=== PATIENT | female | born 1940 | race Caucasian/White ===

== ENCOUNTER 2019-10-18 19:54 | Emergency (ER) | payer BC, MEDICARE ==
[2019-10-18 20:37] LABS: #Basophils 0.1 thou/uL (0.0-0.2); #Eosinphils 0.1 thou/uL (0.0-0.7); #Lymphocytes 1.4 thou/uL (1.20-3.40); #Neutrophils 12.7 thou/uL (1.40-6.50); %Basophils 0.5 % (0.0-1.0); %Eosinophils 0.7 % (0.0-10.0); %Lymphocytes 9.1 % (21.0-51.0); %Monocytes 6.6 % (0.0-10.0); Hemoglobin 11.6 g/dL (12.0-16.0); Mean Corpuscular HGB CONC 33.4 g/dL (32.0-36.0); Mean Corpuscular Hemoglobin 30.8 pg (27.0-31.0); Mean Corpuscular Volume 92.2 fL (78.0-98.0); Mean Platelet Volume 9.2 fL (7.4-10.4); Platelet Count 293 thou/uL (130-400); RBC Distribution Width 14.8 % (11.5-14.5); Red Blood Cell (RBC) Count 3.78 mill/uL (4.20-5.40); White Blood Cell (WBC) Count 15.3 thou/uL (4.8-10.8)
--- NOTE | 2019-10-18 20:37 | RAD ---
XR Chest 1 View Portable HISTORY: High blood pressure COMPARISON: None FINDINGS: The heart size is normal. There are changes of median sternotomy. The aorta is tortuous. Pr ominent interstitial markings are likely chronic. The lungs are well expanded without focal areas of consolidation, pneumothorax or pleural effusions.
[2019-10-18 20:53] LABS: ALT (SGPT) 10 U/L (8-55); AST (SGOT) 18 U/L (5-34); Albumin 3.8 g/dL (3.4-4.8); Alkaline Phosphatase 102 U/L (40-110); Anion Gap 15 mmol/L (10-20); BUN (Urea Nitrogen) 39 mg/dL (9.8-20.1); Bilirubin, Total 0.4 mg/dL (0.2-1.2); Calc. Creatinine Clearance 0 mL/min (70-130); Calcium 9.2 mg/dL (7.8-10.44); Carbon Dioxide 24 mmol/L (23-31); Chloride 102 mmol/L (98-107); Estimated GFR-MDRD 19; Globulin 3.6 g/dL (2.4-3.5); Glucose 121 mg/dL (83-110); Potassium 4.1 mmol/L (3.5-5.1); Protein, Total 7.4 g/dL (6.0-8.3); Sodium 137 mmol/L (136-145)
== END 2019-10-18 21:31 | disposition home or self-care (01) ==
LOC: ERS 19:54
DX: I10 Essential (primary) hypertension (principal); N17.9 Acute kidney failure, unspecified
CPT/HCPCS: 36415; 71045; 80053; 83880; 84484; 85025; 93005; 94760

== ENCOUNTER 2019-10-23 16:47 | Inpatient (IN) | payer MEDICARE ==
[2019-10-23] MEDS ORDERED: Albuterol Sulfate 2.5 mg/3 ml Neb ONE (17:32)
[2019-10-23] MEDS ORDERED: Albuterol Sulfate 2.5 mg/0.5 ml Neb ONE (17:32)
[2019-10-23 17:44] LABS: #Basophils 0.1 thou/uL (0.0-0.2); #Eosinphils 0.2 thou/uL (0.0-0.7); #Lymphocytes 1.5 thou/uL (1.20-3.40); #Monocytes 0.7 thou/uL (0.11-0.59); %Basophils 0.3 % (0.0-1.0); %Eosinophils 1.2 % (0.0-10.0); %Lymphocytes 9.6 % (21.0-51.0); %Monocytes 4.5 % (0.0-10.0); %Neutrophils 84.4 % (42.0-75.0); Hemoglobin 11.5 g/dL (12.0-16.0); Mean Corpuscular HGB CONC 33.8 g/dL (32.0-36.0); Mean Corpuscular Hemoglobin 31.3 pg (27.0-31.0); Mean Corpuscular Volume 92.7 fL (78.0-98.0); Mean Platelet Volume 9.8 fL (7.4-10.4); Platelet Count 327 thou/uL (130-400); Red Blood Cell (RBC) Count 3.66 mill/uL (4.20-5.40); White Blood Cell (WBC) Count 15.4 thou/uL (4.8-10.8)
[2019-10-23 17:51] LABS: Actual Bicarbonate (HCO3a) 19.1 mEq/L (22-28); Analyzer IN Cardio ER; Base Excess (BEa) -3.8 mEq/L (-2.0 to +3.0); CO2 Tension 28.3 mmHg (35.0-45.0); Carboxyhemoglobin (COHb) 0.3 gm% (0.0-3.0); Hemoglobin (Hb) 11.4 g/dL (12.0-16.0); Potassium - ABG Lab 3.87 mmol/L (3.70-5.30); pH, Arterial 7.45 (7.35-7.45)
[2019-10-23 17:53] LABS: ALV-art Gradient 198.925 (0-20); O2 Tension (PaO2) 50.9 mmHg (> 70.0); Puncture Site RBA
--- NOTE | 2019-10-23 18:02 | RAD ---
Exam: Chest one view HISTORY:Dyspnea Comparison: 10/18/2019 FINDINGS: Cardiac silhouette:Normal cardiac silhouette. Stable sternotomy wires Aorta: Atherosclerosis Pulmonary vessels: Normal Costophrenic angles: Small bilateral effusions LUNGS: Bilateral perihilar interstitial and alveolar infiltrates with additional interstitial opaciti es scattered throughout the lung parenchyma. A component of edema or infiltrate superimposed upon chronic parenchymal changes are suspected. Mild hyperinflation. Pneumothorax: None Osseous abnormalities: None IMPRESSION: 1. COPD. Chronic lung parenchymal changes. 2. Atherosclerosis 3. Bilateral perihilar interstitial and alveolar infiltrates suggesting edema or infiltrate, superimp osed upon chronic change
[2019-10-23 18:06] LABS: ALT (SGPT) 27 U/L (8-55); AST (SGOT) 40 U/L (5-34); Albumin 3.7 g/dL (3.4-4.8); Alkaline Phosphatase 105 U/L (40-110); Anion Gap 17 mmol/L (10-20); BUN (Urea Nitrogen) 60 mg/dL (9.8-20.1); Bilirubin, Total 0.3 mg/dL (0.2-1.2); Calc. Creatinine Clearance 0 mL/min (70-130); Calcium 8.9 mg/dL (7.8-10.44); Carbon Dioxide 19 mmol/L (23-31); Chloride 104 mmol/L (98-107); Estimated GFR-MDRD 17; Globulin 3.5 g/dL (2.4-3.5); Glucose 139 mg/dL (83-110); Lipase 37 U/L (8-78); Potassium 3.9 mmol/L (3.5-5.1); Protein, Total 7.2 g/dL (6.0-8.3); Sodium 136 mmol/L (136-145)
[2019-10-23 18:13] LABS: Bacteria/HPF 1+ HPF (None Seen); Bilirubin Negative (Negative); Blood, Urine 2+ (Negative); Clarity Clear (Clear); Glucose, Urine (Dipstick) Normal (Negative); Leukocyte Negative Leu/uL (Negative); Nitrite Negative (Negative); Protein, Urine (Dipstick) 50 mg/dL (Neg-Trace); RBC/HPF Greater than 50 HPF (0-3); Squamous Epithelial None Seen HPF (0-3); Urobilinogen Normal mg/dL (Less than 2)
[2019-10-23] MEDS ORDERED: Furosemide 40 MG/4 ML VIAL ONE ×2 (18:22→22:04)
[2019-10-23] MEDS ORDERED: cefTRIAXone\\ROCEPHIN 2 GM VIAL ONE (18:22)
[2019-10-23] MEDS ORDERED: Dexamethasone 10 MG/ML VIAL ONE (18:22)
[2019-10-23] MEDS ORDERED: Nitroglycerin 2% Ointment 1 INCH/1 GM Packet ONE (18:22)
[2019-10-23] MEDS ORDERED: Magnesium 2 GM/50 ML BAG (IN WATER) ONE (18:22)
[2019-10-23 18:38] LABS: CKMB 1.6 ng/mL (0-6.6)
[2019-10-23] MEDS ORDERED: Azithromycin 500 MG VIAL ONE (19:12)
[2019-10-23] MEDS ORDERED: Enoxaparin Sodium 60 MG/0.6 ML SYRINGE ONE (19:13)
--- NOTE | 2019-10-23 19:44 | PDOC.FPRHP ---
- History of Present Illness Chief Complaint: dyspnea History of Present Illness: 79yo CF with h/o CAD s/p CABG in 2010, HTN presents for worsening of dyspnea over the past worse with acute worsening today. States has had recent addition of Coreg 6.125mg BID to her medication regime earlier this week when she presented to [facility] to establish care with Dr. Roberts. Presented to [facility] for eval today and subsequently sent to ED for eval. Pt states had had 1 week of sxs, acutely worsening. Associated LE edema. Tension NORTH relieved with chiropractor earlier in the day. No vision changes or scotomas, no CP, abd pain, n/v, diarrhea/constipation. Does endorse vaginal burning and urinary frequency without incontinence. Subjective fever and chills. Endorse orthopnea and PND over past few nights, having to sit complete upright to sleep. No known prior history of HF, lung disease, or kidney disease per pt. No recent travel or immobilization. No known sick contacts. ED Course: Initial BP 227/97, given nitropaste with improvement to 183/95. Initially satting 85% on RA, titrated to 10L NC and still satting 90 on RA. Transitioned to BiPap while interviewing patient. Given th lovenox dose. Unable to obtain CTA 2/2 GFR. Elevated D-dimer. Given Rocephin and Azithro. Lasix 40IV mg. Pt was given 2L NS in ED for suspected sepsis. Patient then continued to desat to mid-80s on escalation of BiPAP. Beside discussion with patient and son and confirmation of full code status it was decided patient warranted intubation. Pt was then intubated with Dr. Mckeon - see ED note for details. Post-intubation pt O2 responded well and she was placed on vent and transported to ICU in stable condition. - Allergies/Adverse Reactions Allergies Allergy/AdvReac Type Severity Reaction Status Date / Time clopidogrel Allergy Verified 10/23/19 19:22 lisinopril Allergy Verified 10/23/19 19:22 - Home Medications Medication Instructions Recorded Confirmed Type Aspirin [Ecotrin] 81 mg PO DAILY 10/23/19 10/23/19 History Carvedilol [Coreg] 3.125 mg PO BID 10/23/19 10/23/19 History Cholecalciferol (Vitamin D3) 1,250 mcg PO DAILY 10/23/19 10/23/19 History [Vitamin D3] Folic Acid 1.2 mg PO DAILY 10/23/19 10/23/19 History Ubidecarenone [Co Q-10] 100 mg PO BID 10/23/19 10/23/19 History - History PMHx: HLD, HTN, CAD s/p CABG in 2010 PSHx: CABG, L4/L5 fusion, Hyst, Appy FHx: Dad prostate cancer, brothers of lung cancer. Social: Previous 50+py smoking history, quit in 2010. No illicits or EtOH. Single. 1 child. - Review of Systems General: reports: fever/chills, fatigue. denies: weight/appetite/sleep changes Eyes: denies: vision changes ENT: denies: nasal congestion, rhinorrhea Respiratory: reports: shortness of breath, exercise intolerance. denies: cough , congestion Cardiovascular: reports: edema, paroxysmal nocturnal dyspnea, orthopnea. denies : chest pain, palpitation Gastrointestinal: denies: nausea, vomiting, diarrhea, constipation, abdominal pain Genitourinary: reports: dysuria, other (frequency). denies: incontinence Skin: denies: rashes Neurological: denies: numbness, syncope - Vital signs BP: 227/97 HR: 88 RR: 20 Tmax: 97.6 Pox: 85% on RA Wt: 56kg - Physical Exam Constitutional: awake, alert and oriented, other (frail, mild respiratory distress, about to talk in full sentences) HEENT: PERRLA, EOMI, grossly normal vision, grossly normal hearing, MMM, oropharynx clear Neck: supple, trachea midline Heart: RRR, normal S1/S2, no murmurs/rubs/gallops, other (1+ pitting edema to above ankles) Lungs: no wheezing, no retractions, other (mild respiratory distress, bibasilar crackles) Abdomen: soft, non-tender, bowel sounds present, no masses/distention Skin: no rash/lesions Psychiatric: normal mood and affect, good judgment and insight, intact recent and remote memory FMR H&P: Results - Labs Result Diagrams: 10/23/19 17:23 10/23/19 17:23 Lab results: WBC 15.4 thou/uL (4.8-10.8) H 10/23/19 17:23 Hgb 11.5 g/dL (12.0-16.0) L 10/23/19 17:23 Hct 34.0 % (36.0-47.0) L 10/23/19 17:23 MCV 92.7 fL (78.0-98.0) 10/23/19 17:23 Plt Count 327 thou/uL (130-400) 10/23/19 17:23 Neutrophils % 84.4 % (42.0-75.0) H 10/23/19 17:23 ABG pH 7.45 (7.35-7.45) 10/23/19 17:29 ABG pCO2 28.3 mmHg (35.0-45.0) L 10/23/19 17:29 ABG pO2 50.9 mmHg (> 70.0) L* 10/23/19 17:29 Sodium 136 mmol/L (136-145) 10/23/19 17:23 Potassium 3.9 mmol/L (3.5-5.1) 10/23/19 17:23 Chloride 104 mmol/L (98-107) 10/23/19 17:23 Carbon Dioxide 19 mmol/L (23-31) L 10/23/19 17:23 BUN 60 mg/dL (9.8-20.1) H 10/23/19 17:23 Creatinine 2.65 mg/dL (0.6-1.1) H 10/23/19 17:23 Glucose 139 mg/dL (83-110) H 10/23/19 17:23 Lactic Acid 1.3 mmol/L (0.5-2.2) 10/23/19 17:47 Calcium 8.9 mg/dL (7.8-10.44) 10/23/19 17:23 Total Bilirubin 0.3 mg/dL (0.2-1.2) 10/23/19 17:23 AST 40 U/L (5-34) H 10/23/19 17:23 ALT 27 U/L (8-55) 10/23/19 17:23 Alkaline Phosphatase 105 U/L (40-110) 10/23/19 17:23 Creatine Kinase 59 U/L (29-168) 10/23/19 17:23 CK-MB (CK-2) 1.6 ng/mL (0-6.6) 10/23/19 17:23 B-Natriuretic Peptide 1214.7 pg/mL (0-100) H 10/23/19 17:23 Serum Total Protein 7.2 g/dL (6.0-8.3) 10/23/19 17:23 Albumin 3.7 g/dL (3.4-4.8) 10/23/19 17:23 Lipase 37 U/L (8-78) 10/23/19 17:23 Urine Ketones Negative mg/dL (Negative) 10/23/19 17:38 Urine Blood 2+ (Negative) A 10/23/19 17:38 Urine Nitrite Negative (Negative) 10/23/19 17:38 Ur Leukocyte Esterase Negative Ashli/uL (Negative) 10/23/19 17:38 Urine RBC Greater than 50 HPF (0-3) A 10/23/19 17:38 Urine WBC 7-10 HPF (0-3) A 10/23/19 17:38 Ur Squamous Epith Cells None Seen HPF (0-3) 10/23/19 17:38 Urine Bacteria 1+ HPF (None Seen) A 10/23/19 17:38 - Radiology Interpretation Chest x-ray Status: image reviewed by me (hyperinflation suspect for COPD, bilarter pulmonary edema with no focal consolidation or effusion noted.), report reviewed by me FMR H&P: A/P - Problem List (1) Acute respiratory failure with hypoxia Current Visit: Yes Status: Acute Code(s): J96.01 - ACUTE RESPIRATORY FAILURE WITH HYPOXIA (2) Hypertensive emergency Current Visit: Yes Status: Acute Code(s): I16.1 - HYPERTENSIVE EMERGENCY (3) CHF (congestive heart failure) Current Visit: Yes Status: Suspected Code(s): I50.9 - HEART FAILURE, UNSPECIFIED (4) CAD (coronary artery disease) Current Visit: Yes Status: Chronic Code(s): I25.10 - ATHSCL HEART DISEASE OF [place] CORONARY ARTERY W/O ANG PCTRS Qualifiers: Coronary Disease-Associated Artery/Lesion type: bypass graft [place] vs. transplanted heart: [place] (5) HTN (hypertension) Current Visit: Yes Status: Chronic Code(s): I10 - ESSENTIAL (PRIMARY) HYPERTENSION Qualifiers: Hypertension type: essential hypertension Qualified Code(s): I10 - Essential (primary) hypertension - Plan 79yo CF with h/o CAD s/p CABG in 2010 and HTN presents for HTN emergency with pulmonary edema as well as suspected CHF exacerbation #Acute hypoxic Respiratory failure - 2/2 HTN emergency and suspected CHF exacerbation - Did not tolerate BiPap in ED, now intubated - Vent settings of 100% FiO2, 15 Peep, 15 PS, 20RR, and 450Tv. SIMV with PS - Will obtain ABG and titrate settings appropriately - Admit to ICU with Sedation protocol - CXR post-intubation with worsening BL pulm edema after 2L NS bolus in ED, ETT below clavicles, OG in place - Pulmonary consult, Dr. Costa, apprec recs - ED given azithro and rocephin for suspected sepsis 2/2 PNA, however pt did not meet sepsis criteria and no focal consolidation on CXR, low suspicion for PNA at this time, will d/c azithro and cont rocephin for suspected UTI - AM ABG and CXR #HTN emergency - SBP >220 on presentation - flash pulm edema as well as suspected acute kidney injury - Given nitro in ED with continued elevated BP - Place on Cardene gtt 5ml/hr and titrate to goal BP between 130/80 and 160/110 - Will start on Losartan 50mg daily, will need continued titration of PO meds #Suspected newly diagnosed CHF with exacerbation - contributing to the above - h/o CAD but no known history of CHF - BNP 1200 with BL LE edema, PNA, orthopnea, and crackles on exam - Given 40mg Lasix in ED, will given another 40mg IV lasix now and 20mg IV lasix BID starting tomorrow - Echo ordered - will risk stratify and add appropriate HF medications pending workup #Elevated Troponin, 2/2 demand ischemia - Trop 0.035, no acute EKG changes - will monitor on tele and trend trops - suspected 2/2 demand ischemia, HTN emergency, NAOMI on CKD, and CHF exacerbation #Elevated D-Dimer - D- dimer 2.62 - Wells scare 0 - low suspicion for PE, unable to obtain CTA 2/2 GFR - will order doppler US BL LE - suspect elevation 2/2 NAOMI, HTN emergency, CHF #NAOMI on suspected CKD - Cr 2.65 with GFR of 17 - unknown baseline with last labs in record from 2015 of normal renal function - suspected some component of NAOMI with HTN emergency, will diuresis and monitor - monitor and replace lytes as necessary #Suspected UTI - sxs of vaginal burning and frequency with chills - afebrile, no suprapubic tenderness on palpation - UA 1+ bacteria with WBC, negative LE and nitrites - given azithro and rocephin in ED, will cont rocephin 1g q24hr pending UCx #CAD s/p CABG - CABG in 2010 - Cont asa, allergy to plavix per pt (Rash and itching) - workup per above #Suspected COPD - Lungs with COPD changes on CXR - 50+py smoking history, quit in 2010 - likely benefit from outpatient spirometry #Normocytic Anemia - Hb 11.5 - suspecte anemia of chronic disease, will obtain B12 and iron studies - no s/s of acute bleed Lines/Tubes: King (10/23), Intubation (10/23), OG (10/23) Code: Full - discussed at length with pt and son at bedside. Son's name is Robbie Jones [phone] PCP: EDUARDO Roberts Diet: NPO VTE: Heparin IVF: SL Disposition/LOS: Admit to ICU for HTN emergency, intubation on Cardene gtt. Anticipate hospitalization >48hrs. FMR H&P: Upper Level - Pertinent history 79yo CF with h/o CAD s/p CABG in 2010,HTN, and HLD presents for worsening of dyspnea since Saturday. Patient states that she got acutely worse today. She walked in to clinic today to be evaluated. She was triaged and immediately sent to the Emergency Department. Patient states she had recent addition of Coreg 6.125 mg BID to her medication regimen and attributes her symptoms to these medication changes. She has only been seen at our clinic once. Patient denies chest pain, N/V. She does state that she has had lower extremity swelling. Patient denies known history of CHF. 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 Patient is single and has one son. She lives independently. - Pertinent findings General: Alert and oriented x3. Moderate respiratory distress on 10L NC. Able to speak in full sentences. HEENT: MMM. PERRL. Card: RRR, ANGELITA Resp: Bilateral basilar crackles, moderate respiratory distress on 10L NC. Abdomen: Soft, non-tender Ext: 1+ bilateral edema, no cyanosis Skin: Warm and dry - Plan Date/Time: 10/23/191943 I, Jaqueline Kingston, have evaluated this patient and agree with findings/plan as outlined by regulatory affairs internship resident. Pertinent changes/additions are listed here. Acute hypoxic respiratory failure 2/2 pulmonary edema - 2/2 HTN emergency - Patient with presenting BP of 227/97 and hypoxia of 85% on RA - Patient required NC, but was still having moderate respiratory distress on 10L NC, she was then transitioned to BiPAP. She did well on BiPAP for a short period of time. However, we did get called back down due to concerns for saturations in the 80's even on BiPAP. After discussion with patient, decision was made to intubate. Patient intubated with a 7.5 ETT using glidescope. OG placed. Patient placed on ventilator. ABG obtained. Able to get sats >95%. - Patient given 2L NS in ED due to suspected sepsis; our suspicion for sepsis is low and we requested additional fluids be stopped as patient with flash pulmonary edema as cause for respiratory distress; patient being diuresed aggressively. - Patient given nitro patch in ED. BP's still >160/110. Advised to remove nitro patch and place patient on nicardipine gtt with goal BP <160/110 and >130/80. - Obtain echo in AM to evaluate for HF - CXR with pulmonary edema consistent with clinical picture - Admit to CCU, ventilated and sedated - Will start patient on oral BP medications and attempt to titrate off the nicardipine drip - BNP 1200 - Concern for sepsis very low as only factors meeting sepsis criteria were WBC and RR. RR can be explained by pulmonary edema and WBC has been elevated at previous visit. Will cover for UTI with rocephin and obtain procal to further evaluate. Patient received 2L NS in ED for sepsis. Will need additional diuresis. CXR not c/w pneumonia. Patient afebrile with normal HR. - Initial concern for PE given elevated DDimer 2.26; Wells score for PE 0, so suspicion low. Unable to obtain CTA due to renal function. VQ scan would likely prove useless given pulmonary issues at this point. Will obtain bilateral venous dopplers to rule out DVT's. Patient received therapeutic lovenox in ED. Will start on heparin for DVT ppx tomorrow. - Procal pending HTN emergency - Start on nicardipine drip with goal BP <160/110 and >130/80 - Will start on oral BP meds with goal of titrating off drip - Remove nitro drip placed by ED - See plan as above Suspect new onset CHF - BNP 1200 - Echo pending - Will consult cardiology after echo results - Pulm, Dr. Costa has been consulted; appreciate recs Possible UTI - UA with LE's and 1+ bacteria - Urine culture pending - Will cover with rocephin until culture results Indeterminate troponin, likely demand ischemia - Will continue to trend - EKG with some twave inversions in inferior leads - No chest pain on arrival NAOMI on CKD - Uncertain of baseline - Likely has CKD stage 4 based on last two hospital visits - Patient would benefit from Nephrology evaluation - Avoid nephrotoxic agents Leukocytosis - Elevated at previous vist - Likely reactive - Will treat possible UTI with rocephin until cultures result Normocytic anemia - Will obtain iron studies and B12 CAD s/p CABG - Patient on Carvedilol, will hold while in acute exacerbation - Not on statin at home, will start statin therapy HLD - Not on statin therapy - Will start statin therapy - Will obtain FLP HTN - Only on carvedilol - Came in with HTN emergency - Will start on losartan due to suspicion for new onset HF - Adjust medications as necessary DVT PPX: Heparin GI PPX: Pepcid Code status: Full code, discussed with patient on several occasions, including just prior to intubation. Son present for discussion. Dispo: Admit to CCU. Anticipate LOS >48 hours.
[2019-10-23] MEDS ORDERED: Aspirin Chewable 81 MG TAB ONE (20:15)
[2019-10-23] MEDS ORDERED: Rocuronium Bromide 10 MG/ML (10ML VIAL) ONE ×2 (20:44→20:47)
[2019-10-23] MEDS ORDERED: Losartan 25 MG TAB PO SCH (21:00)
[2019-10-23 21:04] LABS: Troponin I 0.056 ng/mL (< 0.028)
--- NOTE | 2019-10-23 21:19 | RAD ---
Exam: Chest one view HISTORY:Status post intubation. Respiratory distress Comparison: 10/23/2019 5:27 PM FINDINGS: Cardiac silhouette:Normal cardiac silhouette and sternotomy wires. Aorta: Stable atherosclerosis Lines and tubes: Interval placement of endotracheal tube terminating at the level of clavicles. Nasog astric tube extends beyond the diaphragm. Distal tip is not seen. Pulmonary vessels: Normal Costophrenic angles: Clear LUNGS: Interval worsening of bilateral interstitial and alveolar opacities. More focal consolidation in the right perihilar region and right lower lobe. Pneumothorax: None Osseous abnormalities: None IMPRESSION: 1. Lines and tubes as above 2. Worsening interstitial and alveolar opacities. Transcribed Date/Time: 10/23/2019 9:48 PM
[2019-10-23] MEDS ORDERED: niCARdipine 25 MG in Sodium Chloride 0.9% 250 ML 240 ML IVPB SCH ×2 (21:45→23:02)
[2019-10-23 21:56] LABS: Actual Bicarbonate (HCO3a) 17.9 mEq/L (22-28); Analyzer IN Cardio ER; CO2 Tension 42.4 mmHg (35.0-45.0); Calcium, Ionized 1.11 mmol/L (1.12-1.30); Carboxyhemoglobin (COHb) 0.3 gm% (0.0-3.0); Hemoglobin (Hb) 12.3 g/dL (12.0-16.0); O2 Tension (PaO2) 88.7 mmHg (> 70.0); Potassium - ABG Lab 3.73 mmol/L (3.70-5.30)
[2019-10-23 21:59] LABS: Puncture Site RBA; pH, Arterial 7.24 (7.35-7.45)
--- NOTE | 2019-10-23 22:28 | PDOC.EVN ---
Event Note - Event Note Event Note: Received call that no ICU beds available at [facility]. Transfer to [facility] was initiated. Doc to doc with Dr. Catherine @ 1503 who accepted the patient. Pt will be transferred.
[2019-10-23] MEDS ORDERED: CCU Electrolyte Replacement 1 EACH IVPB ONE (23:02)
[2019-10-23] MEDS ORDERED: Ventilator Sedation Protocol 1 EACH FS SCH (23:02)
[2019-10-23] MEDS ORDERED: Acetaminophen 650 MG Suppository PR PRN (23:02)
[2019-10-23] MEDS ORDERED: Magnesium Oxide 400 MG TAB PO PRN ×2 (23:05)
[2019-10-23] MEDS ORDERED: Lorazepam 2 MG/ML VIAL SLOW IVP PRN (23:05)
[2019-10-23] MEDS ORDERED: CCU ELECTROLYTE REPLACEMENT PROTOCOL FS PRN (23:05)
[2019-10-23] MEDS ORDERED: Potassium Chloride 40 MEQ in Sodium Chloride 0.9% 250 ML 250 ML IVPB PRN (23:05)
[2019-10-23] MEDS ORDERED: PHOS-NAK 1 PKT PACK PO PRN ×2 (23:05)
[2019-10-23] MEDS ORDERED: Potassium Chloride 40 MEQ in Premix Bag 1 BAG IVPB PRN (23:05)
[2019-10-23] MEDS ORDERED: Potassium Phosphate 15 MMOL in Sodium Chloride 0.9% 250 ML 250 ML IV PRN (23:05)
[2019-10-23] MEDS ORDERED: Potassium Chloride 20 MEQ TAB PO PRN (23:05)
[2019-10-23] MEDS ORDERED: Potassium Phosphate 12 MMOL in Sodium Chloride 0.9% 250 ML 250 ML IV PRN (23:05)
[2019-10-23] MEDS ORDERED: fentaNYL Citrate/PF 2,000 MCG in Sodium Chloride 0.9% 60 ML IV SCH (23:05)
[2019-10-23] MEDS ORDERED: DISCONTINUE PREVIOUS NARCOTIC PAIN MEDICATIONS AND BENZODIAZEPINES FS SCH (23:05)
[2019-10-23] MEDS ORDERED: Magnesium 2 GM/50 ML 2 GM in Premix Bag 1 BAG IVPB PRN (23:05)
[2019-10-23] MEDS ORDERED: Fentanyl BOLUS 250 ML IVPB PRN (23:05)
[2019-10-23] MEDS ORDERED: Propofol BOLUS 1,000 MG/100 ML VIAL IV PRN (23:05)
[2019-10-23] MEDS ORDERED: Potassium Phosphate 9 MMOL in Sodium Chloride 0.9% 100 ML IVPB PRN (23:05)
[2019-10-23] MEDS ORDERED: Morphine 2 MG/ML SYRINGE SLOW IVP PRN (23:05)
[2019-10-23] MEDS ORDERED: Propofol 1,000 MG/100 ML VIAL IV PRN (23:05)
[2019-10-23] MEDS ORDERED: Furosemide 40 MG/4 ML VIAL SLOW IVP SCH (23:15)
[2019-10-23] MEDS ORDERED: Ubidecarenone 50 MG CAP PO SCH (23:30)
[2019-10-23 23:36] LABS: Hemoglobin A1c 5.4 % (4.0-6.0)
[2019-10-23 23:37] LABS: Iron Binding Capacity, Total 254 mcg/dL (265-497); Magnesium 2.3 mg/dL (1.6-2.6)
--- NOTE | 2019-10-24 00:11 | PDOC.EVN ---
Event Note - Event Note Event Note: ICU bed has became available. Transfer canceled. Pt to remain at [facility] for further management.
[2019-10-24] MEDS ORDERED: Propofol 1,000 MG/100 ML VIAL IV ONE (00:38)
[2019-10-24 01:55] LABS: Thyroid Stimulating Hormone 1.5271 uIU/mL (0.35-4.94)
[2019-10-24 02:58] LABS: Troponin I 0.153 ng/mL (< 0.028)
[2019-10-24 03:30] LABS: Anion Gap 16 mmol/L (10-20); BUN (Urea Nitrogen) 58 mg/dL (9.8-20.1); Calc. Creatinine Clearance 0 mL/min (70-130); Calcium 8.5 mg/dL (7.8-10.44); Carbon Dioxide 17 mmol/L (23-31); Cardiac Risk 5.3 (Less than 4.5); Chloride 109 mmol/L (98-107); Cholesterol 222 mg/dl (< 200 Desired); Estimated GFR-MDRD 19; Glucose 155 mg/dL (83-110); HDL Cholesterol 42 mg/dL (>60 Neg Risk); LDL Cholesterol, Calculated 160 mg/dL; Potassium 3.7 mmol/L (3.5-5.1); Sodium 138 mmol/L (136-145); Triglycerides 98 mg/dL (Less than 150)
[2019-10-24 03:32] LABS: Band 7 % (5-11); Hemoglobin 10.8 g/dL (12.0-16.0); Lymphocytes 2 % (21-51); MDiff Complete? YES; Mean Corpuscular Hemoglobin 31.2 pg (27.0-31.0); Mean Corpuscular Volume 94.6 fL (78.0-98.0); Mean Platelet Volume 9.2 fL (7.4-10.4); Monocytes 3 % (0-10); Neutrophil 88 % (42-75); Platelet Count 321 thou/uL (130-400); Red Blood Cell (RBC) Count 3.47 mill/uL (4.20-5.40); Schistocytes SLIGHT = 2-5 cells (100X) (0-1/hpf); White Blood Cell (WBC) Count 27.3 thou/uL (4.8-10.8)
[2019-10-24] MEDS: Atorvastatin Calcium 40 MG TAB PO SCH ×2 (04:36→22:17)
[2019-10-24 04:52] LABS: Ferritin 168.95 ng/mL (10-291)
--- NOTE | 2019-10-24 05:20 | PDOC.FM ---
- Subjective Subjective: No acute events overnight. BP improved with propofol. She denies any tearing or stabbing chest pain on admission - Objective MAR Reviewed: Yes Vital Signs & Weight: Vital Signs (12 hours) Temp Pulse Resp 10/24/19 03:50 73 10/24/19 02:06 72 10/24/19 01:20 98.6 F 10/24/19 01:18 24 H Weight Admit Weight 57.8 kg I&O: 10/22/19 10/23/19 10/24/19 06:59 06:59 06:59 Output Total 1125 Balance -1125 Result Diagrams: 10/24/19 02:25 10/24/19 02:25 Phys Exam - Physical Examination Constitutional: NAD GCS [id number] HEENT: PERRLA, moist MMs Neck: no JVD Coarse lung sounds, no crackles, no wheezing Cardiovascular: RRR, no significant murmur Gastrointestinal: soft, no distention, positive bowel sounds Musculoskeletal: no edema, pulses present Neurological: normal sensation, moves all 4 limbs Skin: cap refill <2 seconds Dx/Plan (1) Acute respiratory failure with hypoxia Code(s): J96.01 - ACUTE RESPIRATORY FAILURE WITH HYPOXIA Status: Acute (2) Hypertensive emergency Code(s): I16.1 - HYPERTENSIVE EMERGENCY Status: Acute (3) CAD (coronary artery disease) Code(s): I25.10 - ATHSCL HEART DISEASE OF [place] CORONARY ARTERY W/O ANG PCTRS Status: Chronic Qualifiers: Coronary Disease-Associated Artery/Lesion type: bypass graft [place] vs. transplanted heart: [place] heart (4) CHF (congestive heart failure) Code(s): I50.9 - HEART FAILURE, UNSPECIFIED Status: Suspected - Plan Plan: This is a 79 yo female with a pmh of CAD with CABG, MV regurg, HLD, HTN Hospital Day 1 Code: Full DVT Prophylaxis: Heparin GI Prophylaxis: Pepcid Family: None at bedside Fluids: SL Drips:Propofol 5mcg/kg/hr Plastic: OG/ET tube, freire, IV left forearm Vent Settings: SIMV 24/min, TV 450, PS 12, FIO2 80, Peep 10 Plan: Diurese and wean off vent. Pt needs improvement in her BP control before discharge. Needs stress test before discharge Acute hypoxic respiratory failure 2/2 flash pulmonary edema -Intubated on the floor, continue vent and respiratory support -Start IV lasix -Dr. Costa, pulmonology consulted -Pending AM CXR HTN emergency -In ICU on cardene drip -Continue home PO meds -Continue losartan -Goal SBP 130-160, goal DBP 80-110 Elevated BNP, possible new onset heart failure -Pending Echo -Receiving lasix Elevated troponins -Likely demand ischemia, no EKG changes -Will need stress test once stabilized Elevated D-Dimer -Wells score 0 -Low suspicion for PE -CXR does not show widened mediastinum, although it may be worth getting a CT chest if pt has chest pain -Pending lower extremity doppler NAOMI VS CKD -No recent data to compare -Likely related to severe HTN -Will monitor, already improving UTI -Pending urine culture -Continue rocphin CAD s/p CABG -Continue asa, work up as above Undiagnosed COPD -Long standing smoking history -Will add neb treatments as clinically indicated Normocytic anemia
[2019-10-24 06:43] LABS: Actual Bicarbonate (HCO3a) 19.2 mEq/L (22-28); Base Excess (BEa) -3.8 mEq/L (-2.0 to +3.0); Calcium, Ionized 1.11 mmol/L (1.12-1.30); Carboxyhemoglobin (COHb) 0.7 gm% (0.0-3.0); Hemoglobin (Hb) 10.2 g/dL (12.0-16.0); O2 Tension (PaO2) 190.8 mmHg (> 70.0); Potassium - ABG Lab 3.86 mmol/L (3.70-5.30); pH, Arterial 7.45 (7.35-7.45)
[2019-10-24 06:49] LABS: Puncture Site RBRACH
[2019-10-24] MEDS: Furosemide 20 MG/2 ML VIAL SLOW IVP SCH ×2 (06:54→14:03)
[2019-10-24 07:55] LABS: Troponin I 0.152 ng/mL (< 0.028)
[2019-10-24] MEDS ORDERED: Amlodipine 5 MG TAB PO SCH (09:00)
[2019-10-24] MEDS: Famotidine/PF 20 mg/2ml Vial SLOW IVP SCH (09:52)
[2019-10-24] MEDS: Aspirin 81 mg Enteric Coated Tablet PO SCH (09:52)
[2019-10-24] MEDS: Folic Acid 1 MG TAB PO SCH (09:53)
[2019-10-24] MEDS: Ubidecarenone 50 MG CAP PO SCH ×2 (09:53→22:17)
[2019-10-24] MEDS: Heparin 5,000 UNITS/ML VIAL SC SCH ×3 (09:53→22:17)
[2019-10-24] MEDS: Carvedilol 3.125 MG TAB PO SCH ×2 (09:53→22:18)
--- NOTE | 2019-10-24 09:56 | ULT ---
BILATERAL LOWER EXTREMITY VENOUS DOPPLER ULTRASOUND: 10/24/2019 HISTORY: Elevated D-dimer. COMPARISON: None. TECHNIQUE: Multiplanar, patterson-scale sonographic imaging of the venous structures of the bilateral lower extremiti es obtained with color-flow and spectral analysis. FINDINGS: The bilateral common femoral veins, the greater saphenous veins, the profunda femoral veins, the femo ral veins, the popliteal veins and the posterior tibial veins are patent. Normal blood flow augmentat ion and compression within the deep venous system bilaterally. IMPRESSION: No evidence for deep venous thrombosis of either lower extremity. POS: [facility]
--- NOTE | 2019-10-24 11:27 | RAD ---
SEMIUPRIGHT FRONTAL CHEST RADIOGRAPH: 10/24/2019 HISTORY: Evaluate lung parenchyma. Respiratory distress. COMPARISON: 10/23/2019 FINDINGS: Stable endotracheal tube and nasogastric tube. Heart and mediastinal contours are stable. Stable midl ine sternotomy wires and mediastinal clips. There is no pneumothorax evident. Diffuse interstitial prominence with pulmonary vascular congestion noted. There is mild infrahilar ai r space disease on the left. Aeration within the left lung has improved significantly when compared t o the prior exam. There is significant persistent air space disease within the right upper lobe with persistent right perihilar and right infrahilar consolidation with air bronchogram formation. IMPRESSION: Findings suggesting improving interstitial and alveolar pulmonary edema. The improvement is primarily within the left lung with prominent residual interstitial and alveolar opacity within the right lung . Findings suggest improving edema. Followup to resolution advised. POS: [facility]
--- NOTE | 2019-10-24 15:51 | PRG ---
DATE OF SERVICE: 10/24/2019 Please see the note from Dr. Taylor, for which I agree. The patient was seen, evaluated, discussed, and examined with the residents by bedside. Overnight, ended up getting emergently intubated for worsening respiratory distress, but really after diuresis, she is doing phenomenally better. Lungs sound good, wonder if we might be able to even consider extubation today, but Pulmonary is involved with that. Echocardiogram is still pending. She is on Rocephin for UTI, but exam looks good today, not much crackles. Overall good air movement. She was very awake and alert and communicative even while intubated and seems to be breathing fairly comfortably on exam. Job ID: [id number]
[2019-10-24] MEDS: cefTRIAXone\\ROCEPHIN 1 GM in Sodium Chloride 0.9% 100 ML IVPB SCH (16:39)
--- NOTE | 2019-10-24 21:40 | CON ---
DATE OF CONSULTATION: 10/24/2019 HISTORY OF PRESENT ILLNESS: Ms. Tate is a woman, who presented yesterday to the emergency department with complaints of shortness of breath. Apparently, she was initially hydrated and then got worse and was intubated and then was diuresed. She had diffuse alveolar infiltrates on her first radiograph suggestive of pulmonary edema. An echocardiogram was done today showing an ejection fraction of 40%, which is apparently new. She has [id number]-[id number] mitral regurgitation as well. She diuresed overnight and her left lung is clear, but she still has a fairly dense alveolar infiltrate on the right. She will awaken and follow commands with all of her extremities and nodded that she was reasonably comfortable. PAST MEDICAL HISTORY: Remarkable for; 1. Coronary artery bypass grafting in the past. 2. History of hypertension. 3. History of lumbar spine surgery. 4. Status post hysterectomy. 5. Status post appendectomy. FAMILY HISTORY: Positive for cancer. SOCIAL HISTORY: She is a former smoker, quit in 2010 presumably when she had her bypass surgery. She does not drink. REVIEW OF SYSTEMS: Not obtainable. PHYSICAL EXAMINATION: GENERAL: In the emergency department apparently she was extremely hypertensive. VITAL SIGNS: When I saw her this morning, blood pressure was fine. This evening, her blood pressure is 128/68, heart rate 66, respiratory rate is 22. HEAD AND NECK: Unremarkable. She appears her age. LUNGS: Remarkable for coarse equal breath sounds. She does have crackles on the right. HEART: Regular rhythm. There is grade 1 to 2/6 systolic murmur. ABDOMEN: Soft and nontender. EXTREMITIES: Without clubbing, cyanosis, or edema. LABORATORY DATA: White count 27.3, hemoglobin 10.8, platelets 321. Sodium 138, potassium 3.7, chloride 109, bicarb 17, BUN 58, creatinine 2.48. Creatinine is 2.65 yesterday. IMPRESSION: 1. Congestive heart failure. 2. Respiratory failure. 3. Chronic kidney disease with improved renal function today. 4. History of coronary artery bypass grafting in 2010, does not look like she has been in the hospital since that time. 5. Congestive heart failure is new. It would be appropriate to get Cardiology involved since this is new congestive heart failure that led to intubation. CRITICAL CARE TIME: 30 minutes. Job ID: [id number] [facility]
[2019-10-25 03:49] LABS: #Lymphocytes 2.3 thou/uL (1.20-3.40); #Neutrophils 11.3 thou/uL (1.40-6.50); %Basophils 0.3 % (0.0-1.0); %Eosinophils 0.3 % (0.0-10.0); %Lymphocytes 15.5 % (21.0-51.0); %Monocytes 6.7 % (0.0-10.0); %Neutrophils 77.2 % (42.0-75.0); Hemoglobin 8.3 g/dL (12.0-16.0); Mean Corpuscular HGB CONC 34.1 g/dL (32.0-36.0); Mean Corpuscular Hemoglobin 31.7 pg (27.0-31.0); Mean Corpuscular Volume 92.8 fL (78.0-98.0); Mean Platelet Volume 9.9 fL (7.4-10.4); Platelet Count 255 thou/uL (130-400); RBC Distribution Width 14.9 % (11.5-14.5); Red Blood Cell (RBC) Count 2.61 mill/uL (4.20-5.40); White Blood Cell (WBC) Count 14.6 thou/uL (4.8-10.8)
[2019-10-25 04:10] LABS: Anion Gap 17 mmol/L (10-20); BUN (Urea Nitrogen) 69 mg/dL (9.8-20.1); Calc. Creatinine Clearance 14 mL/min (70-130); Calcium 8.3 mg/dL (7.8-10.44); Carbon Dioxide 19 mmol/L (23-31); Chloride 109 mmol/L (98-107); Estimated GFR-MDRD 15; Glucose 98 mg/dL (83-110); Potassium 3.6 mmol/L (3.5-5.1); Sodium 141 mmol/L (136-145)
[2019-10-25] MEDS: Furosemide 20 MG/2 ML VIAL SLOW IVP SCH (05:51)
--- NOTE | 2019-10-25 05:58 | PDOC.FM ---
- Subjective Subjective: No acute events overnight. Pt nods that she is doing ok and denies any needs at this time. - Objective MAR Reviewed: Yes Vital Signs & Weight: Vital Signs (12 hours) Temp Pulse Resp 10/25/19 02:23 58 L 10/25/19 00:26 57 L 10/25/19 00:00 98.3 F 20 10/24/19 22:00 20 10/24/19 21:59 67 10/24/19 20:00 20 10/24/19 19:00 98.5 F 10/24/19 18:19 67 10/24/19 18:00 20 Weight Admit Weight 57.8 kg Weight 57.062 kg Most Recent Monitor Data Heart Rate from ECG 61 NIBP 115/55 NIBP BP-Mean 75 Respiration from ECG 20 SpO2 100 I&O: 10/23/19 10/24/19 10/25/19 06:59 06:59 06:59 Intake Total 20.9 143 Output Total 1275 1325 Balance -1254.1 -1182 Result Diagrams: 10/25/19 03:15 10/25/19 03:15 Phys Exam - Physical Examination Constitutional: NAD intubated HEENT: PERRLA, moist MMs Neck: no JVD Respiratory: no wheezing, clear to auscultation bilateral minimal crackles in the bases Cardiovascular: RRR, no significant murmur Gastrointestinal: soft, no distention, positive bowel sounds Musculoskeletal: no edema, pulses present Neurological: moves all 4 limbs Psychiatric: normal affect Skin: cap refill <2 seconds Dx/Plan (1) Acute respiratory failure with hypoxia Code(s): J96.01 - ACUTE RESPIRATORY FAILURE WITH HYPOXIA Status: Acute (2) Hypertensive emergency Code(s): I16.1 - HYPERTENSIVE EMERGENCY Status: Acute (3) CAD (coronary artery disease) Code(s): I25.10 - ATHSCL HEART DISEASE OF [place] CORONARY ARTERY W/O ANG PCTRS Status: Chronic Qualifiers: Coronary Disease-Associated Artery/Lesion type: bypass graft [place] vs. transplanted heart: [place] heart (4) CHF (congestive heart failure) Code(s): I50.9 - HEART FAILURE, UNSPECIFIED Status: Suspected - Plan Plan: This is a 79 yo female with a pmh of CAD with CABG, MV regurg, HLD, HTN Hospital Day 2 Code: Full DVT Prophylaxis: Heparin GI Prophylaxis: Pepcid Family: None at bedside Fluids: SL Drips:Propofol 5mcg/kg/hr Plastic: OG/ET tube, freire, IV left forearm Vent Settings: SIMV 24/min, TV 450, PS 12, FIO2 80, Peep 10 Plan: wean off vent. Pt needs improvement in her BP control before discharge. Needs stress test before discharge Acute hypoxic respiratory failure 2/2 flash pulmonary edema, improving -Intubated on the floor, continue vent and respiratory support -Dr. Costa, pulmonology consulted -Pending AM CXR HTN emergency, resolved -Continue home PO meds Elevated BNP, possible new onset heart failure -Echo shows LVEF 40-45% and 1/3 diastolic dysfunction -Will consult cardiology today for evaluation Elevated troponins -Likely demand ischemia, no EKG changes -Will need stress test once stabilized Elevated D-Dimer -Wells score 0 -Low suspicion for PE -CXR does not show widened mediastinum, although it may be worth getting a CT chest if pt has chest pain -Pending lower extremity doppler NAOMI VS CKD -No recent data to compare -Likely related to severe HTN -Will monitor, slight worsening today. May represent over diuresis vs her kidneys not use to lower BP. Will hold amlodipine and lasix. Negative fluid balance of 2500ml UTI -Pending urine culture, NGTD -Continue rocphin, will DC tomorrow as it will have been 4 days CAD s/p CABG -Continue asa, work up as above Undiagnosed COPD -Long standing smoking history -Will add neb treatments as clinically indicated Normocytic anemia, worsening -No apparent bleeding, will monitor
[2019-10-25] MEDS ORDERED: Amiodarone 150 MG in Dextrose 5% in Water 100 ML IVPB SCH (08:00)
[2019-10-25] MEDS: Amiodarone 450 MG in Dextrose 5% in Water 250 ML IVPB SCH ×2 (08:13→16:03)
[2019-10-25] MEDS: Ubidecarenone 50 MG CAP PO SCH ×2 (09:54→20:21)
[2019-10-25] MEDS: Aspirin 81 mg Enteric Coated Tablet PO SCH (09:54)
[2019-10-25] MEDS: Famotidine/PF 20 mg/2ml Vial SLOW IVP SCH (09:54)
[2019-10-25] MEDS: Carvedilol 3.125 MG TAB PO SCH ×2 (09:56→20:15)
[2019-10-25] MEDS: Folic Acid 1 MG TAB PO SCH (09:56)
[2019-10-25] MEDS: Heparin 5,000 UNITS/ML VIAL SC SCH ×2 (09:57→15:10)
--- NOTE | 2019-10-25 12:25 | PRG ---
DATE OF SERVICE: 10/25/2019 Please see the note from Dr. Aleksey Taylor, for which I agree. The patient is seen, evaluated, discussed, and examined with the residents by bedside. Basically, still intubated. Total of 2.5 L diuresed and she has been here. Her creatinine bumped up to 3, although it sounds like baseline is definitely elevated. Echo showed an ejection fraction of 40% during the Cardiology involved with systolic congestive heart failure. We will see what Pulmonary says, if they want to consider weaning today or not as her lungs sound really good. We are going to decrease the Lasix. I think we maybe a little bit over diuresing her right now and getting a automotive technician input as well. Job ID: [id number]
[2019-10-25] MEDS: cefTRIAXone\\ROCEPHIN 1 GM in Sodium Chloride 0.9% 100 ML IVPB SCH (15:10)
--- NOTE | 2019-10-25 15:31 | CON ---
DATE OF CONSULTATION: 10/24/2019 REASON FOR CONSULTATION: Heart failure. HISTORY OF PRESENT ILLNESS: Ms. Tate is a pleasant 79-year-old white female, who comes to the hospital for shortness of breath. She noticed for the past week she had increased lower extremity edema and headache. Blood pressure was much higher than normal, started having PND and orthopnea, ended up coming to the hospital as symptoms were just getting worse. She had to be intubated to protect her airways. She was very hypoxic. On admission, her blood pressure was 227/97. She was initially placed on a BiPAP, but we could not get her sats above 80s, so she was intubated after it was confirmed that she was a full code. On my evaluation, Ms. Tate is intubated, but wide awake and following commands. PAST MEDICAL HISTORY: 1. Hyperlipidemia. 2. Hypertension. 3. CAD status post CABG in 2010. PAST SURGICAL HISTORY: 1. CABG in 2010. 2. L4-L5 fusion. 3. Hysterectomy. 4. Appendectomy. FAMILY HISTORY: Noncontributory for this scenario. SOCIAL HISTORY: A [id number] smoking history, but quit in 2010 after her bypass. No alcohol or drug use. OUTPATIENT MEDICATIONS: 1. Aspirin 81 a day. 2. Coreg 3.125 b.i.d. 3. Vitamin D3. 4. Folic acid. 5. CoQ10. ALLERGIES: CLOPIDOGREL AND LISINOPRIL. REVIEW OF SYSTEMS: Unobtainable as the patient is intubated. PHYSICAL EXAMINATION: VITAL SIGNS: Temperature 98.2, pulse 63, respiratory rate 20, and satting 98% on 40% FiO2. GENERAL: Awake and alert, following commands. NECK: Supple. LUNGS: Crackles and coarse anteriorly. CARDIOVASCULAR: Distant heart sounds, but S1 and S2. Grade 3/6 systolic murmur at the right upper sternal border. ABDOMEN: Soft. EXTREMITIES: 1+ edema. SKIN: Warm and dry. LABORATORY DATA: Laboratory work was reviewed. White count of 15 up to 27, hemoglobin 11 down to 10, and platelet count of 327. D-dimer was high. ABG was reviewed. Chemistries were reviewed. Creatinine at 2.48, down from 2.65. Troponin was 0.09, 0.15, and 0.15. BNP was 1214. UA had 2+ blood, greater than 50 red cells, 7-10 white cells, 1+ bacteria. Chest x-ray was reviewed, appears to be in heart failure with a right infiltrate. Lower extremity venous ultrasound shows no evidence of DVT. Echocardiogram was reviewed and it shows an EF of 45% to 50% with dysfunction, [id number] MR, mild TR, but normal right ventricular systolic pressures. ASSESSMENT: 1. Vdcrj-ky-eovihnn systolic and diastolic heart failure. 2. Acute hypoxic respiratory insufficiency. 3. Possible right lower lobe pneumonia. 4. Coronary artery disease status post coronary artery bypass graft in 2010. Stable. No evidence of acute coronary syndrome at this time. PLAN: 1. Continue supportive care. 2. IV Lasix for diuresis. 3. Ventilator wean by Pulmonary, not weanable at this time. 4. May have a component of septic shock and that may be why her blood pressure is currently coming down as it was very elevated when she originally came in. 5. Would provide continued gentle diuresis as much as blood pressure will allow. If blood pressure starts to become an issue, would favor Levophed over any other pressors or inotropic medication. Thank you for letting us to participate in the care of this patient. 60 minutes critical care time. Job ID: [id number]
--- NOTE | 2019-10-25 16:11 | PDOC.CPN ---
- Subjective Date: 10/25/19 Time: 16:09 Interval history: Remains intubated and sedated. Went into Afib and has converted to sinus since. - Review of Systems ROS unobtainable: due to endotracheal tube - Objective Allergies/Adverse Reactions: Allergies Allergy/AdvReac Type Severity Reaction Status Date / Time clopidogrel Allergy Verified 10/23/19 19:22 lisinopril Allergy Verified 10/23/19 19:22 Visit Medications: Current Medications Acetaminophen (Tylenol) 650 mg PO Q4H PRN PRN Reason: Headache/Fever/Mild Pain (1-3) Acetaminophen (Tylenol) 650 mg VT Q4H PRN PRN Reason: Headache/Fever/Mild Pain (1-3) Aspirin (Ecotrin) 81 mg PO DAILY [facility] Last Admin: 10/25/19 09:54 Dose: 81 mg Atorvastatin Calcium (Lipitor) 40 mg PO HS [facility] Last Admin: 10/24/19 22:17 Dose: 40 mg Carvedilol (Coreg) 3.125 mg PO BID [facility] Last Admin: 10/25/19 09:56 Dose: 3.125 mg Cholecalciferol (Vitamin D3) 1,250 units PO DAILY [facility] Last Admin: 10/25/19 10:42 Dose: 1,250 units Coenzyme Q10 (Coenzyme Q10) 100 mg PO BID [facility] Last Admin: 10/25/19 09:54 Dose: 100 mg Famotidine (Pepcid) 20 mg SLOW IVP DAILY [facility] Last Admin: 10/25/19 09:54 Dose: 20 mg Folic Acid (Folvite) 1 mg PO DAILY [facility] Last Admin: 10/25/19 09:56 Dose: 1 mg Heparin Sodium (Porcine) (Heparin) 5,000 units SC TID [facility] Last Admin: 10/25/19 15:10 Dose: 5,000 units Ceftriaxone Sodium 1 gm/ (Sodium Chloride) 100 mls @ 200 mls/hr IVPB 1700 [facility] Last Admin: 10/25/19 15:10 Dose: 100 mls Nicardipine HCl 25 mg/ Sodium (Chloride) 250 mls @ 0 mls/hr IVPB INF [facility]; Protocol Fentanyl Citrate 2,000 mcg/ (Sodium Chloride) 100 mls @ 0 mls/hr IV INF [facility]; Protocol Stop: 11/22/19 23:05 Fentanyl Citrate (Fentanyl Bolus) 250 mls @ 0 mls/hr IVPB PRN PRN PRN Reason: Breakthrough pain/agitation Stop: 11/22/19 23:05 Potassium Chloride 40 meq/ (Sodium Chloride) 270 mls @ 135 mls/hr IVPB ASDIR PRN PRN Reason: FOR SERUM K+ 2.5 - 3.5 Potassium Chloride 40 meq/ (Device) 100 mls @ 50 mls/hr IVPB ASDIR PRN PRN Reason: FOR SERUM K+ 2.5 - 3.5 Magnesium Sulfate 1 gm/ Sodium (Chloride) 102 mls @ 102 mls/hr IV PRN PRN PRN Reason: MAG LEVEL 1.4 - 2.0 Magnesium Sulfate 2 gm/ Device 50 mls @ 50 mls/hr IVPB ASDIR PRN PRN Reason: MAGNESIUM < 1.4 Potassium Phosphate 9 mmol/ (Sodium Chloride) 103 mls @ 25.75 mls/hr IVPB ASDIR PRN PRN Reason: Phosphate 1.0-1.8 Potassium Phosphate 12 mmol/ (Sodium Chloride) 254 mls @ 63.5 mls/hr IV ASDIR PRN PRN Reason: Serum phosphate 0.5-0.9 Potassium Phosphate 15 mmol/ (Sodium Chloride) 255 mls @ 63.75 mls/hr IV ASDIR PRN PRN Reason: Serum Phos < 0.5 Amiodarone HCl 450 mg/ (Dextrose/Water) 259 mls @ 0 mls/hr IVPB INF [facility]; Protocol Last Admin: 10/25/19 08:13 Dose: 259 mls Dexmedetomidine HCl 200 mcg/ (Sodium Chloride) 50 mls @ 0 mls/hr IVPB INF [facility]; Protocol Last Admin: 10/25/19 11:56 Dose: 50 mls Lorazepam (Ativan) 2 mg SLOW IVP Q1H PRN PRN Reason: Breakthrough agitation Stop: 11/22/19 23:05 Magnesium Oxide (Magnesium Oxide) 400 mg PO BIDPRN PRN PRN Reason: FOR SERUM MAG 1.4 - 2.0 Magnesium Oxide (Magnesium Oxide) 800 mg PO PRN PRN PRN Reason: FOR SERUM MAG < 1.4 Miscellaneous Medication (Phos-Nak) 1 pkt PO TIDPRN PRN PRN Reason: FOR PHOS LEVEL 1.0 - 1.8 Miscellaneous Medication (Phos-Nak) 2 pkt PO TIDPRN PRN PRN Reason: FOR PHOS LEVEL 0.5 - 1.0 Morphine Sulfate (Morphine) 2 mg SLOW IVP Q1H PRN PRN Reason: BREAKTHROUGH PAIN/Agitation Stop: 11/22/19 23:05 Discontinue Previous Narcotic Pain Medications And Benzodiazepines 1 each FS .ONE [facility] Stop: 11/22/19 23:05 Ccu Electrolyte (Replacement Protocol) 0 each FS PRN PRN PRN Reason: FOR ELECTROLYTE REPLACEMENT Potassium Chloride (K-Dur) 40 meq PO ASDIR PRN PRN Reason: FOR SERUM K+ 2.5 - 3.5 Potassium Chloride (Klor-Con) 40 meq PER TUBE ASDIR PRN PRN Reason: FOR SERUM K+ 2.5-3.5 Propofol (Diprivan) 1,000 mg IV INF PRN; Protocol PRN Reason: TO ACHIEVE GOAL RASS Stop: 11/22/19 23:05 Last Admin: 10/24/19 18:30 Dose: 1,000 mg Propofol (Diprivan Bolus) 20 mg IV Q5MIN PRN PRN Reason: BREAKTHROUGH AGITATION Stop: 11/22/19 23:05 Sodium Chloride (Flush - Normal Saline) 10 ml IVF PRN PRN PRN Reason: Saline Flush Vital Signs & Weight: Vital Signs Pulse Resp Pulse Ox 10/25/19 14:34 57 L 10/25/19 14:00 14 10/25/19 12:00 20 10/25/19 10:46 62 10/25/19 10:00 20 10/25/19 08:00 20 10/25/19 07:29 96 10/25/19 06:00 20 Admit Weight 127 lb 6.835 oz Weight 125 lb 12.8 oz - Physical Exam General: other (S/I) HEENT: normocephaly Neck: supple neck Cardiac: regular rate and rhythm Lungs: bibasilar rales Neuro: no lateralizing findings Abdomen: active bowel sounds Extremities: no edema Skin: clear Musculoskeletal: normal range of motion - Labs Result Diagrams: 10/25/19 03:15 10/25/19 03:15 Troponin/CKMB CK-MB (CK-2) 1.6 ng/mL (0-6.6) 10/23/19 17:23 Troponin I 0.152 ng/mL (< 0.028) H 10/24/19 07:20 - Telemetry Sinus rhythms and dysrhythmias: sinus rhythm Supraventricular conduction: atrial fibrillation - Assessment/Plan Assessment/Plan: 1. Acute on chronic systolic heart failure. 2. RLL pneumonia. 3. 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 Paroxysmal afib PLAN: - Continue amiodarone drip - Hold diuresis for now. - Full anticoagulation would be recommended with a CHADS VASc score of at least 3 but on hold as she dropped Hgb overnight. - Critical Care Time Critical care time (mins): 30
--- NOTE | 2019-10-25 17:20 | PRG ---
DATE OF SERVICE: 10/25/2019 SUBJECTIVE: Ms. Tate is awake and she follows commands. She moves all her extremities. I explained to her that she is not quite ready to come off mechanical ventilation. She is still intermittently tachycardic. OBJECTIVE: VITAL SIGNS: Blood pressure 129/55, respiratory rates in the teens, heart rates in the 50s. LUNGS: Remarkable for crackles at both lung bases. HEART: Regular rhythm. She was transiently in atrial fibrillation with a rapid rate. ABDOMEN: Soft and nontender. EXTREMITIES: Without edema. LABORATORY DATA: There is no chest x-ray today. White count 14.6, hemoglobin 8.3, platelets 255. Sodium 141, potassium 3.6, chloride 109, bicarb 19, BUN 69, creatinine 3.08. IMPRESSION: New onset congestive heart failure. Probably aggravated by intermittent atrial fibrillation leading up to this admission. Order a radiograph again tomorrow. At this point in time, she appears to be intravascularly dry, so would not continue to aggressively diurese her. I agree to continue with antimicrobial therapy as some of her infiltrate might be infection mediated. We will follow the other physicians caring for as well. CRITICAL CARE TIME: 30 minutes. Job ID: [id number]
[2019-10-25] MEDS: Atorvastatin Calcium 40 MG TAB PO SCH (20:21)
[2019-10-25 20:32] LABS: Hemoglobin 8.5 g/dL (12.0-16.0); Platelet Count 253 thou/uL (130-400)
[2019-10-26 04:37] LABS: Anion Gap 16 mmol/L (10-20); BUN (Urea Nitrogen) 69 mg/dL (9.8-20.1); Calc. Creatinine Clearance 13 mL/min (70-130); Calcium 8.4 mg/dL (7.8-10.44); Carbon Dioxide 21 mmol/L (23-31); Chloride 109 mmol/L (98-107); Estimated GFR-MDRD 14; Glucose 97 mg/dL (83-110); Potassium 3.4 mmol/L (3.5-5.1); Sodium 143 mmol/L (136-145)
[2019-10-26 05:22] LABS: Band 2 % (5-11); Hemoglobin 8.1 g/dL (12.0-16.0); Lymphocytes 9 % (21-51); MDiff Complete? YES; Mean Corpuscular HGB CONC 33.2 g/dL (32.0-36.0); Mean Corpuscular Hemoglobin 31.2 pg (27.0-31.0); Mean Platelet Volume 10.2 fL (7.4-10.4); Monocytes 6 % (0-10); Neutrophil 83 % (42-75); Platelet Count 250 thou/uL (130-400); RBC Distribution Width 14.9 % (11.5-14.5); Red Blood Cell (RBC) Count 2.58 mill/uL (4.20-5.40); White Blood Cell (WBC) Count 14.1 thou/uL (4.8-10.8)
[2019-10-26] MEDS: Heparin 5,000 UNITS/ML VIAL SC SCH ×3 (05:52→21:01)
--- NOTE | 2019-10-26 05:59 | PDOC.FM ---
- Subjective Subjective: No acute events overnight. Pt states she is reasonably comfortable. - Objective MAR Reviewed: Yes Vital Signs & Weight: Vital Signs (12 hours) Temp Pulse Resp Pulse Ox 10/26/19 04:00 17 10/26/19 03:53 58 L 10/26/19 02:00 18 10/26/19 01:29 60 10/26/19 01:00 98.3 F 10/26/19 00:00 13 10/25/19 22:00 17 10/25/19 21:32 49 L 10/25/19 21:00 98.4 F 10/25/19 20:00 17 98 10/25/19 19:00 98.4 F 10/25/19 18:25 59 L 10/25/19 18:00 15 Weight Admit Weight 57.8 kg Weight 57.062 kg Most Recent Monitor Data Heart Rate from ECG 58 NIBP 125/58 NIBP BP-Mean 80 Respiration from ECG 17 SpO2 96 I&O: 10/24/19 10/25/19 10/26/19 06:59 06:59 06:59 Intake Total 20.9 143 430 Output Total 1275 4245 2315 Balance -1254.1 -1332 -1885 Result Diagrams: 10/26/19 03:34 10/26/19 03:34 Phys Exam - Physical Examination Constitutional: NAD GCS [id number] HEENT: PERRLA Dry mm Respiratory: no wheezing, clear to auscultation bilateral Cardiovascular: no significant murmur bradycardic, regular rhythm Gastrointestinal: soft, non-tender, no distention, positive bowel sounds Musculoskeletal: no edema, pulses present Neurological: moves all 4 limbs Psychiatric: normal affect Skin: cap refill <2 seconds Deviation from normal: prolonged skin turgor Dx/Plan (1) Acute respiratory failure with hypoxia Code(s): J96.01 - ACUTE RESPIRATORY FAILURE WITH HYPOXIA Status: Acute (2) Hypertensive emergency Code(s): I16.1 - HYPERTENSIVE EMERGENCY Status: Acute (3) CAD (coronary artery disease) Code(s): I25.10 - ATHSCL HEART DISEASE OF [place] CORONARY ARTERY W/O ANG PCTRS Status: Chronic Qualifiers: Coronary Disease-Associated Artery/Lesion type: bypass graft [place] vs. transplanted heart: [place] heart (4) CHF (congestive heart failure) Code(s): I50.9 - HEART FAILURE, UNSPECIFIED Status: Suspected - Plan Plan: This is a 79 yo female with a pmh of CAD with CABG, MV regurg, HLD, HTN Hospital Day 3 Code: Full DVT Prophylaxis: Heparin GI Prophylaxis: Pepcid Family: None at bedside Fluids: LR 75 ml/hr Drips:Precedex 0.1 mcg/kg/hr Plastic: OG/ET tube, freire, IV left forearm Vent Settings: SIMV 12/min, TV 450, PS 15, FIO2 40, Peep 5 Plan: wean off vent. Pt needs improvement in her BP control before discharge. Needs stress test before discharge Acute hypoxic respiratory failure 2/2 flash pulmonary edema, improving -Intubated on the floor, continue vent and respiratory support -Dr. Costa, pulmonology consulted -Pending AM CXR HTN emergency, resolved -Continue home PO meds Elevated BNP, possible new onset heart failure -Echo shows LVEF 40-45% and 1/3 diastolic dysfunction -Dr. Artis consulted Atrial fibrillation, now in sinus rhythm -Cardiology consulted Elevated troponins -Likely demand ischemia, no EKG changes -Will need stress test once stabilized Elevated D-Dimer -Wells score 0 -Low suspicion for PE -CXR does not show widened mediastinum, although it may be worth getting a CT chest if pt has chest pain -Pending lower extremity doppler ANOMI VS CKD -No recent data to compare -Likely related to severe HTN -Will monitor, slight worsening today. May represent over diuresis vs her kidneys not use to lower BP. Will hold amlodipine and lasix. Starting gentle hydration with LR at 75ml/hr UTI -Pending urine culture, NGTD -Continue rocphin, will DC after today's dose CAD s/p CABG -Continue asa, work up as above Undiagnosed COPD -Long standing smoking history -Will add neb treatments as clinically indicated Normocytic anemia, worsening -No apparent bleeding, will monitor Addendum - Attending - Attending Attestation Date/Time: 10/26/19 2507 I personally evaluated the patient and discussed the management with Dr. Taylor I agree with the History, Examination, Assessment and Plan documented above with any addition or exceptions noted below. Blood pressure improved would avoid overcorrection in this frail elderly female. Patient alert and responsive undergoing weaning trial concern regard decreased H /H no overt s/s bleeding will continue to monitor Patient on GI protection.
[2019-10-26] MEDS ORDERED: Lactated Ringer's 1,000 ML IV SCH (06:00)
--- NOTE | 2019-10-26 07:57 | HP ---
ADDENDUM: Please see the history and physical done by the resident Dr. Houston, which I agree. Patient was seen, evaluated, and discussed with the resident by bedside. HISTORY OF PRESENT ILLNESS: This is a 79-year-old patient with history of known coronary artery disease including a coronary artery bypass surgery in 2010, who was seen in the emergency room on the for urgent hypertension, sounds like a little bit of volume overload at that time, was sent out on Coreg and according to her, has just worsened since. Initially came in, blood pressure 230s/120s acutely short of breath, edematous, and bilateral infiltrates on top of what looks like likely chronic COPD lungs so basically elevated BNP, CHF exacerbation. Has been diuresed a little bit, put on BiPAP, is already improving. Her ABG actually looks pretty good with a pH of 7.4, pCO2 of 28, pO2 of 50, does not seem to be retaining carbon dioxide. Is improving since she has been on the BiPAP with slow respiratory rate and keeping her sats up. PAST MEDICAL HISTORY: Per the resident's history and physical, which I agree. PAST SURGICAL HISTORY: Per the resident's history and physical, which I agree. MEDICATIONS: Per the resident's history and physical, which I agree. SOCIAL HISTORY: Per the resident's history and physical, which I agree. REVIEW OF SYSTEMS: Per the resident's history and physical, which I agree. PHYSICAL EXAMINATION: VITAL SIGNS: Blood pressure currently 200/100, so still elevated, pulse rate in the 100 to 110 range breathing fairly comfortably on BiPAP, although still in the upper 20s, does not seem to be using accessory muscles. GENERAL: Very thin, is alert and oriented x3. ENT: Conjunctiva, not pale. Anicteric. Moist mucosa. NECK: No JVD, lymphadenopathy, or bruits. CHEST: Scattered rales at the bases bilaterally. Slightly decreased breath sounds. HEART: Regular rate and rhythm. Distant heart sounds. ABDOMEN: Benign. EXTREMITIES: Show trace edema. LABORATORY DATA: Blood workup significant for creatinine 2.6 about the same as it was the other day. BNP is elevated at 1214. White count is 15, that is where it was the other day, hemoglobin slightly low at 11.5. Also appears to have UTI. ASSESSMENT: 1. Respiratory distress. 2. Congestive heart failure. 3. Coronary artery disease history. 4. Based on lung findings likely underlying chronic obstructive pulmonary disease. 5. Elevated creatinine, unclear how chronic this is. This has certainly not changed in the last 4 to 5 days. PLAN: To admit to the ICU on BiPAP. Watch her closely and gently diurese her while watching the creatinine. We are going to cover with an antibiotic. We will await on blood cultures as well as urine culture and follow labs, electrolytes, and we will get an echocardiogram. Will get Cardiology involved as well. Job ID: [id number]
[2019-10-26] MEDS: Carvedilol 3.125 MG TAB PO SCH ×2 (09:29→20:58)
[2019-10-26] MEDS: Aspirin 81 mg Enteric Coated Tablet PO SCH (09:29)
[2019-10-26] MEDS: Ubidecarenone 50 MG CAP PO SCH ×2 (09:29→20:58)
[2019-10-26] MEDS: Famotidine/PF 20 mg/2ml Vial SLOW IVP SCH (09:30)
[2019-10-26] MEDS: Folic Acid 1 MG TAB PO SCH (09:30)
--- NOTE | 2019-10-26 10:09 | RAD ---
PORTABLE CHEST: HISTORY: Ventilator and CCU followup. COMPARISON: 10/24/2019. FINDINGS: ET tube and NG tube remain in place. Hazy infiltrates in the right lower lung and left lower lung. The infiltrates have improved when com pared to 10/24/2019. Right upper lung infiltrate noted previously is much less apparent today. Small effusions and left basilar atelectasis noted. IMPRESSION: Improvement in the infiltrates when compared to 10/24/2019. POS: C
--- NOTE | 2019-10-26 12:35 | PRG ---
DATE OF SERVICE: 10/26/2019 SUBJECTIVE: Darlin Tate is awake and alert. She is quick to answer questions. She moves all extremities. OBJECTIVE: VITAL SIGNS: Heart rate was in the 80s, respiratory rates in the teens, minute volume was 8 L a minute. Blood pressure 119/94. LUNGS: Clear. HEART: Regular rhythm. ABDOMEN: Soft. EXTREMITIES: Without edema. NEURO: Nonfocal. White count 14.1, hemoglobin 8.1, platelets 250. Sodium 143, potassium 3.4, chloride 109, bicarb 31, BUN 69, creatinine 3.19. Chest x-ray shows dramatic improvement in her bilateral pulmonary infiltrates. I reviewed all the films again. IMPRESSION: Congestive heart failure is the primary underlying problem, given the radiographic resolution of her infiltrate, it is more likely that this is not an infectious process. I felt she was a candidate for extubation. She passed a leak test. She subsequently has been extubated and is in stable condition. CRITICAL CARE TIME: 30 minutes. Job ID: [id number]
--- NOTE | 2019-10-26 13:37 | PDOC.CPN ---
- Subjective Date: 10/26/19 Time: 13:34 Interval history: She is doing much better. She feels better. Was extubated this morning. - Review of Systems General: denies: fever/chills, weight/appetite/sleep changes, night sweats, fatigue Respiratory: reports: shortness of breath. denies: cough, congestion, exercise intolerance Cardiovascular: denies: chest pain, palpitation, edema, paroxysmal nocturnal dyspnea, orthopnea Gastrointestinal: denies: nausea, vomiting, diarrhea, constipation, abd pain, GI bleeding Musculoskeletal: denies: pain, tenderness, stiffness, swelling, arthritis/ arthralgias Neurological: denies: numbness, syncope, seizure, weakness - Objective Allergies/Adverse Reactions: Allergies Allergy/AdvReac Type Severity Reaction Status Date / Time clopidogrel Allergy Verified 10/23/19 19:22 lisinopril Allergy Verified 10/23/19 19:22 Visit Medications: Current Medications Acetaminophen (Tylenol) 650 mg PO Q4H PRN PRN Reason: Headache/Fever/Mild Pain (1-3) Acetaminophen (Tylenol) 650 mg [place] Q4H PRN PRN Reason: Headache/Fever/Mild Pain (1-3) Aspirin (Ecotrin) 81 mg PO DAILY [facility] Last Admin: 10/26/19 09:29 Dose: 81 mg Atorvastatin Calcium (Lipitor) 40 mg PO HS [facility] Last Admin: 10/25/19 20:21 Dose: 40 mg Carvedilol (Coreg) 3.125 mg PO BID [facility] Last Admin: 10/26/19 09:29 Dose: 3.125 mg Cholecalciferol (Vitamin D3) 1,250 units PO DAILY [facility] Last Admin: 10/26/19 09:32 Dose: 1,250 units Coenzyme Q10 (Coenzyme Q10) 100 mg PO BID [facility] Last Admin: 10/26/19 09:29 Dose: 100 mg Famotidine (Pepcid) 20 mg SLOW IVP DAILY [facility] Last Admin: 10/26/19 09:30 Dose: 20 mg Folic Acid (Folvite) 1 mg PO DAILY [facility] Last Admin: 10/26/19 09:30 Dose: 1 mg Heparin Sodium (Porcine) (Heparin) 5,000 units SC BID [facility] Ceftriaxone Sodium 1 gm/ (Sodium Chloride) 100 mls @ 200 mls/hr IVPB 1700 [facility] Last Admin: 10/25/19 15:10 Dose: 100 mls Nicardipine HCl 25 mg/ Sodium (Chloride) 250 mls @ 0 mls/hr IVPB INF [facility]; Protocol Fentanyl Citrate 2,000 mcg/ (Sodium Chloride) 100 mls @ 0 mls/hr IV INF [facility]; Protocol Stop: 11/22/19 23:05 Fentanyl Citrate (Fentanyl Bolus) 250 mls @ 0 mls/hr IVPB PRN PRN PRN Reason: Breakthrough pain/agitation Stop: 11/22/19 23:05 Potassium Chloride 40 meq/ (Sodium Chloride) 270 mls @ 135 mls/hr IVPB ASDIR PRN PRN Reason: FOR SERUM K+ 2.5 - 3.5 Potassium Chloride 40 meq/ (Device) 100 mls @ 50 mls/hr IVPB ASDIR PRN PRN Reason: FOR SERUM K+ 2.5 - 3.5 Magnesium Sulfate 1 gm/ Sodium (Chloride) 102 mls @ 102 mls/hr IV PRN PRN PRN Reason: MAG LEVEL 1.4 - 2.0 Magnesium Sulfate 2 gm/ Device 50 mls @ 50 mls/hr IVPB ASDIR PRN PRN Reason: MAGNESIUM < 1.4 Potassium Phosphate 9 mmol/ (Sodium Chloride) 103 mls @ 25.75 mls/hr IVPB ASDIR PRN PRN Reason: Phosphate 1.0-1.8 Potassium Phosphate 12 mmol/ (Sodium Chloride) 254 mls @ 63.5 mls/hr IV ASDIR PRN PRN Reason: Serum phosphate 0.5-0.9 Potassium Phosphate 15 mmol/ (Sodium Chloride) 255 mls @ 63.75 mls/hr IV ASDIR PRN PRN Reason: Serum Phos < 0.5 Dexmedetomidine HCl 400 mcg/ (Sodium Chloride) 100 mls @ 0 mls/hr IVPB INF [facility] ; Protocol Last Admin: 10/25/19 17:20 Dose: 100 mls Lactated Ringer's (Lactated Ringer's) 1,000 mls @ 75 mls/hr IV .[id number] [facility] Last Admin: 10/26/19 06:32 Dose: 1,000 mls Lorazepam (Ativan) 2 mg SLOW IVP Q1H PRN PRN Reason: Breakthrough agitation Stop: 11/22/19 23:05 Magnesium Oxide (Magnesium Oxide) 400 mg PO BIDPRN PRN PRN Reason: FOR SERUM MAG 1.4 - 2.0 Magnesium Oxide (Magnesium Oxide) 800 mg PO PRN PRN PRN Reason: FOR SERUM MAG < 1.4 Miscellaneous Medication (Phos-Nak) 1 pkt PO TIDPRN PRN PRN Reason: FOR PHOS LEVEL 1.0 - 1.8 Miscellaneous Medication (Phos-Nak) 2 pkt PO TIDPRN PRN PRN Reason: FOR PHOS LEVEL 0.5 - 1.0 Morphine Sulfate (Morphine) 2 mg SLOW IVP Q1H PRN PRN Reason: BREAKTHROUGH PAIN/Agitation Stop: 11/22/19 23:05 Discontinue Previous Narcotic Pain Medications And Benzodiazepines 1 each FS .ONE [facility] Stop: 11/22/19 23:05 Ccu Electrolyte (Replacement Protocol) 0 each FS PRN PRN PRN Reason: FOR ELECTROLYTE REPLACEMENT Polyethylene Glycol (Miralax) 17 gm PO DAILY [facility] Potassium Chloride (K-Dur) 40 meq PO ASDIR PRN PRN Reason: FOR SERUM K+ 2.5 - 3.5 Potassium Chloride (Klor-Con) 40 meq PER TUBE ASDIR PRN PRN Reason: FOR SERUM K+ 2.5-3.5 Propofol (Diprivan) 1,000 mg IV INF PRN; Protocol PRN Reason: TO ACHIEVE GOAL RASS Stop: 11/22/19 23:05 Last Admin: 10/24/19 18:30 Dose: 1,000 mg Propofol (Diprivan Bolus) 20 mg IV Q5MIN PRN PRN Reason: BREAKTHROUGH AGITATION Stop: 11/22/19 23:05 Senna (Senokot) 2 tab PO BID [facility] Sodium Chloride (Flush - Normal Saline) 10 ml IVF PRN PRN PRN Reason: Saline Flush Vital Signs & Weight: Vital Signs Temp Pulse Resp BP Pulse Ox 10/26/19 10:00 17 10/26/19 08:00 16 94 L 10/26/19 06:26 55 L 141/56 H 10/26/19 06:00 15 10/26/19 04:00 98.3 F 17 10/26/19 03:53 58 L 10/26/19 02:00 18 Admit Weight 127 lb 6.835 oz Weight 125 lb 3.561 oz - Physical Exam General: alert & oriented x3 HEENT: mucus membranes moist Neck: supple neck Cardiac: regular rate and rhythm Lungs: clear to auscultation Neuro: grossly intact Abdomen: active bowel sounds Extremities: no edema Skin: clear Musculoskeletal: no pain - Labs Result Diagrams: 10/26/19 03:34 10/26/19 03:34 Troponin/CKMB CK-MB (CK-2) 1.6 ng/mL (0-6.6) 10/23/19 17:23 Troponin I 0.152 ng/mL (< 0.028) H 10/24/19 07:20 - Telemetry Sinus rhythms and dysrhythmias: sinus rhythm - Assessment/Plan Assessment/Plan: 1. Acute on chronic systolic heart failure. 2. RLL pneumonia less likely as CXR improved with diuresis. 3. 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 Paroxysmal afib PLAN: - Continue amiodarone drip - Full anticoagulation would be recommended with a CHADS VASc score of at least 3 but on hold as hgb still downtrending. No overt bleeding seen. - Significantly improved with mostly diuresis and resolution of "infiltrate" supports this being mostly edema on CXR. - Cannot do LHC due to creatinine up trending. - Continue to hold diuresis due to creatinine. - Critical Care Time Critical care time (mins): 30
[2019-10-26] MEDS: hydrALAZINE 20 MG/ML VIAL SLOW IVP PRN (14:31)
[2019-10-26] MEDS: cefTRIAXone\\ROCEPHIN 1 GM in Sodium Chloride 0.9% 100 ML IVPB SCH (17:44)
[2019-10-26] MEDS: Amiodarone 450 MG, Admixture Fee 1 EACH in Dextrose 5% in Water 250 ML IVPB SCH (20:40)
[2019-10-26] MEDS: Atorvastatin Calcium 40 MG TAB PO SCH (20:57)
[2019-10-26] MEDS: Senokot 8.6 MG TAB PO SCH (21:07)
[2019-10-27 03:59] LABS: Anion Gap 15 mmol/L (10-20); BUN (Urea Nitrogen) 57 mg/dL (9.8-20.1); Calc. Creatinine Clearance 16 mL/min (70-130); Calcium 8.8 mg/dL (7.8-10.44); Carbon Dioxide 20 mmol/L (23-31); Chloride 108 mmol/L (98-107); Estimated GFR-MDRD 17; Glucose 134 mg/dL (83-110); Potassium 3.2 mmol/L (3.5-5.1); Sodium 140 mmol/L (136-145)
[2019-10-27 04:22] LABS: Band 7 % (5-11); Hemoglobin 9.1 g/dL (12.0-16.0); Lymphocytes 11 % (21-51); MDiff Complete? YES; Mean Corpuscular HGB CONC 33.4 g/dL (32.0-36.0); Mean Corpuscular Hemoglobin 31.3 pg (27.0-31.0); Mean Corpuscular Volume 93.7 fL (78.0-98.0); Mean Platelet Volume 9.1 fL (7.4-10.4); Monocytes 2 % (0-10); Neutrophil 80 % (42-75); Platelet Count 287 thou/uL (130-400); RBC Distribution Width 14.7 % (11.5-14.5); White Blood Cell (WBC) Count 16.3 thou/uL (4.8-10.8)
--- NOTE | 2019-10-27 06:26 | PDOC.FM ---
- Subjective Subjective: Pt had a run of afib with RVR overnight and was started back on amiodarone drip. She converted back to sinus rhythm and is currently there now. She is tolerating PO intake and fluids were stopped. She had one BM overnight with no apparent blood. - Objective MAR Reviewed: Yes Vital Signs & Weight: Vital Signs (12 hours) Temp Pulse Ox 10/27/19 05:00 98.4 F 10/27/19 00:00 98.6 F 10/26/19 20:00 96 10/26/19 19:00 98.3 F Weight Admit Weight 57.8 kg Weight 56.6 g Most Recent Monitor Data Heart Rate from ECG 71 NIBP 156/77 NIBP BP-Mean 103 Respiration from ECG 27 SpO2 91 I&O: 10/25/19 10/26/19 10/27/19 06:59 06:59 06:59 Intake Total 143 440.5 1278.9 Output Total 1475 2510 1980 Balance -1332 -2069.5 -701.1 Result Diagrams: 10/27/19 03:28 10/27/19 03:28 Phys Exam - Physical Examination Constitutional: NAD HEENT: PERRLA, moist MMs Neck: no JVD Respiratory: no wheezing, clear to auscultation bilateral Cardiovascular: RRR, no significant murmur, no rub Gastrointestinal: soft, no distention, positive bowel sounds Musculoskeletal: no edema, pulses present Neurological: moves all 4 limbs Psychiatric: A&O x 3 Skin: cap refill <2 seconds Dx/Plan (1) Acute respiratory failure with hypoxia Code(s): J96.01 - ACUTE RESPIRATORY FAILURE WITH HYPOXIA Status: Acute (2) Hypertensive emergency Code(s): I16.1 - HYPERTENSIVE EMERGENCY Status: Acute (3) CAD (coronary artery disease) Code(s): I25.10 - ATHSCL HEART DISEASE OF [place] CORONARY ARTERY W/O ANG PCTRS Status: Chronic Qualifiers: Coronary Disease-Associated Artery/Lesion type: bypass graft [place] vs. transplanted heart: [place] heart (4) CHF (congestive heart failure) Code(s): I50.9 - HEART FAILURE, UNSPECIFIED Status: Suspected - Plan Plan: This is a 79 yo female with a pmh of CAD with CABG, MV regurg, HLD, HTN Hospital Day 4 Code: Full DVT Prophylaxis: Heparin GI Prophylaxis: none Family: None at bedside Fluids: SL Drips: Plastic: freire, IV left forearm and right forearm Plan: Pt needs improvement in her BP control before discharge. Needs stress test before discharge Acute hypoxic respiratory failure 2/2 flash pulmonary edema, improving -Extubated, can likely move to tele today or tomorrow -Dr. Costa, pulmonology consulted HTN emergency, resolved -Continue home PO meds, adding amlodipine until losartan can be added Elevated BNP, possible new onset heart failure -Echo shows LVEF 40-45% and 1/3 diastolic dysfunction -Dr. Artis consulted Atrial fibrillation, now in sinus rhythm -Cardiology consulted Elevated troponins -Likely demand ischemia, no EKG changes -Will need stress test once stabilized Elevated D-Dimer -Wells score 0 -Low suspicion for PE -CXR does not show widened mediastinum, although it may be worth getting a CT chest if pt has chest pain NAOMI VS CKD -Likely related to severe HTN -Will monitor, slight improvement today. May represent over diuresis vs her kidneys not use to lower BP. Continue hydration, will lower as she is eating and drinking UTI, treated, culture NGTD CAD s/p CABG -Continue asa, work up as above Undiagnosed COPD -Long standing smoking history -Will add neb treatments as clinically indicated Normocytic anemia, worsening -No apparent bleeding, will monitor Addendum - Attending - Attending Attestation Date/Time: 10/27/19 1650 I personally evaluated the patient and discussed the management with Dr. Taylor I agree with the History, Examination, Assessment and Plan documented above with any addition or exceptions noted below. Patient extubated had run Atrial fib with RVR now back NSR on amiadorone drip. H /H improved will eventually need consider [facility] anticoagulation. Appreciate recommendations from Pulmonary and Cardiology. Patient should be stable to transfer to lower level of care.
[2019-10-27] MEDS: Aspirin 81 mg Enteric Coated Tablet PO SCH (08:18)
[2019-10-27] MEDS: Ubidecarenone 50 MG CAP PO SCH ×2 (08:18→21:09)
[2019-10-27] MEDS: Amlodipine 5 MG TAB PO SCH (08:19)
[2019-10-27] MEDS: Carvedilol 3.125 MG TAB PO SCH ×2 (08:20→21:10)
[2019-10-27] MEDS: Heparin 5,000 UNITS/ML VIAL SC SCH ×2 (08:20→21:11)
[2019-10-27] MEDS: Folic Acid 1 MG TAB PO SCH (08:20)
[2019-10-27] MEDS: Senokot 8.6 MG TAB PO SCH ×2 (08:21→21:10)
[2019-10-27] MEDS ORDERED: Famotidine 20 MG TAB PO SCH (09:00)
[2019-10-27] MEDS ORDERED: Polyethylene Glycol 3350 17 GM Packet PO SCH (09:00)
--- NOTE | 2019-10-27 10:08 | RAD ---
CHEST 1 VIEW PORTABLE: HISTORY: Respiratory insufficiency. COMPARISON: 10/26/2019. FINDINGS: NG tube and endotracheal tubes have been removed. There is some persistent slightly improving inters titial and linear opacity changes more so in the right perihilar region. Small bilateral pleural eff usions, slightly larger on the left side. Biapical pleural thickening. Bone demineralization. IMPRESSION: Little change in the bilateral interstitial and alveolar opacity changes and pleural effusion changes which are most marked in the right mid lung zone. Continued short-term followup. POS: CHARISSA
[2019-10-27] MEDS: Amiodarone 450 MG, Admixture Fee 1 EACH in Dextrose 5% in Water 250 ML IVPB SCH (12:20)
--- NOTE | 2019-10-27 16:32 | PDOC.CPN ---
- Subjective Date: 10/27/19 Time: 16:30 Interval history: She is doing better today. Breathing back to baseline. She went i to afib yesterday and was started on amiodaron drip. - Review of Systems General: denies: fever/chills, weight/appetite/sleep changes, night sweats, fatigue Respiratory: denies: cough, congestion, shortness of breath, exercise intolerance Cardiovascular: denies: chest pain, palpitation, edema, paroxysmal nocturnal dyspnea, orthopnea Gastrointestinal: denies: nausea, vomiting, diarrhea, constipation, abd pain, GI bleeding Musculoskeletal: denies: pain, tenderness, stiffness, swelling, arthritis/ arthralgias Neurological: denies: numbness, syncope, seizure, weakness - Objective Allergies/Adverse Reactions: Allergies Allergy/AdvReac Type Severity Reaction Status Date / Time clopidogrel Allergy Verified 10/23/19 19:22 lisinopril Allergy Verified 10/23/19 19:22 Visit Medications: Current Medications Acetaminophen (Tylenol) 650 mg PO Q4H PRN PRN Reason: Headache/Fever/Mild Pain (1-3) Acetaminophen (Tylenol) 650 mg [place] Q4H PRN PRN Reason: Headache/Fever/Mild Pain (1-3) Amlodipine Besylate (Norvasc) 5 mg PO DAILY [facility] Last Admin: 10/27/19 08:19 Dose: 5 mg Aspirin (Ecotrin) 81 mg PO DAILY [facility] Last Admin: 10/27/19 08:18 Dose: 81 mg Atorvastatin Calcium (Lipitor) 40 mg PO HS [facility] Last Admin: 10/26/19 20:57 Dose: 40 mg Carvedilol (Coreg) 3.125 mg PO BID [facility] Last Admin: 10/27/19 08:20 Dose: 3.125 mg Cholecalciferol (Vitamin D3) 1,250 units PO DAILY [facility] Last Admin: 10/27/19 08:18 Dose: 1,250 units Coenzyme Q10 (Coenzyme Q10) 100 mg PO BID [facility] Last Admin: 10/27/19 08:18 Dose: 100 mg Folic Acid (Folvite) 1 mg PO DAILY [facility] Last Admin: 10/27/19 08:20 Dose: 1 mg Heparin Sodium (Porcine) (Heparin) 5,000 units SC BID [facility] Last Admin: 10/27/19 08:20 Dose: 5,000 units Hydralazine HCl (Apresoline) 5 mg SLOW IVP Q15MIN PRN PRN Reason: SBP Greater Than 180 Last Admin: 10/26/19 14:31 Dose: 5 mg Fentanyl Citrate 2,000 mcg/ (Sodium Chloride) 100 mls @ 0 mls/hr IV INF [facility]; Protocol Stop: 11/22/19 23:05 Fentanyl Citrate (Fentanyl Bolus) 250 mls @ 0 mls/hr IVPB PRN PRN PRN Reason: Breakthrough pain/agitation Stop: 11/22/19 23:05 Potassium Chloride 40 meq/ (Sodium Chloride) 270 mls @ 135 mls/hr IVPB ASDIR PRN PRN Reason: FOR SERUM K+ 2.5 - 3.5 Potassium Chloride 40 meq/ (Device) 100 mls @ 50 mls/hr IVPB ASDIR PRN PRN Reason: FOR SERUM K+ 2.5 - 3.5 Magnesium Sulfate 1 gm/ Sodium (Chloride) 102 mls @ 102 mls/hr IV PRN PRN PRN Reason: MAG LEVEL 1.4 - 2.0 Magnesium Sulfate 2 gm/ Device 50 mls @ 50 mls/hr IVPB ASDIR PRN PRN Reason: MAGNESIUM < 1.4 Potassium Phosphate 9 mmol/ (Sodium Chloride) 103 mls @ 25.75 mls/hr IVPB ASDIR PRN PRN Reason: Phosphate 1.0-1.8 Potassium Phosphate 12 mmol/ (Sodium Chloride) 254 mls @ 63.5 mls/hr IV ASDIR PRN PRN Reason: Serum phosphate 0.5-0.9 Potassium Phosphate 15 mmol/ (Sodium Chloride) 255 mls @ 63.75 mls/hr IV ASDIR PRN PRN Reason: Serum Phos < 0.5 Dexmedetomidine HCl 400 mcg/ (Sodium Chloride) 100 mls @ 0 mls/hr IVPB INF [facility] ; Protocol Last Admin: 10/25/19 17:20 Dose: 100 mls Amiodarone HCl 450 mg/Miscellaneous Medication 1 each/ Dextrose/Water 259 mls @ 0 mls/hr IVPB INF [facility]; Protocol Last Admin: 10/27/19 12:20 Dose: 259 mls Lorazepam (Ativan) 2 mg SLOW IVP Q1H PRN PRN Reason: Breakthrough agitation Stop: 11/22/19 23:05 Magnesium Oxide (Magnesium Oxide) 400 mg PO BIDPRN PRN PRN Reason: FOR SERUM MAG 1.4 - 2.0 Magnesium Oxide (Magnesium Oxide) 800 mg PO PRN PRN PRN Reason: FOR SERUM MAG < 1.4 Miscellaneous Medication (Phos-Nak) 1 pkt PO TIDPRN PRN PRN Reason: FOR PHOS LEVEL 1.0 - 1.8 Miscellaneous Medication (Phos-Nak) 2 pkt PO TIDPRN PRN PRN Reason: FOR PHOS LEVEL 0.5 - 1.0 Morphine Sulfate (Morphine) 2 mg SLOW IVP Q1H PRN PRN Reason: BREAKTHROUGH PAIN/Agitation Stop: 11/22/19 23:05 Discontinue Previous Narcotic Pain Medications And Benzodiazepines 1 each FS .ONE [facility] Stop: 11/22/19 23:05 Ccu Electrolyte (Replacement Protocol) 0 each FS PRN PRN PRN Reason: FOR ELECTROLYTE REPLACEMENT Polyethylene Glycol (Miralax) 17 gm PO DAILY [facility] Last Admin: 10/27/19 08:21 Dose: Not Given Potassium Chloride (K-Dur) 40 meq PO ASDIR PRN PRN Reason: FOR SERUM K+ 2.5 - 3.5 Last Admin: 10/27/19 05:28 Dose: 40 meq Potassium Chloride (Klor-Con) 40 meq PER TUBE ASDIR PRN PRN Reason: FOR SERUM K+ 2.5-3.5 Propofol (Diprivan) 1,000 mg IV INF PRN; Protocol PRN Reason: TO ACHIEVE GOAL RASS Stop: 11/22/19 23:05 Last Admin: 10/24/19 18:30 Dose: 1,000 mg Propofol (Diprivan Bolus) 20 mg IV Q5MIN PRN PRN Reason: BREAKTHROUGH AGITATION Stop: 11/22/19 23:05 Senna (Senokot) 2 tab PO BID [facility] Last Admin: 10/27/19 08:21 Dose: Not Given Sodium Chloride (Flush - Normal Saline) 10 ml IVF PRN PRN PRN Reason: Saline Flush Vital Signs & Weight: Vital Signs Temp Pulse Pulse BP BP Pulse Ox Pulse Ox 10/27/19 13:57 83 129/61 91 L 10/27/19 12:00 97.6 F 10/27/19 08:19 72 171/114 H 10/27/19 08:00 93 L 10/27/19 05:00 98.4 F Pulse Ox 10/27/19 13:57 99 10/27/19 12:00 10/27/19 08:19 10/27/19 08:00 10/27/19 05:00 Admit Weight 127 lb 6.835 oz Weight 1.997 oz - Physical Exam General: alert & oriented x3 HEENT: mucus membranes moist Neck: supple neck Cardiac: regular rate and rhythm Lungs: clear to auscultation Neuro: grossly intact Abdomen: active bowel sounds Extremities: no edema Skin: clear Musculoskeletal: no pain - Labs Result Diagrams: 10/27/19 03:28 10/27/19 03:28 Troponin/CKMB CK-MB (CK-2) 1.6 ng/mL (0-6.6) 10/23/19 17:23 Troponin I 0.152 ng/mL (< 0.028) H 10/24/19 07:20 - Telemetry Sinus rhythms and dysrhythmias: sinus rhythm - Assessment/Plan Assessment/Plan: 1. Acute on chronic systolic heart failure. 2. RLL pneumonia less likely as CXR improved with diuresis. 3. 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 Paroxysmal afib 5. Hypokalemia. PLAN: - Will switch amiodarone to PO load. - Full anticoagulation would be recommended with a CHADS VASc score of at least 3 but on hold as hgb still downtrending. No overt bleeding seen. - Significantly improved with mostly diuresis and resolution of "infiltrate" supports this being mostly edema on CXR. - Cannot do LHC due to creatinine. She trells jf her last LHS she was told her grafts were all closed and it was likely due to her port gamble vessels not being too diseased. - Continue to hold diuresis due to creatinine. - Creatinine improving today. - Replace K.
[2019-10-27] MEDS: Amiodarone 200 MG TAB PO SCH (17:51)
--- NOTE | 2019-10-27 19:27 | PRG ---
DATE OF SERVICE: 10/27/2019 SUBJECTIVE: Darlin Tate looks well. She has no complaints. OBJECTIVE: VITAL SIGNS: She is afebrile. Heart rate 70, respiratory rate is 18, oximetry is 94% on cannula, blood pressure 131/93. LUNGS: Still remarkable for crackles at both lung bases. HEART: Regular rhythm. ABDOMEN: Soft. EXTREMITIES: Without asymmetry or edema. LABORATORY DATA: White count is 16.3, hemoglobin 9.1, platelets 287. Sodium 140, potassium 3.2, chloride 108, bicarb 20, BUN 57, creatinine 2.67, down from 3.19. Intake and outputs -2069 mL yesterday and -701 today. IMPRESSION: 1. Congestive heart failure, slowly improving, status post mechanical ventilation. Chest x-ray continues to improve slowly. 2. Chronic kidney disease, improved. 3. Hyperchloremic metabolic acidosis, stable. 4. Possible pneumonia. I feel it is unlikely that were dealing with pneumonia at this point. PLAN: Continue supportive care. I feel she is stable to move out of the Critical Care Unit. Job ID: [id number] [facility]Mike
[2019-10-27] MEDS: Atorvastatin Calcium 40 MG TAB PO SCH (21:10)
[2019-10-27] MEDS: hydrALAZINE 20 MG/ML VIAL SLOW IVP PRN (21:15)
--- NOTE | 2019-10-28 02:52 | PDOC.FM ---
- Subjective Subjective: Denies chest pain, SOB, dyspnea, trouble walking or moving, or trouble swallowing. She states she has not been eating well because the food is not what she is use to. Nursing reports sinus rhythm overnight. - Objective MAR Reviewed: Yes Vital Signs & Weight: Vital Signs (12 hours) Temp Pulse Resp BP Pulse Ox 10/27/19 23:15 97.5 F L 63 14 140/67 92 L 10/27/19 22:07 62 127/61 92 L 10/27/19 21:15 70 10/27/19 20:00 98.2 F 73 18 189/86 H 92 L 10/27/19 15:45 97.8 F 70 18 131/93 H 94 L Weight Admit Weight 57.8 kg Weight 56.6 g Most Recent Monitor Data Heart Rate from ECG 66 NIBP 145/62 NIBP BP-Mean 89 Respiration from ECG 28 SpO2 94 I&O: 10/26/19 10/27/19 10/28/19 06:59 06:59 06:59 Intake Total 440.5 1278.9 490 Output Total 2510 1980 Balance -2069.5 -701.1 490 Result Diagrams: 10/28/19 03:54 10/28/19 03:54 Phys Exam - Physical Examination Constitutional: NAD HEENT: moist MMs Neck: no JVD Diffuse crackles Cardiovascular: RRR, no significant murmur Gastrointestinal: soft, no distention, positive bowel sounds Musculoskeletal: no edema, pulses present Neurological: moves all 4 limbs Psychiatric: A&O x 3 Deviation from normal: Pt has an area of erythema on her right elbow, no pain with palpation Dx/Plan (1) Acute respiratory failure with hypoxia Code(s): J96.01 - ACUTE RESPIRATORY FAILURE WITH HYPOXIA Status: Acute (2) Hypertensive emergency Code(s): I16.1 - HYPERTENSIVE EMERGENCY Status: Acute (3) CAD (coronary artery disease) Code(s): I25.10 - ATHSCL HEART DISEASE OF [place] CORONARY ARTERY W/O ANG PCTRS Status: Chronic Qualifiers: Coronary Disease-Associated Artery/Lesion type: bypass graft [place] vs. transplanted heart: [place] heart (4) CHF (congestive heart failure) Code(s): I50.9 - HEART FAILURE, UNSPECIFIED Status: Suspected - Plan Plan: This is a 79 yo female with a pmh of CAD with CABG, MV regurg, HLD, HTN Hospital Day 5 Code: Full DVT Prophylaxis: Heparin GI Prophylaxis: none Plan: Pt needs improvement in her BP control before discharge. Needs stress test before discharge Acute hypoxic respiratory failure 2/2 flash pulmonary edema, improving -Moved to telemetry, still requiring 4L o2, none used at home -Dr. Costa, pulmonology consulted HTN emergency, resolved -Continue home PO meds, adding amlodipine until losartan can be added Elevated BNP, new onset heart failure -Echo shows LVEF 40-45% and 1/3 diastolic dysfunction -Dr. Artis consulted Atrial fibrillation, now in sinus rhythm -Cardiology consulted -Continue PO amiodarone Elevated troponins -Likely demand ischemia, no EKG changes -Will need stress test once stabilized Elevated D-Dimer -Wells score 0 -Low suspicion for PE -CXR does not show widened mediastinum, although it may be worth getting a CT chest if pt has chest pain NAOMI VS CKD -Likely related to severe HTN -Will monitor, slight improvement today. May represent over diuresis vs her kidneys not use to lower BP. Continue oral hydration UTI, treated, culture NGTD CAD s/p CABG -Continue asa, work up as above Undiagnosed COPD -Long standing smoking history -Will add neb treatments as clinically indicated Normocytic anemia, stable -No apparent bleeding, will monitor Addendum - Attending - Attending Attestation Date/Time: 10/28/19 1034 I personally evaluated the patient and discussed the management with Dr. Taylor. I agree with the History, Examination, Assessment and Plan documented above with any addition or exceptions noted below. Patient here for suspected new onset CHF and Afib, as well as HTN emergency that is now resolved. Working on BP control. Cardiology on board. Continue diuresis as tolerated. Wean O2 as needed but suspect she will need O2 therapy on discharge. Renal function overall stable.
[2019-10-28 05:24] LABS: Anion Gap 15 mmol/L (10-20); BUN (Urea Nitrogen) 52 mg/dL (9.8-20.1); Calc. Creatinine Clearance 0 mL/min (70-130); Calcium 8.9 mg/dL (7.8-10.44); Carbon Dioxide 23 mmol/L (23-31); Chloride 106 mmol/L (98-107); Estimated GFR-MDRD 19; Glucose 116 mg/dL (83-110); Potassium 3.4 mmol/L (3.5-5.1); Sodium 141 mmol/L (136-145)
[2019-10-28 05:46] LABS: Band 6 % (5-11); Lymphocytes 5 % (21-51); MDiff Complete? YES; Monocytes 6 % (0-10); Myelocyte 1 % (0-0); Neutrophil 82 % (42-75)
[2019-10-28 05:47] LABS: Mean Corpuscular HGB CONC 33.4 g/dL (32.0-36.0); Mean Corpuscular Hemoglobin 31.2 pg (27.0-31.0); Mean Corpuscular Volume 93.6 fL (78.0-98.0); Mean Platelet Volume 10.8 fL (7.4-10.4); Platelet Count 292 thou/uL (130-400); RBC Distribution Width 14.8 % (11.5-14.5); Red Blood Cell (RBC) Count 2.87 mill/uL (4.20-5.40); White Blood Cell (WBC) Count 17.2 thou/uL (4.8-10.8)
--- NOTE | 2019-10-28 08:33 | RAD ---
CHEST 1 VIEW PORTABLE: HISTORY: Respiratory insufficiency. COMPARISON: Fairly extensive bilateral interstitial and reticulonodular parenchymal changes throughout both lungs somewhat more prominent in the right mid lung zone. This is possibly slightly more dense in the rig ht mid lung zone than the 10/27/2019 study. Left chest is stable. Bilateral costophrenic angle blunt ing. IMPRESSION: Persistent parenchymal changes bilaterally slightly more dense in the right mid lung zone. Continued short-term followup. POS: SIA
[2019-10-28] MEDS: Aspirin 81 mg Enteric Coated Tablet PO SCH (08:45)
[2019-10-28] MEDS: Ubidecarenone 50 MG CAP PO SCH ×2 (08:45→21:42)
[2019-10-28] MEDS: Potassium Chloride 20 MEQ TAB PO SCH ×2 (08:45→16:14)
[2019-10-28] MEDS: Senokot 8.6 MG TAB PO SCH ×2 (08:46→21:43)
[2019-10-28] MEDS: Folic Acid 1 MG TAB PO SCH (08:46)
[2019-10-28] MEDS: Amlodipine 5 MG TAB PO SCH (08:46)
[2019-10-28] MEDS: Carvedilol 3.125 MG TAB PO SCH ×2 (08:46→21:43)
[2019-10-28] MEDS: Amiodarone 200 MG TAB PO SCH ×2 (08:46→21:42)
[2019-10-28] MEDS: Heparin 5,000 UNITS/ML VIAL SC SCH ×2 (08:47→21:42)
--- NOTE | 2019-10-28 18:24 | PDOC.CPN ---
- Subjective Date: 10/28/19 Time: 18:22 Interval history: She is doing better. Breathing better but still needing O2 supplementation at 4L NC. No chest pain. - Review of Systems General: denies: fever/chills, weight/appetite/sleep changes, night sweats, fatigue Respiratory: reports: shortness of breath, exercise intolerance. denies: cough , congestion Cardiovascular: denies: chest pain, palpitation, edema, paroxysmal nocturnal dyspnea, orthopnea Gastrointestinal: denies: nausea, vomiting, diarrhea, constipation, abd pain, GI bleeding Musculoskeletal: denies: pain, tenderness, stiffness, swelling, arthritis/ arthralgias Neurological: denies: numbness, syncope, seizure, weakness - Objective Allergies/Adverse Reactions: Allergies Allergy/AdvReac Type Severity Reaction Status Date / Time clopidogrel Allergy Verified 10/23/19 19:22 lisinopril Allergy Verified 10/23/19 19:22 Visit Medications: Current Medications Acetaminophen (Tylenol) 650 mg PO Q4H PRN PRN Reason: Headache/Fever/Mild Pain (1-3) Acetaminophen (Tylenol) 650 mg [place] Q4H PRN PRN Reason: Headache/Fever/Mild Pain (1-3) Amiodarone HCl (Cordarone) 400 mg PO BID [facility] Last Admin: 10/28/19 08:46 Dose: 400 mg Amlodipine Besylate (Norvasc) 5 mg PO DAILY [facility] Last Admin: 10/28/19 08:46 Dose: 5 mg Aspirin (Ecotrin) 81 mg PO DAILY [facility] Last Admin: 10/28/19 08:45 Dose: 81 mg Atorvastatin Calcium (Lipitor) 40 mg PO HS [facility] Last Admin: 10/27/19 21:10 Dose: Not Given Carvedilol (Coreg) 3.125 mg PO BID [facility] Last Admin: 10/28/19 08:46 Dose: 3.125 mg Cholecalciferol (Vitamin D3) 1,250 units PO DAILY [facility] Last Admin: 10/28/19 08:45 Dose: 1,250 units Coenzyme Q10 (Coenzyme Q10) 100 mg PO BID [facility] Last Admin: 10/28/19 08:45 Dose: 100 mg Folic Acid (Folvite) 1 mg PO DAILY [facility] Last Admin: 10/28/19 08:46 Dose: 1 mg Heparin Sodium (Porcine) (Heparin) 5,000 units SC BID [facility] Last Admin: 10/28/19 08:47 Dose: 5,000 units Hydralazine HCl (Apresoline) 5 mg SLOW IVP Q15MIN PRN PRN Reason: SBP Greater Than 180 Last Admin: 10/27/19 21:15 Dose: 5 mg Senna (Senokot) 2 tab PO BID [facility] Last Admin: 10/28/19 08:46 Dose: 2 tab Sodium Chloride (Flush - Normal Saline) 10 ml IVF PRN PRN PRN Reason: Saline Flush Vital Signs & Weight: Vital Signs Temp Pulse Resp BP BP BP Pulse Ox 10/28/19 16:06 98.3 F 74 18 158/79 H 92 L 10/28/19 14:45 169/77 H 149/70 H 10/28/19 11:43 98.2 F 65 18 126/60 92 L 10/28/19 08:40 98.1 F 75 16 168/72 H 93 L Pulse Ox Pulse Ox 10/28/19 16:06 10/28/19 14:45 93 L 87 L 10/28/19 11:43 10/28/19 08:40 Admit Weight 127 lb 6.835 oz Weight 118 lb 14.4 oz - Physical Exam General: alert & oriented x3 HEENT: mucus membranes moist Neck: supple neck Cardiac: regular rate and rhythm Lungs: clear to auscultation Neuro: grossly intact Abdomen: active bowel sounds Extremities: no edema Skin: clear Musculoskeletal: no pain - Labs Result Diagrams: 10/28/19 03:54 10/28/19 03:54 Troponin/CKMB CK-MB (CK-2) 1.6 ng/mL (0-6.6) 10/23/19 17:23 Troponin I 0.152 ng/mL (< 0.028) H 10/24/19 07:20 - Telemetry Sinus rhythms and dysrhythmias: sinus rhythm - Assessment/Plan Assessment/Plan: 1. Acute on chronic systolic heart failure. 2. RLL pneumonia less likely as CXR improved with diuresis. 3. 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 Paroxysmal afib 5. Hypokalemia. PLAN: - Continue amiodarone PO load. - Full anticoagulation would be recommended with a CHADS VASc score of at least 3, Hgb more stable today. - Cannot do LHC due to creatinine. She tells me today she remembers Dr. Lama did a LHC after an abnormal stress test a few yrs back and told her all her grafts were closed and she had small vessel disease and nothing to do with her arteries. - Creatinine continues to improve. - Annamaria Hansen
--- NOTE | 2019-10-28 20:04 | PRG ---
DATE OF SERVICE: 10/28/2019 SUBJECTIVE: Ms. Tate has no complaints. She says she still has a little dyspnea on exertion, but I have explained this is normal. OBJECTIVE: VITAL SIGNS: She is afebrile. Heart rate is in 60s, respiratory rate is 18, oximetry is 92% on nasal cannula. LUNGS: Clear. HEART: Regular rhythm. ABDOMEN: Soft. Blood pressure 149/70 158/79. Her blood pressure clearly is a little bit better controlled. She tells me she had a cardiac catheterization after positive stress test with Dr. Justice Lama. She was told she had occluded grafts and small vessel disease. Nothing was amenable to stenting and that she would have to be managed medically. IMPRESSION: Congestive heart failure. After aggressive hydration in the emergency room, she was intubated. It was initially felt apparently that she had pneumonia, but it turned out she had congestive heart failure. She is recovering from this with almost "complete clearing of her radiograph." She is not back to her baseline given her gas exchange abnormalities, but I suspect with ongoing gentle diuresis, she will get back to her baseline. I answered all of her questions. I see no reason to keep her on IV antimicrobial therapy as I do not believe that she has pneumonia. I would treat her with a short course of p.o. antibiotics and we finished with that antibiotics have been discontinued, which is also reasonable. There is no reason to continue daily chest x-rays. I would just follow her clinically from here forward. We will sign off. Job ID: [id number]
[2019-10-28] MEDS: Atorvastatin Calcium 40 MG TAB PO SCH (21:43)
[2019-10-29 05:14] LABS: Anion Gap 16 mmol/L (10-20); BUN (Urea Nitrogen) 52 mg/dL (9.8-20.1); Calc. Creatinine Clearance 16 mL/min (70-130); Calcium 9.1 mg/dL (7.8-10.44); Carbon Dioxide 20 mmol/L (23-31); Chloride 108 mmol/L (98-107); Estimated GFR-MDRD 19; Glucose 113 mg/dL (83-110); Potassium 4.1 mmol/L (3.5-5.1); Sodium 140 mmol/L (136-145)
[2019-10-29 05:40] LABS: Band 10 % (5-11); Eosinophils 1 % (0-10); Hemoglobin 9.2 g/dL (12.0-16.0); Lymphocytes 8 % (21-51); MDiff Complete? YES; Mean Corpuscular Hemoglobin 30.1 pg (27.0-31.0); Mean Corpuscular Volume 94.2 fL (78.0-98.0); Mean Platelet Volume 10.9 fL (7.4-10.4); Monocytes 4 % (0-10); Neutrophil 77 % (42-75); Platelet Count 304 thou/uL (130-400); RBC Distribution Width 15.1 % (11.5-14.5); Red Blood Cell (RBC) Count 3.06 mill/uL (4.20-5.40); White Blood Cell (WBC) Count 19.4 thou/uL (4.8-10.8)
--- NOTE | 2019-10-29 05:59 | PDOC.FM ---
- Subjective Subjective: Pt states she is feeling well this morning. She denies SOB, dyspnea, nausea, or vomiting. She does have some chest pain when she coughs or takes a deep breath. She states she is ready to get out of here. - Objective MAR Reviewed: Yes Vital Signs & Weight: Vital Signs (12 hours) Temp Pulse Resp BP Pulse Ox 10/29/19 03:14 92 L 10/29/19 03:01 98.2 F 67 16 132/61 82 L 10/28/19 23:23 98.5 F 10/28/19 22:50 75 18 131/57 L 90 L 10/28/19 20:00 100.1 F H 76 20 202/83 H 90 L Weight Admit Weight 57.8 kg Weight 54.159 kg Most Recent Monitor Data Heart Rate from ECG 66 NIBP 145/62 NIBP BP-Mean 89 Respiration from ECG 28 SpO2 94 I&O: 10/27/19 10/28/19 10/29/19 06:59 06:59 06:59 Intake Total 1278.9 1000 1400 Output Total 1979 1999 Balance -701.1 1000 -600 Result Diagrams: 10/29/19 04:03 10/29/19 04:03 Phys Exam - Physical Examination Constitutional: NAD HEENT: PERRLA, moist MMs Neck: no JVD Improving crackles limited to bases only Cardiovascular: RRR, no significant murmur Gastrointestinal: soft, non-tender, no distention, positive bowel sounds Musculoskeletal: no edema, pulses present Left brachialis muscle has some swelling and warmth Neurological: normal sensation, moves all 4 limbs Psychiatric: A&O x 3 Skin: normal turgor, cap refill <2 seconds Dx/Plan (1) Acute respiratory failure with hypoxia Code(s): J96.01 - ACUTE RESPIRATORY FAILURE WITH HYPOXIA Status: Acute (2) Hypertensive emergency Code(s): I16.1 - HYPERTENSIVE EMERGENCY Status: Acute (3) CAD (coronary artery disease) Code(s): I25.10 - ATHSCL HEART DISEASE OF [place] CORONARY ARTERY W/O ANG PCTRS Status: Chronic Qualifiers: Coronary Disease-Associated Artery/Lesion type: bypass graft [place] vs. transplanted heart: [place] heart (4) CHF (congestive heart failure) Code(s): I50.9 - HEART FAILURE, UNSPECIFIED Status: Suspected - Plan Plan: This is a 79 yo female with a pmh of CAD with CABG, MV regurg, HLD, HTN Hospital Day 6 Code: Full DVT Prophylaxis: Heparin GI Prophylaxis: none Plan: Pt needs improvement in her BP control before discharge. Needs stress test before discharge Acute hypoxic respiratory failure 2/2 flash pulmonary edema, improving -still requiring 5L o2, none used at home, however she does use CPAP. Will continue to diurese -Pending ABG and CXR this AM -Dr. Costa, pulmonology consulted HTN emergency, resolved -Continue home PO meds, adding amlodipine until losartan can be added HFrEF -Echo shows LVEF 40-45% and 1/3 diastolic dysfunction -Dr. Artis consulted -Continue lasix diuresis Atrial fibrillation, now in sinus rhythm -Cardiology consulted -Continue PO amiodarone Elevated troponins -Likely demand ischemia, no EKG changes -Will need stress test once stabilized Elevated D-Dimer -Wells score 0 -Low suspicion for PE -CXR does not show widened mediastinum, although it may be worth getting a CT chest if pt has chest pain NAOMI VS CKD -Likely related to severe HTN -Will monitor, slight improvement today. May represent over diuresis vs her kidneys not use to lower BP. Continue oral hydration UTI, treated, culture NGTD CAD s/p CABG -Continue asa, work up as above Undiagnosed COPD -Long standing smoking history -Will add neb treatments as clinically indicated Normocytic anemia, stable -No apparent bleeding, will monitor Addendum - Attending - Attending Attestation Date/Time: 10/29/19 1004 I personally evaluated the patient and discussed the management with Dr. Taylor. I agree with the History, Examination, Assessment and Plan documented above with any addition or exceptions noted below. Patient resting comfortably. She does admit to some increased respiratory discomfort, and her O2 requirement has increased. This is likely from residual overload. Will mildly increase diuresis this morning and see how she does. Cardiology on board. Pulm has signed off. Continue therapy. Her renal function continue to improve slowly. Monitor I/O. She may need more than just HH on discharge, possibly SNF but will discuss with patient.
[2019-10-29] MEDS: Furosemide 20 MG/2 ML VIAL SLOW IVP SCH ×2 (06:12→14:08)
[2019-10-29 09:03] LABS: Actual Bicarbonate (HCO3a) 19.8 mEq/L (22-28); Analyzer IN Cardio OR; Base Excess (BEa) -2.8 mEq/L (-2.0 to +3.0); CO2 Tension 27.4 mmHg (35.0-45.0); Calcium, Ionized 1.16 mmol/L (1.12-1.30); Carboxyhemoglobin (COHb) 0.3 gm% (0.0-3.0); Hemoglobin (Hb) 10.4 g/dL (12.0-16.0); O2 Tension (PaO2) 50.2 mmHg (> 70.0); Potassium - ABG Lab 3.81 mmol/L (3.70-5.30); pH, Arterial 7.48 (7.35-7.45)
[2019-10-29] MEDS: Amiodarone 200 MG TAB PO SCH ×2 (09:03→21:46)
[2019-10-29 09:04] LABS: Puncture Site RB
[2019-10-29] MEDS: Carvedilol 3.125 MG TAB PO SCH ×2 (09:04→21:46)
[2019-10-29] MEDS: Aspirin 81 mg Enteric Coated Tablet PO SCH (09:04)
[2019-10-29] MEDS: Amlodipine 5 MG TAB PO SCH (09:04)
[2019-10-29] MEDS: Heparin 5,000 UNITS/ML VIAL SC SCH (09:05)
[2019-10-29] MEDS: Folic Acid 1 MG TAB PO SCH (09:05)
[2019-10-29] MEDS: Senokot 8.6 MG TAB PO SCH ×2 (09:05→21:47)
[2019-10-29] MEDS: Ubidecarenone 50 MG CAP PO SCH ×2 (09:06→21:46)
[2019-10-29] MEDS ORDERED: Furosemide 20 MG/2 ML VIAL SLOW IVP SCH (09:15)
--- NOTE | 2019-10-29 10:17 | RAD ---
PORTABLE CHEST: COMPARISON: Prior day's exam. HISTORY: Respiratory distress. FINDINGS: Heart size within normal limits. Postop sternotomy changes are seen. Parenchymal changes which are predominantly parahilar in distribution with some asymmetric changes in the right mid lung field are stable as compared to the prior exam. IMPRESSION: Stable exam. POS: TPC
--- NOTE | 2019-10-29 15:37 | EKG ---
Test Reason : Blood Pressure : / mmHG Vent. Rate : 081 BPM Atrial Rate : 081 BPM P-R Int : 150 ms QRS Dur : 128 ms QT Int : 456 ms P-R-T Axes : 062 107 -12 degrees QTc Int : 529 ms Normal sinus rhythm Left atrial enlargement Right bundle branch block T wave abnormality, consider inferior ischemia Abnormal ECG Confirmed by ALBA CALDWELL, MARY ([id number]), features editor CASE GILLETTE ([id number]) on 10/29/2019 3:36:37 PM Referred By: Confirmed By:MARY WILLIS MD
--- NOTE | 2019-10-29 18:36 | PDOC.CPN ---
- Subjective Date: 10/29/19 Time: 18:34 Interval history: No new issues. breathing slowly improving. - Review of Systems General: denies: fever/chills, weight/appetite/sleep changes, night sweats, fatigue Respiratory: reports: shortness of breath, exercise intolerance. denies: cough , congestion Cardiovascular: denies: chest pain, palpitation, edema, paroxysmal nocturnal dyspnea, orthopnea Gastrointestinal: denies: nausea, vomiting, diarrhea, constipation, abd pain, GI bleeding Musculoskeletal: denies: pain, tenderness, stiffness, swelling, arthritis/ arthralgias Neurological: denies: numbness, syncope, seizure, weakness - Objective Allergies/Adverse Reactions: Allergies Allergy/AdvReac Type Severity Reaction Status Date / Time clopidogrel Allergy Verified 10/23/19 19:22 lisinopril Allergy Verified 10/23/19 19:22 Visit Medications: Current Medications Acetaminophen (Tylenol) 650 mg PO Q4H PRN PRN Reason: Headache/Fever/Mild Pain (1-3) Acetaminophen (Tylenol) 650 mg ID Q4H PRN PRN Reason: Headache/Fever/Mild Pain (1-3) Amiodarone HCl (Cordarone) 400 mg PO BID [facility] Last Admin: 10/29/19 09:03 Dose: 400 mg Amlodipine Besylate (Norvasc) 5 mg PO DAILY [facility] Last Admin: 10/29/19 09:04 Dose: 5 mg Aspirin (Ecotrin) 81 mg PO DAILY [facility] Last Admin: 10/29/19 09:04 Dose: 81 mg Atorvastatin Calcium (Lipitor) 40 mg PO HS [facility] Last Admin: 10/28/19 21:43 Dose: Not Given Carvedilol (Coreg) 3.125 mg PO BID [facility] Last Admin: 10/29/19 09:04 Dose: 3.125 mg Cholecalciferol (Vitamin D3) 1,250 units PO DAILY [facility] Last Admin: 10/29/19 09:04 Dose: 1,250 units Coenzyme Q10 (Coenzyme Q10) 100 mg PO BID [facility] Last Admin: 10/29/19 09:06 Dose: 100 mg Folic Acid (Folvite) 1 mg PO DAILY [facility] Last Admin: 10/29/19 09:05 Dose: 1 mg Furosemide (Lasix) 20 mg SLOW IVP 0600,1400 [facility] Stop: 10/30/19 14:01 Last Admin: 10/29/19 14:08 Dose: 20 mg Heparin Sodium (Porcine) (Heparin) 5,000 units SC BID [facility] Last Admin: 10/29/19 09:05 Dose: 5,000 units Hydralazine HCl (Apresoline) 5 mg SLOW IVP Q15MIN PRN PRN Reason: SBP Greater Than 180 Last Admin: 10/27/19 21:15 Dose: 5 mg Senna (Senokot) 2 tab PO BID [facility] Last Admin: 10/29/19 09:05 Dose: 2 tab Sodium Chloride (Flush - Normal Saline) 10 ml IVF PRN PRN PRN Reason: Saline Flush Last Admin: 10/28/19 21:42 Dose: 10 ml Vital Signs & Weight: Vital Signs Temp Pulse Resp BP Pulse Ox Pulse Ox Pulse Ox 10/29/19 15:36 97.7 F 70 18 143/63 H 92 L 10/29/19 11:58 98.4 F 61 18 127/62 92 L 10/29/19 10:26 87 L 92 L 10/29/19 09:32 90 L 10/29/19 09:04 73 10/29/19 08:03 99.0 F 73 20 167/67 H 92 L Pulse Ox 10/29/19 15:36 10/29/19 11:58 10/29/19 10:26 90 L 10/29/19 09:32 10/29/19 09:04 10/29/19 08:03 Admit Weight 127 lb 6.835 oz Weight 119 lb 6.4 oz - Physical Exam General: alert & oriented x3 HEENT: mucus membranes moist Neck: supple neck Cardiac: systolic murmur Lungs: clear to auscultation Neuro: grossly intact Abdomen: active bowel sounds Extremities: no edema Skin: clear Musculoskeletal: no pain - Labs Result Diagrams: 10/29/19 04:03 10/29/19 04:03 Troponin/CKMB CK-MB (CK-2) 1.6 ng/mL (0-6.6) 10/23/19 17:23 Troponin I 0.152 ng/mL (< 0.028) H 10/24/19 07:20 - Telemetry Sinus rhythms and dysrhythmias: sinus rhythm - Assessment/Plan Assessment/Plan: 1. Acute on chronic systolic heart failure. 2. RLL pneumonia less likely as CXR improved with diuresis. 3. 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 Paroxysmal afib 5. Hypokalemia, resolved. PLAN: - Continue amiodarone PO load. - Full anticoagulation would be recommended with a CHADS VASc score of at least 3, Hgb more stable today. - Will start Eliquis 2.5 mg BID and stop heparin SQ. - Cannot do LHC due to creatinine. - All her grafts were closed and she had small vessel disease and nothing to do with her arteries on last evaluation. - Creatinine stable. - Will most likely need home O2.
[2019-10-29] MEDS: Atorvastatin Calcium 40 MG TAB PO SCH (21:47)
[2019-10-29] MEDS: Apixaban 2.5 MG TAB PO SCH (21:51)
[2019-10-30 05:06] LABS: Anion Gap 15 mmol/L (10-20); BUN (Urea Nitrogen) 58 mg/dL (9.8-20.1); Calc. Creatinine Clearance 14 mL/min (70-130); Calcium 9.3 mg/dL (7.8-10.44); Carbon Dioxide 23 mmol/L (23-31); Chloride 105 mmol/L (98-107); Estimated GFR-MDRD 16; Glucose 123 mg/dL (83-110); Potassium 4.3 mmol/L (3.5-5.1); Sodium 139 mmol/L (136-145)
[2019-10-30 05:09] LABS: Band 9 % (5-11); Eosinophils 1 % (0-10); Hemoglobin 9.2 g/dL (12.0-16.0); Lymphocytes 6 % (21-51); MDiff Complete? YES; Mean Corpuscular HGB CONC 33.8 g/dL (32.0-36.0); Mean Corpuscular Volume 94.7 fL (78.0-98.0); Mean Platelet Volume 9.9 fL (7.4-10.4); Monocytes 9 % (0-10); Neutrophil 75 % (42-75); Platelet Count 307 thou/uL (130-400); Platelet Morphology Comment Appears Adequate; RBC Distribution Width 15.1 % (11.5-14.5); Red Blood Cell (RBC) Count 2.87 mill/uL (4.20-5.40); White Blood Cell (WBC) Count 21.1 thou/uL (4.8-10.8)
--- NOTE | 2019-10-30 05:57 | PDOC.FM ---
- Subjective Subjective: Pt states she did well overnight. She states her breathing is better. She denies chest pain, nausea, vomiting, abdominal pain, burning with urination, or malaise. - Objective MAR Reviewed: Yes Vital Signs & Weight: Vital Signs (12 hours) Temp Pulse Resp BP BP Pulse Ox 10/30/19 04:00 97.8 F 57 L 20 147/68 H 96 10/29/19 21:39 97.8 F 73 21 H 178/80 H 93 L Weight Admit Weight 57.8 kg Weight 54.159 kg Most Recent Monitor Data Heart Rate from ECG 66 NIBP 145/62 NIBP BP-Mean 89 Respiration from ECG 28 SpO2 94 I&O: 10/28/19 10/29/19 10/30/19 06:59 06:59 06:59 Intake Total 1000 1410.5 1380 Output Total 2000 2100 Balance 1000 -589.5 -720 Result Diagrams: 10/30/19 04:37 10/30/19 04:36 Phys Exam - Physical Examination Constitutional: NAD HEENT: PERRLA, moist MMs Neck: no JVD Respiratory: no wheezing mild basilar crackles Cardiovascular: RRR, no significant murmur Gastrointestinal: soft, non-tender, no distention, positive bowel sounds Musculoskeletal: no edema, pulses present Neurological: moves all 4 limbs Psychiatric: A&O x 3 Skin: normal turgor, cap refill <2 seconds Dx/Plan (1) Acute respiratory failure with hypoxia Code(s): J96.01 - ACUTE RESPIRATORY FAILURE WITH HYPOXIA Status: Acute (2) Hypertensive emergency Code(s): I16.1 - HYPERTENSIVE EMERGENCY Status: Acute (3) CAD (coronary artery disease) Code(s): I25.10 - ATHSCL HEART DISEASE OF [place] CORONARY ARTERY W/O ANG PCTRS Status: Chronic Qualifiers: Coronary Disease-Associated Artery/Lesion type: bypass graft [place] vs. transplanted heart: [place] heart (4) CHF (congestive heart failure) Code(s): I50.9 - HEART FAILURE, UNSPECIFIED Status: Suspected - Plan Plan: This is a 79 yo female with a pmh of CAD with CABG, MV regurg, HLD, HTN Hospital Day 7 Code: Full DVT Prophylaxis: Eliquis GI Prophylaxis: none Plan: Pt needs improvement in her BP control before discharge. Likely DC to home with home health Acute hypoxic respiratory failure 2/2 flash pulmonary edema, improving -still requiring 5L o2, none used at home, however she does use CPAP. Will continue to diurese HTN emergency, resolved -Continue home PO meds, adding amlodipine until losartan can be added HFrEF -Echo shows LVEF 40-45% and 1/3 diastolic dysfunction -Dr. Artis consulted -Continue lasix diuresis Leukocytosis -No source of current infection, ROS is negative, afebrile, will monitor for changes Atrial fibrillation, now in sinus rhythm -Cardiology consulted -Continue PO amiodarone -Now on Eliquis for anti coagulation Elevated troponins Elevated D-Dimer -Wells score 0 -Low suspicion for PE -CXR does not show widened mediastinum, although it may be worth getting a CT chest if pt has chest pain NAOMI VS CKD -Likely related to severe HTN -Will monitor UTI, treated, culture NGTD CAD s/p CABG -Continue asa, work up as above Undiagnosed COPD -Long standing smoking history -Will add neb treatments as clinically indicated Normocytic anemia, stable -No apparent bleeding, will monitor Addendum - Attending - Attending Attestation Date/Time: 10/30/19 1045 I personally evaluated the patient and discussed the management with Dr. Taylor. I agree with the History, Examination, Assessment and Plan documented above with any addition or exceptions noted below. Patient continues to have shortness of breath, but improved. She is otherwise doing well. Transition to PO Lasix today. Would recommend SNF placement and will work to set that up. Continue O2 as needed but wean as tolerated. Anticipate she will need O2 therapy on discharge and may need permanently.
[2019-10-30] MEDS ORDERED: Furosemide 40 MG TAB PO SCH (07:30)
[2019-10-30] MEDS: Furosemide 40 MG TAB PO SCH ×2 (08:52→14:18)
[2019-10-30] MEDS: Amiodarone 200 MG TAB PO SCH ×2 (08:52→20:27)
[2019-10-30] MEDS: Carvedilol 3.125 MG TAB PO SCH ×2 (08:53→20:28)
[2019-10-30] MEDS: Amlodipine 10 MG TAB PO SCH (08:53)
[2019-10-30] MEDS: Aspirin 81 mg Enteric Coated Tablet PO SCH (08:53)
[2019-10-30] MEDS: Apixaban 2.5 MG TAB PO SCH ×2 (08:53→20:27)
[2019-10-30] MEDS: Folic Acid 1 MG TAB PO SCH (08:54)
[2019-10-30] MEDS: Senokot 8.6 MG TAB PO SCH ×2 (08:54→20:28)
[2019-10-30] MEDS: Ubidecarenone 50 MG CAP PO SCH ×2 (08:54→20:28)
--- NOTE | 2019-10-30 14:19 | PDOC.CPN ---
- Subjective Date: 10/30/19 Time: 14:16 Interval history: She is doing better. Still needing 5L NC. - Review of Systems General: denies: fever/chills, weight/appetite/sleep changes, night sweats, fatigue Respiratory: reports: shortness of breath, exercise intolerance. denies: cough , congestion Cardiovascular: denies: chest pain, palpitation, edema, paroxysmal nocturnal dyspnea, orthopnea Gastrointestinal: denies: nausea, vomiting, diarrhea, constipation, abd pain, GI bleeding Musculoskeletal: denies: pain, tenderness, stiffness, swelling, arthritis/ arthralgias Neurological: denies: numbness, syncope, seizure, weakness - Objective Allergies/Adverse Reactions: Allergies Allergy/AdvReac Type Severity Reaction Status Date / Time clopidogrel Allergy Verified 10/23/19 19:22 lisinopril Allergy Verified 10/23/19 19:22 Visit Medications: Current Medications Acetaminophen (Tylenol) 650 mg PO Q4H PRN PRN Reason: Headache/Fever/Mild Pain (1-3) Acetaminophen (Tylenol) 650 mg MD Q4H PRN PRN Reason: Headache/Fever/Mild Pain (1-3) Amiodarone HCl (Cordarone) 400 mg PO BID [facility] Last Admin: 10/30/19 08:52 Dose: 400 mg Amlodipine Besylate (Norvasc) 10 mg PO DAILY [facility] Last Admin: 10/30/19 08:53 Dose: 10 mg Apixaban (Eliquis) 2.5 mg PO BID [facility] Last Admin: 10/30/19 08:53 Dose: 2.5 mg Aspirin (Ecotrin) 81 mg PO DAILY [facility] Last Admin: 10/30/19 08:53 Dose: 81 mg Atorvastatin Calcium (Lipitor) 40 mg PO [facility] Last Admin: 10/29/19 21:47 Dose: Not Given Carvedilol (Coreg) 3.125 mg PO BID [facility] Last Admin: 10/30/19 08:53 Dose: 3.125 mg Cholecalciferol (Vitamin D3) 1,250 units PO DAILY [facility] Last Admin: 10/30/19 08:53 Dose: 1,250 units Coenzyme Q10 (Coenzyme Q10) 100 mg PO BID [facility] Last Admin: 10/30/19 08:54 Dose: 100 mg Folic Acid (Folvite) 1 mg PO DAILY [facility] Last Admin: 10/30/19 08:54 Dose: 1 mg Furosemide (Lasix) 40 mg PO 0900,1400 [facility] Last Admin: 10/30/19 08:52 Dose: 40 mg Hydralazine HCl (Apresoline) 5 mg SLOW IVP Q15MIN PRN PRN Reason: SBP Greater Than 180 Last Admin: 10/27/19 21:15 Dose: 5 mg Senna (Senokot) 2 tab PO BID [facility] Last Admin: 10/30/19 08:54 Dose: 2 tab Sodium Chloride (Flush - Normal Saline) 10 ml IVF PRN PRN PRN Reason: Saline Flush Last Admin: 10/28/19 21:42 Dose: 10 ml Vital Signs & Weight: Vital Signs Temp Pulse Pulse Pulse Resp BP BP 10/30/19 11:10 97.6 F 68 17 10/30/19 10:39 68 68 139/73 10/30/19 08:53 64 125/60 10/30/19 07:49 98.3 F 67 18 10/30/19 07:15 10/30/19 04:00 97.8 F 57 L 20 BP BP Pulse Ox Pulse Ox Pulse Ox 10/30/19 11:10 139/73 95 10/30/19 10:39 156/72 H 92 L 95 10/30/19 08:53 10/30/19 07:49 165/87 H 95 10/30/19 07:15 93 L 10/30/19 04:00 147/68 H 96 Admit Weight 127 lb 6.835 oz Weight 121 lb 14.4 oz - Physical Exam General: alert & oriented x3 HEENT: mucus membranes moist Neck: midline trachea Cardiac: regular rate and rhythm Lungs: clear to auscultation Neuro: grossly intact Abdomen: active bowel sounds Extremities: no edema Skin: clear Musculoskeletal: no pain - Labs Result Diagrams: 10/30/19 04:37 10/30/19 04:36 Troponin/CKMB CK-MB (CK-2) 1.6 ng/mL (0-6.6) 10/23/19 17:23 Troponin I 0.152 ng/mL (< 0.028) H 10/24/19 07:20 - Telemetry Sinus rhythms and dysrhythmias: sinus rhythm - Assessment/Plan Assessment/Plan: 1. Acute on chronic systolic heart failure. 2. RLL pneumonia less likely as CXR improved with diuresis. 3. 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 Paroxysmal afib 5. Hypokalemia, resolved. PLAN: - Continue amiodarone PO load at 400 mg BID for 6 days then 200 mg daily. - Eliquis for stroke prophylaxis. - Cannot do LHC due to creatinine. - All her grafts were closed and she had small vessel disease and nothing to do with her arteries on last evaluation with Dr Lama a few yrs back. - Will most likely need home O2.
[2019-10-30] MEDS: Atorvastatin Calcium 40 MG TAB PO SCH (20:28)
[2019-10-31 04:51] LABS: #Eosinphils 0.3 thou/uL (0.0-0.7); #Lymphocytes 1.4 thou/uL (1.20-3.40); #Monocytes 1.3 thou/uL (0.11-0.59); #Neutrophils 17.4 thou/uL (1.40-6.50); %Basophils 0.1 % (0.0-1.0); %Eosinophils 1.7 % (0.0-10.0); %Lymphocytes 6.8 % (21.0-51.0); %Monocytes 6.2 % (0.0-10.0); %Neutrophils 85.3 % (42.0-75.0); Hemoglobin 8.6 g/dL (12.0-16.0); Mean Corpuscular HGB CONC 32.8 g/dL (32.0-36.0); Mean Corpuscular Hemoglobin 31.3 pg (27.0-31.0); Mean Corpuscular Volume 95.3 fL (78.0-98.0); Mean Platelet Volume 9.7 fL (7.4-10.4); Platelet Count 304 thou/uL (130-400); RBC Distribution Width 15.1 % (11.5-14.5); Red Blood Cell (RBC) Count 2.74 mill/uL (4.20-5.40); White Blood Cell (WBC) Count 20.4 thou/uL (4.8-10.8)
[2019-10-31 05:11] LABS: Anion Gap 16 mmol/L (10-20); BUN (Urea Nitrogen) 71 mg/dL (9.8-20.1); Calc. Creatinine Clearance 13 mL/min (70-130); Carbon Dioxide 21 mmol/L (23-31); Chloride 106 mmol/L (98-107); Estimated GFR-MDRD 14; Glucose 115 mg/dL (83-110); Potassium 3.8 mmol/L (3.5-5.1); Sodium 139 mmol/L (136-145)
[2019-10-31 05:14] LABS: Hemoglobin 8.5 g/dL (12.0-16.0); Mean Corpuscular HGB CONC 32.8 g/dL (32.0-36.0); Mean Corpuscular Hemoglobin 31.1 pg (27.0-31.0); Mean Corpuscular Volume 94.9 fL (78.0-98.0); Mean Platelet Volume 9.9 fL (7.4-10.4); Platelet Count 307 thou/uL (130-400); RBC Distribution Width 15.1 % (11.5-14.5); Red Blood Cell (RBC) Count 2.74 mill/uL (4.20-5.40); White Blood Cell (WBC) Count 21.4 thou/uL (4.8-10.8)
[2019-10-31 05:37] LABS: Band 5 % (5-11); Eosinophils 1 % (0-10); Lymphocytes 7 % (21-51); MDiff Complete? YES; Metamyelocyte 1 % (0-0); Monocytes 4 % (0-10); Neutrophil 82 % (42-75); Platelet Morphology Comment Appears Adequate; RBC Morphology Normal
--- NOTE | 2019-10-31 06:36 | PDOC.FM ---
- Subjective Subjective: Pt is doing well today. She remains on 5L, using her incentive spirometer. She is now considering placement for rehab as she understands she is on oxygen and deconditioned. Otherwise doing well. Denies fever, chills. - Objective Vital Signs & Weight: Vital Signs (12 hours) Temp Pulse Resp BP Pulse Ox 10/31/19 05:34 85 18 92 L 10/31/19 02:58 97.8 F 57 L 20 142/66 H 95 10/30/19 20:12 83 20 91 L 10/30/19 20:00 92 L 10/30/19 19:44 98.2 F 63 20 143/65 H 91 L Weight Admit Weight 57.8 kg Weight 54.25 kg Most Recent Monitor Data Heart Rate from ECG 66 NIBP 145/62 NIBP BP-Mean 89 Respiration from ECG 28 SpO2 94 I&O: 10/29/19 10/30/19 10/31/19 06:59 06:59 06:59 Intake Total 1410.5 1380 1260 Output Total 1999 2100 1550 Balance -589.5 -720 -290 Result Diagrams: 10/31/19 04:19 10/31/19 04:19 Phys Exam - Physical Examination Constitutional: NAD HEENT: PERRLA, sclera anicteric Neck: no JVD, full ROM Respiratory: no wheezing Crackles L lung base cleared with deep inspiration Cardiovascular: RRR, no significant murmur Gastrointestinal: soft, no distention, positive bowel sounds Musculoskeletal: no edema, pulses present Neurological: non-focal, moves all 4 limbs Psychiatric: normal affect, A&O x 3 Dx/Plan (1) HLD (hyperlipidemia) Code(s): E78.5 - HYPERLIPIDEMIA, UNSPECIFIED Status: Acute (2) Acute respiratory failure with hypoxia Code(s): J96.01 - ACUTE RESPIRATORY FAILURE WITH HYPOXIA Status: Acute (3) Hypertensive emergency Code(s): I16.1 - HYPERTENSIVE EMERGENCY Status: Acute (4) CAD (coronary artery disease) Code(s): I25.10 - ATHSCL HEART DISEASE OF [place] CORONARY ARTERY W/O ANG PCTRS Status: Chronic Qualifiers: Coronary Disease-Associated Artery/Lesion type: bypass graft [place] vs. transplanted heart: [place] heart (5) HTN (hypertension) Code(s): I10 - ESSENTIAL (PRIMARY) HYPERTENSION Status: Chronic Qualifiers: Hypertension type: essential hypertension Qualified Code(s): I10 - Essential (primary) hypertension (6) CHF (congestive heart failure) Code(s): I50.9 - HEART FAILURE, UNSPECIFIED Status: Suspected (7) Atrial fibrillation Code(s): I48.91 - UNSPECIFIED ATRIAL FIBRILLATION Status: Acute - Plan Plan: This is a 79 yo female with a pmh of CAD with CABG, MV regurg, HLD, HTN Hospital Day 8 Code: Full DVT Prophylaxis: Eliquis GI Prophylaxis: none Plan: Pt needs improvement in her BP control before discharge. Will discuss case with CM as she now appears to want placement vs HH Acute hypoxic respiratory failure 2/2 flash pulmonary edema, improving -still requiring 5L o2, none used at home, however she does use CPAP. Will continue to diurese. Lungs appear to be clear, no signs of overload. HTN emergency, resolved -Continue home PO meds, adding amlodipine until losartan can be added HFrEF -Echo shows LVEF 40-45% and 1/3 diastolic dysfunction -Dr. Artis consulted -decreased lasix to 20 mg PO bid. Leukocytosis -No source of current infection, ROS is negative, afebrile, will monitor for changes Atrial fibrillation, now in sinus rhythm -Cardiology consulted -Continue PO amiodarone - loading dose 400 mg x 6 days then 200 mg -Now on Eliquis for anti coagulation Elevated troponins Elevated D-Dimer -Wells score 0 -Low suspicion for PE -CXR does not show widened mediastinum, although it may be worth getting a CT chest if pt has chest pain NAOMI VS CKD -Likely related to severe HTN -Will monitor UTI, treated, culture NGTD CAD s/p CABG -Continue asa, work up as above Undiagnosed COPD -Long standing smoking history -Will add neb treatments as clinically indicated Normocytic anemia, stable -No apparent bleeding, will monitor
[2019-10-31] MEDS: Ubidecarenone 50 MG CAP PO SCH ×2 (10:12→20:37)
[2019-10-31] MEDS: Amiodarone 200 MG TAB PO SCH ×2 (10:13→20:37)
[2019-10-31] MEDS: Carvedilol 3.125 MG TAB PO SCH ×2 (10:14→20:37)
[2019-10-31] MEDS: Amlodipine 10 MG TAB PO SCH (10:14)
[2019-10-31] MEDS: Folic Acid 1 MG TAB PO SCH (10:14)
[2019-10-31] MEDS: Aspirin 81 mg Enteric Coated Tablet PO SCH (10:14)
[2019-10-31] MEDS: Apixaban 2.5 MG TAB PO SCH ×2 (10:15→20:37)
[2019-10-31] MEDS: Senokot 8.6 MG TAB PO SCH ×2 (10:18→20:38)
[2019-10-31] MEDS: Furosemide 20 MG TAB PO SCH ×2 (10:18→13:34)
[2019-10-31 10:55] LABS: Actual Bicarbonate (HCO3a) 21.3 mEq/L (22-28); Base Excess (BEa) -1.7 mEq/L (-2.0 to +3.0); CO2 Tension 29.9 mmHg (35.0-45.0); Calcium, Ionized 1.13 mmol/L (1.12-1.30); Carboxyhemoglobin (COHb) 0.6 gm% (0.0-3.0); Hemoglobin (Hb) 9.5 g/dL (12.0-16.0); Potassium - ABG Lab 3.44 mmol/L (3.70-5.30); pH, Arterial 7.47 (7.35-7.45)
[2019-10-31 10:56] LABS: O2 Tension (PaO2) 47.8 mmHg (> 70.0); Puncture Site RRA
[2019-10-31 10:57] LABS: ALV-art Gradient 64.555 (0-20)
--- NOTE | 2019-10-31 13:01 | PDOC.CPN ---
- Subjective Date: 10/31/19 Time: 12:30 Interval history: Ms. Tate is awake, lying in bed, watching TV. Seen and examined. No acute complaints. Continues to have SOB with exertion, but reports this is improving. Denies hearing herself wheeze. Denies chest pain or tightness. No N/V/D. Awaiting rehab placement. No overnight events on telemetry. - Review of Systems General: denies: fever/chills, weight/appetite/sleep changes, night sweats, fatigue Respiratory: reports: shortness of breath Cardiovascular: denies: chest pain, palpitation, edema, paroxysmal nocturnal dyspnea, orthopnea Gastrointestinal: denies: nausea, vomiting, diarrhea, constipation, abd pain, GI bleeding Musculoskeletal: denies: pain, tenderness, stiffness, swelling, arthritis/ arthralgias - Objective Allergies/Adverse Reactions: Allergies Allergy/AdvReac Type Severity Reaction Status Date / Time clopidogrel Allergy Verified 10/23/19 19:22 lisinopril Allergy Verified 10/23/19 19:22 Visit Medications: Current Medications Acetaminophen (Tylenol) 650 mg PO Q4H PRN PRN Reason: Headache/Fever/Mild Pain (1-3) Acetaminophen (Tylenol) 650 mg HI Q4H PRN PRN Reason: Headache/Fever/Mild Pain (1-3) Albuterol/Ipratropium (Duoneb) 3 ml EZPAP Q6H PRN PRN Reason: SOB &/or Wheezing Last Admin: 10/31/19 10:40 Dose: 3 ml Amiodarone HCl (Cordarone) 400 mg PO BID [facility] Last Admin: 10/31/19 10:13 Dose: 400 mg Amlodipine Besylate (Norvasc) 10 mg PO DAILY [facility] Last Admin: 10/31/19 10:14 Dose: 10 mg Apixaban (Eliquis) 2.5 mg PO BID [facility] Last Admin: 10/31/19 10:15 Dose: 2.5 mg Aspirin (Ecotrin) 81 mg PO DAILY [facility] Last Admin: 10/31/19 10:14 Dose: 81 mg Atorvastatin Calcium (Lipitor) 40 mg PO HS [facility] Last Admin: 10/30/19 20:28 Dose: Not Given Carvedilol (Coreg) 3.125 mg PO BID [facility] Last Admin: 10/31/19 10:14 Dose: 3.125 mg Cholecalciferol (Vitamin D3) 1,250 units PO DAILY [facility] Last Admin: 10/31/19 10:12 Dose: 1,250 units Coenzyme Q10 (Coenzyme Q10) 100 mg PO BID [facility] Last Admin: 10/31/19 10:12 Dose: 100 mg Folic Acid (Folvite) 1 mg PO DAILY [facility] Last Admin: 10/31/19 10:14 Dose: 1 mg Furosemide (Lasix) 20 mg PO 0900,1400 [facility] Last Admin: 10/31/19 10:18 Dose: 20 mg Hydralazine HCl (Apresoline) 5 mg SLOW IVP Q15MIN PRN PRN Reason: SBP Greater Than 180 Last Admin: 10/27/19 21:15 Dose: 5 mg Senna (Senokot) 2 tab PO BID [facility] Last Admin: 10/31/19 10:18 Dose: 2 tab Sodium Chloride (Flush - Normal Saline) 10 ml IVF PRN PRN PRN Reason: Saline Flush Last Admin: 10/28/19 21:42 Dose: 10 ml Vital Signs & Weight: Vital Signs Temp Pulse Resp BP BP Pulse Ox 10/31/19 10:40 68 16 10/31/19 09:50 97.8 F 63 18 128/74 97 10/31/19 05:34 85 18 92 L 10/31/19 02:58 97.8 F 57 L 20 142/66 H 95 Admit Weight 127 lb 6.835 oz Weight 119 lb 9.6 oz - CHADS-VASc Congestive heart failure: 1 Hypertension: 1 Age >75: 2 Vascular disease: 1 Female: 1 Risk Score: 6 - Quality Measures Condition: Atrial Fibrillation/Flutter (hx or current), Coronary Artery Disease , Heart Failure CV meds: Beta Jose: Yes, VANITA/ARB: No, Statin: Yes, ASA: Yes, Plavix/Effient/ Brilinta: No, Anticoagulant: Yes - Medication Contraindications No VANITA/ARB reason: Medical contraindication (CKD) - Physical Exam General: appears well, no apparent distress HEENT: mucus membranes moist Neck: supple neck, no JVD/HJR Cardiac: regular rate and rhythm, no murmur, S1/S2 Lungs: no wheezes, rales - left, oxygen (5L per NC) Neuro: grossly intact Abdomen: unremarkable Extremities: no edema Skin: clear - Labs Result Diagrams: 10/31/19 04:19 10/31/19 04:19 Troponin/CKMB CK-MB (CK-2) 1.6 ng/mL (0-6.6) 10/23/19 17:23 Troponin I 0.152 ng/mL (< 0.028) H 10/24/19 07:20 - Telemetry Sinus rhythms and dysrhythmias: sinus rhythm - Assessment/Plan Assessment/Plan: 1. Acute on chronic systolic heart failure. 2. CAD-s/p CABG 3. 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 Paroxysmal afib 5. Hypokalemia, resolved. PLAN: - Continue amiodarone PO load at 400 mg BID for 6 days then 200 mg daily. - Eliquis for stroke prophylaxis. - Cannot do LHC due to creatinine. - All her grafts were closed and she had small vessel disease and nothing to do with her arteries on last evaluation with Dr Lama a few yrs back. - Will most likely need home O2, awaiting placement for deconditioning
[2019-10-31] MEDS: Atorvastatin Calcium 40 MG TAB PO SCH (20:38)
[2019-11-01 04:53] LABS: Mean Corpuscular HGB CONC 34.1 g/dL (32.0-36.0); Mean Corpuscular Hemoglobin 32.2 pg (27.0-31.0); Mean Corpuscular Volume 94.2 fL (78.0-98.0); Mean Platelet Volume 10.5 fL (7.4-10.4); Platelet Count 302 thou/uL (130-400); RBC Distribution Width 15.2 % (11.5-14.5); Red Blood Cell (RBC) Count 2.49 mill/uL (4.20-5.40); White Blood Cell (WBC) Count 17.9 thou/uL (4.8-10.8)
[2019-11-01 04:54] LABS: Band 2 % (5-11); Eosinophils 1 % (0-10); Lymphocytes 5 % (21-51); MDiff Complete? YES; Monocytes 6 % (0-10); Neutrophil 86 % (42-75); Platelet Morphology Comment Appears Adequate; RBC Morphology Normal
[2019-11-01 04:57] LABS: Anion Gap 20 mmol/L (10-20); BUN (Urea Nitrogen) 80 mg/dL (9.8-20.1); Calc. Creatinine Clearance 12 mL/min (70-130); Calcium 8.7 mg/dL (7.8-10.44); Carbon Dioxide 16 mmol/L (23-31); Chloride 105 mmol/L (98-107); Estimated GFR-MDRD 13; Glucose 111 mg/dL (83-110); Potassium 3.9 mmol/L (3.5-5.1); Sodium 137 mmol/L (136-145)
--- NOTE | 2019-11-01 06:39 | PDOC.FM ---
- Subjective Subjective: Pt is doing well today. She is requiring oxygen. Her ABG showed no CO2 retention. She denies worsening shortness of breath. She prefers short term placement over HH. - Objective Vital Signs & Weight: Vital Signs (12 hours) Temp Pulse Resp BP BP Pulse Ox 11/01/19 04:05 64 16 94 L 11/01/19 03:00 98.4 F 60 18 128/59 L 92 L 10/31/19 20:53 68 16 93 L 10/31/19 20:00 97.9 F 61 18 128/62 92 L Weight Admit Weight 57.8 kg Weight 55.157 kg Most Recent Monitor Data Heart Rate from ECG 66 NIBP 145/62 NIBP BP-Mean 89 Respiration from ECG 28 SpO2 94 I&O: 10/30/19 10/31/19 11/01/19 06:59 06:59 06:59 Intake Total 1380 1260 1320 Output Total 2100 1550 1400 Balance -720 -290 -80 Result Diagrams: 11/01/19 03:52 11/01/19 03:52 EKG Reviewed by me: Yes (Tele: NSR) Phys Exam - Physical Examination Constitutional: NAD HEENT: PERRLA, moist MMs Neck: no JVD, full ROM Respiratory: no wheezing, no rhonchi, clear to auscultation bilateral Cardiovascular: RRR, no significant murmur Gastrointestinal: soft, non-tender, no distention Musculoskeletal: no edema, pulses present Neurological: non-focal, moves all 4 limbs Psychiatric: normal affect, A&O x 3 Skin: no rash, cap refill <2 seconds Dx/Plan (1) HLD (hyperlipidemia) Code(s): E78.5 - HYPERLIPIDEMIA, UNSPECIFIED Status: Acute (2) Acute respiratory failure with hypoxia Code(s): J96.01 - ACUTE RESPIRATORY FAILURE WITH HYPOXIA Status: Acute (3) Hypertensive emergency Code(s): I16.1 - HYPERTENSIVE EMERGENCY Status: Acute (4) CAD (coronary artery disease) Code(s): I25.10 - ATHSCL HEART DISEASE OF [place] CORONARY ARTERY W/O ANG PCTRS Status: Chronic Qualifiers: Coronary Disease-Associated Artery/Lesion type: bypass graft [place] vs. transplanted heart: [place] heart (5) HTN (hypertension) Code(s): I10 - ESSENTIAL (PRIMARY) HYPERTENSION Status: Chronic Qualifiers: Hypertension type: essential hypertension Qualified Code(s): I10 - Essential (primary) hypertension (6) CHF (congestive heart failure) Code(s): I50.9 - HEART FAILURE, UNSPECIFIED Status: Suspected (7) Atrial fibrillation Code(s): I48.91 - UNSPECIFIED ATRIAL FIBRILLATION Status: Acute - Plan Plan: This is a 79 yo female with a pmh of CAD with CABG, MV regurg, HLD, HTN Hospital Day 9 Code: Full DVT Prophylaxis: Eliquis GI Prophylaxis: none Plan: Discussing placement for rehab. Acute hypoxic respiratory failure 2/2 flash pulmonary edema, improving -keep oxygen at 6 L to keep partial oxygen of artery close to 60, none used at home, however she does use CPAP. Will continue to diurese. Lungs appear to be clear, no signs of overload. She is not retaining carbon dioxide 2/2 COPD, likely will take to time to resolve after pulmonary edema but possibly will require life long oxygen. HTN emergency, resolved -Continue home PO meds, adding amlodipine. Started losartan 10/31. 1 point drop in GFR. HFrEF -Echo shows LVEF 40-45% and 1/3 diastolic dysfunction -Dr. Artis consulted -lasix to 20 mg PO bid. Leukocytosis -No source of current infection, ROS is negative, afebrile, will monitor for changes Atrial fibrillation, now in sinus rhythm -Cardiology consulted -Continue PO amiodarone - loading dose 400 mg x 6 days then 200 mg. She has 2 more doses ( 1 evening of 11/01, morning 11/02 then switch to 200 mg) -Now on Eliquis for anti coagulation Elevated troponins Elevated D-Dimer -Wells score 0 -Low suspicion for PE -CXR does not show widened mediastinum, although it may be worth getting a CT chest if pt has chest pain NAOMI VS CKD -Likely related to severe HTN -Will monitor for resolution. Will need close follow up in outpt setting. UTI, treated, culture NGTD CAD s/p CABG -Continue asa, work up as above Undiagnosed COPD -Long standing smoking history -Will add neb treatments as clinically indicated Normocytic anemia, stable -No apparent bleeding, will monitor
[2019-11-01] MEDS: Amlodipine 10 MG TAB PO SCH (09:24)
[2019-11-01] MEDS: Carvedilol 3.125 MG TAB PO SCH ×2 (09:25→20:39)
[2019-11-01] MEDS: Apixaban 2.5 MG TAB PO SCH ×2 (09:25→20:40)
[2019-11-01] MEDS: Furosemide 20 MG TAB PO SCH ×2 (09:25→14:19)
[2019-11-01] MEDS: Folic Acid 1 MG TAB PO SCH (09:26)
[2019-11-01] MEDS: Losartan 25 MG TAB PO SCH (09:26)
[2019-11-01] MEDS: Amiodarone 200 MG TAB PO SCH ×2 (09:26→20:40)
[2019-11-01] MEDS: Ubidecarenone 50 MG CAP PO SCH ×2 (09:26→20:39)
[2019-11-01] MEDS: Senokot 8.6 MG TAB PO SCH ×2 (09:27→20:41)
[2019-11-01] MEDS: Aspirin 81 mg Enteric Coated Tablet PO SCH (09:27)
--- NOTE | 2019-11-01 11:17 | PRG ---
DATE OF SERVICE: 11/01/2019 Ms. Tate is sitting quietly in bed, in no distress. She had a fairly profound hypoxemia on ABG yesterday, who will need lifelong O2. I would recommend her setting be at about 5 to 6 L/minute given that her ABG on this level showed a pO2 of 50 and it needs to be around 60. Her room air O2 was 47.8, pCO2 was 29.9, and her pH was 7.47. Job ID: [id number]
--- NOTE | 2019-11-01 12:49 | PDOC.CPN ---
- Subjective Date: 11/01/19 Time: 13:50 Interval history: Awake, watching TV. Awaiting SNF placement. Still requiring supplemental oxygen. Denies chest pain, tightness. Some shortness of breath with exertion, denies PND, orthopnea, or nocturnal cough. Denies N/V/D. No overnight events on telemetry. - Review of Systems General: denies: fever/chills, weight/appetite/sleep changes, night sweats, fatigue Respiratory: reports: shortness of breath Cardiovascular: denies: chest pain, palpitation, edema, paroxysmal nocturnal dyspnea, orthopnea Gastrointestinal: denies: nausea, vomiting, diarrhea, constipation, abd pain, GI bleeding Musculoskeletal: denies: pain, tenderness, stiffness, swelling, arthritis/ arthralgias - Objective Allergies/Adverse Reactions: Allergies Allergy/AdvReac Type Severity Reaction Status Date / Time clopidogrel Allergy Verified 10/23/19 19:22 lisinopril Allergy Verified 10/23/19 19:22 Visit Medications: Current Medications Acetaminophen (Tylenol) 650 mg PO Q4H PRN PRN Reason: Headache/Fever/Mild Pain (1-3) Acetaminophen (Tylenol) 650 mg DC Q4H PRN PRN Reason: Headache/Fever/Mild Pain (1-3) Albuterol/Ipratropium (Duoneb) 3 ml EZPAP Q6H PRN PRN Reason: SOB &/or Wheezing Last Admin: 11/01/19 10:49 Dose: 3 ml Amiodarone HCl (Cordarone) 400 mg PO BID [facility] Last Admin: 11/01/19 09:26 Dose: 400 mg Amlodipine Besylate (Norvasc) 10 mg PO DAILY [facility] Last Admin: 11/01/19 09:24 Dose: 10 mg Apixaban (Eliquis) 2.5 mg PO BID [facility] Last Admin: 11/01/19 09:25 Dose: 2.5 mg Aspirin (Ecotrin) 81 mg PO DAILY [facility] Last Admin: 11/01/19 09:27 Dose: 81 mg Atorvastatin Calcium (Lipitor) 40 mg PO HS [facility] Last Admin: 10/31/19 20:38 Dose: Not Given Carvedilol (Coreg) 3.125 mg PO BID [facility] Last Admin: 11/01/19 09:25 Dose: 3.125 mg Cholecalciferol (Vitamin D3) 1,250 units PO DAILY [facility] Last Admin: 11/01/19 09:25 Dose: 1,250 units Coenzyme Q10 (Coenzyme Q10) 100 mg PO BID [facility] Last Admin: 11/01/19 09:26 Dose: 100 mg Folic Acid (Folvite) 1 mg PO DAILY [facility] Last Admin: 11/01/19 09:26 Dose: 1 mg Furosemide (Lasix) 20 mg PO 0900,1400 [facility] Last Admin: 11/01/19 09:25 Dose: 20 mg Hydralazine HCl (Apresoline) 5 mg SLOW IVP Q15MIN PRN PRN Reason: SBP Greater Than 180 Last Admin: 10/27/19 21:15 Dose: 5 mg Losartan Potassium (Cozaar) 25 mg PO DAILY [facility] Last Admin: 11/01/19 09:26 Dose: 25 mg Senna (Senokot) 2 tab PO BID [facility] Last Admin: 11/01/19 09:27 Dose: Not Given Sodium Chloride (Flush - Normal Saline) 10 ml IVF PRN PRN PRN Reason: Saline Flush Last Admin: 10/28/19 21:42 Dose: 10 ml Vital Signs & Weight: Vital Signs Temp Pulse Resp BP Pulse Ox 11/01/19 12:00 98.2 F 67 20 135/69 93 L 11/01/19 10:52 93 L 11/01/19 10:49 65 16 11/01/19 09:16 99.4 F 65 18 92 L 11/01/19 04:05 64 16 94 L 11/01/19 03:00 98.4 F 60 18 128/59 L 92 L Admit Weight 127 lb 6.835 oz Weight 121 lb 9.6 oz - CHADS-VASc Congestive heart failure: 1 Hypertension: 1 Age >75: 2 Vascular disease: 1 Female: 1 Risk Score: 6 - Quality Measures Condition: Atrial Fibrillation/Flutter (hx or current), Coronary Artery Disease , Heart Failure CV meds: Beta Jose: Yes, VANITA/ARB: No, Statin: Yes, ASA: Yes, Plavix/Effient/ Brilinta: No, Anticoagulant: Yes - Medication Contraindications No VANITA/ARB reason: Medical contraindication (CKD) - Physical Exam General: no apparent distress HEENT: mucus membranes moist Neck: supple neck, no JVD/HJR Cardiac: regular rate and rhythm, no murmur, S1/S2 Lungs: clear to auscultation, normal breath sounds, no wheeze, rales, rhonchi Neuro: grossly intact Abdomen: unremarkable Extremities: no edema - Labs Result Diagrams: 11/01/19 03:52 11/01/19 03:52 Troponin/CKMB CK-MB (CK-2) 1.6 ng/mL (0-6.6) 10/23/19 17:23 Troponin I 0.152 ng/mL (< 0.028) H 10/24/19 07:20 - Telemetry Sinus rhythms and dysrhythmias: sinus rhythm (56-63) - Assessment/Plan Assessment/Plan: 1. Acute on chronic systolic heart failure. 2. CAD-s/p CABG 3. 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 Paroxysmal afib 5. Hypokalemia, resolved. PLAN: - Continue amiodarone PO load at 400 mg BID for 1 more day, then 200 mg daily. - Eliquis for stroke prophylaxis. - Cannot do LHC due to creatinine. - All her grafts were closed and she had small vessel disease and nothing to do with her arteries on last evaluation with Dr Lama a few yrs back. - Will most likely need home O2, awaiting placement for deconditioning
--- NOTE | 2019-11-01 15:46 | PRG ---
DATE OF SERVICE: 11/01/2019 SUBJECTIVE: I was asked to see her again. The patient was upset because residents had ordered several blood gases on her. She has hypoxemia, which is likely from COPD and congestive heart failure. She is scheduled to go over to rehab. Today, room air blood gas was drawn showing a pO2 of 47. They had bumped her up from room air to 5 L. OBJECTIVE: VITAL SIGNS: On exam, I have been able to wean her down to 3 L and her O2 saturation is 93%. Respirations 18. GENERAL: She is in no distress. HEENT: Unremarkable. NECK: No adenopathy or JVD. LUNGS: Diminished breath sounds in the bases. CARDIAC: S1 and S2. Regular. ABDOMEN: Soft. EXTREMITIES: No edema. ASSESSMENT: Hypoxemia, which is likely from a combination of chronic obstructive pulmonary disease and heart failure. RECOMMENDATION: She needs just enough oxygen to keep her O2 saturation greater than 90% and no more than that. Job ID: [id number]
--- NOTE | 2019-11-01 17:36 | PRG ---
DATE OF SERVICE: 10/31/2019 ADDENDUM: This is an addendum to the note of Dr. August Roberts. Ms. Tate is a pleasant 79-year-old white female with a greater than 40 pack-year history of cigarette smoking. She had been admitted with acute respiratory failure with hypoxia and hypertensive emergency. This morning, she is much improved. She is awake, alert, no distress. She is, however, requiring 5 L of O2 and had no prior use of this. We obtained a room air arterial blood gas, which showed significant hypoxemia with a pO2 of 47.8. She therefore definitely qualifies for home O2 24 hours a day for the rest of her life. Her pH was 7.47. Her pCO2 was 29.9. Her O2 saturation on this ABG was 85%. She would probably do better between 88% and 92% sat in order to maintain a PO2 above 60. In the event, she is nearing time for discharge. Job ID: [id number]
[2019-11-01] MEDS: Atorvastatin Calcium 40 MG TAB PO SCH (20:39)
[2019-11-02 04:48] LABS: Band 2 % (5-11); Eosinophils 1 % (0-10); Hemoglobin 7.8 g/dL (12.0-16.0); Lymphocytes 6 % (21-51); MDiff Complete? YES; Mean Corpuscular HGB CONC 33.8 g/dL (32.0-36.0); Mean Corpuscular Volume 94.7 fL (78.0-98.0); Mean Platelet Volume 10.2 fL (7.4-10.4); Metamyelocyte 1 % (0-0); Monocytes 4 % (0-10); Neutrophil 86 % (42-75); Platelet Count 303 thou/uL (130-400); Platelet Morphology Comment Appears Adequate; RBC Distribution Width 15.1 % (11.5-14.5); Red Blood Cell (RBC) Count 2.45 mill/uL (4.20-5.40); White Blood Cell (WBC) Count 16.6 thou/uL (4.8-10.8)
[2019-11-02 04:58] LABS: Anion Gap 16 mmol/L (10-20); BUN (Urea Nitrogen) 90 mg/dL (9.8-20.1); Calc. Creatinine Clearance 11 mL/min (70-130); Carbon Dioxide 21 mmol/L (23-31); Chloride 105 mmol/L (98-107); Estimated GFR-MDRD 12; Glucose 118 mg/dL (83-110); Potassium 3.8 mmol/L (3.5-5.1); Sodium 138 mmol/L (136-145)
--- NOTE | 2019-11-02 06:20 | PDOC.FM ---
- Subjective Subjective: Pt awake and alert today. On humidified 4L this AM. Overnight tele sinus bradycardia. Pt is feeling well. - Objective MAR Reviewed: Yes Vital Signs & Weight: Vital Signs (12 hours) Temp Pulse Resp BP Pulse Ox 11/02/19 04:00 97.7 F 51 L 18 103/55 L 97 11/01/19 21:15 59 L 16 11/01/19 20:00 98.1 F 57 L 18 117/58 L 92 L Weight Admit Weight 57.8 kg Weight 54.703 kg Most Recent Monitor Data Heart Rate from ECG 66 NIBP 145/62 NIBP BP-Mean 89 Respiration from ECG 28 SpO2 94 I&O: 10/31/19 11/01/19 11/02/19 06:59 06:59 06:59 Intake Total 1260 1320 1800 Output Total 1550 1400 Balance -290 -80 1800 Result Diagrams: 11/02/19 04:01 11/02/19 04:01 Phys Exam - Physical Examination Constitutional: NAD Respiratory: no wheezing, no rales, clear to auscultation bilateral Cardiovascular: RRR Gastrointestinal: soft Musculoskeletal: no edema Psychiatric: normal affect, A&O x 3 Dx/Plan (1) Acute respiratory failure with hypoxia Code(s): J96.01 - ACUTE RESPIRATORY FAILURE WITH HYPOXIA Status: Acute (2) Atrial fibrillation Code(s): I48.91 - UNSPECIFIED ATRIAL FIBRILLATION Status: Acute (3) HLD (hyperlipidemia) Code(s): E78.5 - HYPERLIPIDEMIA, UNSPECIFIED Status: Acute (4) Hypertensive emergency Code(s): I16.1 - HYPERTENSIVE EMERGENCY Status: Acute (5) CAD (coronary artery disease) Code(s): I25.10 - ATHSCL HEART DISEASE OF [place] CORONARY ARTERY W/O ANG PCTRS Status: Chronic Qualifiers: Coronary Disease-Associated Artery/Lesion type: bypass graft [place] vs. transplanted heart: [place] heart (6) HTN (hypertension) Code(s): I10 - ESSENTIAL (PRIMARY) HYPERTENSION Status: Chronic Qualifiers: Hypertension type: essential hypertension Qualified Code(s): I10 - Essential (primary) hypertension (7) CHF (congestive heart failure) Code(s): I50.9 - HEART FAILURE, UNSPECIFIED Status: Suspected - Plan Plan: This is a 79 yo female with a pmh of CAD with CABG, MV regurg, HLD, HTN Hospital Day 10 Code: Full DVT Prophylaxis: Eliquis GI Prophylaxis: none Plan: Discussing placement for rehab. Awaiting bed availability Acute hypoxic respiratory failure 2/2 flash pulmonary edema, improving -pulm consulted, rec keeping O2 sats at 90% and no greater. HTN emergency, resolved -Continue home PO meds, adding amlodipine. Started losartan 10/31. 1 point drop in GFR. HFrEF -Echo shows LVEF 40-45% and 1/3 diastolic dysfunction -Dr. Artis consulted -lasix to 20 mg PO bid Leukocytosis -No source of current infection, ROS is negative, afebrile, will monitor for changes Atrial fibrillation, now in sinus rhythm -Cardiology consulted -Continue PO amiodarone - loading dose 400 mg x 6 days then 200 mg. She has 2 more dose (morning 11/02 then switch to 200 mg) -Now on Eliquis for anti coagulation Elevated troponins, stable Elevated D-Dimer -Wells score 0 -Low suspicion for PE -CXR does not show widened mediastinum, although it may be worth getting a CT chest if pt has chest pain NAOMI VS CKD -Likely related to severe HTN -not improving, Creatinine is worsening. Consider ATN vs other intrinsic renal pathology. - Nephro, Dr. Hoff consulted. -Will monitor for resolution. Will need close follow up in outpt setting. UTI, treated, culture NGTD CAD s/p CABG -Continue asa, work up as above Undiagnosed COPD -Long standing smoking history -Will add neb treatments as clinically indicated Normocytic anemia, stable -No apparent bleeding, will monitor Addendum - Attending - Attending Attestation Date/Time: 11/02/19 1327 I personally evaluated the patient and discussed the management with Dr. Mathis I agree with the History, Examination, Assessment and Plan documented above with any addition or exceptions noted below. Patient alert responsive in Bed. Goal of O2 saturation greater than 90% noted and weaning down N/C as tolerated. Consult Nephrology today regard NAOMI on CKD note patients BP on low side this am and losartan and BB held rx held. Patient with s/p loading with amiadarone with controlled sinus rate some concern regard junctional rhythm this am. CM for options placement. Noted drop in H/H continue trend transfuse prn patient symptomatic or Hg less 7.
[2019-11-02] MEDS: Ubidecarenone 50 MG CAP PO SCH ×2 (09:15→21:55)
[2019-11-02] MEDS: Amiodarone 200 MG TAB PO SCH ×2 (09:17→21:55)
[2019-11-02] MEDS: Senokot 8.6 MG TAB PO SCH ×2 (09:17→21:55)
[2019-11-02] MEDS: Apixaban 2.5 MG TAB PO SCH ×2 (09:18→21:55)
[2019-11-02] MEDS: Aspirin 81 mg Enteric Coated Tablet PO SCH (09:18)
[2019-11-02] MEDS: Furosemide 20 MG TAB PO SCH ×2 (09:20→14:03)
[2019-11-02] MEDS: Folic Acid 1 MG TAB PO SCH (09:20)
[2019-11-02] MEDS: Amlodipine 10 MG TAB PO SCH (09:28)
[2019-11-02] MEDS: Losartan 25 MG TAB PO SCH (09:31)
[2019-11-02] MEDS: Ferrous Sulfate 325 MG TAB PO SCH ×2 (09:31→17:15)
[2019-11-02] MEDS: Carvedilol 3.125 MG TAB PO SCH ×2 (09:31→21:55)
[2019-11-02] MEDS ORDERED: Epoetin (ESRD) 20,000 UNITS/ML SC SCH (13:00)
--- NOTE | 2019-11-02 15:50 | ULT ---
US Renal Bilateral STANDARD: 11/02/2019 12:36 PM CLINICAL HISTORY: Renal failure. STUDY: Renal ultrasound COMPARISON: None. FINDINGS: Right kidney: Echogenicity: Normal. Masses/cysts: None. Hydronephrosis: None. Calcifications: None. Length: 8.7 cm Left kidney: Echogenicity: Normal. Masses/cysts: 1.7 cm cyst Hydronephrosis: None. Calcifications: None. Length: 9.0 cm Limited visualization of the urinary bladder is unremarkable. IMPRESSION: Left renal cyst
--- NOTE | 2019-11-02 16:32 | EKG ---
Test Reason : Blood Pressure : / mmHG Vent. Rate : 063 BPM Atrial Rate : 063 BPM P-R Int : 154 ms QRS Dur : 140 ms QT Int : 474 ms P-R-T Axes : 069 100 -46 degrees QTc Int : 485 ms Normal sinus rhythm Possible Left atrial enlargement Right bundle branch block T wave abnormality, consider inferior ischemia Abnormal ECG When compared with ECG of 26-OCT-2019 19:50, Sinus rhythm has replaced Atrial fibrillation Vent. rate has decreased BY 73 BPM Nonspecific T wave abnormality now evident in Lateral leads Confirmed by DR. Tom LOYD ([id number]) on 11/02/2019 4:32:21 PM Referred By: DEEPAK sommers Confirmed By:DR. Tom LOYD
--- NOTE | 2019-11-02 16:39 | PDOC.CPN ---
- Subjective Date: 11/02/19 Time: 16:37 Interval history: Doing better. Breathing better. No angina. - Review of Systems General: denies: fever/chills, weight/appetite/sleep changes, night sweats, fatigue Respiratory: reports: exercise intolerance. denies: cough, congestion, shortness of breath Cardiovascular: denies: chest pain, palpitation, edema, paroxysmal nocturnal dyspnea, orthopnea Gastrointestinal: denies: nausea, vomiting, diarrhea, constipation, abd pain, GI bleeding Musculoskeletal: denies: pain, tenderness, stiffness, swelling, arthritis/ arthralgias Neurological: denies: numbness, syncope, seizure, weakness - Objective Allergies/Adverse Reactions: Allergies Allergy/AdvReac Type Severity Reaction Status Date / Time clopidogrel Allergy Verified 10/23/19 19:22 lisinopril Allergy Verified 10/23/19 19:22 Visit Medications: Current Medications Acetaminophen (Tylenol) 650 mg PO Q4H PRN PRN Reason: Headache/Fever/Mild Pain (1-3) Acetaminophen (Tylenol) 650 mg MA Q4H PRN PRN Reason: Headache/Fever/Mild Pain (1-3) Albuterol/Ipratropium (Duoneb) 3 ml EZPAP Q6H PRN PRN Reason: SOB &/or Wheezing Last Admin: 11/01/19 21:15 Dose: 3 ml Amiodarone HCl (Cordarone) 200 mg PO BID [facility] Amlodipine Besylate (Norvasc) 10 mg PO DAILY [facility] Last Admin: 11/02/19 09:28 Dose: 10 mg Apixaban (Eliquis) 2.5 mg PO BID [facility] Last Admin: 11/02/19 09:18 Dose: 2.5 mg Aspirin (Ecotrin) 81 mg PO DAILY [facility] Last Admin: 11/02/19 09:18 Dose: 81 mg Atorvastatin Calcium (Lipitor) 40 mg PO HS [facility] Last Admin: 11/01/19 20:39 Dose: 40 mg Carvedilol (Coreg) 3.125 mg PO BID [facility] Last Admin: 11/02/19 09:31 Dose: Not Given Cholecalciferol (Vitamin D3) 1,250 units PO DAILY [facility] Last Admin: 11/02/19 09:17 Dose: 1,250 units Coenzyme Q10 (Coenzyme Q10) 100 mg PO BID [facility] Last Admin: 02/24/20 09:15 Dose: 100 mg Epoetin Andrew-epbx (Retacrit) 7,500 unit SC Q7D [facility] Ferrous Sulfate (Feosol) 325 mg PO BID-[facility] Last Admin: 11/02/19 09:31 Dose: 325 mg Folic Acid (Folvite) 1 mg PO DAILY [facility] Last Admin: 11/02/19 09:20 Dose: 1 mg Furosemide (Lasix) 20 mg PO 0900,1400 [facility] Last Admin: 11/02/19 14:03 Dose: 20 mg Hydralazine HCl (Apresoline) 5 mg SLOW IVP Q15MIN PRN PRN Reason: SBP Greater Than 180 Last Admin: 10/27/19 21:15 Dose: 5 mg Senna (Senokot) 2 tab PO BID [facility] Last Admin: 11/02/19 09:17 Dose: Not Given Sodium Chloride (Flush - Normal Saline) 10 ml IVF PRN PRN PRN Reason: Saline Flush Last Admin: 10/28/19 21:42 Dose: 10 ml Vital Signs & Weight: Vital Signs Temp Pulse Resp BP BP Pulse Ox 11/02/19 12:00 61 119/56 L 11/02/19 09:28 57 L 115/57 L 11/02/19 08:00 97.9 F 57 L 20 115/57 L 98 Admit Weight 127 lb 6.835 oz Weight 120 lb 9.6 oz - Quality Measures Condition: Atrial Fibrillation/Flutter (hx or current), Coronary Artery Disease , Heart Failure CV meds: Beta Jose: Yes, VANITA/ARB: No, Statin: Yes, ASA: Yes, Plavix/Effient/ Brilinta: No, Anticoagulant: Yes - Medication Contraindications No VANITA/ARB reason: Medical contraindication (CKD) - Physical Exam General: alert & oriented x3 HEENT: mucus membranes moist Neck: supple neck Cardiac: regular rate and rhythm Lungs: normal breath sounds Neuro: grossly intact Abdomen: active bowel sounds Extremities: no edema Skin: clear Musculoskeletal: no pain - Labs Result Diagrams: 11/02/19 04:01 11/02/19 04:01 Troponin/CKMB CK-MB (CK-2) 1.6 ng/mL (0-6.6) 10/23/19 17:23 Troponin I 0.152 ng/mL (< 0.028) H 10/24/19 07:20 - Telemetry Sinus rhythms and dysrhythmias: sinus rhythm - Assessment/Plan Assessment/Plan: 1. Acute on chronic systolic heart failure. 2. CAD s/p CABG 3. 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 Paroxysmal afib 5. Hypokalemia, resolved. PLAN: - Continue amiodarone PO at 200 mg daily. - Eliquis for stroke prophylaxis. - Cannot do LHC due to creatinine. - All her grafts were closed and she had small vessel disease and nothing to do with her arteries on last evaluation with Dr Lama a few yrs back. - Will most likely need home O2, awaiting placement. - Will sign off. Please call with any questions. She will follow up with her Domestic Technician in [place].
[2019-11-02 17:13] LABS: Bilirubin Negative (Negative); Blood, Urine 3+ (Negative); Clarity Turbid (Clear); Glucose, Urine (Dipstick) Normal (Negative); Leukocyte Negative Leu/uL (Negative); Nitrite Negative (Negative); Protein, Urine (Dipstick) 30 mg/dL (Neg-Trace); RBC/HPF Greater than 50 HPF (0-3); Squamous Epithelial 0-3 HPF (0-3); Urobilinogen Normal mg/dL (Less than 2)
[2019-11-02] MEDS: Acetaminophen 325 MG TAB PO PRN (17:15)
[2019-11-02] MEDS: EPOETIN ALFA-EPBX (ESRD) 4,000 UNIT/ML VIAL SC SCH (17:16)
[2019-11-02 17:23] LABS: Bacteria/HPF None Seen HPF (None Seen)
--- NOTE | 2019-11-02 18:01 | CON ---
DATE OF CONSULTATION: HISTORY OF PRESENT ILLNESS: Ms. Tate is a 79-year-old white female, who was initially admitted for labile hypertension. She was also noted to be acutely short of breath, was found to have CHF as well as the possibility of a COPD. She has been diuresed in the last several days. In addition, she has been restarted back on her losartan. Cardiac echo has also been done which showed a decreased ejection fraction. In addition, the patient has also been evaluated by Pulmonary Medicine for her underlying COPD/CHF. We are now being consulted for her chronic renal failure. Renal function has slowly been progressive in the last several days. Please note, adjustment of her medications has been done. Of interest, this patient is currently on furosemide and also currently on losartan. REVIEW OF SYSTEMS: Positive for chronic shortness of breath. No chest pain. No syncopal episode. No nausea. No vomiting. No diarrhea. No constipation. No productive cough. No fever or chills. No leg edema. No abdominal pain. No gross hematuria. No dysuria. No urinary frequency. MEDICATIONS: Currently on the followin. Amiodarone 400 mg p.o. b.i.d. 2. Amlodipine 10 mg once a day. 3. Apixaban 2.5 mg p.o. b.i.d. 4. Atorvastatin 40 mg at bedtime. 5. Carvedilol 3.125 mg p.o. b.i.d. 6. Cholecalciferol 1250 units daily. 7. Ferrous sulfate 325 mg p.o. b.i.d. 8. Folic acid 1 mg once a day. 9. Furosemide 40 mg tablet once a day. 10. Hydralazine 5 mg p.r.n. 11. Losartan 25 mg p.o. daily. PAST MEDICAL HISTORY: 1. Coronary artery disease, status post CHF, status post NC. 2. Longstanding hypertension. 3. Hyperlipidemia. 4. COPD. PAST SURGICAL HISTORY: Status post cardiac cath, status post CABG, status post partial hysterectomy, status post appendectomy, status post back surgery. SOCIAL HISTORY: The patient is single/. Previously lived in [place], but currently lives in [place]. She has one son. She is a retired massage therapist. Education, high school. Smoked for 40 years, 1 pack a day. No alcohol. No drug abuse. ALLERGIES: LISINOPRIL, CLOPIDOGREL. TRAUMA: None. IMMUNIZATION: Not up to date. No flu shot. HOSPITALIZATIONS: Please see past medical history. FAMILY HISTORY: No family history of ESRD. PHYSICAL EXAMINATION: VITAL SIGNS: Blood pressure 119/56, heart rate 57, O2 sats 98%. GENERAL: Awake, alert, comfortable, not in distress. SKIN: Adequate turgor. HEENT: Slightly pale conjunctivae. Anicteric sclerae. NECK: No neck mass. No carotid bruits. No JVD. CHEST: No deformities. LUNGS: Decreased breath sounds. HEART: Normal sinus rhythm. No murmur. No gallops. No rubs. ABDOMEN: Globular. Soft. Nontender. No masses. EXTREMITIES: No edema. No deformities. NEUROLOGICAL: Awake, oriented to 3 spheres. Moving all extremities. No tremors. No asterixis. No ataxia. LABORATORY DATA: Laboratories of November 02, 2019; white count 16.6, hemoglobin 7.8, sodium 138, potassium 3.8, chloride 105, carbon dioxide 21, BUN 90, creatinine 3.71, glucose 118, calcium 9. Cardiac echo decreased EF of 40%. October 29, 2019; chest x-ray showed stable exam. Heart size is normal, increased lung markings. Urinalysis of October 23, 2019; protein was 50, rbc greater than 50, wbc 7-10. No pigmented granular casts. ASSESSMENT/PLAN: 1. Acute kidney injury/chronic renal failure, consider superimposed prerenal azotemia with a progressive worsening of the renal dysfunction. I will probably hold off the losartan temporarily. There is no indication for any dialytic intervention with this patient. With the proteinuria, a possibility from the hypertensive nephropathy remains with this patient. Continue supportive care. Continue current diuretic regimen for the moment. 2. Hypertension. We will discontinue losartan. Blood pressure is under well control with other BP medications. 3. Shortness of breath, multifactorial. Underlying congestive heart failure/chronic obstructive pulmonary disease. If the renal function further worsen, consider holding off diuretics tomorrow. 4. Anemia, start Epogen 7500 units subcu q.week. Thank you for the consult. We will continue to follow. Job ID: [id number]
[2019-11-02] MEDS: Atorvastatin Calcium 40 MG TAB PO SCH (21:55)
[2019-11-03 04:59] LABS: Band 1 % (5-11); Hemoglobin 7.8 g/dL (12.0-16.0); Hypochromia SLIGHT = 6-15 cells (100X) (0-5/hpf); Lymphocytes 6 % (21-51); MDiff Complete? YES; Mean Corpuscular HGB CONC 31.8 g/dL (32.0-36.0); Mean Corpuscular Hemoglobin 30.5 pg (27.0-31.0); Mean Platelet Volume 10.3 fL (7.4-10.4); Monocytes 3 % (0-10); Neutrophil 90 % (42-75); Platelet Count 317 thou/uL (130-400); Platelet Morphology Comment Appears Adequate; RBC Distribution Width 15.6 % (11.5-14.5); Red Blood Cell (RBC) Count 2.55 mill/uL (4.20-5.40)
[2019-11-03 05:10] LABS: Anion Gap 19 mmol/L (10-20); BUN (Urea Nitrogen) 97 mg/dL (9.8-20.1); Calc. Creatinine Clearance 9 mL/min (70-130); Calcium 9.2 mg/dL (7.8-10.44); Carbon Dioxide 21 mmol/L (23-31); Chloride 104 mmol/L (98-107); Estimated GFR-MDRD 10; Glucose 115 mg/dL (83-110); Potassium 3.8 mmol/L (3.5-5.1); Sodium 140 mmol/L (136-145)
--- NOTE | 2019-11-03 06:20 | PDOC.FM ---
- Subjective Subjective: Pt is feeling well this morning. She feels "crummy" because Dr. Hoff saw her this AM and said her kidneys are doing worse. She continues to urinate. Otherwise she feels well. Breathing is good. - Objective MAR Reviewed: Yes Vital Signs & Weight: Vital Signs (12 hours) Temp Pulse Resp BP BP Pulse Ox 11/03/19 03:08 97.5 F L 52 L 18 111/61 94 L 11/02/19 20:00 97.3 F L 66 18 155/66 H 96 Weight Admit Weight 57.8 kg Weight 54.295 kg Most Recent Monitor Data Heart Rate from ECG 66 NIBP 145/62 NIBP BP-Mean 89 Respiration from ECG 28 SpO2 94 I&O: 11/01/19 11/02/19 11/03/19 06:59 06:59 06:59 Intake Total 1320 1800 990 Output Total 1400 150 Balance -80 1800 840 Result Diagrams: 11/03/19 04:03 11/03/19 04:03 Phys Exam - Physical Examination Constitutional: NAD HEENT: sclera anicteric Respiratory: no wheezing, clear to auscultation bilateral Cardiovascular: RRR Gastrointestinal: soft Psychiatric: normal affect, A&O x 3 Dx/Plan (1) Acute respiratory failure with hypoxia Code(s): J96.01 - ACUTE RESPIRATORY FAILURE WITH HYPOXIA Status: Acute (2) Atrial fibrillation Code(s): I48.91 - UNSPECIFIED ATRIAL FIBRILLATION Status: Acute (3) HLD (hyperlipidemia) Code(s): E78.5 - HYPERLIPIDEMIA, UNSPECIFIED Status: Acute (4) Hypertensive emergency Code(s): I16.1 - HYPERTENSIVE EMERGENCY Status: Acute (5) CAD (coronary artery disease) Code(s): I25.10 - ATHSCL HEART DISEASE OF [place] CORONARY ARTERY W/O ANG PCTRS Status: Chronic Qualifiers: Coronary Disease-Associated Artery/Lesion type: bypass graft [place] vs. transplanted heart: [place] heart (6) HTN (hypertension) Code(s): I10 - ESSENTIAL (PRIMARY) HYPERTENSION Status: Chronic Qualifiers: Hypertension type: essential hypertension Qualified Code(s): I10 - Essential (primary) hypertension (7) CHF (congestive heart failure) Code(s): I50.9 - HEART FAILURE, UNSPECIFIED Status: Suspected - Plan Plan: This is a 79 yo female with a pmh of CAD with CABG, MV regurg, HLD, HTN Hospital Day 11 Code: Full DVT Prophylaxis: Eliquis GI Prophylaxis: none Plan: Discussing placement for rehab. Awaiting bed availability NAOMI on CKD, worsening - Likely related to severe HTN. Proteinuria/hematuria. - not improving, Creatinine is worsening. Unlikely ATN due to recent UA w/o casts. - Nephro, Dr. Hoff consulted. - Luis Eduardo has started albumin and Epogen. Will continue to follow. - Will monitor for resolution. Renal u/s normal. Normocytic anemia, stable - hgb slowly downtrended as kidneys have worsened. - on epogen. Acute hypoxic respiratory failure 2/2 flash pulmonary edema, resolved. -pulm consulted, rec keeping O2 sats at 90% and no greater. HTN emergency, resolved -Continue home PO meds, adding amlodipine. Started losartan 10/31. 1 point drop in GFR. HFrEF -Echo shows LVEF 40-45% and 1/3 diastolic dysfunction -Dr. Artis consulted -discontinued lasix to 20 mg PO bid due to kidney function. Leukocytosis -No source of current infection, ROS is negative, afebrile, will monitor for changes Atrial fibrillation, now in sinus rhythm -Cardiology consulted. Signed off. -Continue PO amiodarone at maintenance dose -Now on Eliquis for anti coagulation Elevated troponins, stable Elevated D-Dimer -Wells score 0 -Low suspicion for PE -CXR does not show widened mediastinum, although it may be worth getting a CT chest if pt has chest pain UTI, treated, culture NGTD CAD s/p CABG -Continue asa, work up as above Undiagnosed COPD -Long standing smoking history -Will add neb treatments prn Addendum - Attending - Attending Attestation Date/Time: 11/03/19 [id number] I personally evaluated the patient and discussed the management with Dr. Mathis I agree with the History, Examination, Assessment and Plan documented above with any addition or exceptions noted below. Note started on epogen and IV albumin today appreciate recommendation of Nephrology hope to see improvement RFT continue to monitor Cardiac status.
[2019-11-03] MEDS ORDERED: Albumin 25% 25 GM/100 ML BOT IVPB ONE (07:19)
--- NOTE | 2019-11-03 07:38 | PRG ---
DATE OF SERVICE: 11/03/2019 SUBJECTIVE: Ms. Tate is a 79-year-old white female, who was seen for progressive azotemia. At that time, I felt that this could be a hemodynamically-mediated dysfunction on top of a chronic renal failure. She did show proteinuria on her urinalysis. However, renal function continues to worsen. We have discontinued her losartan as well as diuretics. She voices no new complaints. Her breathing is baseline. Her shortness of breath is not any worse. She denies any chest pain. OBJECTIVE: VITAL SIGNS: Blood pressure 111/61, heart rate 52, respiratory rate 18, temperature 97.5, pulse ox 94%. GENERAL: Awake, alert, comfortable, not in distress. SKIN: Adequate turgor. HEENT: She has slightly pale conjunctivae. Anicteric sclerae. NECK: No neck mass. No carotid bruits. No JVD. CHEST: No deformities. LUNGS: Clear breath sounds, right. Left, basilar crackles. HEART: Normal sinus rhythm. No murmurs, gallops, or rubs. ABDOMEN: Globular, soft, nontender, no masses. EXTREMITIES: No edema, no deformities. MEDICATIONS: Medications of November 03, 2019, were reviewed. LABORATORY DATA: November 03, 2019; white count 16, hemoglobin 7.8. Sodium 140, potassium 3.8, chloride 104, carbon dioxide 21, BUN 97, creatinine 4.35, GFR 10 mL/minute, glucose 105, calcium 9.2. Urinalysis, November 02, 2019, showed a protein of 30, RBC greater than 50, WBC 11 to 20, bacteria none seen. Renal ultrasound, no obstruction, no masses, finding of left renal cyst. ASSESSMENT AND PLAN: 1. Acute kidney injury on top of her chronic renal failure, progressive azotemia. I still suspect a prerenal component. We will start albumin 25 g IV q.6. There is no indication for any dialytic intervention at the present time. Review of the urine sediment does not suggest a superimposed acute tubular necrosis. She does have proteinuria and hematuria. This may need to be further worked up in the near future. For the moment, agree with current management. 2. Shortness of breath, multifactorial etiology. Underlying congestive heart failure/chronic obstructive pulmonary disease. Currently stable. 3. Anemia. The patient has been started on erythropoietin as well as iron supplementation. Recheck basic metabolic profile and CBC in a.m. Job ID: [id number]
[2019-11-03] MEDS: Ferrous Sulfate 325 MG TAB PO SCH ×2 (09:01→15:27)
[2019-11-03] MEDS: Albumin 25% 25 GM/100 ML BOT IVPB SCH ×3 (09:01→20:04)
[2019-11-03] MEDS: Aspirin 81 mg Enteric Coated Tablet PO SCH (09:02)
[2019-11-03] MEDS: Folic Acid 1 MG TAB PO SCH (09:02)
[2019-11-03] MEDS: Apixaban 2.5 MG TAB PO SCH ×2 (09:02→20:04)
[2019-11-03] MEDS: Ubidecarenone 50 MG CAP PO SCH ×2 (09:02→20:03)
[2019-11-03] MEDS: Amiodarone 200 MG TAB PO SCH ×2 (09:02→20:04)
[2019-11-03] MEDS: Senokot 8.6 MG TAB PO SCH ×2 (09:03→20:04)
[2019-11-03] MEDS: Amlodipine 10 MG TAB PO SCH (09:03)
[2019-11-03] MEDS: Carvedilol 3.125 MG TAB PO SCH ×2 (09:03→20:03)
[2019-11-03] MEDS: Acetaminophen 325 MG TAB PO PRN ×2 (10:39→20:03)
[2019-11-03] MEDS ORDERED: diphenhydrAMINE 25 MG CAP PO SCH (13:30)
[2019-11-03] MEDS: Atorvastatin Calcium 40 MG TAB PO SCH (20:03)
[2019-11-04] MEDS: Albumin 25% 25 GM/100 ML BOT IVPB SCH ×4 (02:21→21:25)
[2019-11-04 04:35] LABS: Band 4 % (5-11); Eosinophils 1 % (0-10); Hemoglobin 6.8 g/dL (12.0-16.0); Lymphocytes 11 % (21-51); MDiff Complete? YES; Mean Corpuscular HGB CONC 32.5 g/dL (32.0-36.0); Mean Corpuscular Hemoglobin 30.8 pg (27.0-31.0); Mean Corpuscular Volume 94.6 fL (78.0-98.0); Mean Platelet Volume 10.1 fL (7.4-10.4); Monocytes 3 % (0-10); Neutrophil 81 % (42-75); Platelet Count 261 thou/uL (130-400); Platelet Morphology Comment Appears Adequate; RBC Distribution Width 15.9 % (11.5-14.5); White Blood Cell (WBC) Count 13.5 thou/uL (4.8-10.8)
[2019-11-04 04:53] LABS: Anion Gap 19 mmol/L (10-20); BUN (Urea Nitrogen) 108 mg/dL (9.8-20.1); Calc. Creatinine Clearance 8 mL/min (70-130); Calcium 9.4 mg/dL (7.8-10.44); Carbon Dioxide 20 mmol/L (23-31); Chloride 103 mmol/L (98-107); Estimated GFR-MDRD 8; Glucose 137 mg/dL (83-110); Potassium 3.5 mmol/L (3.5-5.1); Sodium 138 mmol/L (136-145)
--- NOTE | 2019-11-04 05:56 | PDOC.FM ---
- Subjective Subjective: Pt says she was feeling lightheaded yesterday when she got up to use the restroom. Otherwise she feels okay. She is feeling down because her kidneys are not getting better. Denies chest pain, did vomit once yesterday when she was coughing up phlegm. - Objective MAR Reviewed: Yes Vital Signs & Weight: Vital Signs (12 hours) Temp Pulse Resp BP Pulse Ox 11/04/19 03:10 97.6 F 51 L 18 143/65 H 93 L 11/03/19 23:59 97.7 F 51 L 20 137/63 94 L 11/03/19 20:05 97.5 F L 49 L 20 95/54 L 92 L Weight Admit Weight 57.8 kg Weight 53.841 kg Most Recent Monitor Data Heart Rate from ECG 66 NIBP 145/62 NIBP BP-Mean 89 Respiration from ECG 28 SpO2 94 I&O: 11/02/19 11/03/19 11/04/19 06:59 06:59 06:59 Intake Total 1800 990 550 Output Total 150 700 Balance 1800 840 -150 Result Diagrams: 11/04/19 03:54 11/04/19 03:54 Phys Exam - Physical Examination Constitutional: NAD Respiratory: no wheezing bradycardic rate Gastrointestinal: soft, no distention Musculoskeletal: no edema Psychiatric: A&O x 3 Dx/Plan (1) Acute respiratory failure with hypoxia Code(s): J96.01 - ACUTE RESPIRATORY FAILURE WITH HYPOXIA Status: Acute (2) Atrial fibrillation Code(s): I48.91 - UNSPECIFIED ATRIAL FIBRILLATION Status: Acute (3) HLD (hyperlipidemia) Code(s): E78.5 - HYPERLIPIDEMIA, UNSPECIFIED Status: Acute (4) Hypertensive emergency Code(s): I16.1 - HYPERTENSIVE EMERGENCY Status: Acute (5) CAD (coronary artery disease) Code(s): I25.10 - ATHSCL HEART DISEASE OF [place] CORONARY ARTERY W/O ANG PCTRS Status: Chronic Qualifiers: Coronary Disease-Associated Artery/Lesion type: bypass graft [place] vs. transplanted heart: [place] heart (6) HTN (hypertension) Code(s): I10 - ESSENTIAL (PRIMARY) HYPERTENSION Status: Chronic Qualifiers: Hypertension type: essential hypertension Qualified Code(s): I10 - Essential (primary) hypertension (7) CHF (congestive heart failure) Code(s): I50.9 - HEART FAILURE, UNSPECIFIED Status: Suspected - Plan Plan: This is a 79 yo female with a pmh of CAD with CABG, MV regurg, HLD, HTN Hospital Day 11 Code: Full DVT Prophylaxis: Eliquis GI Prophylaxis: none Plan: Discussing placement for rehab. Awaiting bed availability NAOMI on CKD, worsening - Likely related to severe HTN. Proteinuria/hematuria. - not improving, Creatinine is worsening. Unlikely ATN due to recent UA w/o casts. - Nephro, Dr. Hoff consulted. - Luis Eduardo has started albumin and Epogen. Will continue to follow. - Will monitor for resolution. Renal u/s normal. Normocytic anemia, worsening - hgb slowly downtrended as kidneys have worsened. - on epogen and iron - Dropped below hgb of 7 today. Ordered unit to transfuse, awaiting pt's decision to consent Acute hypoxic respiratory failure 2/2 flash pulmonary edema, resolved. -pulm consulted, rec keeping O2 sats at 90% and no greater. HTN emergency, resolved -Continue home PO meds, adding amlodipine. Started losartan 10/31. 1 point drop in GFR. HFrEF -Echo shows LVEF 40-45% and 1/3 diastolic dysfunction -Dr. Artis consulted -discontinued lasix to 20 mg PO bid due to kidney function. Leukocytosis -No source of current infection, ROS is negative, afebrile, will monitor for changes Atrial fibrillation, now in sinus rhythm w/ bradycardia -Cardiology consulted. Signed off. Will call today concerning the low HR and if carvedilol should be kept on -Continue PO amiodarone at maintenance dose -Now on Eliquis for anti coagulation Elevated troponins, stable Elevated D-Dimer -Wells score 0 -Low suspicion for PE -CXR does not show widened mediastinum, although it may be worth getting a CT chest if pt has chest pain UTI, treated, culture NGTD CAD s/p CABG -Continue asa, work up as above Undiagnosed COPD -Long standing smoking history -Will add neb treatments prn Addendum - Attending - Attending Attestation Date/Time: 11/04/19 4917 I personally evaluated the patient and discussed the management with Dr. Mathis I agree with the History, Examination, Assessment and Plan documented above with any addition or exceptions noted below.Patient not improving H/H dropping receiving PRBCs now. RFT continue to decline urine outpt dropping off concern ATN, Cardiorenal . Resident discussed with Cardiology and rec hold BB and eliquis and consider GI consult regard possible GI blood loss. Appreciate recommendations from Specialist.
[2019-11-04] MEDS ORDERED: Albumin 25% 25 GM/100 ML BOT IVPB ONE (08:19)
--- NOTE | 2019-11-04 08:54 | PRG ---
DATE OF SERVICE: 11/04/2019 SUBJECTIVE: Ms. Tate is a 79-year-old white female, who was seen for acute kidney injury on top of her chronic renal failure. Renal function has been progressively worsening. We have adjusted her medications - losartan and diuretics are placed on hold. She received an albumin infusion yesterday. However, renal function continues to worsen. My concern is whether she may have developed a superimposed acute tubular necrosis, and for that reason, we will be repeating a urinalysis. For the moment, we will give another albumin infusion, 4 more doses. Agree with the plan to transfuse 1 unit of packed RBC. No complaints of chest pain or any worsening shortness of breath. OBJECTIVE: VITAL SIGNS: Blood pressure 127/58, heart rate 57, respiratory rate 20, temperature 98.6, pulse ox 95%. GENERAL: Awake, alert, comfortable, not in distress. SKIN: Adequate turgor. HEENT: Pale conjunctivae. Anicteric sclerae. NECK: No neck mass. No carotid bruits. No JVD. CHEST: No deformities. LUNGS: Clear breath sounds. HEART: Normal sinus rhythm. No murmur. No gallops. No rubs. ABDOMEN: Globular, soft, and nontender. No masses. EXTREMITIES: No edema. No deformities. MEDICATIONS: Medications of November 04, 2019, were reviewed. LABORATORY DATA: Laboratories of November 04, 2019: Sodium 138, potassium 3.5, chloride 103, carbon dioxide 20, BUN 108, creatinine 4.99, glucose 137. White count 13.5, hemoglobin 6.8. ASSESSMENT AND PLAN: 1. Acute kidney injury on top of her chronic renal failure, worsening renal function. I still suspect a possibility of a prerenal component with the rising creatinine. We will give another albumin infusion - 25 g IV q.6 for 4 more doses. Agree to optimize hemodynamics. Proceed with blood transfusion. For the moment, I will start back the patient on normal saline at 75 mL/hour. 2. Anemia. Agree with blood transfusion. In addition, we have started her on Epogen. Recheck basic metabolic panel and CBC in a.m. There is no indication for any emergent hemodialysis with this patient. Job ID: [id number]
[2019-11-04] MEDS: Ferrous Sulfate 325 MG TAB PO SCH ×2 (09:10→17:36)
[2019-11-04] MEDS: Folic Acid 1 MG TAB PO SCH (09:10)
[2019-11-04] MEDS: Ubidecarenone 50 MG CAP PO SCH ×2 (09:10→21:24)
[2019-11-04] MEDS: Aspirin 81 mg Enteric Coated Tablet PO SCH (09:10)
[2019-11-04] MEDS: Apixaban 2.5 MG TAB PO SCH (09:10)
[2019-11-04] MEDS: Carvedilol 3.125 MG TAB PO SCH (09:11)
[2019-11-04] MEDS: Amiodarone 200 MG TAB PO SCH ×2 (09:11→21:24)
[2019-11-04] MEDS: Amlodipine 10 MG TAB PO SCH (09:35)
[2019-11-04] MEDS: Senokot 8.6 MG TAB PO SCH ×2 (09:35→21:25)
[2019-11-04] MEDS: Sodium Chloride 0.9% 1,000 ML IV SCH (14:15)
[2019-11-04 14:59] LABS: Bacteria/HPF None Seen HPF (None Seen); Bilirubin Negative (Negative); Blood, Urine 2+ (Negative); Clarity Turbid (Clear); Glucose, Urine (Dipstick) Normal (Negative); Leukocyte Negative Leu/uL (Negative); Nitrite Negative (Negative); Protein, Urine (Dipstick) 70 mg/dL (Neg-Trace); RBC/HPF Greater than 50 HPF (0-3); Squamous Epithelial 0-3 HPF (0-3); Urobilinogen Normal mg/dL (Less than 2)
--- NOTE | 2019-11-04 20:24 | CON ---
DATE OF CONSULTATION: 11/04/2019 REASON FOR CONSULTATION: Worsening anemia. CONSULTING PROVIDER: Judith Mathis MD HISTORY OF PRESENT ILLNESS: The patient is a 79-year-old female with past medical history of coronary artery disease status post CABG, hypertension, congestive heart failure and acute kidney injury on chronic kidney disease, who initially presented to the hospital with increased shortness of breath, lower extremity edema, and subjective fevers and chills. Upon initial workup in the ED, she was noted to be in hypertensive urgency with oxygen saturations around 85%. She was transitioned to BiPAP and while on BiPAP, she continued to have low oxygen saturation and was ultimately intubated in the ER and transferred to the ICU for further evaluation. Shortly after admission, she was noted to have an elevated BNP of approximately 1214 and diagnosed with acute on chronic systolic and diastolic heart failure that may have resulted in acute hypoxic respiratory insufficiency, but also diagnosed with a possible right lower lobe pneumonia. She was also noted to have elevated troponins during this admission concerning for possible NSTEMI, but evaluated by Cardiology with no intervention planned during this admission. Slowly, the patient responded to management and was ultimately extubated and discharged to a regular lau bed for continued monitoring and evaluation regarding her hypoxemia and now acute kidney injury on chronic kidney disease that was felt to be due to severe hypertension. However, over the last 4 to 5 days, she has been having a slowly downtrending hemoglobin and hematocrit concerning for the presence of bleeding. Upon questioning the patient today, she states that she has been having approximately 1 to 2 semi-solid black bowel movements per day associated with fecal urgency, but no episodes of fecal incontinence. She noticed the appearance of these darker colored stools only since the initiation of iron supplementation during this hospitalization. In addition to these black stools, she also endorsed intermittent episodes of nausea without vomiting as well as pill dysphagia characterized as the sensation that some of her pills would get stuck at the right lateral neck but with no difficulty consuming solid or liquid food stuffs. Currently, she denies any vomiting, fevers, chills, hematemesis, hematochezia, dysphagia, or odynophagia. Of note, the patient underwent an EGD at [facility] approximately 1 year ago for evaluation of acid reflux and was noted to have an esophageal stricture that was amenable to dilation. She has never had a colonoscopy before. REVIEW OF SYSTEMS: A 10-category review of systems was obtained with all responses negative except for the pertinent positives as listed in HPI. PAST MEDICAL HISTORY: As per HPI. PAST SURGICAL HISTORY: L4-L5 fusion, hysterectomy, appendectomy, and CABG in 2011. FAMILY HISTORY: Denies any GI malignancies. SOCIAL HISTORY: Denies any tobacco, alcohol, or illicit drug use. OUTPATIENT MEDICATIONS: 1. Aspirin 81 mg daily. 2. Coreg 3.125 mg b.i.d. 3. Vitamin D3. 4. Folic acid. 5. CoQ10. INPATIENT MEDICATIONS: Reviewed. ALLERGIES: CLOPIDOGREL AND LISINOPRIL. PHYSICAL EXAMINATION: VITAL SIGNS: Temperature 97.5, pulse 54, blood pressure 110/56, respiratory rate 19, saturating 92% on 3 L nasal cannula. GENERAL: The patient was sitting at bedside, in no acute distress. Alert and oriented x4. HEENT: Normocephalic, atraumatic. NECK: Supple. No JVD or scleral icterus noted. CARDIOVASCULAR: Regular rate and rhythm with 3/6 systolic murmur best heard at the right upper sternal border. Normal S1, but possible split S2. RESPIRATORY: Clear to auscultation bilaterally, but with diminished breath sounds in all lung sykes. ABDOMEN: Normoactive bowel sounds. Soft, nontender, and nondistended. EXTREMITIES: No cyanosis, clubbing, or edema. LABORATORY DATA: CBC with a white blood cell count of 13.5, hemoglobin 6.8, hematocrit 20.8, platelets 261, MCV 94.6, RDW 15.9. Chemistry with a sodium of 138, potassium 3.5, chloride 103, CO2 of 20, BUN 108, creatinine 4.99, glucose 137. Iron indices were drawn on October 23, 2019, with an iron of 39, TIBC of 254, and ferritin of 168. Colorectal cancer screening was performed with FOBT on October 27, 2019, and was negative. IMAGING DATA: No current GI imaging is available for review. ASSESSMENT AND PLAN: The patient is a 79-year-old female with past medical history of hypertension, congestive heart failure, presenting with an acute exacerbation of her heart failure, coronary artery disease status post coronary artery bypass grafting, and acute kidney injury with chronic kidney disease, now presenting with slowly downtrending anemia consistent with anemia of chronic disease/renal disease. Anemia of chronic disease/renal disease. The patient is initially presenting with an anemia on admission that has been slowly downtrending over the course of this hospitalization. Iron indices were drawn on October 23, 2019, with a slightly low iron, low TIBC and normal to high ferritin indicative of anemia of chronic disease/renal disease rather than iron deficiency anemia with normal MCV and slightly high RDW with also reflected in that. This is most likely not an iron deficiency anemia. However, during the course of this hospitalization, she has had continued decrease in her H and H and when coupled with black stools, initially concerning for the presence of melena. However, she has been placed on iron supplementation during the course of this hospitalization and has only been having these black stools since being placed on this particular medication. Upon review of the patient's chart, she has had multiple and frequent lab draws over the course of the last one to one and a half weeks, making iatrogenic induced anemia more likely with a lack of overt GI bleeding and negative FOBT recently (negative for colorectal neoplasm) the likelihood of a GI bleed is low. RECOMMENDATIONS: 1. Would continue to trend her H and H and transfuse as necessary to maintain an H and H of 7/21. 2. Continue to monitor clinically for signs of active GI bleeding. 3. Given that this is an anemia of chronic disease rather than iron deficiency, I would discontinue her iron as currently is confounding the presence of melena. 4. We will consider placing the patient on pantoprazole 40 mg daily in light of possible GI bleeding. 5. Would avoid any NSAIDs during this admission unless clinically necessary. 6. Would attempt to minimize any future lab draws given the higher likelihood of iatrogenic anemia. We will continue to follow peripherally. Please call with any questions. Job ID: [id number]
[2019-11-04] MEDS: Atorvastatin Calcium 40 MG TAB PO SCH (21:25)
[2019-11-05] MEDS: Sodium Chloride 0.9% 1,000 ML IV SCH ×2 (02:19→18:37)
[2019-11-05] MEDS: Albumin 25% 25 GM/100 ML BOT IVPB SCH (02:19)
[2019-11-05 04:51] LABS: Band 7 % (5-11); Eosinophils 2 % (0-10); Hemoglobin 8.4 g/dL (12.0-16.0); Lymphocytes 5 % (21-51); MDiff Complete? YES; Mean Corpuscular HGB CONC 33.7 g/dL (32.0-36.0); Mean Corpuscular Hemoglobin 32.2 pg (27.0-31.0); Mean Corpuscular Volume 95.8 fL (78.0-98.0); Mean Platelet Volume 10.2 fL (7.4-10.4); Monocytes 3 % (0-10); Neutrophil 83 % (42-75); Platelet Count 249 thou/uL (130-400); Platelet Morphology Comment Appears Adequate; RBC Distribution Width 15.5 % (11.5-14.5); Red Blood Cell (RBC) Count 2.61 mill/uL (4.20-5.40)
[2019-11-05 05:03] LABS: Anion Gap 22 mmol/L (10-20); BUN (Urea Nitrogen) 103 mg/dL (9.8-20.1); Calc. Creatinine Clearance 8 mL/min (70-130); Calcium 9.6 mg/dL (7.8-10.44); Carbon Dioxide 15 mmol/L (23-31); Chloride 104 mmol/L (98-107); Estimated GFR-MDRD 8; Glucose 108 mg/dL (83-110); Potassium 3.5 mmol/L (3.5-5.1); Sodium 137 mmol/L (136-145)
--- NOTE | 2019-11-05 06:13 | PDOC.FM ---
- Subjective Subjective: Pt is "unsure" of how she is feeling today. She thought she would feel better than she has after the transfusion of blood. Dr. Hoff walked in while I was seeing the patient and gave his recommendations. Pt has seemed emotionally fatigued with the length of her hospitalization. She is Jainism and is agreeable to having a manager plumbing she her for encouragement. - Objective MAR Reviewed: Yes Vital Signs & Weight: Vital Signs (12 hours) Temp Pulse Resp BP BP Pulse Ox 11/05/19 03:50 54 L 22 H 118/58 L 90 L 11/04/19 21:25 97.6 F 56 L 20 125/61 95 Weight Admit Weight 57.8 kg Weight 53.841 kg Most Recent Monitor Data Heart Rate from ECG 66 NIBP 145/62 NIBP BP-Mean 89 Respiration from ECG 28 SpO2 94 I&O: 11/03/19 11/04/19 11/05/19 06:59 06:59 06:59 Intake Total 990 1250 2766 Output Total 337 499 3657 Balance 287 833 6514 Result Diagrams: 11/05/19 03:29 11/05/19 03:29 Phys Exam - Physical Examination Constitutional: NAD Respiratory: clear to auscultation bilateral Cardiovascular: RRR Dx/Plan (1) Acute respiratory failure with hypoxia Code(s): J96.01 - ACUTE RESPIRATORY FAILURE WITH HYPOXIA Status: Acute (2) Atrial fibrillation Code(s): I48.91 - UNSPECIFIED ATRIAL FIBRILLATION Status: Acute (3) HLD (hyperlipidemia) Code(s): E78.5 - HYPERLIPIDEMIA, UNSPECIFIED Status: Acute (4) Hypertensive emergency Code(s): I16.1 - HYPERTENSIVE EMERGENCY Status: Acute (5) CAD (coronary artery disease) Code(s): I25.10 - ATHSCL HEART DISEASE OF [place] CORONARY ARTERY W/O ANG PCTRS Status: Chronic Qualifiers: Coronary Disease-Associated Artery/Lesion type: bypass graft [place] vs. transplanted heart: [place] heart (6) HTN (hypertension) Code(s): I10 - ESSENTIAL (PRIMARY) HYPERTENSION Status: Chronic Qualifiers: Hypertension type: essential hypertension Qualified Code(s): I10 - Essential (primary) hypertension (7) CHF (congestive heart failure) Code(s): I50.9 - HEART FAILURE, UNSPECIFIED Status: Suspected - Plan Plan: This is a 79 yo female with a pmh of CAD with CABG, MV regurg, HLD, HTN Hospital Day 12 Code: Full DVT Prophylaxis: Eliquis GI Prophylaxis: none Plan: Discussing placement for rehab. Awaiting bed availability NAOMI on CKD, worsening - Likely related to severe HTN. Proteinuria/hematuria. - not improving, Creatinine is worsening. Possibility of ATN remains. - Nephro, Dr. Hoff consulted. - Dr. Hoff w/ continue Epogen and IV fluids. Will continue to follow. - Will monitor for resolution. Renal u/s normal. - Creatinine seems to be plateuing. Normocytic anemia, worsening - hgb slowly downtrended as kidneys have worsened. s/p transfusion 1 unit of PRBC on 11/04. - on epogen. - GI consulted and Dr. Horne recommends stopping iron since it may be confusing the picture of dark stools. Thinks this is due to anemia of chronic disease and of renal disease. Unlikely GI bleed. Recommends monitoring and minimizing blood draws due to iatrogenic anemia. Acute hypoxic respiratory failure 2/2 flash pulmonary edema, resolved. - pulm consulted, rec keeping O2 sats at 90% and no greater. HTN emergency, resolved - monitor. Continue current meds. HFrEF -Echo shows LVEF 40-45% and 1/3 diastolic dysfunction -Dr. Artis consulted. He signed off earlier this week. Touched based w/ him yesterday due to Hgb and kidney problems. He recommended stopping the eliquis and carvedilol due to bradycardia. -discontinued lasix to 20 mg PO bid due to kidney function. Leukocytosis -No source of current infection, ROS is negative, afebrile, will monitor for changes Atrial fibrillation, now in sinus rhythm w/ bradycardia -Cardiology consulted. Signed off. Will call today concerning the low HR and if carvedilol should be kept on -Continue PO amiodarone at maintenance dose Elevated troponins, stable Elevated D-Dimer -Wells score 0 -Low suspicion for PE -CXR does not show widened mediastinum, although it may be worth getting a CT chest if pt has chest pain UTI, treated, culture NGTD CAD s/p CABG -Continue asa, work up as above Undiagnosed COPD -Long standing smoking history -Will add neb treatments prn Addendum - Attending - Attending Attestation Date/Time: 11/05/19 1634 I personally evaluated the patient and discussed the management with Dr. Mathis I agree with the History, Examination, Assessment and Plan documented above with any addition or exceptions noted below. RF appear to have plateaued will continue observation transfusion prn appreciate recommendations per Specialist on case.
--- NOTE | 2019-11-05 08:52 | PRG ---
DATE OF SERVICE: 11/05/2019 SERVICE: Renal Medicine. SUBJECTIVE: Ms. Tate is a 79-year-old white female, seen by the Renal Service for her acute kidney injury on top of her chronic renal failure. Renal function has been worsening. We empirically gave her volume yesterday. She received albumin, one pack RBC, and started normal saline. Her creatinine seems to be plateauing. Consideration for acute tubular necrosis, still remains. No new complaints today. No chest pain or shortness of breath. OBJECTIVE: VITAL SIGNS: Blood pressure is 118/58, heart rate 54, respiratory rate 22, O2 saturation 90%. GENERAL: The patient is awake, alert, comfortable, not in distress. SKIN: Adequate turgor. HEENT: She has slightly pale conjunctivae. Anicteric sclerae. No neck mass. No carotid bruits. No JVD. CHEST: No deformities. LUNGS: Decreased breath sounds. HEART: Normal sinus rhythm. No murmur. No gallops. No rubs. ABDOMEN: Globular, soft, nontender. No masses. EXTREMITIES: No edema. No deformities. MEDICATIONS: Medications of November 05, 2019, reviewed. LABORATORY DATA: Laboratories of November 05, 2019; white count 16, hemoglobin 8.4. Sodium 137, potassium 3.5, chloride 104, carbon dioxide 15, BUN 103, creatinine 5.08, glucose 108, calcium 9.6. ASSESSMENT AND PLAN: 1. Acute kidney injury-initially felt that this was a hemodynamically-mediated renal dysfunction. However, renal function remains unimproved. However, I did see the creatinine today, it was 5.08 and yesterday was 4.99. The renal function may plateauing. I would continue with current IV hydration. Continue normal saline at 75 mL/hour. 2. Anemia, much improved status post packed RBC. Continue weekly Epogen. 3. Shortness of breath, multifactorial etiology-COPD exacerbation, stable. The patient is not complaining of any shortness of breath. There is no indication for any emergent hemodialysis. Continue conservative management. Job ID: [id number]
[2019-11-05] MEDS: Ubidecarenone 50 MG CAP PO SCH ×2 (10:18→20:31)
[2019-11-05] MEDS: Amlodipine 10 MG TAB PO SCH (10:19)
[2019-11-05] MEDS: Sodium Bicarbonate Tab 325 MG TAB PO SCH ×3 (10:19→20:31)
[2019-11-05] MEDS: Amiodarone 200 MG TAB PO SCH ×2 (10:19→20:32)
[2019-11-05] MEDS: Aspirin 81 mg Enteric Coated Tablet PO SCH (10:19)
[2019-11-05] MEDS: Folic Acid 1 MG TAB PO SCH (10:19)
[2019-11-05] MEDS: Senokot 8.6 MG TAB PO SCH ×2 (10:21→20:32)
[2019-11-05] MEDS ORDERED: Apixaban 2.5 MG TAB PO SCH (10:45)
--- NOTE | 2019-11-05 17:41 | PDOC.BPN ---
- Brief Progress Note Received call from RN that pt's ankles were puffy and asked to slow the fluids. Pt is feeling well. Not SOB or having chest pain. trace pitting Edema 2-3 inches above ankles Listened to pt's lungs: minimal basilar crackles on R. Due to patient's severe ATN, will continue fluids at 75 mL/hr as instructed by Dr. Hoff. Will monitor pt's fluid status closely overnight and consider slowing them down if pt becomes more fluid overloaded.
--- NOTE | 2019-11-05 20:03 | PDOC.CPN ---
- Subjective Date: 11/05/19 Time: 20:01 Interval history: She has had worsening kidney function in the last few days and has received volume. She is still SOB with mild worsening only. No angina. - Review of Systems General: denies: fever/chills, weight/appetite/sleep changes, night sweats, fatigue Respiratory: reports: shortness of breath, exercise intolerance. denies: cough , congestion Cardiovascular: denies: chest pain, palpitation, edema, paroxysmal nocturnal dyspnea, orthopnea Gastrointestinal: denies: nausea, vomiting, diarrhea, constipation, abd pain, GI bleeding Musculoskeletal: denies: pain, tenderness, stiffness, swelling, arthritis/ arthralgias Neurological: denies: numbness, syncope, seizure, weakness - Objective Allergies/Adverse Reactions: Allergies Allergy/AdvReac Type Severity Reaction Status Date / Time clopidogrel Allergy Verified 10/23/19 19:22 lisinopril Allergy Verified 10/23/19 19:22 Visit Medications: Current Medications Acetaminophen (Tylenol) 650 mg PO Q4H PRN PRN Reason: Headache/Fever/Mild Pain (1-3) Last Admin: 11/03/19 20:03 Dose: 650 mg Acetaminophen (Tylenol) 650 mg [place] Q4H PRN PRN Reason: Headache/Fever/Mild Pain (1-3) Albuterol/Ipratropium (Duoneb) 3 ml EZPAP Q6H PRN PRN Reason: SOB &/or Wheezing Last Admin: 11/05/19 09:58 Dose: 3 ml Amiodarone HCl (Cordarone) 200 mg PO BID [facility] Last Admin: 11/05/19 10:19 Dose: 200 mg Amlodipine Besylate (Norvasc) 10 mg PO DAILY [facility] Last Admin: 11/05/19 10:19 Dose: 10 mg Apixaban (Eliquis) 2.5 mg PO BID [facility] Aspirin (Ecotrin) 81 mg PO DAILY [facility] Last Admin: 11/05/19 10:19 Dose: 81 mg Atorvastatin Calcium (Lipitor) 40 mg PO HS [facility] Last Admin: 11/04/19 21:25 Dose: Not Given Cholecalciferol (Vitamin D3) 1,250 units PO DAILY [facility] Last Admin: 11/05/19 10:18 Dose: 1,250 units Coenzyme Q10 (Coenzyme Q10) 100 mg PO BID [facility] Last Admin: 11/05/19 10:18 Dose: 100 mg Epoetin Andrew-epbx (Retacrit) 7,500 unit SC Q7D [facility] Last Admin: 11/02/19 17:16 Dose: 7,500 unit Folic Acid (Folvite) 1 mg PO DAILY [facility] Last Admin: 11/05/19 10:19 Dose: 1 mg Hydralazine HCl (Apresoline) 5 mg SLOW IVP Q15MIN PRN PRN Reason: SBP Greater Than 180 Last Admin: 10/27/19 21:15 Dose: 5 mg Sodium Chloride (Normal Saline 0.9%) 1,000 mls @ 75 mls/hr IV .[id number] [facility] Last Admin: 11/05/19 18:37 Dose: 1,000 mls Senna (Senokot) 2 tab PO BID [facility] Last Admin: 11/05/19 10:21 Dose: Not Given Sodium Bicarbonate (Bicarbonate, Sodium) 650 mg PO TID [facility] Last Admin: 11/05/19 15:05 Dose: 650 mg Sodium Chloride (Flush - Normal Saline) 10 ml IVF PRN PRN PRN Reason: Saline Flush Last Admin: 11/03/19 20:04 Dose: 10 ml Vital Signs & Weight: Vital Signs Temp Pulse Pulse Pulse Resp BP BP 11/05/19 19:20 97.6 F 66 20 11/05/19 18:02 69 68 141/102 H 11/05/19 16:00 97.9 F 62 16 11/05/19 12:00 96.9 F L 65 16 11/05/19 10:19 62 134/80 11/05/19 09:58 61 18 BP BP BP Pulse Ox 11/05/19 19:20 142/83 H 93 L 11/05/19 18:02 144/65 H 11/05/19 16:00 119/55 L 92 L 11/05/19 12:00 124/71 94 L 11/05/19 10:19 11/05/19 09:58 95 Admit Weight 127 lb 6.835 oz Weight 129 lb 12.8 oz - Quality Measures Condition: Atrial Fibrillation/Flutter (hx or current), Coronary Artery Disease , Heart Failure CV meds: Beta Jose: Yes, VANITA/ARB: No, Statin: Yes, ASA: Yes, Plavix/Effient/ Brilinta: No, Anticoagulant: Yes - Medication Contraindications No VANITA/ARB reason: Medical contraindication (CKD) - Physical Exam General: alert & oriented x3 HEENT: mucus membranes moist Neck: supple neck Cardiac: regular rate and rhythm Lungs: clear to auscultation Neuro: grossly intact Abdomen: active bowel sounds Extremities: 1+ LE edema Skin: clear Musculoskeletal: no pain - Labs Result Diagrams: 11/05/19 03:29 11/05/19 03:29 Troponin/CKMB CK-MB (CK-2) 1.6 ng/mL (0-6.6) 10/23/19 17:23 Troponin I 0.152 ng/mL (< 0.028) H 10/24/19 07:20 - Telemetry Sinus rhythms and dysrhythmias: sinus rhythm - Assessment/Plan Assessment/Plan: 1. Acute on chronic systolic heart failure. 2. CAD s/p CABG 3. 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 Paroxysmal afib 5. Hypokalemia, resolved. PLAN: - Continue plan for IV fluids. - Hopefully this is ATN and she will start the polyuric phase and will start getting volume negative on her own. - Will follow.
[2019-11-05] MEDS: Atorvastatin Calcium 40 MG TAB PO SCH (20:32)
[2019-11-05] MEDS: Apixaban 2.5 MG TAB PO SCH (20:32)
[2019-11-06] MEDS: Sodium Chloride 0.9% 1,000 ML IV SCH ×2 (01:08→21:02)
--- NOTE | 2019-11-06 06:17 | PDOC.FM ---
- Subjective Subjective: Pt is feeling well this morning. Reports her legs are still swollen. Dr. Artis decreased her IV fluids to 30 ml/hr. Otherwise, she feels tired after PT. Has the urge to urinate this morning. - Objective MAR Reviewed: Yes Vital Signs & Weight: Vital Signs (12 hours) Temp Pulse Resp BP Pulse Ox 11/06/19 05:29 97.6 F 73 20 139/65 92 L 11/06/19 00:10 68 20 134/60 92 L 11/05/19 19:20 97.6 F 66 20 142/83 H 93 L Weight Admit Weight 57.8 kg Weight 56.727 kg Most Recent Monitor Data Heart Rate from ECG 66 NIBP 145/62 NIBP BP-Mean 89 Respiration from ECG 28 SpO2 94 I&O: 11/04/19 11/05/19 11/06/19 06:59 06:59 06:59 Intake Total 1250 2766 1500 Output Total 800 1140 600 Balance 450 1626 900 Result Diagrams: 11/05/19 03:29 11/06/19 06:11 Phys Exam - Physical Examination Constitutional: NAD Respiratory: no wheezing, clear to auscultation bilateral Cardiovascular: RRR (murmur heard) Gastrointestinal: soft, non-tender, positive bowel sounds mild distension Musculoskeletal: pulses present 1+ pitting edema up to knees bilaterally, increased from yesterday Neurological: non-focal Psychiatric: normal affect, A&O x 3 Dx/Plan (1) Acute respiratory failure with hypoxia Code(s): J96.01 - ACUTE RESPIRATORY FAILURE WITH HYPOXIA Status: Acute (2) Atrial fibrillation Code(s): I48.91 - UNSPECIFIED ATRIAL FIBRILLATION Status: Acute (3) HLD (hyperlipidemia) Code(s): E78.5 - HYPERLIPIDEMIA, UNSPECIFIED Status: Acute (4) Hypertensive emergency Code(s): I16.1 - HYPERTENSIVE EMERGENCY Status: Acute (5) CAD (coronary artery disease) Code(s): I25.10 - ATHSCL HEART DISEASE OF [place] CORONARY ARTERY W/O ANG PCTRS Status: Chronic Qualifiers: Coronary Disease-Associated Artery/Lesion type: bypass graft [place] vs. transplanted heart: [place] heart (6) HTN (hypertension) Code(s): I10 - ESSENTIAL (PRIMARY) HYPERTENSION Status: Chronic Qualifiers: Hypertension type: essential hypertension Qualified Code(s): I10 - Essential (primary) hypertension (7) CHF (congestive heart failure) Code(s): I50.9 - HEART FAILURE, UNSPECIFIED Status: Suspected - Plan Plan: This is a 79 yo female with a pmh of CAD with CABG, MV regurg, HLD, HTN Hospital Day 13 Code: Full DVT Prophylaxis: Eliquis GI Prophylaxis: none Plan: Previously discussed rehab placement. We will need to reconsult Post- acute screen given pt's kidney function as she is too ill right now for rehab. NAOMI on CKD, stable - Likely related to severe HTN. Proteinuria/hematuria. - not improving, Creatinine is worsening. Possibility of ATN remains. - Nephro, Dr. Hoff consulted. - Dr. Hoff w/ continue Epogen and IV fluids. Will continue to follow. - Will monitor for resolution. Renal u/s normal. - creatinine has plateued Normocytic anemia, worsening - hgb slowly downtrended as kidneys have worsened. s/p transfusion 1 unit of PRBC on 11/04. - on epogen. - GI consulted and Dr. Horne recommends stopping iron since it may be confusing the picture of dark stools. Thinks this is due to anemia of chronic disease and of renal disease. Unlikely GI bleed. Recommends monitoring and minimizing blood draws due to iatrogenic anemia. Acute hypoxic respiratory failure 2/2 flash pulmonary edema, resolved. - pulm consulted, rec keeping O2 sats at 90% and no greater. HTN emergency, resolved - monitor. Continue current meds. HFrEF -Echo shows LVEF 40-45% and 1/3 diastolic dysfunction -Dr. Artis consulted. He signed off earlier this week. Reassessed pt yesterday and recommends continued treatment of kidney problems with fluid while monitoring fluid status. Decreased fluids. Leukocytosis -No source of current infection, ROS is negative, afebrile, will monitor for changes Atrial fibrillation, now in sinus rhythm w/ bradycardia -Cardiology consulted. Appreciate recs. -Continue PO amiodarone at maintenance dose - Continue eliquis since probability of GI bleed is low. Elevated troponins, stable Elevated D-Dimer -Wells score 0 -Low suspicion for PE -CXR does not show widened mediastinum, although it may be worth getting a CT chest if pt has chest pain UTI, treated, culture NGTD CAD s/p CABG -Continue asa, work up as above Undiagnosed COPD -Long standing smoking history -Will add neb treatments prn Fluids: at 75mL/hr VTE ppx: eliquis Other: spiritual consult placed yesterday for emotional support. Addendum - Attending - Attending Attestation Date/Time: 11/06/19 1400 I personally evaluated the patient and discussed the management with Dr. Mathis I agree with the History, Examination, Assessment and Plan documented above with any addition or exceptions noted below.Patient ambulating around lau she is nearing positive fluid balance. RFT stable hopefully we will soon see improvement in Renal function. Heart rate controlled she remains on eliquis avoid routine daily labs other than RFT which need to be trended.
[2019-11-06 06:55] LABS: Anion Gap 19 mmol/L (10-20); BUN (Urea Nitrogen) 104 mg/dL (9.8-20.1); Calc. Creatinine Clearance 8 mL/min (70-130); Calcium 9.4 mg/dL (7.8-10.44); Carbon Dioxide 15 mmol/L (23-31); Chloride 109 mmol/L (98-107); Estimated GFR-MDRD 8; Glucose 129 mg/dL (83-110); Potassium 3.3 mmol/L (3.5-5.1); Sodium 140 mmol/L (136-145)
[2019-11-06] MEDS ORDERED: Potassium Chloride 20 MEQ TAB PO SCH (08:30)
[2019-11-06] MEDS: Amiodarone 200 MG TAB PO SCH ×2 (09:13→20:58)
[2019-11-06] MEDS: Amlodipine 10 MG TAB PO SCH (09:13)
[2019-11-06] MEDS: Aspirin 81 mg Enteric Coated Tablet PO SCH (09:14)
[2019-11-06] MEDS: Apixaban 2.5 MG TAB PO SCH ×2 (09:14→20:58)
[2019-11-06] MEDS: Folic Acid 1 MG TAB PO SCH (09:17)
[2019-11-06] MEDS: Senokot 8.6 MG TAB PO SCH ×2 (09:18→20:58)
[2019-11-06] MEDS: Ubidecarenone 50 MG CAP PO SCH ×2 (09:19→20:58)
[2019-11-06] MEDS: Sodium Bicarbonate Tab 325 MG TAB PO SCH ×3 (09:19→20:57)
--- NOTE | 2019-11-06 09:42 | PRG ---
DATE OF SERVICE: 11/06/2019 SUBJECTIVE: Ms. Tate is a 79-year-old white female, seen by Renal Service for acute kidney injury. Initially, we felt this is a hemodynamically-mediated dysfunction. She is being given albumin, blood, as well as normal saline in the last few days. This morning, she does complain of more leg edema. For that reason, IV fluid has been decreased from 75 mL/hour to 30 mL/hour. Of interest, the renal function has stabilized and slightly improved this morning. Her shortness of breath is not any worse. Please note that episode of shortness of breath is relieved by a neb treatment with her. Please note, she has underlying COPD. OBJECTIVE: VITAL SIGNS: Blood pressure is 147/67, heart rate 70, respiratory rate 24, temperature 97.7, pulse ox 91%. GENERAL: Awake, alert, comfortable, not in distress. SKIN: Adequate turgor. HEENT: She has slightly pale conjunctivae. Anicteric sclerae. No neck mass. No carotid bruits. No JVD. CHEST: No deformities. LUNGS: Decreased breath sounds. HEART: Normal sinus rhythm. No murmurs, gallops, or rubs. ABDOMEN: Globular, soft, nontender. No masses. EXTREMITIES: Positive for edema. MEDICATIONS: Medications of November 06, 2019, were reviewed. LABORATORY DATA: Laboratories of November 05, 2019, white count 16, hemoglobin 8.4. On October 29, 2019, sodium 140, potassium 3.3, chloride 109, carbon dioxide 15, BUN 104, creatinine 4.96, GFR 8 mL/minute. Calcium 9.4. ASSESSMENT AND PLAN: 1. Acute kidney injury on top of chronic renal failure. Creatinine is noted at 4.96, which is minimally improved from yesterday of 5.08. If the renal function remained unimproved, we may need to consider dialytic intervention. I did discuss this at length with the patient. She is hoping to avoid dialysis. I did explain to her that if renal function does not really improved, she is most likely going to need dialysis. 2. Shortness of breath, multifactorial etiologies, chronic obstructive pulmonary disease with mild congestive heart failure. Continue current treatment. Continue neb treatment. IV fluid has been decreased. 3. Anemia, on p.r.n. blood transfusion, continuing weekly Epogen. 4. Metabolic acidosis, on sodium bicarbonate. 5. Recheck basic metabolic panel in a.m. Job ID: [id number]
--- NOTE | 2019-11-06 14:24 | PDOC.CPN ---
- Subjective Date: 11/06/19 Time: 14:22 Interval history: She is doing better. She states she has started to urinate a lot more now and her edema has imporved. Creatinine is also slightly better today. - Review of Systems General: denies: fever/chills, weight/appetite/sleep changes, night sweats, fatigue Respiratory: denies: cough, congestion, shortness of breath, exercise intolerance Cardiovascular: reports: edema. denies: chest pain, palpitation, paroxysmal nocturnal dyspnea, orthopnea Gastrointestinal: denies: nausea, vomiting, diarrhea, constipation, abd pain, GI bleeding Musculoskeletal: denies: pain, tenderness, stiffness, swelling, arthritis/ arthralgias Neurological: denies: numbness, syncope, seizure, weakness - Objective Allergies/Adverse Reactions: Allergies Allergy/AdvReac Type Severity Reaction Status Date / Time clopidogrel Allergy Verified 10/23/19 19:22 lisinopril Allergy Verified 10/23/19 19:22 Visit Medications: Current Medications Acetaminophen (Tylenol) 650 mg PO Q4H PRN PRN Reason: Headache/Fever/Mild Pain (1-3) Last Admin: 11/03/19 20:03 Dose: 650 mg Acetaminophen (Tylenol) 650 mg [place] Q4H PRN PRN Reason: Headache/Fever/Mild Pain (1-3) Albuterol/Ipratropium (Duoneb) 3 ml EZPAP Q6H PRN PRN Reason: SOB &/or Wheezing Last Admin: 11/05/19 09:58 Dose: 3 ml Amiodarone HCl (Cordarone) 200 mg PO BID [facility] Last Admin: 11/06/19 09:13 Dose: 200 mg Amlodipine Besylate (Norvasc) 10 mg PO DAILY [facility] Last Admin: 11/06/19 09:13 Dose: 10 mg Apixaban (Eliquis) 2.5 mg PO BID [facility] Last Admin: 11/06/19 09:14 Dose: 2.5 mg Aspirin (Ecotrin) 81 mg PO DAILY [facility] Last Admin: 11/06/19 09:14 Dose: 81 mg Atorvastatin Calcium (Lipitor) 40 mg PO HS [facility] Last Admin: 11/05/19 20:32 Dose: Not Given Cholecalciferol (Vitamin D3) 1,250 units PO DAILY [facility] Last Admin: 11/06/19 09:14 Dose: 1,250 units Coenzyme Q10 (Coenzyme Q10) 100 mg PO BID [facility] Last Admin: 11/06/19 09:19 Dose: 100 mg Epoetin Andrew-epbx (Retacrit) 7,500 unit SC Q7D [facility] Last Admin: 11/02/19 17:16 Dose: 7,500 unit Folic Acid (Folvite) 1 mg PO DAILY [facility] Last Admin: 11/06/19 09:17 Dose: 1 mg Hydralazine HCl (Apresoline) 5 mg SLOW IVP Q15MIN PRN PRN Reason: SBP Greater Than 180 Last Admin: 10/27/19 21:15 Dose: 5 mg Sodium Chloride (Normal Saline 0.9%) 1,000 mls @ 30 mls/hr IV .Q24H [facility] Last Admin: 11/06/19 01:08 Dose: Not Given Senna (Senokot) 2 tab PO BID [facility] Last Admin: 11/06/19 09:18 Dose: Not Given Sodium Bicarbonate (Bicarbonate, Sodium) 650 mg PO TID [facility] Last Admin: 11/06/19 09:19 Dose: 650 mg Sodium Chloride (Flush - Normal Saline) 10 ml IVF PRN PRN PRN Reason: Saline Flush Last Admin: 11/03/19 20:04 Dose: 10 ml Vital Signs & Weight: Vital Signs Temp Pulse Resp BP BP Pulse Ox Pulse Ox 11/06/19 11:52 98.4 F 68 19 140/65 92 L 11/06/19 10:11 93 L 11/06/19 09:25 18 93 L 11/06/19 09:13 70 11/06/19 07:56 97.7 F 70 24 H 147/67 H 91 L 11/06/19 05:29 97.6 F 73 20 139/65 92 L Admit Weight 127 lb 6.835 oz Weight 125 lb 1 oz - Quality Measures Condition: Atrial Fibrillation/Flutter (hx or current), Coronary Artery Disease , Heart Failure CV meds: Beta Jose: Yes, VANITA/ARB: No, Statin: Yes, ASA: Yes, Plavix/Effient/ Brilinta: No, Anticoagulant: Yes - Medication Contraindications No VANITA/ARB reason: Medical contraindication (CKD) - Physical Exam General: alert & oriented x3 HEENT: mucus membranes moist Neck: supple neck Cardiac: regular rate and rhythm Lungs: clear to auscultation Neuro: grossly intact Abdomen: active bowel sounds Extremities: 1+ LE edema Skin: clear Musculoskeletal: no pain - Labs Result Diagrams: 11/05/19 03:29 11/06/19 06:11 Troponin/CKMB CK-MB (CK-2) 1.6 ng/mL (0-6.6) 10/23/19 17:23 Troponin I 0.152 ng/mL (< 0.028) H 10/24/19 07:20 - Telemetry Sinus rhythms and dysrhythmias: sinus rhythm - Assessment/Plan Assessment/Plan: 1. Acute on chronic systolic heart failure. 2. CAD s/p CABG 3. 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 Paroxysmal afib 5. Hypokalemia, resolved. PLAN: - Reduced IV fluids for now. - Edema better - She stated she feels she has to get up and urinate almost eery hour. - Will follow from a distance over the weekend and will re evaluate on Saturday.
[2019-11-06] MEDS: Atorvastatin Calcium 40 MG TAB PO SCH (20:58)
[2019-11-07] MEDS ORDERED: Furosemide 100 MG/10 ML VIAL SLOW IVP SCH (03:45)
[2019-11-07] MEDS ORDERED: Furosemide 40 MG/4 ML VIAL SLOW IVP SCH ×2 (04:00→14:00)
[2019-11-07 05:05] LABS: Anion Gap 22 mmol/L (10-20); BUN (Urea Nitrogen) 100 mg/dL (9.8-20.1); Calc. Creatinine Clearance 9 mL/min (70-130); Calcium 9.5 mg/dL (7.8-10.44); Carbon Dioxide 14 mmol/L (23-31); Chloride 109 mmol/L (98-107); Estimated GFR-MDRD 9; Glucose 144 mg/dL (83-110); Potassium 3.9 mmol/L (3.5-5.1); Sodium 141 mmol/L (136-145)
[2019-11-07 06:15] LABS: Band 2 % (5-11); Hemoglobin 9.4 g/dL (12.0-16.0); Lymphocytes 3 % (21-51); MDiff Complete? YES; Mean Corpuscular HGB CONC 33.2 g/dL (32.0-36.0); Mean Corpuscular Hemoglobin 32.1 pg (27.0-31.0); Mean Corpuscular Volume 96.5 fL (78.0-98.0); Monocytes 4 % (0-10); Neutrophil 91 % (42-75); Platelet Count 305 thou/uL (130-400); Platelet Morphology Comment Appears Adequate; RBC Distribution Width 16.8 % (11.5-14.5); RBC Morphology Normal; Red Blood Cell (RBC) Count 2.93 mill/uL (4.20-5.40)
--- NOTE | 2019-11-07 06:46 | PDOC.FM ---
- Subjective Subjective: Pt had worsening oxygen saturation overnight. She received a CXR, lasix. Advanced to non-rebreather at 15 L from 4.5L. She does feel like she is tiring out. Sats are around 88%. Pt denies fevers. She was urinating often yesterday. - Objective Vital Signs & Weight: Vital Signs (12 hours) Temp Pulse Resp BP BP Pulse Ox 11/07/19 03:50 93 L 11/07/19 03:01 97.9 F 72 20 167/75 H 11/06/19 21:00 92 L 11/06/19 20:55 98.0 F 75 20 137/63 92 L Weight Admit Weight 57.8 kg Weight 59.052 kg Most Recent Monitor Data Heart Rate from ECG 66 NIBP 145/62 NIBP BP-Mean 89 Respiration from ECG 28 SpO2 94 I&O: 11/05/19 11/06/19 11/07/19 06:59 06:59 06:59 Intake Total 2766 2670 1715 Output Total 1140 1110 1525 Balance 1626 1560 190 Result Diagrams: 11/07/19 04:17 11/07/19 04:17 Phys Exam - Physical Examination Constitutional: NAD non-rebreather HEENT: PERRLA, sclera anicteric Neck: no JVD, full ROM Respiratory: no wheezing, no rhonchi Crackles present on the R otherwise fairly clear Cardiovascular: RRR, no significant murmur Gastrointestinal: soft, positive bowel sounds Neurological: non-focal, normal sensation Psychiatric: normal affect, A&O x 3 Skin: no rash Dx/Plan (1) HLD (hyperlipidemia) Code(s): E78.5 - HYPERLIPIDEMIA, UNSPECIFIED Status: Acute (2) Acute respiratory failure with hypoxia Code(s): J96.01 - ACUTE RESPIRATORY FAILURE WITH HYPOXIA Status: Acute (3) Hypertensive emergency Code(s): I16.1 - HYPERTENSIVE EMERGENCY Status: Acute (4) CAD (coronary artery disease) Code(s): I25.10 - ATHSCL HEART DISEASE OF [place] CORONARY ARTERY W/O ANG PCTRS Status: Chronic Qualifiers: Coronary Disease-Associated Artery/Lesion type: bypass graft [place] vs. transplanted heart: [place] heart (5) HTN (hypertension) Code(s): I10 - ESSENTIAL (PRIMARY) HYPERTENSION Status: Chronic Qualifiers: Hypertension type: essential hypertension Qualified Code(s): I10 - Essential (primary) hypertension (6) CHF (congestive heart failure) Code(s): I50.9 - HEART FAILURE, UNSPECIFIED Status: Suspected (7) Atrial fibrillation Code(s): I48.91 - UNSPECIFIED ATRIAL FIBRILLATION Status: Acute - Plan Plan: This is a 79 yo female with a pmh of CAD with CABG, MV regurg, HLD, HTN Hospital Day 13 Code: Full DVT Prophylaxis: Eliquis GI Prophylaxis: none Plan: Previously discussed rehab placement. We will need to reconsult Post- acute screen given pt's kidney function as she is too ill right now for rehab. NAOMI on CKD, stable - Likely related to severe HTN. Proteinuria/hematuria. - not improving, Creatinine is worsening. Possibility of ATN remains. - Nephro, Dr. Hoff consulted. - Dr. Hoff w/ continue Epogen and IV fluids. Will continue to follow. - Will monitor for resolution. Renal u/s normal. - creatinine has plateued - will discuss dialysis with Dr. Hoff as her GFR is not improving and she is retaining fluid. Normocytic anemia, worsening - hgb slowly downtrended as kidneys have worsened. s/p transfusion 1 unit of PRBC on 11/04. - on epogen. - GI consulted and Dr. Horne recommends stopping iron since it may be confusing the picture of dark stools. Thinks this is due to anemia of chronic disease and of renal disease. Unlikely GI bleed. Recommends monitoring and minimizing blood draws due to iatrogenic anemia. Acute hypoxic respiratory failure 2/2 flash pulmonary edema, resolved. - pulm consulted, rec keeping O2 sats at 90% and no greater. - PaO2 decreased on ABG, will transfer to IMCU for monitoring. Given a dose of lasix overnight but overall she has 6 kg increased weight, CXR revealed pulm edema. Pending procalcitonin. HTN emergency, resolved - monitor. Continue current meds. HFrEF -Echo shows LVEF 40-45% and 1/3 diastolic dysfunction -Dr. Artis consulted. He signed off earlier this week. Reassessed pt yesterday and recommends continued treatment of kidney problems with fluid while monitoring fluid status. Decreased fluids. Leukocytosis -No source of current infection, ROS is negative, afebrile, will monitor for changes Atrial fibrillation, now in sinus rhythm w/ bradycardia -Cardiology consulted. Appreciate recs. -Continue PO amiodarone at maintenance dose - Continue eliquis since probability of GI bleed is low. Elevated troponins, stable Elevated D-Dimer -Wells score 0 -Low suspicion for PE -CXR does not show widened mediastinum, although it may be worth getting a CT chest if pt has chest pain UTI, treated, culture NGTD CAD s/p CABG -Continue asa, work up as above Undiagnosed COPD -Long standing smoking history -Will add neb treatments prn Fluids: held VTE ppx: eliquis Other: transfer to IMCU for respiratory status Addendum - Attending - Attending Attestation Date/Time: 11/07/19 [id number] I personally evaluated the patient and discussed the management with Dr. Roberts I agree with the History, Examination, Assessment and Plan documented above with any addition or exceptions noted below. Patient with recurrent significant hypoxia and pulmonary congestion will place back to MICU. Appreciate Nephrology , Pulmonary and Cardiology recommendation for continuing care/evaluation .
[2019-11-07 08:35] LABS: Actual Bicarbonate (HCO3a) 15.5 mEq/L (22-28); Base Excess (BEa) -7.6 mEq/L (-2.0 to +3.0); Calcium, Ionized 1.17 mmol/L (1.12-1.30); Hemoglobin (Hb) 9.5 g/dL (12.0-16.0); Potassium - ABG Lab 3.24 mmol/L (3.70-5.30); pH, Arterial 7.43 (7.35-7.45)
[2019-11-07 08:38] LABS: CO2 Tension 24.1 mmHg (35.0-45.0)
[2019-11-07 08:39] LABS: ALV-art Gradient 207.375 (0-20); O2 Tension (PaO2) 47.7 mmHg (> 70.0); Puncture Site RRA
--- NOTE | 2019-11-07 10:02 | RAD ---
CHEST 1 VIEW: Date: 11/07/2019 HISTORY: Respiratory distress. COMPARISON: Radiograph dated 10/29/2019. FINDINGS: Increased opacification of the upper lobes and perihilar spaces. Loss of volume of right lung. Small effusions. Heart size enlarged. No pneumothorax. IMPRESSION: Mild worsening of the upper lobe opacity suggesting worsening pulmonary edema and possibly developing superimposed infection. POS: OFF
[2019-11-07] MEDS: Sodium Bicarbonate Tab 325 MG TAB PO SCH ×3 (10:29→20:40)
[2019-11-07] MEDS: Apixaban 2.5 MG TAB PO SCH ×2 (10:29→20:40)
[2019-11-07] MEDS: Amlodipine 10 MG TAB PO SCH (10:29)
[2019-11-07] MEDS: Amiodarone 200 MG TAB PO SCH ×2 (10:30→20:41)
[2019-11-07] MEDS: Aspirin 81 mg Enteric Coated Tablet PO SCH (10:31)
[2019-11-07] MEDS: Ubidecarenone 50 MG CAP PO SCH ×2 (10:31→20:40)
[2019-11-07] MEDS: Folic Acid 1 MG TAB PO SCH (10:32)
[2019-11-07] MEDS: Senokot 8.6 MG TAB PO SCH ×2 (10:32→20:41)
--- NOTE | 2019-11-07 13:43 | PRG ---
DATE OF SERVICE: 11/07/2019 SUBJECTIVE: Ms. Tate is a 79-year-old white female, followed up by the Renal Service for her progressive azotemia. Last night, she developed acute respiratory distress. Chest x-ray showed either superimposed pneumonia or worsening CHF. She was given one-time dose of Lasix. Our plan due to the leukocytosis and x-ray findings is to empirically treat her with IV antibiotics and place her on a regular diuretic regimen. I had a long discussion with this patient about considering dialysis. She is open to that idea. She will think about it overnight. Her shortness of breath is slightly improved. She is on nasal BiPAP. OBJECTIVE: VITAL SIGNS: Blood pressure is 163/83, heart rate 76, temperature 98.4, and O2 saturation 92%. GENERAL: The patient is awake, sitting comfortable, not in overt distress. SKIN: Adequate turgor. HEENT: She has slightly pale conjunctivae. Anicteric sclerae. No neck mass. No carotid bruits. No JVD. CHEST: No deformities. LUNGS: Decreased breath sounds. HEART: Normal sinus rhythm. No murmurs, gallops, or rubs. ABDOMEN: Globular, soft, and nontender. No masses. EXTREMITIES: No edema. No deformities. MEDICATIONS: Of November 07, 2019, reviewed. LABORATORY DATA: November 07, 2019; white count 29, hemoglobin 9.4, neutrophils 91%. Sodium 141, potassium 3.9, chloride 109, carbon dioxide 14, BUN 100, creatinine 4.85, GFR 9 mL/minute, and calcium 9.5. ASSESSMENT AND PLAN: 1. Acute respiratory distress-congestive heart failure versus superimposed pneumonia. Empiric IV antibiotics. Blood culture x2. Start Lasix at 80 mg IV q.12h. 2. Acute kidney injury-progressive azotemia. Superimposed acute tubular necrosis was being considered due to the unimproved renal function. If renal function will still significantly worsen by tomorrow, we will initiate hemodialysis. The patient is leaning towards agreeing to another procedure-dialysis. Overall, prognosis remains guarded with this patient. 3. Metabolic acidosis, on sodium bicarbonate. 4. Agree with current management. Job ID: [id number]
[2019-11-07 13:45] LABS: Bacteria/HPF 4+ HPF (None Seen); Bilirubin Negative (Negative); Blood, Urine 3+ (Negative); Clarity Turbid (Clear); Glucose, Urine (Dipstick) Normal (Negative); Leukocyte Negative Leu/uL (Negative); Nitrite Negative (Negative); Protein, Urine (Dipstick) 100 mg/dL (Neg-Trace); RBC/HPF Greater than 50 HPF (0-3); Squamous Epithelial 0-3 HPF (0-3); Urobilinogen Normal mg/dL (Less than 2)
[2019-11-07 13:47] LABS: Urine Culture Reflex Yes Yes
[2019-11-07] MEDS: Furosemide 100 MG/10 ML VIAL SLOW IVP SCH (14:57)
[2019-11-07] MEDS: Piperacillin/Tazobactam 2.25 GM in Sodium Chloride 0.9% 100 ML IVPB SCH ×2 (14:58→23:27)
--- NOTE | 2019-11-07 16:44 | PRG ---
DATE OF SERVICE: 11/07/2019 SERVICE: Pulmonary Medicine. INTERVAL HISTORY: The patient is doing poorly from respiratory standpoint. She was doing well up until about 10 o'clock last night. She went to sleep, she woke up being acutely short of breath. She was coughing. Ultimately, she struggled for the rest of the evening, but this morning, when things did not recover and were actually moving in the wrong direction, she was brought to the [facility]. She is talking in full sentences, but in mild respiratory distress. Otherwise, she reports no fevers or chills overnight. IV fluids were discontinued, she was given a dose of Lasix. Her urine output has been improving a little bit over the last couple of days, though she remains significantly volume up. PHYSICAL EXAMINATION: VITAL SIGNS: Afebrile, pulse 75, blood pressure 163/83, respirations 27, saturation 91%, currently on 50% FiO2 delivered via CPAP. HEENT: Normocephalic and atraumatic. Sclerae white. Conjunctivae pink. Oral mucosa is moist without lesions. LUNGS: Extensive crackling is present. There is decreased air entry and a prolonged expiratory phase, though I do not hear any wheezing or rhonchi present. HEART: Normal rate. Regular. ABDOMEN: Soft, nontender, and nondistended. Bowel sounds are positive. MUSCULOSKELETAL: No cyanosis or clubbing. There is 2+ pitting in the bilateral lower extremities. NEUROLOGIC: Grossly nonfocal. LABORATORY DATA: WBC 29.0, hemoglobin 9.4, platelets 305,000. PH 7.43, pCO2 of 24, PO2 of 47 corresponding to a saturation of 85%. This was when she was wearing a 40% Ventimask. Creatinine 4.85 and gently downtrending. BUN 100, anion gap 22, bicarb 14. Basic metabolic profile is otherwise unremarkable. Urinalysis is negative. IMAGIN. Chest x-ray demonstrates fairly classic bat wing pulmonary edema pattern. It is a little bit worse on the right compared to the left, indicative of regurgitant mitral valve. 2. Echocardiogram demonstrates 40% to 45% ejection fraction with 1/3 diastolic dysfunction as well as a moderate mitral regurgitation. ASSESSMENT: 1. Acute hypoxic respiratory failure. 2. Acute on chronic systolic and diastolic heart failure. 3. Mitral regurgitation. 4. Hypertension. 5. Acute kidney injury on chronic kidney disease 4. DISCUSSION AND PLAN: I believe our big issue is that the patient is getting volume up. With this, she ended up having elevated blood pressure, resulting in significant mitral regurgitant flow. IV fluids have been interrupted and we will continue with diuretics. We will put her on noninvasive ventilation. She has her CPAP machine at home, and she does not want to wear a full face mask. As such, we will do what we can to rig an apparatus with our CPAP unit tied into her face mask. She would be amenable to this type of intervention. As she is diuresed, if her sodium starts to trend upward, we may need to introduce a little bit of free water. Hopefully, we can avoid doing that, however. Critical Care will continue to follow. Critical care time: 30 minutes. Job ID: [id number] MTDD
[2019-11-07] MEDS ORDERED: Nitroglycerin 2% Ointment 1 INCH/1 GM Packet TOP SCH (18:30)
[2019-11-07 19:12] LABS: Troponin I 0.575 ng/mL (< 0.028)
[2019-11-07] MEDS ORDERED: Nitroglycerin 0.4 MG TAB (25 Tab Bottle) SL PRN (19:20)
[2019-11-07] MEDS: Atorvastatin Calcium 40 MG TAB PO SCH (20:40)
[2019-11-07 22:52] LABS: CKMB 1.2 ng/mL (0-6.6)
[2019-11-08 04:05] LABS: Hemoglobin 8.9 g/dL (12.0-16.0); Platelet Count 286 thou/uL (130-400)
[2019-11-08] MEDS: Furosemide 100 MG/10 ML VIAL SLOW IVP SCH ×2 (05:23→15:29)
[2019-11-08] MEDS: Piperacillin/Tazobactam 2.25 GM in Sodium Chloride 0.9% 100 ML IVPB SCH ×3 (05:24→21:34)
--- NOTE | 2019-11-08 05:58 | PDOC.FM ---
- Subjective Subjective: Pt had an episode of chest pain yesterday which has since resolved. Her trops downtrended. Today she does not have chest pain. Her O2 sats are well with supplementation. - Objective Vital Signs & Weight: Vital Signs (12 hours) Temp Pulse Resp Pulse Ox 11/08/19 03:46 99.5 F 11/08/19 02:43 90 L 11/08/19 00:55 74 22 H 92 L 11/08/19 00:00 93 L 11/07/19 23:39 97.9 F 11/07/19 20:00 93 L 11/07/19 19:29 98.5 F Weight Admit Weight 57.8 kg Weight 59.052 kg Most Recent Monitor Data Heart Rate from ECG 73 NIBP 141/60 NIBP BP-Mean 87 Respiration from ECG 26 SpO2 90 I&O: 11/06/19 11/07/19 11/08/19 06:59 06:59 06:59 Intake Total 2670 1715 570 Output Total 1110 1525 640 Balance 1560 190 -70 Result Diagrams: 11/08/19 09:20 11/08/19 03:25 Phys Exam - Physical Examination Constitutional: NAD HEENT: PERRLA, moist MMs Neck: no JVD, full ROM Respiratory: no wheezing, clear to auscultation bilateral Cardiovascular: RRR, no significant murmur Gastrointestinal: soft, non-tender, positive bowel sounds Musculoskeletal: pulses present trace edema R > L Neurological: non-focal, normal sensation Psychiatric: normal affect, A&O x 3 Dx/Plan (1) HLD (hyperlipidemia) Code(s): E78.5 - HYPERLIPIDEMIA, UNSPECIFIED Status: Acute (2) Acute respiratory failure with hypoxia Code(s): J96.01 - ACUTE RESPIRATORY FAILURE WITH HYPOXIA Status: Acute (3) Hypertensive emergency Code(s): I16.1 - HYPERTENSIVE EMERGENCY Status: Acute (4) CAD (coronary artery disease) Code(s): I25.10 - ATHSCL HEART DISEASE OF [place] CORONARY ARTERY W/O ANG PCTRS Status: Chronic Qualifiers: Coronary Disease-Associated Artery/Lesion type: bypass graft [place] vs. transplanted heart: [place] heart (5) HTN (hypertension) Code(s): I10 - ESSENTIAL (PRIMARY) HYPERTENSION Status: Chronic Qualifiers: Hypertension type: essential hypertension Qualified Code(s): I10 - Essential (primary) hypertension (6) CHF (congestive heart failure) Code(s): I50.9 - HEART FAILURE, UNSPECIFIED Status: Suspected (7) Atrial fibrillation Code(s): I48.91 - UNSPECIFIED ATRIAL FIBRILLATION Status: Acute - Plan Plan: This is a 79 yo female with a pmh of CAD with CABG, MV regurg, HLD, HTN Code: Full DVT Prophylaxis: Eliquis GI Prophylaxis: none Plan: Monitoring anemia, kidney function before patient can be discharged to rehab. Elevated troponins - third trop downtrended. - pt is currently on eliquis, aspirin. Possibly elevated due to kidney damage. NAOMI on CKD, stable - Likely related to severe HTN. Proteinuria/hematuria. - not improving, Creatinine is worsening. Possibility of ATN remains. - Nephro, Dr. Hoff consulted. - Dr. Hoff w/ continue Epogen and IV fluids. Will continue to follow. - Will monitor for resolution. Renal u/s normal. - GFR stable < 10, Dr. Hoff is considering HD at this time as pt is becoming fluid overloaded. She is urinating. Normocytic anemia, worsening - hgb slowly downtrended as kidneys have worsened. s/p transfusion 1 unit of PRBC on 11/04. - on epogen. - GI consulted and Dr. Horne recommends stopping iron since it may be confusing the picture of dark stools. Thinks this is due to anemia of chronic disease and of renal disease. Unlikely GI bleed. Recommends monitoring and minimizing blood draws due to iatrogenic anemia. Acute hypoxic respiratory failure 2/2 flash pulmonary edema, resolved. - pulm consulted, rec keeping O2 sats at 90% and no greater. - PaO2 decreased on ABG, will transfer to [facility] for monitoring. Given a dose of lasix overnight but overall she has 6 kg increased weight, CXR revealed pulm edema. Pending procalcitonin. HTN emergency, resolved - monitor. Continue current meds. HFrEF -Echo shows LVEF 40-45% and 1/3 diastolic dysfunction -Dr. Artis consulted. He signed off earlier this week. Reassessed pt yesterday and recommends continued treatment of kidney problems with fluid while monitoring fluid status. Decreased fluids. Leukocytosis -No source of current infection, ROS is negative, afebrile, will monitor for changes Atrial fibrillation, now in sinus rhythm w/ bradycardia -Cardiology consulted. Appreciate recs. -Continue PO amiodarone at maintenance dose - Continue eliquis since probability of GI bleed is low. Elevated D-Dimer -Wells score 0 -Low suspicion for PE -CXR does not show widened mediastinum, although it may be worth getting a CT chest if pt has chest pain UTI, treated, culture NGTD CAD s/p CABG -Continue asa, work up as above Undiagnosed COPD -Long standing smoking history -Will add neb treatments prn Fluids: held VTE ppx: eliquis Other: transfer to [facility] for respiratory status Addendum - Attending - Attending Attestation Date/Time: 11/08/19 1117 I personally evaluated the patient and discussed the management with Dr. Roberts I agree with the History, Examination, Assessment and Plan documented above with any addition or exceptions noted below. renal function stable still problems with fluid balance. Zosyn started yesterday. Appreciate recommendation Nephrology,Pulmonary and Cardiology for further consideration. Patient did somewhat respond to lasix yesterday.
[2019-11-08 06:30] LABS: Critical Call Chem Troponin I RESULT DECREASING
[2019-11-08 08:21] LABS: CKMB 1.1 ng/mL (0-6.6)
[2019-11-08 09:50] LABS: Anisocytosis SLIGHT = 6-15 cells (100X) (0-5/hpf); Band 3 % (5-11); Hemoglobin 9.6 g/dL (12.0-16.0); Lymphocytes 3 % (21-51); MDiff Complete? YES; Mean Corpuscular HGB CONC 32.6 g/dL (32.0-36.0); Mean Corpuscular Hemoglobin 31.5 pg (27.0-31.0); Mean Corpuscular Volume 96.7 fL (78.0-98.0); Mean Platelet Volume 9.6 fL (7.4-10.4); Neutrophil 94 % (42-75); Platelet Count 304 thou/uL (130-400); RBC Distribution Width 16.6 % (11.5-14.5); Red Blood Cell (RBC) Count 3.04 mill/uL (4.20-5.40); White Blood Cell (WBC) Count 36.7 thou/uL (4.8-10.8)
[2019-11-08] MEDS: Folic Acid 1 MG TAB PO SCH (11:27)
[2019-11-08] MEDS: Apixaban 2.5 MG TAB PO SCH ×2 (11:28→21:32)
[2019-11-08] MEDS: Ubidecarenone 50 MG CAP PO SCH ×2 (11:29→21:33)
[2019-11-08] MEDS: Aspirin 81 mg Enteric Coated Tablet PO SCH (11:30)
[2019-11-08] MEDS: Amiodarone 200 MG TAB PO SCH ×2 (11:30→21:33)
[2019-11-08] MEDS: Amlodipine 10 MG TAB PO SCH (11:30)
[2019-11-08] MEDS: Sodium Bicarbonate Tab 325 MG TAB PO SCH ×3 (11:31→21:32)
[2019-11-08] MEDS: Senokot 8.6 MG TAB PO SCH ×2 (11:31→21:33)
--- NOTE | 2019-11-08 11:46 | PRG ---
DATE OF SERVICE: 11/08/2019 SUBJECTIVE: Ms. Tate is a 79-year-old white female, followed up by the Renal Service for her progressive azotemia. She also went to a CHF. Attempt to volume replete her was done due to the fact that we initially felt that she may have a simple hemodynamically-mediated renal dysfunction. However, she did not tolerate this. She is currently on nasal BiPAP. I have also started on Lasix at 80 mg IV q.12. She is also being treated for pneumonia. Again, we discussed the possibility of dialysis with her and the patient is still unsure and has declined to start it yet. She would like to discuss it with her son, who is coming today. I left my cell phone for the son to call me if he has any questions. No acute events noted, still short of breath. OBJECTIVE: VITAL SIGNS: Blood pressure 140/67, O2 saturation is 92%, temperature is 98, heart rate 71, and respiratory rate 24. GENERAL: Awake, supine, and comfortable, not in distress. SKIN: Adequate turgor. HEENT: Slightly pale conjunctivae. Anicteric sclerae. NECK: No neck mass. No carotid bruits. No JVD. CHEST: No deformities. LUNGS: Decreased breath sounds. HEART: Normal sinus rhythm. No murmur. No gallops. No rubs. ABDOMEN: Globular, soft, and nontender. No masses. EXTREMITIES: No edema. No deformities. MEDICATIONS: Medications of November 08, 2019, was reviewed. LABORATORY DATA: Laboratories of November 08, 2019, showed a white count of 36.7 and hemoglobin 9.6. Creatinine is 4.82 with a GFR 9 mL/minute. Troponin I 0.623. ASSESSMENT AND PLAN: 1. Leukocytosis. Blood culture negative x2. 2. Pneumonia, on antibiotics. 3. Acute kidney injury on top of her chronic renal failure. Creatinine is relatively unchanged at 4.82 with a GFR of 9 mL/minute. I did discuss again dialysis with this patient and she is hesitant to proceed. She will talk it with her son. As previously mentioned, I left my cell phone for the son to call me for any questions. 4. Congestive heart failure. Currently, on IV Lasix at 80 mg IV q.12. 5. Borderline anemia. Continue to observe. P.R.N. blood transfusion. 6. Recheck basic metabolic and CBC in a.m. Job ID: [id number]
[2019-11-08] MEDS ORDERED: Fluconazole 100 MG TAB PO SCH (18:30)
--- NOTE | 2019-11-08 18:42 | PRG ---
DATE OF SERVICE: 11/08/2019 SERVICE: Pulmonary Medicine. INTERVAL HISTORY: The patient is doing really well from respiratory standpoint. Breathing comfortably. She is requiring BiPAP. She has been able to tolerate breaks off the BiPAP and on to the high-flow nasal cannula. That being said, her oxygen requirements are still elevated. So, while she feels a little bit more comfortable with her contraption, she has not made much headway in the way of hypoxic failure. PHYSICAL EXAMINATION: VITAL SIGNS: Afebrile, pulse 72, blood pressure 138/66, respirations 36, saturation 92%, currently on 65% FiO2 delivered via CPAP. GENERAL: The patient is awake and alert, in no apparent distress. LUNGS: Decent air entry. The crackling has improved slightly. There is no prolonged expiratory phase or wheezing present. HEART: Normal rate. Regular. ABDOMEN: Soft, nontender, and nondistended. Bowel sounds are positive. MUSCULOSKELETAL: No cyanosis or clubbing. There is 2+ pitting in the bilateral lower extremities. NEUROLOGIC: Grossly nonfocal. LABORATORY DATA: WBC 36.7, hemoglobin 9.6, and platelets 304,000. D-dimer 2.62. Creatinine 4.82, which is roughly stable, if not slightly trending downward. BUN 100, anion gap 22. Basic metabolic profile is otherwise unremarkable. Troponin continues to trend upward to 0.623. Procalcitonin remains quite low. There was significant hematuria, but not much in the way of pyuria. All culture results remain negative including blood cultures x4, urine culture x2, influenza A and B. ASSESSMENT: 1. Acute hypoxic respiratory failure. 2. Acute on chronic systolic and diastolic heart failure. 3. Mitral regurgitation. 4. Acute kidney injury on chronic kidney disease 4. 5. Hypertension. DISCUSSION AND PLAN: We will try to keep the patient's blood pressure under decent control. Our target is going to be below 140. Diuretics and/or dialysis per Nephrology. The white blood cell count is going up, but truth be told, she does not have additional features consistent with sepsis. I will empirically treat her for fungal diseases. Critical Care will follow closely. Job ID: [id number]
[2019-11-08] MEDS: Atorvastatin Calcium 40 MG TAB PO SCH (21:33)
[2019-11-09 04:16] LABS: #Eosinphils 0.1 thou/uL (0.0-0.7); #Lymphocytes 0.6 thou/uL (1.20-3.40); #Monocytes 0.8 thou/uL (0.11-0.59); %Eosinophils 0.3 % (0.0-10.0); %Lymphocytes 2.6 % (21.0-51.0); %Monocytes 3.3 % (0.0-10.0); %Neutrophils 93.9 % (42.0-75.0); Hemoglobin 8.2 g/dL (12.0-16.0); Mean Corpuscular HGB CONC 33.7 g/dL (32.0-36.0); Mean Corpuscular Hemoglobin 32.6 pg (27.0-31.0); Mean Corpuscular Volume 96.8 fL (78.0-98.0); Mean Platelet Volume 10.3 fL (7.4-10.4); Platelet Count 262 thou/uL (130-400); RBC Distribution Width 16.8 % (11.5-14.5); Red Blood Cell (RBC) Count 2.52 mill/uL (4.20-5.40); White Blood Cell (WBC) Count 24.5 thou/uL (4.8-10.8)
[2019-11-09 04:28] LABS: Anion Gap 20 mmol/L (10-20); BUN (Urea Nitrogen) 113 mg/dL (9.8-20.1); Calc. Creatinine Clearance 8 mL/min (70-130); Calcium 8.9 mg/dL (7.8-10.44); Carbon Dioxide 18 mmol/L (23-31); Chloride 103 mmol/L (98-107); Estimated GFR-MDRD 7; Glucose 114 mg/dL (83-110); Sodium 138 mmol/L (136-145)
--- NOTE | 2019-11-09 05:56 | PDOC.FM ---
- Subjective Subjective: Pt feels like she is working to breathe this AM. She slept on BIPAP and now is on HFNC satting in the low 80s%. She is willing to pursue HD today. Has strong urge to urinate. Continued urinary urgency and continues to produce urine. - Objective MAR Reviewed: Yes Vital Signs & Weight: Vital Signs (12 hours) Temp Pulse Resp Pulse Ox 11/09/19 03:43 97.9 F 11/08/19 23:31 98.2 F 11/08/19 22:56 66 21 H 90 L 11/08/19 20:00 93 L 11/08/19 19:36 98.0 F Weight Admit Weight 57.8 kg Weight 58.513 kg Most Recent Monitor Data Heart Rate from ECG 66 NIBP 119/57 NIBP BP-Mean 77 Respiration from ECG 22 SpO2 92 I&O: 11/07/19 11/08/19 11/09/19 06:59 06:59 06:59 Intake Total 1715 1200 920 Output Total 1525 1390 576 Balance 190 -190 344 Result Diagrams: 11/09/19 03:24 11/09/19 03:24 Phys Exam - Physical Examination Constitutional: NAD Respiratory: no wheezing Cardiovascular: RRR Gastrointestinal: no distention Psychiatric: normal affect, A&O x 3 Dx/Plan (1) Acute respiratory failure with hypoxia Code(s): J96.01 - ACUTE RESPIRATORY FAILURE WITH HYPOXIA Status: Acute (2) Atrial fibrillation Code(s): I48.91 - UNSPECIFIED ATRIAL FIBRILLATION Status: Acute (3) HLD (hyperlipidemia) Code(s): E78.5 - HYPERLIPIDEMIA, UNSPECIFIED Status: Acute (4) Hypertensive emergency Code(s): I16.1 - HYPERTENSIVE EMERGENCY Status: Acute (5) CAD (coronary artery disease) Code(s): I25.10 - ATHSCL HEART DISEASE OF [place] CORONARY ARTERY W/O ANG PCTRS Status: Chronic Qualifiers: Coronary Disease-Associated Artery/Lesion type: bypass graft [place] vs. transplanted heart: [place] heart (6) HTN (hypertension) Code(s): I10 - ESSENTIAL (PRIMARY) HYPERTENSION Status: Chronic Qualifiers: Hypertension type: essential hypertension Qualified Code(s): I10 - Essential (primary) hypertension (7) CHF (congestive heart failure) Code(s): I50.9 - HEART FAILURE, UNSPECIFIED Status: Suspected - Plan Plan: This is a 79 yo female with a pmh of CAD with CABG, MV regurg, HLD, HTN Code: Full DVT Prophylaxis: Eliquis GI Prophylaxis: none Plan: Monitoring anemia, kidney function before patient can be discharged to rehab. Elevated troponins - third trop downtrended. - pt is currently on eliquis, aspirin. Possibly elevated due to kidney damage. NAOMI on CKD, stable Hypokalemia - Likely related to severe HTN. Proteinuria/hematuria. - Nephro, Dr. Hoff consulted. Will await recommendations for access for HD today. - Renal u/s normal. - Pt has developed pulmonary edema over the weekend. - Will replace potassium. This also will be corrected when HD begins. Normocytic anemia, stable - hgb slowly downtrended as kidneys have worsened. s/p transfusion 1 unit of PRBC on 11/04. - on epogen. - GI consulted and Dr. Horne recommends stopping iron since it may be confusing the picture of dark stools. Thinks this is due to anemia of chronic disease and of renal disease. Unlikely GI bleed. Recommends monitoring and minimizing blood draws due to iatrogenic anemia. Acute hypoxic respiratory failure 2/2 flash pulmonary edema, recurrent pulm edema - pulm consulted, rec keeping O2 sats at 90% and no greater. - on Bipap at night. HFNC during the day. Pt is becoming very tired from respiratory standpoint and will continue to need respiratory support. - monitor fluid status. HTN emergency, resolved - monitor. Continue current meds. HFrEF -Echo shows LVEF 40-45% and 1/3 diastolic dysfunction -Dr. Artis consulted. Following peripherally given worsening renal function. Leukocytosis -No source of current infection. Atrial fibrillation, now in sinus rhythm w/ bradycardia - Cardiology consulted. Appreciate recs. - Continue PO amiodarone at maintenance dose - Continue eliquis since probability of GI bleed is low. Elevated D-Dimer -Wells score 0 -Low suspicion for PE -CXR does not show widened mediastinum, although it may be worth getting a CT chest if pt has chest pain UTI, treated, culture NGTD CAD s/p CABG -Continue asa, work up as above Undiagnosed COPD -Long standing smoking history -Will add neb treatments prn Fluids: held VTE ppx: eliquis
[2019-11-09] MEDS: Furosemide 100 MG/10 ML VIAL SLOW IVP SCH ×2 (06:23→17:24)
[2019-11-09] MEDS: Piperacillin/Tazobactam 2.25 GM in Sodium Chloride 0.9% 100 ML IVPB SCH ×3 (06:23→21:52)
[2019-11-09] MEDS ORDERED: Potassium Chloride 20 MEQ TAB PO SCH (06:45)
[2019-11-09] MEDS ORDERED: Potassium Chloride 20 MEQ in Premix Bag 1 BAG IVPB SCH (07:00)
--- NOTE | 2019-11-09 07:59 | RAD ---
CHEST 1 VIEW: INDICATION: History of followup infiltrates. COMPARISON: 11/07/2019. FINDINGS: Bilateral airspace opacities are somewhat improved when compared to the prior. Residual airspace opa cities remain predominantly with a perihilar distribution. Chronic lung changes and cardiomegaly are stable-appearing. No pneumothorax is evident. No acute osseous abnormality is evident. IMPRESSION: Improving pneumonia. POS: BH
--- NOTE | 2019-11-09 09:28 | PRG ---
DATE OF SERVICE: 11/09/2019 SUBJECTIVE: Ms. Tate is a 79-year-old white female, followed up by the Renal Service for acute kidney injury. She has had progressive azotemia. She also went to volume overload. The patient has finally decided to proceed with dialysis. We will be consulting Surgery for placement of a tunneled dialysis catheter. No new complaints. Still with shortness of breath. OBJECTIVE: VITAL SIGNS: Blood pressure is 129/57, heart rate 66, respiratory rate 18, and O2 sat 91%. GENERAL: Awake, alert, comfortable, not in overt distress. SKIN: Adequate turgor. HEENT: She has slightly pale conjunctivae. Anicteric sclerae. NECK: No neck mass. No carotid bruits. No JVD. CHEST: No deformities. LUNGS: Decreased breath sounds. HEART: Normal sinus rhythm. No murmurs. No gallops. No rubs. ABDOMEN: Globular, soft, and nontender. No masses. EXTREMITIES: No edema. No deformities. MEDICATIONS: Medications of November 09, 2019, reviewed. LABORATORY DATA: November 09, 2019; white count 24.5, hemoglobin 8.2, sodium 138, potassium 3, chloride 103, carbon dioxide 18, BUN 113, creatinine 5.54, GFR 9 mL/min, and calcium 8.9. ASSESSMENT AND PLAN: 1. Acute kidney injury/chronic renal failure, worsening renal dysfunction. GFR has dropped down to 7 mL/min. We will proceed with hemodialysis. Consult Surgery for placement of tunneled dialysis catheter. 2. Congestive heart failure. For the moment, continue current Lasix. 3. Anemia, continuing weekly Epogen with this patient. 4. Chronic obstructive pulmonary disease - continue supportive care. Please note, overall prognosis remains guarded with the patient. Job ID: [id number] MTDD
[2019-11-09] MEDS: Apixaban 2.5 MG TAB PO SCH (09:34)
[2019-11-09] MEDS: Amiodarone 200 MG TAB PO SCH ×2 (09:34→20:55)
[2019-11-09] MEDS: Amlodipine 10 MG TAB PO SCH (09:34)
[2019-11-09] MEDS: Aspirin 81 mg Enteric Coated Tablet PO SCH (09:35)
[2019-11-09] MEDS: Folic Acid 1 MG TAB PO SCH (09:35)
[2019-11-09] MEDS: Fluconazole 100 MG TAB PO SCH (09:35)
[2019-11-09] MEDS: Ubidecarenone 50 MG CAP PO SCH ×2 (09:35→20:55)
[2019-11-09] MEDS: Sodium Bicarbonate Tab 325 MG TAB PO SCH ×3 (09:35→20:55)
[2019-11-09] MEDS: Senokot 8.6 MG TAB PO SCH ×2 (09:35→20:55)
[2019-11-09] MEDS ORDERED: Heparin 10,000 UNITS/ 10 ML VIAL ONE (11:53)
[2019-11-09] MEDS ORDERED: CEFAZOLIN 2 GM in Premix Bag 1 BAG IVPB SCH (14:00)
--- NOTE | 2019-11-09 14:53 | ULT ---
EXAM: Vein mapping for dialysis access HISTORY: End-stage renal disease; new dialysis access. TECHNIQUE: Multiplanar grayscale and color Doppler images were obtained in a bilateral upper extremit y venous ultrasound. Spectral analysis of the Doppler waveforms of the vessels were performed. FINDINGS: The bilateral internal jugular veins and subclavian veins are patent without evidence of th rombus. Right brachial artery 3.3 mm Right radial artery 2.0 mm Right ulnar artery 1.5 mm Left brachial artery 3.7 mm Left radial artery 2.2 mm Left ulnar artery 1.9 mm RIGHT CEPHALIC VEIN in millimeters 1.0 -- Shoulder 0.6 -- Upper arm 1.3 -- Mid upper arm 2.9-- Just proximal to the elbow 1.9 -- Just distal to the elbow 1.1 -- Forearm 0.9 -- Wrist RIGHT BASILIC VEIN in millimeters 1.2 -- Shoulder 1.5 -- Upper arm 3.3 -- Mid upper arm 2.6 -- Just proximal to the elbow 0.7 -- Just distal to the elbow 0.7 -- Forearm 0.6 -- Wrist LEFT CEPHALIC VEIN in millimeters 2.4 -- Shoulder 1.8 -- Upper arm 2.2 -- Mid upper arm 3.9 -- Just proximal to the elbow 0.9 -- Just distal to the elbow 1.0 -- Forearm 0.7 -- Wrist LEFT BASILIC VEIN in millimeters 3.7 -- Shoulder 2.7 -- Upper arm 2.9 -- Mid upper arm 2.8 -- Just proximal to the elbow 0.7 -- Just distal to the elbow 1.1 -- Forearm 1.0 -- Wrist IMPRESSION: Vein mapping for dialysis access as above
--- NOTE | 2019-11-09 15:45 | PDOC.CPN ---
- Subjective Date: 11/09/19 Time: 15:43 Interval history: She became fluid overload over the weekend and had to be transferred to the IMCU and placed on BiPAP. Restarted IV diuresis but her kidneys did not respond and actually have not diuresed too well and her creatinine continues to increase. She was offered dialysis and she is scheduled to have abhinav placed for this. - Review of Systems General: denies: fever/chills, weight/appetite/sleep changes, night sweats, fatigue Respiratory: reports: shortness of breath, exercise intolerance. denies: cough , congestion Cardiovascular: denies: chest pain, palpitation, edema, paroxysmal nocturnal dyspnea, orthopnea Gastrointestinal: denies: nausea, vomiting, diarrhea, constipation, abd pain, GI bleeding Musculoskeletal: denies: pain, tenderness, stiffness, swelling, arthritis/ arthralgias Neurological: denies: numbness, syncope, seizure, weakness - Objective Allergies/Adverse Reactions: Allergies Allergy/AdvReac Type Severity Reaction Status Date / Time clopidogrel Allergy Verified 10/23/19 19:22 lisinopril Allergy Verified 10/23/19 19:22 Visit Medications: Current Medications Acetaminophen (Tylenol) 650 mg PO Q4H PRN PRN Reason: Headache/Fever/Mild Pain (1-3) Last Admin: 11/03/19 20:03 Dose: 650 mg Acetaminophen (Tylenol) 650 mg [place] Q4H PRN PRN Reason: Headache/Fever/Mild Pain (1-3) Albuterol/Ipratropium (Duoneb) 3 ml EZPAP Q6H PRN PRN Reason: SOB &/or Wheezing Last Admin: 11/05/19 09:58 Dose: 3 ml Amiodarone HCl (Cordarone) 200 mg PO BID [facility] Last Admin: 11/08/19 21:33 Dose: 200 mg Amlodipine Besylate (Norvasc) 10 mg PO DAILY [facility] Last Admin: 11/09/19 09:34 Dose: Not Given Aspirin (Ecotrin) 81 mg PO DAILY [facility] Last Admin: 11/09/19 09:35 Dose: Not Given Atorvastatin Calcium (Lipitor) 40 mg PO HS [facility] Last Admin: 11/08/19 21:33 Dose: Not Given Cholecalciferol (Vitamin D3) 1,250 units PO DAILY [facility] Last Admin: 11/09/19 09:35 Dose: Not Given Coenzyme Q10 (Coenzyme Q10) 100 mg PO BID [facility] Last Admin: 11/09/19 09:35 Dose: Not Given Epoetin Andrew-epbx (Retacrit) 7,500 unit SC Q7D [facility] Last Admin: 11/02/19 17:16 Dose: 7,500 unit Fluconazole (Diflucan) 100 mg PO DAILY [facility] Folic Acid (Folvite) 1 mg PO DAILY [facility] Last Admin: 11/08/19 11:27 Dose: 1 mg Furosemide (Lasix) 80 mg SLOW IVP 0600,1400 [facility] Last Admin: 11/09/19 06:23 Dose: 80 mg Hydralazine HCl (Apresoline) 5 mg SLOW IVP Q15MIN PRN PRN Reason: SBP Greater Than 180 Last Admin: 10/27/19 21:15 Dose: 5 mg Piperacillin Sod/Tazobactam (Sod 2.25 gm/ Sodium Chloride) 100 mls @ 200 mls/ hr IVPB Q8HR [facility] Last Admin: 11/09/19 06:23 Dose: 100 mls Cefazolin Sodium/Dextrose 2 gm (/ Device) 50 mls @ 100 mls/hr IVPB ONCALL-OR [facility] Stop: 11/10/19 14:01 Nitroglycerin (Nitrostat) 0.4 mg SL Q5MIN PRN PRN Reason: Chest Pain Senna (Senokot) 2 tab PO BID [facility] Last Admin: 11/09/19 09:35 Dose: Not Given Sodium Bicarbonate (Bicarbonate, Sodium) 650 mg PO TID [facility] Last Admin: 11/09/19 09:35 Dose: Not Given Sodium Chloride (Flush - Normal Saline) 10 ml IVF PRN PRN PRN Reason: Saline Flush Last Admin: 11/09/19 06:23 Dose: 10 ml Vital Signs & Weight: Vital Signs Temp Pulse Pulse Ox 11/09/19 15:26 98.4 F 11/09/19 11:32 98.1 F 11/09/19 09:34 66 11/09/19 08:00 92 L 11/09/19 07:10 98.7 F Admit Weight 127 lb 6.835 oz Weight 130 lb 1.6 oz - Quality Measures Condition: Atrial Fibrillation/Flutter (hx or current), Coronary Artery Disease , Heart Failure CV meds: Beta Jose: Yes, VANITA/ARB: No, Statin: Yes, ASA: Yes, Plavix/Effient/ Brilinta: No, Anticoagulant: Yes - Medication Contraindications No VANITA/ARB reason: Medical contraindication (CKD) - Physical Exam General: alert & oriented x3 HEENT: mucus membranes moist Neck: supple neck, JVD/HJR Cardiac: regular rate and rhythm Lungs: bibasilar rales Neuro: grossly intact Abdomen: active bowel sounds Extremities: 1+ LE edema Skin: clear Musculoskeletal: no pain - Labs Result Diagrams: 11/09/19 03:24 11/09/19 03:24 Troponin/CKMB CK-MB (CK-2) 1.1 ng/mL (0-6.6) 11/08/19 03:25 Troponin I 0.623 ng/mL (< 0.028) H* 11/08/19 03:25 - Telemetry Sinus rhythms and dysrhythmias: sinus rhythm - Assessment/Plan Assessment/Plan: 1. Acute on chronic systolic heart failure. 2. CAD s/p CABG 3. 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 Paroxysmal afib 5. Hypokalemia, resolved. PLAN: - HD to be started. - Will repeat echo as if her LV function is significantly worse we may be able to get her to urinate and idurese better by increasing innotropy.
--- NOTE | 2019-11-09 16:18 | PRG ---
DATE OF SERVICE: 11/09/2019 SERVICE: Pulmonary Medicine. INTERVAL HISTORY: The patient is doing poorly from respiratory standpoint. She remains on high amounts of oxygen. She had a difficult time tolerating a BiPAP yesterday. As such, she is on high-flow nasal cannula. She could not tolerate the higher rates of flow, and so that has been turned way down. She did not have any additional events overnight. PHYSICAL EXAMINATION: VITAL SIGNS: Afebrile, pulse rate 73, blood pressure 133/64, respirations are 26, and saturation 86%, currently on 75% FiO2 delivered via high-flow nasal cannula. GENERAL: The patient is awake and alert, in no apparent distress. LUNGS: Decent air entry. Crackles are present. No prolonged expiratory phase or wheezing appreciated. HEART: Normal rate. Regular. ABDOMEN: Soft, nontender, and nondistended. Bowel sounds are positive. MUSCULOSKELETAL: No cyanosis or clubbing. There is diffuse 2+ edema throughout. NEUROLOGIC: Grossly nonfocal. LABORATORY DATA: WBC 24.5, hemoglobin 8.2, and platelets are 262,000. D-dimer 2.62. Creatinine 5.54, which continues to trend upward. Potassium 3.0. BUN 113, which is also trending upward. Troponins 0.623, roughly stable. Urinalysis is positive for minimal pyuria and increasing proteinuria, and hematuria. Multiple blood cultures, urine culture, influenza A and B are all unremarkable. IMAGING: Chest x-ray demonstrates mildly improved bilateral airspace opacities throughout the lung sykes. ASSESSMENT: 1. Acute hypoxic respiratory failure. 2. Acute on chronic systolic and diastolic heart failure. 3. Mitral regurgitation. 4. Acute kidney injury on chronic kidney disease 4. 5. Hypertension. 6. Hematuria. DISCUSSION AND PLAN: I will look into vasculitis with anti basement membrane antibodies and ANCAs. It is unlikely that this is the case given that we are having waxing and waning infiltrates. We will continue steroids, nebulized medications, and antibiotics. She can undergo dialysis today to see if we can get her closer to euvolemia. Hopefully, this will have a significant impact on her oxygen requirements. Other supportive measures will be continued. Job ID: [id number] [facility]
--- NOTE | 2019-11-09 17:00 | EKG ---
Test Reason : STAT Blood Pressure : / mmHG Vent. Rate : 076 BPM Atrial Rate : 076 BPM P-R Int : 152 ms QRS Dur : 152 ms QT Int : 422 ms P-R-T Axes : 062 119 080 degrees QTc Int : 474 ms Normal sinus rhythm Possible Left atrial enlargement Right bundle branch block Left posterior fascicular block Bifascicular block Possible Inferior infarct , age undetermined Abnormal ECG When compared with ECG of 02-NOV-2019 14:21, No significant change was found Confirmed by DR. Tom LOYD (3) on 11/09/2019 5:00:02 PM Referred By: LOGAN Confirmed By:DR. Tom LOYD
--- NOTE | 2019-11-09 17:46 | CON ---
DATE OF CONSULTATION: HISTORY OF PRESENT ILLNESS: Darlin Tate is a 79-year-old female, admitted by the hospitalist, found to have a chronic kidney disease with acute kidney injury and in need of dialysis access for fluid overload, and hypokalemia. Hemoglobin 8.2; white count 24,000, down from 36,000. GFR 7, potassium 3, carbon dioxide 18. The patient has sleep apnea, uses CPAP at home, was requiring high-flow oxygen to maintain saturations. Thus, a temporary catheter we placed today and cuffed tunneled catheter placed in 48 hours. She has a left AC IV in, which has been removed. Vein mapping has been ordered and is pending. ALLERGIES: PLAVIX, LISINOPRIL. SOCIAL HISTORY: Tobacco, none. Alcohol, none. MEDICATIONS: At home, she takes; 1. Carvedilol. 2. Cholecalciferol. 3. Aspirin. 4. CoQ10. 5. Losartan. 6. Furosemide. 7. Atorvastatin. 8. Eliquis. 9. Amlodipine. 10. Amiodarone. She is on Eliquis at this time, even though I was asked to see her for dialysis access. Echocardiogram on 10/24/2019, read by Dr. Artis, 40% to 45% ejection fraction, diastolic dysfunction, no wall motion abnormalities. The patient is admitted by Dr. Chen. The patient admitted for dyspnea, edema with increased oxygen requirements in the emergency room. PAST MEDICAL HISTORY: Coronary artery disease, status post CABG in 2010, myocardial infarction prior by EKG, hypertension, chronic kidney disease. PAST SURGICAL HISTORY: Hysterectomy, appendectomy, L4-L5 fusion, coronary artery bypass grafting. The patient is a retired massage therapist. PHYSICAL EXAMINATION: VITAL SIGNS: Height is 5 feet and 6 inches, weight 130 pounds, BMI 21. Temperature 98.1 degrees, blood pressure 141/64. She is on high-flow oxygen, BiPAP. LUNGS: Clear to auscultation, rhonchi at base. CARDIAC: Regular rate and rhythm without murmur or gallop. ABDOMEN: Soft and nontender. EXTREMITIES: Bandage in left AC indicative of recent IV, which has been removed, IV in right hand. Palpable radial pulses bilaterally. ASSESSMENT AND PLAN: 1. End-stage renal disease. Dr. Hoff is seeing her. Dr. Costa is following her. Plan is for placement of a temporary dialysis catheter today, plan placing a cuffed tunneled dialysis catheter at a later time, consideration of primary fistula can be given. 2. On Eliquis. We will hold that for cuffed tunneled dialysis catheter and possible fistula in the next 48 hours. 3. Coronary artery disease, stable. 4. Hypertension. 5. Sleep apnea. Job ID: [id number]
[2019-11-09] MEDS: EPOETIN ALFA-EPBX (ESRD) 4,000 UNIT/ML VIAL SC SCH (18:40)
[2019-11-09] MEDS: Acetaminophen 325 MG TAB PO PRN (20:54)
[2019-11-09] MEDS: Atorvastatin Calcium 40 MG TAB PO SCH (20:55)
[2019-11-09 23:17] LABS: HBSAB Concentration 1.24 mIU/mL; HBSAg Index 0.27 S/CO (0-0.99); Hep B Surf AB Non-Reactive (NonReactive); Hep B Surf Ag Non-Reactive S/CO (NonReactive)
[2019-11-10] MEDS: Piperacillin/Tazobactam 2.25 GM in Sodium Chloride 0.9% 100 ML IVPB SCH ×3 (05:42→21:13)
[2019-11-10 06:13] LABS: Anion Gap 16 mmol/L (10-20); BUN (Urea Nitrogen) 94 mg/dL (9.8-20.1); Calc. Creatinine Clearance 8 mL/min (70-130); Calcium 8.5 mg/dL (7.8-10.44); Carbon Dioxide 21 mmol/L (23-31); Chloride 104 mmol/L (98-107); Estimated GFR-MDRD 8; Glucose 106 mg/dL (83-110); Potassium 3.4 mmol/L (3.5-5.1); Sodium 138 mmol/L (136-145)
[2019-11-10] MEDS ORDERED: Potassium Chloride 20 MEQ TAB PO SCH (07:00)
--- NOTE | 2019-11-10 07:19 | PRG ---
DATE OF SERVICE: 11/09/2019 ADDENDUM: This is an addendum to the note of Dr. Judith Mathis. I have read Dr. Mathis's note and agree with her assessment and plan. Ms. Tate is a 79-year-old lady with severe COPD and CKD. She is now awaiting the possibility of hemodialysis and we will continue to consult with Nephrology. From a clinical standpoint, she is awake, alert, no distress, but requiring high-flow O2 for her significant hypoxemia. Job ID: [id number]
--- NOTE | 2019-11-10 08:53 | PDOC.FM ---
- Subjective Subjective: Pt feels HD went well yesterday. Denies pain. Slept well. Ate well yesterday. - Objective MAR Reviewed: Yes Vital Signs & Weight: Vital Signs (12 hours) Temp Pulse Resp BP Pulse Ox 11/10/19 07:23 97.9 F 11/10/19 04:00 97.7 F 66 24 H 100/70 95 11/10/19 02:16 63 24 H 96 11/10/19 00:36 66 22 H 97 11/09/19 23:14 98.8 F Weight Admit Weight 57.8 kg Weight 59.103 kg Most Recent Monitor Data Heart Rate from ECG 68 NIBP 107/69 NIBP BP-Mean 81 Respiration from ECG 30 SpO2 92 I&O: 11/09/19 11/10/19 11/11/19 06:59 06:59 06:59 Intake Total 1490 1270 Output Total 676 320 Balance 814 950 Result Diagrams: 11/09/19 03:24 11/10/19 04:10 Phys Exam - Physical Examination Constitutional: NAD Respiratory: clear to auscultation bilateral Cardiovascular: RRR Gastrointestinal: soft, non-tender, no distention Musculoskeletal: no edema Psychiatric: normal affect, A&O x 3 Dx/Plan (1) Acute respiratory failure with hypoxia Code(s): J96.01 - ACUTE RESPIRATORY FAILURE WITH HYPOXIA Status: Acute (2) Atrial fibrillation Code(s): I48.91 - UNSPECIFIED ATRIAL FIBRILLATION Status: Acute (3) HLD (hyperlipidemia) Code(s): E78.5 - HYPERLIPIDEMIA, UNSPECIFIED Status: Acute (4) Hypertensive emergency Code(s): I16.1 - HYPERTENSIVE EMERGENCY Status: Acute (5) CAD (coronary artery disease) Code(s): I25.10 - ATHSCL HEART DISEASE OF [place] CORONARY ARTERY W/O ANG PCTRS Status: Chronic Qualifiers: Coronary Disease-Associated Artery/Lesion type: bypass graft [place] vs. transplanted heart: [place] heart (6) HTN (hypertension) Code(s): I10 - ESSENTIAL (PRIMARY) HYPERTENSION Status: Chronic Qualifiers: Hypertension type: essential hypertension Qualified Code(s): I10 - Essential (primary) hypertension (7) CHF (congestive heart failure) Code(s): I50.9 - HEART FAILURE, UNSPECIFIED Status: Suspected - Plan Plan: This is a 79 yo female with a pmh of CAD with CABG, MV regurg, HLD, HTN Code: Full DVT Prophylaxis: Eliquis GI Prophylaxis: none Plan: Monitoring anemia, kidney function before patient can be discharged to rehab. Now on HD. Will likely need reassessment of placement pending HD course. Elevated troponins - third trop downtrended. - pt is currently on eliquis, aspirin. Possibly elevated due to kidney damage. NAOMI on CKD, stable Hypokalemia - Likely related to severe HTN. Proteinuria/hematuria. - Nephro, Dr. Hoff consulted. Recommended tunnel cath, however trialysis catheter in groin placed because pt is requiring HFNC. Dr. Rosa held eliquis and will try to place tunnel cath vs primary fistula in next 48 hr if pt resp status improves. - Dr. Rosa of gen surg consulted for access, appreciate recs. - Renal u/s normal. - Pt has developed pulmonary edema over the weekend. Normocytic anemia, stable - hgb slowly downtrended as kidneys have worsened. s/p transfusion 1 unit of PRBC on 11/04. - on epogen. - GI consulted and Dr. Horne recommends stopping iron since it may be confusing the picture of dark stools. Thinks this is due to anemia of chronic disease and of renal disease. Unlikely GI bleed. Recommends monitoring and minimizing blood draws due to iatrogenic anemia. Acute hypoxic respiratory failure 2/2 flash pulmonary edema, recurrent pulm edema - pulm consulted, rec keeping O2 sats at 90% and no greater. - on Bipap at night. HFNC during the day. Pt is becoming very tired from respiratory standpoint and will continue to need respiratory support. - monitor fluid status. - Cipriano has ordered ERIKA, ANCA and glomerular BM studies due to deteriorating pulmonary status. HTN emergency, resolved - monitor. Continue current meds. HFrEF -Echo shows LVEF 40-45% and 1/3 diastolic dysfunction -Dr. Artis consulted. Following peripherally given worsening renal function. Leukocytosis -No source of current infection. Atrial fibrillation, now in sinus rhythm w/ bradycardia - Cardiology consulted. Appreciate recs. Chandra would like repeat ECHO to optimize cardiac function to help kidneys. - Continue PO amiodarone at maintenance dose - eliquis held currently for placement of dialysis access by Dr. Rosa. Elevated D-Dimer -Wells score 0 UTI, treated, culture NGTD CAD s/p CABG -Continue asa, work up as above Undiagnosed COPD -Long standing smoking history -Will add neb treatments prn Fluids: held VTE ppx: eliquis
[2019-11-10] MEDS ORDERED: Heparin 10,000 UNITS/ 10 ML VIAL ONE (09:39)
--- NOTE | 2019-11-10 09:57 | PRG ---
DATE OF SERVICE: 11/10/2019 SUBJECTIVE: Ms. Tate is a 79-year-old white female with progressive azotemia. She has been initiated dialysis due to volume overload. She underwent 1-hour hemodialysis and tolerated said treatment. My plan is to do a 2-hour hemodialysis today. Shortness of breath is about the same. No chest pain. OBJECTIVE: VITAL SIGNS: Blood pressure 107/69, heart rate 68, respiratory rate 30, O2 saturation 92%. GENERAL: The patient is awake, alert, comfortable, not in distress. SKIN: Adequate turgor. HEENT: Slightly pale conjunctivae. Anicteric sclerae. NECK: No neck mass. No carotid bruits. No JVD. CHEST: No deformities. LUNGS: Decreased breath sounds. HEART: Normal sinus rhythm. No murmur. No gallops. No rubs. ABDOMEN: Globular, soft, and nontender. No masses. EXTREMITIES: No edema. No deformities. MEDICATIONS: Medications of November 10, 2019, were reviewed. LABORATORY DATA: Laboratories of November 09, 2019: White count 24.5, hemoglobin 8.2. November 10, 2019: Sodium 138, potassium 3.4, chloride 104, carbon dioxide 21, BUN 94, creatinine 5.19, calcium 8.5. ASSESSMENT AND PLAN: 1. Acute kidney injury/chronic renal failure - hemodialysis had been initiated for volume overload and progressive azotemia. We will schedule her for 2-hour hemodialysis with fluid removal as tolerated. Agree to hold off IV Lasix. 2. Metabolic acidosis. Discontinue sodium bicarbonate. We will correct this with dialysis. 3. Anemia. Continuing weekly Epogen. P.r.n. blood transfusion. 4. Shortness of breath, multifactorial etiology. 5. Congestive heart failure/chronic obstructive pulmonary disease. Continue supportive care. Maxing out fluid removal with dialysis. Job ID: [id number]
--- NOTE | 2019-11-10 09:59 | OP ---
DATE OF PROCEDURE: 11/09/2019 PREOPERATIVE DIAGNOSES: End-stage renal disease, fluid overload, hypoxia, sleep apnea followed by Dr. Hoff, left antecubital IV removed. PROCEDURE PERFORMED: Right femoral vein Trialysis catheter. ANESTHESIA: 1% Xylocaine. DESCRIPTION OF PROCEDURE: With the patient at bedside, right groin was clipped of hair, prepared with ChloraPrep and draped in routine fashion. Local anesthetic was infiltrated in the skin and subcutaneous tissue and using Seldinger technique, a Trialysis catheter was placed, secured with 3-0 nylon suture. Sterile dressing was applied. Each port aspirated with blood and flushed with heparinized saline solution. Job ID: [id number]
[2019-11-10] MEDS: Amiodarone 200 MG TAB PO SCH (10:43)
[2019-11-10] MEDS: Amlodipine 10 MG TAB PO SCH (10:43)
[2019-11-10] MEDS: Senokot 8.6 MG TAB PO SCH ×2 (10:43→21:12)
[2019-11-10] MEDS: Aspirin 81 mg Enteric Coated Tablet PO SCH (10:47)
[2019-11-10] MEDS: Fluconazole 100 MG TAB PO SCH (10:48)
[2019-11-10] MEDS: Folic Acid 1 MG TAB PO SCH (10:48)
[2019-11-10] MEDS: Ubidecarenone 50 MG CAP PO SCH ×2 (10:49→21:12)
[2019-11-10] MEDS: Sodium Bicarbonate Tab 325 MG TAB PO SCH (10:50)
--- NOTE | 2019-11-10 11:05 | PRG ---
DATE OF SERVICE: 11/10/2019 SUBJECTIVE: Ms. Tate had an episode today of hypotension and relative bradycardia, heart rate in the 60s, apparently did not feel well with that. She is doing fine now. OBJECTIVE: VITAL SIGNS: The blood pressure now is 107/69; pulse 66 to 70, it is sinus with bigeminal PACs. LUNGS: Clear. CARDIAC: Normal S1, normal S2. ABDOMEN: Soft and nontender. ASSESSMENT: 1. Episode of mild bradycardia. 2. Mild hypotension. 3. End-stage renal disease, on dialysis. 4. Ejection fraction 40% to 45%. PLAN: 1. Reduce amiodarone, hold today. 2. Stop amlodipine to allow for dialysis. Dr. Artis to return tomorrow. Job ID: [id number]
--- NOTE | 2019-11-10 14:34 | PRG ---
DATE OF SERVICE: 11/10/2019 ADDENDUM: This as an addendum to the note of Dr. Judith Mathis. Ms. Tate is sitting quietly in bed, currently in no distress. She is undergoing dialysis having been transferred to the [facility] during the weekend for volume overload. We will continue to follow her progress with the Cardiology Service as well as Dr. Hoff in Nephrology Service. Job ID: [id number]
[2019-11-10] MEDS ORDERED: CEFAZOLIN 2 GM in Premix Bag 1 BAG IVPB SCH (15:15)
--- NOTE | 2019-11-10 18:01 | PRG ---
DATE OF SERVICE: 11/10/2019 SERVICE: Pulmonary Medicine. INTERVAL HISTORY: The patient is doing okay from respiratory standpoint. She is on high-flow nasal cannula currently. She has no complaints of chest discomfort, nausea, or vomiting. She tolerated an hour of dialysis yesterday. With this, 200 mL of fluid was removed. Otherwise, there has been no interval change to her condition. PHYSICAL EXAMINATION: VITAL SIGNS: Afebrile, pulse 68, blood pressure 119/56, respirations 23, saturation 96%, currently on 35 L/minute via high-flow nasal cannula. GENERAL: The patient is awake and alert, in no apparent distress. LUNGS: Good air entry bilaterally. Crackles are once again present. No prolonged expiratory phase or wheezing is appreciated. HEART: Normal rate, regular. ABDOMEN: Soft, nontender, and nondistended. Bowel sounds are positive. MUSCULOSKELETAL: No cyanosis or clubbing. There is 2+ pitting in the bilateral lower extremities. NEUROLOGIC: Grossly nonfocal. LABORATORY DATA: WBC 24.5, hemoglobin 8.2, platelets 262,000. Neutrophil count remains elevated at 94%. Prior band count was low. Creatinine 5.18 and gently downtrending, BUN 94. Potassium 3.4. All culture results remain negative to date. ASSESSMENT: 1. Acute hypoxic respiratory failure. 2. [id number] systolic and diastolic heart failure. 3. Mitral regurgitation. 4. Acute kidney injury on chronic kidney disease, stage 4. 5. Hypertension. 6. Hematuria. DISCUSSION AND PLAN: We will continue on supportive care. The patient is being diuresed. Serologies for connective tissue diseases are currently pending. Pulmonary/Critical Care will continue to follow along while the patient remains in this location. Job ID: [id number] MTDD
[2019-11-10] MEDS: Atorvastatin Calcium 40 MG TAB PO SCH (21:12)
[2019-11-11 04:37] LABS: Hemoglobin 7.7 g/dL (12.0-16.0); Platelet Count 239 thou/uL (130-400)
[2019-11-11] MEDS: Piperacillin/Tazobactam 2.25 GM in Sodium Chloride 0.9% 100 ML IVPB SCH (06:02)
--- NOTE | 2019-11-11 08:26 | PDOC.FM ---
- Subjective Subjective: Pt says she is not grumpy today. Relays that she is to have 3 hours dialysis this morning and is NPO for AV fistula/dialysis access. Respiratory jade she is stable. Was sleeping soundly prior to my arrival, denies chest pain and worsening SOB. - Objective MAR Reviewed: Yes Vital Signs & Weight: Vital Signs (12 hours) Temp Pulse Resp Pulse Ox 11/11/19 07:42 97.6 F 11/11/19 03:17 97.4 F L 11/11/19 02:09 65 21 H 96 11/11/19 00:00 95 11/10/19 23:51 98.6 F Weight Admit Weight 57.8 kg Weight 57.9 kg Most Recent Monitor Data Heart Rate from ECG 83 NIBP 136/65 NIBP BP-Mean 88 Respiration from ECG 35 SpO2 83 I&O: 11/10/19 11/11/19 11/12/19 06:59 06:59 06:59 Intake Total 1270 1580 Output Total 520 1800 Balance 750 -220 Result Diagrams: 11/11/19 04:12 11/11/19 04:12 Phys Exam - Physical Examination Constitutional: NAD Respiratory: no wheezing atrial bigeminy on monitor, irregularly regular rate, no murmur Gastrointestinal: soft, non-tender, no distention Musculoskeletal: edema present (1+ ankles.) Psychiatric: normal affect, A&O x 3 Dx/Plan (1) Acute respiratory failure with hypoxia Code(s): J96.01 - ACUTE RESPIRATORY FAILURE WITH HYPOXIA Status: Acute (2) Atrial fibrillation Code(s): I48.91 - UNSPECIFIED ATRIAL FIBRILLATION Status: Acute (3) HLD (hyperlipidemia) Code(s): E78.5 - HYPERLIPIDEMIA, UNSPECIFIED Status: Acute (4) Hypertensive emergency Code(s): I16.1 - HYPERTENSIVE EMERGENCY Status: Acute (5) CAD (coronary artery disease) Code(s): I25.10 - ATHSCL HEART DISEASE OF [place] CORONARY ARTERY W/O ANG PCTRS Status: Chronic Qualifiers: Coronary Disease-Associated Artery/Lesion type: bypass graft [place] vs. transplanted heart: [place] heart (6) HTN (hypertension) Code(s): I10 - ESSENTIAL (PRIMARY) HYPERTENSION Status: Chronic Qualifiers: Hypertension type: essential hypertension Qualified Code(s): I10 - Essential (primary) hypertension (7) CHF (congestive heart failure) Code(s): I50.9 - HEART FAILURE, UNSPECIFIED Status: Suspected - Plan Plan: This is a 79 yo female with a pmh of CAD with CABG, MV regurg, HLD, HTN Code: Full DVT Prophylaxis: Eliquis GI Prophylaxis: none Plan: Monitoring anemia, kidney function before patient can be discharged to rehab. Now on HD. Will likely need reassessment of placement pending HD course. Elevated troponins - third trop downtrended. - pt is currently on eliquis, aspirin. Possibly elevated due to kidney damage. NAOMI on CKD, stable Hypokalemia - Likely related to severe HTN. Proteinuria/hematuria. - Nephro, Dr. Hoff consulted. To get AV fistula today. - Dr. Rosa of gen surg consulted for access, appreciate recs. - Renal u/s normal. Normocytic anemia, stable - hgb slowly downtrended as kidneys have worsened. s/p transfusion 1 unit of PRBC on 11/04. - on epogen. - GI consulted and Dr. Horne recommends stopping iron since it may be confusing the picture of dark stools. Thinks this is due to anemia of chronic disease and of renal disease. Unlikely GI bleed. Recommends monitoring and minimizing blood draws due to iatrogenic anemia. - Will continue to monitor and transfuse as needed. Acute hypoxic respiratory failure 2/2 flash pulmonary edema, recurrent pulm edema - pulm consulted, rec keeping O2 sats at 90% and no greater. - on Bipap at night. HFNC during the day - monitor fluid status. - ERIKA, ANCA and glomerular BM studies pending HTN emergency, resolved - monitor. Continue current meds. HFrEF -Echo shows LVEF 40-45% and 1/3 diastolic dysfunction. -Dr. Artis consulted. Following peripherally given worsening renal function. Leukocytosis -No source of current infection. Atrial fibrillation, now in sinus rhythm w/ bradycardia - Cardiology consulted. Appreciate recs. Repeat echo showed atrial bigeminy and EF of 50%. - Continue PO amiodarone per cardiology. - eliquis held currently for placement of dialysis access by Dr. Rosa. Elevated D-Dimer -Wells score 0 UTI, treated, culture NGTD CAD s/p CABG -Continue asa, work up as above Undiagnosed COPD -Long standing smoking history -Will add neb treatments prn Fluids: held VTE ppx: eliquis, held for surgery
[2019-11-11] MEDS ORDERED: Amiodarone 200 MG TAB PO SCH (09:00)
--- NOTE | 2019-11-11 09:27 | PRG ---
DATE OF SERVICE: 11/11/2019 SUBJECTIVE: Ms. Tate is a 79-year-old white female, who was seen by the Renal Service for acute kidney injury. She went to volume overload. For that reason , we have initiated dialysis. She is currently undergoing dialysis and tolerating said treatment. The shortness of breath is actually improving. She was also noted to be anemic. In view of the fact the patient is symptomatic and has a planned surgery, we will transfuse 1 unit packed RBC with dialysis. OBJECTIVE: VITAL SIGNS: Blood pressure is noted at 136/65, heart rate 83, respiratory rate 35. GENERAL: The patient is noted to be awake, alert, comfortable, not in overt distress. SKIN: Adequate turgor. HEENT: Slightly pale conjunctivae. Anicteric sclerae. NECK: No neck mass. No carotid bruits. No JVD. CHEST: No deformities. LUNGS: Decreased breath sounds. HEART: Normal sinus rhythm. No murmur. No gallops. No rubs. ABDOMEN: Globular. Soft. Nontender. No masses. EXTREMITIES: No edema. No deformities. MEDICATIONS: Medications of November 11, 2019, reviewed. LABORATORY DATA: Laboratories of November 11, 2019; hemoglobin 7.7, sodium 135, potassium 3.4, chloride 104, carbon dioxide 21, BUN 94, creatinine 5.18. This was on November 10, 2019 November 11, 2019, creatinine 3.97. ASSESSMENT/PLAN: 1. Chronic renal failure/acute kidney injury-I feel that the patient may have reached end-stage renal disease stage. Continue current hemodialysis. We will do a 3 hour dialysis with fluid removal as tolerated by the patient. In a.m., we will do a 3-1/[address] then [address] her on a regular 3 times a week hemodialysis regimen. 2. Anemia-patient is symptomatic. We will transfuse 1 unit of packed RBC. Continue weekly Epogen. 3. Shortness of breath, multifactorial etiology. Continue supportive care. The patient is scheduled for AV fistula placement as well as tunneled dialysis catheter. This patient will probably need rehab placement. Job ID: [id number] [facility]
[2019-11-11] MEDS ORDERED: Heparin 10,000 UNITS/ 10 ML VIAL ONE (11:01)
[2019-11-11] MEDS ORDERED: Atropine Sulfate 1 mg/10 ml Syringe IVP PRN (11:09)
[2019-11-11] MEDS ORDERED: Sodium Chloride 0.9% 0 ML ONE (11:39)
[2019-11-11] MEDS ORDERED: Bupivacaine PF 0.5% 30 ML VIAL ONE (11:39)
[2019-11-11] MEDS ORDERED: Heparin 5,000 UNITS/ML VIAL ONE (11:39)
[2019-11-11] MEDS ORDERED: Heparin 10,000 UNITS/1 ML VIAL ONE (11:39)
[2019-11-11] MEDS ORDERED: Lidocaine 1% w/Epinephrine 1:100K 20 ML VIAL ONE (11:39)
[2019-11-11] MEDS ORDERED: Protamine Sulfate 50 MG/5 ML VIAL ONE (11:39)
[2019-11-11] MEDS: Aspirin 81 mg Enteric Coated Tablet PO SCH (13:55)
[2019-11-11] MEDS: Ubidecarenone 50 MG CAP PO SCH ×2 (13:57→20:32)
[2019-11-11] MEDS: Fluconazole 100 MG TAB PO SCH (13:57)
[2019-11-11] MEDS: Folic Acid 1 MG TAB PO SCH (13:57)
[2019-11-11] MEDS: Senokot 8.6 MG TAB PO SCH ×2 (14:07→20:32)
--- NOTE | 2019-11-11 14:20 | PRG ---
DATE OF SERVICE: 11/10/2019 SERVICE: Pulmonary Medicine. INTERVAL HISTORY: The patient is doing fine from respiratory standpoint. Breathing comfortably. That being said, her heart is misbehaving. She is developing a bradyarrhythmia. She has a very slow rate with frequent PACs that are not conducting. Otherwise, there has been no interval change to her condition. During one of these events, she did get lightheaded. Her blood pressures are marginal, and as a result, she could not tolerate dialysis or fluid removal today. PHYSICAL EXAMINATION: VITAL SIGNS: Afebrile; pulse 75; blood pressure 116/68; respirations 31; and saturation 95%, currently on 60% FiO2 delivered via high-flow nasal cannula. GENERAL: The patient is awake and alert, in no apparent distress. LUNGS: Good air entry bilaterally. Crackles are present. HEART: Normal rate, regular. ABDOMEN: Soft, nontender, and nondistended. Bowel sounds are positive. MUSCULOSKELETAL: No cyanosis or clubbing. No pitting in bilateral lower extremities. NEUROLOGIC: Grossly nonfocal. IMAGING DATA: Echocardiogram demonstrates 50% ejection fraction with atrial bigeminy. Left atrium is moderately dilated. Moderate mitral regurgitation is present with no stenosis. Elevated pulmonary artery pressures are present. ASSESSMENT: 1. Acute hypoxic respiratory failure. 2. Acute on chronic diastolic heart failure. 3. Mitral regurgitation, moderate. 4. Acute kidney injury on chronic kidney disease, 4, on dialysis. 5. Hypertension. 6. Hematuria. DISCUSSION AND PLAN: Hopefully, we will be able to do dialysis at some point in the near future and pull a significant amount of volume off. With this, I am hopeful that the patient will have a significant improvement in her oxygen requirements. Cardiology opinion regarding the atrial bigeminy is currently pending. I will repeat a chest x-ray tomorrow morning. She has completed a course of antibiotic-directed bacteria. She will continue the fluconazole for several additional days. This is simply empiric therapy for possible fungal disease. At this point, she is too sick to get additional answers. Job ID: [id number]
--- NOTE | 2019-11-11 15:14 | PRG ---
DATE OF SERVICE: 11/11/2019 SUBJECTIVE: Darlin Tate was scheduled for dialysis access today; however, she experienced bradycardia during dialysis. Dr. Artis has seen her, and she is diagnosed with tachycardia-bradycardia syndrome, and she is scheduled for a pacemaker tomorrow. We will postpone dialysis access and plan that probably for Saturday or early next week pending the OR schedule. Job ID: [id number]
[2019-11-11] MEDS ORDERED: CEFAZOLIN 2 GM in Premix Bag 1 BAG IVPB SCH (15:15)
--- NOTE | 2019-11-11 18:43 | PDOC.CPN ---
- Subjective Date: 11/11/19 Time: 18:41 Interval history: She had an episode of symptomatic bradycardia. She went down to 35 and felt dizzy and pre syncopal. Her monitor showed sinus bradycardia. - Review of Systems General: denies: fever/chills, weight/appetite/sleep changes, night sweats, fatigue Respiratory: reports: shortness of breath. denies: cough, congestion, exercise intolerance Cardiovascular: denies: chest pain, palpitation, edema, paroxysmal nocturnal dyspnea, orthopnea Gastrointestinal: denies: nausea, vomiting, diarrhea, constipation, abd pain, GI bleeding Musculoskeletal: denies: pain, tenderness, stiffness, swelling, arthritis/ arthralgias Neurological: denies: numbness, syncope, seizure, weakness - Objective Allergies/Adverse Reactions: Allergies Allergy/AdvReac Type Severity Reaction Status Date / Time clopidogrel Allergy Verified 10/23/19 19:22 lisinopril Allergy Verified 10/23/19 19:22 Visit Medications: Current Medications Acetaminophen (Tylenol) 650 mg PO Q4H PRN PRN Reason: Headache/Fever/Mild Pain (1-3) Last Admin: 11/09/19 20:54 Dose: 650 mg Acetaminophen (Tylenol) 650 mg IN Q4H PRN PRN Reason: Headache/Fever/Mild Pain (1-3) Last Admin: 11/10/19 18:42 Dose: 650 mg Albuterol/Ipratropium (Duoneb) 3 ml EZPAP Q6H PRN PRN Reason: SOB &/or Wheezing Last Admin: 11/05/19 09:58 Dose: 3 ml Aspirin (Ecotrin) 81 mg PO DAILY [facility] Last Admin: 11/11/19 13:55 Dose: 81 mg Atorvastatin Calcium (Lipitor) 40 mg PO HS [facility] Last Admin: 11/10/19 21:12 Dose: Not Given Atropine Sulfate (Atropine) 0.5 mg IVP PRN PRN PRN Reason: SYMPTOMATIC BRADYCARDIA<40 BPM Cholecalciferol (Vitamin D3) 1,250 units PO DAILY [facility] Last Admin: 11/11/19 13:56 Dose: 1,250 units Coenzyme Q10 (Coenzyme Q10) 100 mg PO BID [facility] Last Admin: 11/11/19 13:57 Dose: 100 mg Epoetin Andrew-epbx (Retacrit) 7,500 unit SC Q7D [facility] Last Admin: 11/09/19 18:40 Dose: 7,500 unit Fluconazole (Diflucan) 100 mg PO DAILY [facility] Last Admin: 11/11/19 13:57 Dose: 100 mg Folic Acid (Folvite) 1 mg PO DAILY [facility] Last Admin: 11/11/19 13:57 Dose: 1 mg Hydralazine HCl (Apresoline) 5 mg SLOW IVP Q15MIN PRN PRN Reason: SBP Greater Than 180 Last Admin: 10/27/19 21:15 Dose: 5 mg Cefazolin Sodium/Dextrose 2 gm (/ Device) 50 mls @ 100 mls/hr IVPB ONCALL-OR FRANCOIS Stop: 11/12/19 15:16 Nitroglycerin (Nitrostat) 0.4 mg SL Q5MIN PRN PRN Reason: Chest Pain Senna (Senokot) 2 tab PO BID [facility] Last Admin: 11/11/19 14:07 Dose: Not Given Sodium Chloride (Flush - Normal Saline) 10 ml IVF PRN PRN PRN Reason: Saline Flush Last Admin: 11/10/19 05:44 Dose: 10 ml Vital Signs & Weight: Vital Signs Temp Pulse BP Pulse Ox Pulse Ox Pulse Ox Pulse Ox 11/11/19 15:21 97.9 F 11/11/19 14:42 87 115/73 92 L 88 L 90 L 11/11/19 11:17 97.6 F 11/11/19 08:00 92 L 11/11/19 07:42 97.6 F Admit Weight 127 lb 6.835 oz Weight 127 lb 10.362 oz - Quality Measures Condition: Atrial Fibrillation/Flutter (hx or current), Coronary Artery Disease , Heart Failure CV meds: Beta Jose: Yes, VANITA/ARB: No, Statin: Yes, ASA: Yes, Plavix/Effient/ Brilinta: No, Anticoagulant: Yes - Medication Contraindications No VANITA/ARB reason: Medical contraindication (CKD) - Physical Exam General: alert & oriented x3 HEENT: normocephaly Neck: supple neck Cardiac: audible murmur Lungs: bibasilar rales Neuro: grossly intact Abdomen: active bowel sounds Extremities: no edema Skin: clear Musculoskeletal: no fluid collection - Labs Result Diagrams: 11/11/19 04:12 11/11/19 04:12 Troponin/CKMB CK-MB (CK-2) 1.1 ng/mL (0-6.6) 11/08/19 03:25 Troponin I 0.623 ng/mL (< 0.028) H* 11/08/19 03:25 - Telemetry Sinus rhythms and dysrhythmias: sinus bradycardia (< 50 bpm) - Assessment/Plan Assessment/Plan: 1. Acute on chronic systolic heart failure. 2. CAD s/p CABG 3. 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 Paroxysmal afib 5. Hypokalemia, resolved. 6. Symptomatic bradycardia. 7. Tachy [place] syndrome. PLAN: - Will need a PPM. We spoke with her about this and she agrees to proceed. Will have to transfuse first and plan on doing saturday. - Hold BB and amiodarone. - Continue HD for volume. - Will follow.
[2019-11-11] MEDS: Atorvastatin Calcium 40 MG TAB PO SCH (20:32)
--- NOTE | 2019-11-12 05:42 | PDOC.FM ---
- Subjective Subjective: Pt is feeling well this morning. She did not receive blood yesterday w/ dialysis because she had bradycardia down to 30s, prompting cessation of dialysis after ~1 hour. Since that time, her beta blockers and amiodarone have been held and HR has been in 70s. She remains on HFNC. Denies SOB. - Objective MAR Reviewed: Yes Vital Signs & Weight: Vital Signs (12 hours) Temp Pulse Resp Pulse Ox 11/12/19 03:58 98.3 F 11/12/19 02:03 95 23 H 11/11/19 23:29 97.5 F L 11/11/19 20:00 97.6 F 92 L Weight Admit Weight 57.8 kg Weight 57.9 kg Most Recent Monitor Data Heart Rate from ECG 70 NIBP 140/67 NIBP BP-Mean 91 Respiration from ECG 23 SpO2 94 I&O: 11/10/19 11/11/19 11/12/19 06:59 06:59 06:59 Intake Total 1270 1580 252 Output Total 520 1800 Balance 750 -220 252 Result Diagrams: 11/12/19 06:09 11/11/19 04:12 Phys Exam - Physical Examination Constitutional: NAD Respiratory: no wheezing, clear to auscultation bilateral Cardiovascular: RRR (2/6 murmur heard best over LSB) Gastrointestinal: no distention Musculoskeletal: edema present (1+ on L at ankle., 2+ on R up to knee) Psychiatric: normal affect Dx/Plan (1) Acute respiratory failure with hypoxia Code(s): J96.01 - ACUTE RESPIRATORY FAILURE WITH HYPOXIA Status: Acute (2) Atrial fibrillation Code(s): I48.91 - UNSPECIFIED ATRIAL FIBRILLATION Status: Acute (3) HLD (hyperlipidemia) Code(s): E78.5 - HYPERLIPIDEMIA, UNSPECIFIED Status: Acute (4) Hypertensive emergency Code(s): I16.1 - HYPERTENSIVE EMERGENCY Status: Acute (5) CAD (coronary artery disease) Code(s): I25.10 - ATHSCL HEART DISEASE OF [place] CORONARY ARTERY W/O ANG PCTRS Status: Chronic Qualifiers: Coronary Disease-Associated Artery/Lesion type: bypass graft [place] vs. transplanted heart: [place] heart (6) HTN (hypertension) Code(s): I10 - ESSENTIAL (PRIMARY) HYPERTENSION Status: Chronic Qualifiers: Hypertension type: essential hypertension Qualified Code(s): I10 - Essential (primary) hypertension (7) CHF (congestive heart failure) Code(s): I50.9 - HEART FAILURE, UNSPECIFIED Status: Suspected - Plan Plan: This is a 79 yo female with a pmh of CAD with CABG, MV regurg, HLD, HTN, now in ESRD on HD: Code: Full DVT Prophylaxis: Eliquis, held currently for surgery. Will begin Lovenox since pt has LE swelling. Ordered b/l LE doppler to r/o DVT. GI Prophylaxis: none Plan: Pt likely will need rehab pending clinical course. Has appt scheduled at [facility] for 11/17 and 11/18, however she will likely be in rehab at that time. Will call and cancel appt for her. 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 Artis on Sunday 11/12 - hold beta christen and amiodarone ESRD on HD - Due to tachy-[place] syndrome, pt will need pacemaker placed before access can be established. Continue to use trialysis catheter for HD. - Nephro, Dr. Hoff consulted. HD 3x week. - Dr. Rosa of gen surg consulted for access, appreciate recs. Normocytic anemia, stable - likely secondary to ESRD - on epogen. Transfuse prn. Will receive blood today on 11/11 w/ HD. - GI consulted. Appreciaterecs. Unlikely GI bleed. Acute hypoxic respiratory failure 2/2 flash pulmonary edema, recurrent pulm edema - pulm consulted, rec keeping O2 sats at 90% - on Bipap at night. HFNC during the day - monitor fluid status. - ERIKA, ANCA and glomerular BM studies pending HTN emergency, resolved - monitor. Continue current meds. HFrEF - Echo shows LVEF 40-45% and 1/3 diastolic dysfunction. - repeat Echo, EF 50% and atrial bigeminy. - Dr. Artis consulted. appreciate recs. Leukocytosis - No source of current infection. - completed zosyn x5 days and on fluconazole Atrial fibrillation, now in sinus rhythm w/ bradycardia - Cardiology consulted. Appreciate recs. CAD s/p CABG -Continue asa, work up as above COPD -Long standing smoking history
[2019-11-12 06:21] LABS: Hemoglobin 7.6 g/dL (12.0-16.0)
--- NOTE | 2019-11-12 06:32 | RAD ---
CHEST 1 VIEW: Date: 11/12/2019 INDICATION: History of hypoxia. COMPARISON: Prior exam dated 11/09/2019. FINDINGS: Bilateral air space disease has worsened. There is worsening consolidation in the right upper lobe. T here is worsening air space disease within the left suprahilar region. This is superimposed on change s of chronic lung disease. Midline sternotomy change and mild cardiomegaly is similar appearing. No p neumothorax is evident. Osseous structures are stable. IMPRESSION: Worsening bilateral perihilar air space disease suspicious for worsening pneumonia. POS: BH
--- NOTE | 2019-11-12 07:27 | PRG ---
DATE OF SERVICE: 11/11/2019 ADDENDUM: This is an addendum to the note of Dr. Judith Mathis. Ms. Tate is sitting quietly in bed. During dialysis this morning, her heart rate dropped into the 30s and she became dizzy. Dialysis was discontinued. Her heart rate is now in the 70s and it shows normal sinus rhythm with frequent PACs, probable atrial bigeminy. She is much more comfortable. No longer dizzy. We have left an order for p.r.n. atropine should she drop into the 30s with symptoms. Cardiology will be notified. Job ID: [id number]
--- NOTE | 2019-11-12 08:23 | EKG ---
Test Reason : Blood Pressure : / mmHG Vent. Rate : 070 BPM Atrial Rate : 070 BPM P-R Int : 000 ms QRS Dur : 148 ms QT Int : 452 ms P-R-T Axes : 108 113 128 degrees QTc Int : 488 ms Suspect arm lead reversal, interpretation assumes no reversal Sinus rhythm with marked sinus arrhythmia with Premature atrial complexes in a pattern of bigeminy Right bundle branch block Left posterior fascicular block Bifascicular block Abnormal ECG When compared with ECG of 07-NOV-2019 18:26, Premature atrial complexes are now Present Nonspecific T wave abnormality has replaced inverted T waves in Inferior leads Confirmed by DR. Tyrone DONALD ([id number]) on 11/12/2019 8:23:38 AM Referred By: MISSY Confirmed By:DR. Tyrone DONALD
[2019-11-12] MEDS ORDERED: Ondansetron ODT 4 MG TAB PO PRN (08:47)
[2019-11-12] MEDS ORDERED: Ondansetron PF 4 MG/2 ML Vial IVP PRN (08:47)
[2019-11-12] MEDS ORDERED: Enoxaparin Sodium 30 MG/0.3 ML SYRINGE SC SCH (09:00)
[2019-11-12] MEDS ORDERED: Heparin 10,000 UNITS/ 10 ML VIAL ONE (09:29)
[2019-11-12] MEDS: Ubidecarenone 50 MG CAP PO SCH ×2 (09:30→20:13)
[2019-11-12] MEDS: Aspirin 81 mg Enteric Coated Tablet PO SCH (09:30)
[2019-11-12] MEDS: Fluconazole 100 MG TAB PO SCH (09:31)
[2019-11-12] MEDS: Folic Acid 1 MG TAB PO SCH (09:32)
[2019-11-12] MEDS: Senokot 8.6 MG TAB PO SCH ×2 (09:33→20:15)
--- NOTE | 2019-11-12 09:50 | PRG ---
DATE OF SERVICE: 11/12/2019 SUBJECTIVE: Ms. Tate is a 79-year-old white female, seen by the Renal Service for her acute kidney injury on top of chronic renal failure. Renal function is worsened. She has gone to volume overload and for that reason, we have initiated hemodialysis with her. The patient also had bradycardia during dialysis yesterday and for that reason, we discontinued dialysis. She has been evaluated by Cardiology and recommendation is to have a pacemaker placed. In addition, surgery has also scheduled her for placement of a tunneled dialysis catheter and AV fistula in a.m. No other complaints today. She denies any worsening shortness of breath. OBJECTIVE: VITAL SIGNS: Blood pressure is 116/57, heart rate is noted at 66, O2 saturation 91%. GENERAL: The patient is awake, comfortable, not in overt distress. SKIN: Adequate turgor. HEENT: She has slightly pale conjunctivae. Anicteric sclerae. NECK: No neck mass. No carotid bruits. No JVD. CHEST: No deformities. LUNGS: Decreased breath sounds. HEART: Normal sinus rhythm. No murmurs, gallops, or rubs. ABDOMEN: Globular, soft, nontender. No masses. EXTREMITIES: No edema. No deformities. MEDICATIONS: Medications of November 12, 2019, reviewed. LABORATORY DATA: Laboratories of November 12, 2019; hemoglobin 7.6, November 11, 2019, creatinine 3.97. ASSESSMENT AND PLAN: 1. Chronic renal failure/end-stage renal disease. Continue current hemodialysis regimen. We will do a 3.5 hour hemodialysis with this patient. We will attempt about 1.5 to 2 L of fluid removal as tolerated by this patient. 2. Anemia, continuing weekly Epogen. We will be giving 1 unit of packed RBC today. 3. Bradycardia, for pacemaker placement in a.m. 4. Congestive heart failure, clinically much improved with fluid removal with dialysis. Overall, agree with current management. ADDENDUM: Recheck basic met and CBC in a.m. Job ID: [id number]
--- NOTE | 2019-11-12 10:05 | ULT ---
EXAM: Bilateral lower extremity venous duplex ultrasound with color and spectral Doppler imaging: HISTORY: Hypoxemia ESRD follow-up respiratory distress COMPARISON: None FINDINGS: Exam performed from the groin to the ankle including the visualized greater saphenous, common femoral , superficial femoral, profunda femoral, popliteal, trifurcation, and posterior tibial veins. On the right side the right common femoral vein, superficial vein proximal and profunda vein were prosper dvertently seen because of dialysis catheter and overlying bandage material augmentation was limited on this side as well. There is phasic flow with normal compressibility and normal augmentation at all examined levels. No evidence for intraluminal thrombus. Small left popliteal fossa cyst. IMPRESSION: No evidence for deep venous thrombosis.
--- NOTE | 2019-11-12 12:45 | PDOC.CPN ---
- Subjective Date: 11/12/19 Time: 12:44 Interval history: She is doing well. No chest pain. SOB unchanged. - Review of Systems General: denies: fever/chills, weight/appetite/sleep changes, night sweats, fatigue Respiratory: reports: shortness of breath. denies: cough, congestion, exercise intolerance Cardiovascular: denies: chest pain, palpitation, edema, paroxysmal nocturnal dyspnea, orthopnea Gastrointestinal: denies: nausea, vomiting, diarrhea, constipation, abd pain, GI bleeding Musculoskeletal: denies: pain, tenderness, stiffness, swelling, arthritis/ arthralgias Neurological: denies: numbness, syncope, seizure, weakness - Objective Allergies/Adverse Reactions: Allergies Allergy/AdvReac Type Severity Reaction Status Date / Time clopidogrel Allergy Verified 10/23/19 19:22 lisinopril Allergy Verified 10/23/19 19:22 Visit Medications: Current Medications Acetaminophen (Tylenol) 650 mg PO Q4H PRN PRN Reason: Headache/Fever/Mild Pain (1-3) Last Admin: 11/09/19 20:54 Dose: 650 mg Acetaminophen (Tylenol) 650 mg ID Q4H PRN PRN Reason: Headache/Fever/Mild Pain (1-3) Last Admin: 11/10/19 18:42 Dose: 650 mg Albuterol/Ipratropium (Duoneb) 3 ml EZPAP Q6H PRN PRN Reason: SOB &/or Wheezing Last Admin: 11/05/19 09:58 Dose: 3 ml Aspirin (Ecotrin) 81 mg PO DAILY [facility] Last Admin: 11/12/19 09:30 Dose: 81 mg Atorvastatin Calcium (Lipitor) 40 mg PO HS [facility] Last Admin: 11/11/19 20:32 Dose: Not Given Atropine Sulfate (Atropine) 0.5 mg IVP PRN PRN PRN Reason: SYMPTOMATIC BRADYCARDIA<40 BPM Cholecalciferol (Vitamin D3) 1,250 units PO DAILY [facility] Last Admin: 11/12/19 09:31 Dose: 1,250 units Coenzyme Q10 (Coenzyme Q10) 100 mg PO BID [facility] Last Admin: 11/12/19 09:30 Dose: 100 mg Epoetin Andrew-epbx (Retacrit) 7,500 unit SC Q7D [facility] Last Admin: 11/09/19 18:40 Dose: 7,500 unit Fluconazole (Diflucan) 100 mg PO DAILY [facility] Last Admin: 11/12/19 09:31 Dose: 100 mg Folic Acid (Folvite) 1 mg PO DAILY [facility] Last Admin: 11/12/19 09:32 Dose: 1 mg Heparin Sodium (Porcine) (Heparin) 5,000 units SC TID [facility] Hydralazine HCl (Apresoline) 5 mg SLOW IVP Q15MIN PRN PRN Reason: SBP Greater Than 180 Last Admin: 10/27/19 21:15 Dose: 5 mg Cefazolin Sodium/Dextrose 2 gm (/ Device) 50 mls @ 100 mls/hr IVPB ONCALL-OR [facility] Stop: 11/12/19 15:16 Nitroglycerin (Nitrostat) 0.4 mg SL Q5MIN PRN PRN Reason: Chest Pain Ondansetron HCl (Zofran Odt) 4 mg PO Q6H PRN PRN Reason: Nausea/Vomiting Ondansetron HCl (Zofran) 4 mg IVP Q6H PRN PRN Reason: Nausea/Vomiting Senna (Senokot) 2 tab PO BID [facility] Last Admin: 11/12/19 09:33 Dose: Not Given Sodium Chloride (Flush - Normal Saline) 10 ml IVF PRN PRN PRN Reason: Saline Flush Last Admin: 11/10/19 05:44 Dose: 10 ml Vital Signs & Weight: Vital Signs Temp Pulse Resp Pulse Ox 11/12/19 11:36 98.5 F 11/12/19 08:00 93 L 11/12/19 07:45 97.4 F L 11/12/19 07:00 91 L 11/12/19 03:58 98.3 F 11/12/19 02:03 95 23 H Admit Weight 127 lb 6.835 oz Weight 129 lb 13.636 oz - Quality Measures Condition: Atrial Fibrillation/Flutter (hx or current), Coronary Artery Disease , Heart Failure CV meds: Beta Jose: Yes, VANITA/ARB: No, Statin: Yes, ASA: Yes, Plavix/Effient/ Brilinta: No, Anticoagulant: Yes - Medication Contraindications No VANITA/ARB reason: Medical contraindication (CKD) - Physical Exam General: alert & oriented x3 HEENT: mucus membranes moist Neck: supple neck Cardiac: regular rate and rhythm Lungs: normal breath sounds Neuro: grossly intact Abdomen: active bowel sounds Extremities: no edema Skin: clear Musculoskeletal: no pain - Labs Result Diagrams: 11/12/19 06:09 11/11/19 04:12 Troponin/CKMB CK-MB (CK-2) 1.1 ng/mL (0-6.6) 11/08/19 03:25 Troponin I 0.623 ng/mL (< 0.028) H* 11/08/19 03:25 - Telemetry Sinus rhythms and dysrhythmias: sinus rhythm - Assessment/Plan Assessment/Plan: 1. Acute on chronic systolic heart failure. 2. CAD s/p CABG 3. 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 Paroxysmal afib 5. Hypokalemia, resolved. 6. Symptomatic bradycardia. 7. Tachy [place] syndrome. PLAN: - Will need a PPM. - Continue to hold amiodarone and any AV clotilde blocking agents until PPM placed. - Will get blood transfusion today with HD. - Plan for PPM tomorrow.
--- NOTE | 2019-11-12 14:27 | PRG ---
DATE OF SERVICE: 11/12/2019 SERVICE: Pulmonary Medicine. INTERVAL HISTORY: The patient is doing fine from respiratory standpoint. She is tolerating dialysis much better today. She has no complaints of chest discomfort, nausea, or vomiting. Her oxygen requirements are finally starting to decreased. Otherwise, there has been no interval change to her condition. PHYSICAL EXAMINATION: VITAL SIGNS: Afebrile, pulse 78, blood pressure 173/83, respirations 16, and saturation 96%, currently on 50% FiO2. GENERAL: The patient is awake and alert, in no apparent distress. LUNGS: Extensive crackles are present. No prolonged expiratory phase or wheezing is appreciated. HEART: Normal rate. Regular. ABDOMEN: Soft, nontender, and nondistended. Bowel sounds are positive. MUSCULOSKELETAL: No cyanosis or clubbing. There is diffuse pitting throughout. NEUROLOGIC: Grossly nonfocal. LABORATORY DATA: Hemoglobin 7.6. Creatinine 3.97 and gently downtrending. IMAGING: Chest x-ray demonstrates bilateral hilar infiltrates that are interstitial and alveolar in nature. I feel that these are roughly stable. ASSESSMENT: 1. Acute hypoxic respiratory failure, improving. 2. Acute on chronic diastolic heart failure. 3. Mitral regurgitation, moderate. 4. Acute kidney injury on chronic kidney disease 4, currently on dialysis for volume issues. 5. Hypertension. 6. Hematuria. DISCUSSION AND PLAN: Connective tissue disease serologies are still pending. We will repeat laboratories tomorrow morning. We will continue to remove fluid as tolerated. Oxygen will be weaned away. Pulmonary/Critical Care will continue to follow along in this location. Job ID: [id number]
--- NOTE | 2019-11-12 15:22 | PRG ---
DATE OF SERVICE: 11/12/2019 ADDENDUM: Please add this as an addendum to the note of Dr. Judith Mathis. Ms. Tate was noted yesterday to have an episode of symptomatic bradycardia with heart rate into the low to mid 30s. She was seen in consultation by Dr. Artis who agrees the patient needs a permanent pacemaker. He will add this later today. Otherwise, she is currently undergoing dialysis, in no distress and we will continue to follow with Nephrology and Cardiology. Job ID: [id number]
[2019-11-12 15:38] LABS: Cytoplasmic (C-ANCA) <1:20 titer (Neg:<1:20); Myeloperoxidase AutoAbs <9.0 U/mL (0.0-9.0); Perinuclear (P-ANCA) <1:20 titer (Neg:<1:20); Proteinase-3 AutoAbs Less than 3.5 U/mL (0.0-3.5)
[2019-11-12] MEDS: Heparin 5,000 UNITS/ML VIAL SC SCH ×2 (15:47→20:13)
--- NOTE | 2019-11-12 16:46 | PRG ---
DATE OF SERVICE: 11/12/2019 Darlin Tate is planning for a pacemaker today. She was transfused 2 units of blood during dialysis today. Overall, she is doing better with blood pressure and heart rate normal at this time. We will plan dialysis access on Saturday and awaiting pacemaker placement tomorrow. Job ID: [id number]
[2019-11-12 17:29] LABS: ANA Symphony (Qualitative) Negative (Negative); ANA Symphony (Quantitative) 0.2 Ratio (< 0.7 Negative); EliA Vaculitis New Method **** NEW METHOD ****; Glomerular Basemt Membrane Ab Less than 1.9 EliAU/mL (<7 Negative); dsDNA IgG Antibody Less than 0.5 IU/mL (<10 Negative)
[2019-11-12] MEDS: Atorvastatin Calcium 40 MG TAB PO SCH (20:15)
[2019-11-13 04:49] LABS: #Eosinphils 0.4 thou/uL (0.0-0.7); #Lymphocytes 1.1 thou/uL (1.20-3.40); #Monocytes 0.9 thou/uL (0.11-0.59); #Neutrophils 12.1 thou/uL (1.40-6.50); %Basophils 0.2 % (0.0-1.0); %Eosinophils 2.4 % (0.0-10.0); %Lymphocytes 7.9 % (21.0-51.0); %Neutrophils 83.5 % (42.0-75.0); Hemoglobin 10.3 g/dL (12.0-16.0); Mean Corpuscular HGB CONC 33.4 g/dL (32.0-36.0); Mean Corpuscular Hemoglobin 31.8 pg (27.0-31.0); Mean Corpuscular Volume 95.3 fL (78.0-98.0); Mean Platelet Volume 9.4 fL (7.4-10.4); Platelet Count 243 thou/uL (130-400); RBC Distribution Width 16.4 % (11.5-14.5); Red Blood Cell (RBC) Count 3.23 mill/uL (4.20-5.40); White Blood Cell (WBC) Count 14.5 thou/uL (4.8-10.8)
[2019-11-13 05:12] LABS: Anion Gap 11 mmol/L (10-20); BUN (Urea Nitrogen) 29 mg/dL (9.8-20.1); Calc. Creatinine Clearance 14 mL/min (70-130); Calcium 8.7 mg/dL (7.8-10.44); Carbon Dioxide 32 mmol/L (23-31); Chloride 101 mmol/L (98-107); Estimated GFR-MDRD 14; Glucose 100 mg/dL (83-110); Potassium 3.5 mmol/L (3.5-5.1); Sodium 140 mmol/L (136-145)
--- NOTE | 2019-11-13 05:38 | PDOC.FM ---
- Subjective Subjective: Pt is feeling alright this morning. says her heart feels weird and she can feel it beating. does not feel fast or slow. denies questions or complaints at this time. - Objective MAR Reviewed: Yes Vital Signs & Weight: Vital Signs (12 hours) Temp Pulse Ox 11/13/19 03:34 98.6 F 11/12/19 23:32 98.1 F 11/12/19 20:00 99 11/12/19 19:40 98.2 F 11/12/19 19:27 98.2 F Weight Admit Weight 57.8 kg Weight 58.9 kg Most Recent Monitor Data Heart Rate from ECG 69 NIBP 139/64 NIBP BP-Mean 89 Respiration from ECG 22 SpO2 98 I&O: 11/11/19 11/12/19 11/13/19 06:59 06:59 06:59 Intake Total 7164 492 0648 Output Total 1800 1500 Balance -220 692 -430 Result Diagrams: 11/13/19 03:16 11/13/19 03:16 Phys Exam - Physical Examination Constitutional: NAD Respiratory: no wheezing irregular rate and rhythm Musculoskeletal: edema present (1+ edema bilaterally) Dx/Plan (1) Acute respiratory failure with hypoxia Code(s): J96.01 - ACUTE RESPIRATORY FAILURE WITH HYPOXIA Status: Acute (2) Atrial fibrillation Code(s): I48.91 - UNSPECIFIED ATRIAL FIBRILLATION Status: Acute (3) HLD (hyperlipidemia) Code(s): E78.5 - HYPERLIPIDEMIA, UNSPECIFIED Status: Acute (4) Hypertensive emergency Code(s): I16.1 - HYPERTENSIVE EMERGENCY Status: Acute (5) CAD (coronary artery disease) Code(s): I25.10 - ATHSCL HEART DISEASE OF [place] CORONARY ARTERY W/O ANG PCTRS Status: Chronic Qualifiers: Coronary Disease-Associated Artery/Lesion type: bypass graft [place] vs. transplanted heart: [place] heart (6) HTN (hypertension) Code(s): I10 - ESSENTIAL (PRIMARY) HYPERTENSION Status: Chronic Qualifiers: Hypertension type: essential hypertension Qualified Code(s): I10 - Essential (primary) hypertension (7) CHF (congestive heart failure) Code(s): I50.9 - HEART FAILURE, UNSPECIFIED Status: Suspected - Plan Plan: This is a 79 yo female with a pmh of CAD with CABG, MV regurg, HLD, HTN, now in ESRD on HD: Code: Full DVT Prophylaxis: heparin GI Prophylaxis: none Plan: Pt likely will need rehab pending clinical course. Has appt scheduled at [facility] for 11/17 and 11/18, however she will likely be in rehab at that time. Will call and cancel appt for her. 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 Artis on Sunday 11/12 - hold beta christen and amiodarone ESRD on HD - Due to tachy-j[place] syndrome, pt will need pacemaker placed before access can be established. Continue to use trialysis catheter for HD. Plan for access Wednesday 11/15 per Moe. - Nephro, Dr. Hoff consulted. HD 3x week. - Dr. Rosa of gen surg consulted for access, appreciate recs. Normocytic anemia, stable - likely secondary to ESRD - on epogen. Transfuse prn. transfused on 11/11 w/ HD. - GI consulted. Appreciaterecs. Unlikely GI bleed. Acute hypoxic respiratory failure 2/2 flash pulmonary edema, recurrent pulm edema - pulm consulted, rec keeping O2 sats at 90% - on Bipap at night. HFNC during the day - monitor fluid status. - ERIKA, ANCA and glomerular BM studies negative HTN emergency, resolved - monitor. Continue current meds. HFrEF - Echo shows LVEF 40-45% and 1/3 diastolic dysfunction. - repeat Echo, EF 50% and atrial bigeminy. - Dr. Artis consulted. appreciate recs. Leukocytosis - No source of current infection. Procalcitonin 1.28. - blood cultures and urine cultures negative - completed zosyn x5 days and on fluconazole Atrial fibrillation, now in sinus rhythm w/ bradycardia - Cardiology consulted. Appreciate recs. CAD s/p CABG -Continue asa, work up as above COPD -Long standing smoking history
[2019-11-13] MEDS ORDERED: Gentamicin 80 MG/2 ML VIAL ONE (06:46)
[2019-11-13] MEDS ORDERED: Lidocaine 1% (PF) 30 ML VIAL ONE (06:46)
[2019-11-13] MEDS ORDERED: CEFAZOLIN 1 GM VIAL ONE (06:46)
[2019-11-13] MEDS ORDERED: Heparin 0 ML ONE (06:46)
[2019-11-13] MEDS ORDERED: Midazolam HCl 2 mg/2 ml Vial ONE (07:55)
[2019-11-13] MEDS ORDERED: Fentanyl 100 MCG/2 ML VIAL ONE (07:55)
[2019-11-13] MEDS: Ubidecarenone 50 MG CAP PO SCH ×2 (10:57→20:29)
[2019-11-13] MEDS: Aspirin 81 mg Enteric Coated Tablet PO SCH (10:57)
[2019-11-13] MEDS: Folic Acid 1 MG TAB PO SCH (10:57)
[2019-11-13] MEDS: Senokot 8.6 MG TAB PO SCH ×2 (10:58→20:31)
[2019-11-13] MEDS: Heparin 5,000 UNITS/ML VIAL SC SCH ×3 (10:58→20:29)
--- NOTE | 2019-11-13 11:42 | PRG ---
DATE OF SERVICE: 11/13/2019 Ms. Tate is resting quietly in bed, in no distress. She is to get her pacemaker today. We will continue to follow with the multiple specialty services. Job ID: [id number]
[2019-11-13] MEDS ORDERED: Iopamidol 370 76% 50 ML VIAL FS ONE (13:16)
[2019-11-13] MEDS: Fluconazole 100 MG TAB PO SCH (15:53)
--- NOTE | 2019-11-13 17:22 | PRG ---
DATE OF SERVICE: 11/13/2019 SERVICE: Pulmonary Medicine. INTERVAL HISTORY: The patient is doing really well from respiratory standpoint. Breathing comfortably. No complaints of chest discomfort, fevers, chills, nausea, or vomiting. She went down for her pacemaker placement today. Otherwise, she had an uneventful evening. PHYSICAL EXAMINATION: VITAL SIGNS: Afebrile, pulse 74, blood pressure 145/69, respirations 25, and saturation 96%, currently on 50% via high-flow nasal cannula. GENERAL: The patient is awake and alert, in no apparent distress. LUNGS: Crackling is once again noted. There is no prolonged expiratory phase or wheezing appreciated. HEART: Normal rate. Regular. ABDOMEN: Soft, nontender, and nondistended. Bowel sounds are positive. MUSCULOSKELETAL: No cyanosis or clubbing. There is 2 to 3+ pitting in the bilateral lower extremities, but it is improving. NEUROLOGIC: Grossly nonfocal. LABORATORY DATA: WBC is significantly improved at 14.5, hemoglobin 10.3, and platelets 243,000. Creatinine 3.17, BUN 29 and downtrending. Basic metabolic profile is otherwise unremarkable. Procalcitonin 1.28 and uptrending. All immunology including ERIKA, ANCA, and glomerular basement membranes are unremarkable. All culture results remain negative to date. ASSESSMENT: 1. Acute hypoxic respiratory failure, improving. 2. Acute on chronic diastolic heart failure. 3. Mitral regurgitation, moderate. 4. Tachy j[place] syndrome, s/p pacemaker placement. 5. Acute kidney injury on chronic kidney disease stage 4, currently requiring dialysis for volume related issues. 6. Hypertension. 7. Hematuria. DISCUSSION AND PLAN: I am reassured that the ANCA, and anti-glomerular basement membrane antibodies are all unremarkable. I am hopeful that this is all a volume mediated issue. After the first dialysis in which we were able to really remove fluid, her oxygen requirements improved significantly. I will repeat a chest x- ray tomorrow morning. Pulmonary/Critical Care will continue to follow along. Job ID: [id number] [facility]
[2019-11-13] MEDS: Carvedilol 3.125 MG TAB PO SCH (17:54)
[2019-11-13] MEDS: Acetaminophen 325 MG TAB PO PRN ×2 (18:02→22:51)
--- NOTE | 2019-11-13 20:05 | RAD ---
Chest AP view INDICATION: 79-year-old female with post cardiac device placement COMPARISON: November 12, 2019 FINDINGS: Lungs: There is improvement in the superhilar airspace opacities possibly reflecting improving edema and/or pneumonia. Cardiac silhouette: Mild cardiomegaly persists. Post-CABG change is similar appearing. There is been interval placement of a dual-lead pacemaker overlying the left chest wall. Pulmonary vasculature: Less prominent Pleural spaces: Tiny bilateral pleural effusions persist. No pneumothorax Upper abdomen: No abnormality seen. Osseous structures: No acute osseous abnormality. Additional findings: None. IMPRESSION: Improving bilateral perihilar opacities likely reflecting improving pneumonia or edema. New left ches t wall pacemaker without evidence of pneumothorax. Persistent mild cardiomegaly with mild pulmonary vascular congestion. Small bilateral pleural effusions.
[2019-11-13] MEDS: Atorvastatin Calcium 40 MG TAB PO SCH (20:30)
[2019-11-14 04:18] LABS: #Eosinphils 0.4 thou/uL (0.0-0.7); #Lymphocytes 1.2 thou/uL (1.20-3.40); #Monocytes 0.7 thou/uL (0.11-0.59); #Neutrophils 12.2 thou/uL (1.40-6.50); %Basophils 0.1 % (0.0-1.0); %Eosinophils 2.5 % (0.0-10.0); %Lymphocytes 8.5 % (21.0-51.0); %Neutrophils 83.8 % (42.0-75.0); Hemoglobin 9.5 g/dL (12.0-16.0); Mean Corpuscular HGB CONC 32.5 g/dL (32.0-36.0); Mean Corpuscular Hemoglobin 31.2 pg (27.0-31.0); Mean Corpuscular Volume 96.2 fL (78.0-98.0); Mean Platelet Volume 9.3 fL (7.4-10.4); Platelet Count 221 thou/uL (130-400); RBC Distribution Width 16.9 % (11.5-14.5); Red Blood Cell (RBC) Count 3.04 mill/uL (4.20-5.40); White Blood Cell (WBC) Count 14.5 thou/uL (4.8-10.8)
[2019-11-14 04:38] LABS: Anion Gap 10 mmol/L (10-20); BUN (Urea Nitrogen) 39 mg/dL (9.8-20.1); Calc. Creatinine Clearance 10 mL/min (70-130); Calcium 8.7 mg/dL (7.8-10.44); Carbon Dioxide 32 mmol/L (23-31); Chloride 101 mmol/L (98-107); Estimated GFR-MDRD 11; Glucose 96 mg/dL (83-110); Potassium 3.3 mmol/L (3.5-5.1); Sodium 140 mmol/L (136-145)
--- NOTE | 2019-11-14 06:03 | PDOC.FM ---
- Subjective Subjective: Pt reports she is feeling "better" today with her breathing. Pacemaker placed yesterday. She denies any pain. - Objective MAR Reviewed: Yes Vital Signs & Weight: Vital Signs (12 hours) Temp Resp Pulse Ox 11/14/19 04:37 97.4 F L 11/14/19 00:18 15 94 L 11/14/19 00:00 97.6 F 11/13/19 23:04 18 97 11/13/19 20:00 96 11/13/19 19:33 97.7 F Weight Admit Weight 57.8 kg Weight 56.3 kg Most Recent Monitor Data Heart Rate from ECG 65 NIBP 135/64 NIBP BP-Mean 87 Respiration from ECG 19 SpO2 94 I&O: 11/12/19 11/13/19 11/14/19 06:59 06:59 06:59 Intake Total 692 1370 450 Output Total 1600 250 Balance 692 -230 200 Result Diagrams: 11/14/19 03:30 11/14/19 03:30 Phys Exam - Physical Examination Constitutional: NAD Respiratory: no wheezing, clear to auscultation bilateral irregularly regular rhythm, murmur, paced on monitor. Gastrointestinal: soft, no distention Musculoskeletal: edema present (1+ pitting up to mid-calf b/l, improved from previous) Psychiatric: normal affect, A&O x 3 Dx/Plan (1) Acute respiratory failure with hypoxia Code(s): J96.01 - ACUTE RESPIRATORY FAILURE WITH HYPOXIA Status: Acute (2) Atrial fibrillation Code(s): I48.91 - UNSPECIFIED ATRIAL FIBRILLATION Status: Acute (3) HLD (hyperlipidemia) Code(s): E78.5 - HYPERLIPIDEMIA, UNSPECIFIED Status: Acute (4) Hypertensive emergency Code(s): I16.1 - HYPERTENSIVE EMERGENCY Status: Acute (5) CAD (coronary artery disease) Code(s): I25.10 - ATHSCL HEART DISEASE OF [place] CORONARY ARTERY W/O ANG PCTRS Status: Chronic Qualifiers: Coronary Disease-Associated Artery/Lesion type: bypass graft [place] vs. transplanted heart: [place] heart (6) HTN (hypertension) Code(s): I10 - ESSENTIAL (PRIMARY) HYPERTENSION Status: Chronic Qualifiers: Hypertension type: essential hypertension Qualified Code(s): I10 - Essential (primary) hypertension (7) CHF (congestive heart failure) Code(s): I50.9 - HEART FAILURE, UNSPECIFIED Status: Suspected - Plan Plan: This is a 79 yo female with a pmh of CAD with CABG, MV regurg, HLD, HTN, now in ESRD on HD: Code: Full DVT Prophylaxis: heparin GI Prophylaxis: none Plan: Pt likely will need rehab pending clinical course. Has appt scheduled at [facility] for 11/17 and 11/18, however she will likely be in rehab at that time. Will call and cancel appt for her. 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 Artis 11/12. Pt tolerated procedure well. Await further cardio recs. ESRD on HD - Plan for access Wednesday 11/15 per Moe. - Nephro, Dr. Hoff consulted. HD 3x week. - Dr. Rosa of gen surg consulted for access, appreciate recs. Normocytic anemia, stable - likely secondary to ESRD - on epogen. Transfuse prn. transfused on 11/11 w/ HD. Acute hypoxic respiratory failure 2/2 flash pulmonary edema, recurrent pulm edema - pulm consulted, rec keeping O2 sats at 90% - on Bipap at night. HFNC during the day HTN emergency, resolved - monitor. Continue current meds. HFrEF - Echo shows LVEF 40-45% and 1/3 diastolic dysfunction. - repeat Echo, EF 50% and atrial bigeminy. - Dr. Artis consulted. appreciate recs. Leukocytosis - No source of current infection. Repeat procalcitonin downtrended today. - blood cultures and urine cultures negative - completed zosyn x5 days and on fluconazole Atrial fibrillation, now in sinus rhythm w/ bradycardia - Cardiology consulted. Appreciate recs. CAD s/p CABG -Continue asa, work up as above COPD -Long standing smoking history Addendum - Attending - Attending Attestation Date/Time: 11/14/19 0750 I personally evaluated the patient and discussed the management with Dr. Mathis. I agree with the History, Examination, Assessment and Plan documented above with any addition or exceptions noted below. Patient here for new onset HF, ESRD now on HD, and tachybrady s/p PM placement yesterday. She is sore but otherwise feels well. Reports breathing has improved. Continue current mgmt, work with PT. Continue to wean O2 as tolerated , and fluid removal per Nephro.
[2019-11-14] MEDS: Acetaminophen 325 MG TAB PO PRN ×2 (07:20→18:19)
--- NOTE | 2019-11-14 07:51 | RAD ---
EXAM: Portable chest PROVIDED CLINICAL HISTORY: Pulmonary infiltrate COMPARISON: 11/13/2019 FINDINGS: Significant interval change with respect to the prior examination is not apparent. IMPRESSION: As above.
--- NOTE | 2019-11-14 10:20 | PRG ---
DATE OF SERVICE: 11/14/2019 SUBJECTIVE: She remains on the MICU. No shortness of breath. No cough. No pain. X-ray today still shows bilateral upper lung infiltrates. OBJECTIVE: VITAL SIGNS: Blood pressure 147/89, pulse 108, saturations 92%, respiratory rate 18. CHEST: No wheezing or crackles. CARDIAC: Normal S1 and S2. No gallops. ABDOMEN: Soft. LABORATORY DATA: Creatinine 3.96. White count 14,000. IMPRESSION: 1. Respiratory failure, congestive heart failure, diastolic dysfunction. 2. Renal failure, on dialysis. PLAN: Continue present treatment, neb treatment, Coreg. We will follow. Job ID: [id number]
--- NOTE | 2019-11-14 11:22 | PRG ---
DATE OF SERVICE: 11/14/2019 SUBJECTIVE: Ms. Tate is a 79-year-old white female, who was initiated on dialysis due to volume overload. She also was noted to be bradycardic and for that reason, a pacemaker has been placed. She is currently undergoing hemodialysis today and tolerating said treatment. Attempting between 2 and 2.5 L fluid removal. No new complaints. No chest pain or shortness of breath. OBJECTIVE: VITAL SIGNS: Blood pressure is noted at 147/89, heart rate 70, respiratory rate 27, and pulse ox 92%. GENERAL: Awake, alert, and comfortable, not in overt distress. SKIN: Adequate turgor. HEENT: She has a slightly pale conjunctivae. Anicteric sclerae. NECK: No neck mass. No carotid bruits. No JVD. CHEST: No deformities. LUNGS: Decreased breath sounds. HEART: Normal sinus rhythm. No murmur. No gallops. No rubs. ABDOMEN: Globular, soft, and nontender. No masses. EXTREMITIES: No edema. MEDICATIONS: Medications of November 14, 2019, reviewed. LABORATORY DATA: Laboratories of November 14, 2019, white count 14.5 and hemoglobin 9.5. Sodium 140, potassium 3.3, chloride 101, carbon dioxide 32, BUN 39, creatinine 3.96, and calcium 8.7. ASSESSMENT AND PLAN: 1. Chronic renal failure - the patient initiated on hemodialysis due to volume overload as well as progressive azotemia. Tolerating said dialysis treatment. She is undergoing a 3.5-hour hemodialysis. My plan is to do a Saturday, , and Saturday dialysis regimen with this patient. 2. Bradycardia - much improved, status post pacemaker placement. 3. Anemia. Continue weekly Epogen. 4. Shortness of breath, multifactorial etiology - underlying chronic obstructive pulmonary disease/congestive heart failure. Continue supportive care. Agree with current management. Job ID: [id number]
[2019-11-14] MEDS ORDERED: Heparin 10,000 UNITS/ 10 ML VIAL ONE (12:58)
--- NOTE | 2019-11-14 15:43 | PDOC.CPN ---
- Subjective Date: 11/14/19 Time: 15:42 Interval history: She had PPM placed yesterday. Doing better. Able to do HD better more efficient. - Review of Systems General: denies: fever/chills, weight/appetite/sleep changes, night sweats, fatigue Respiratory: denies: cough, congestion, shortness of breath, exercise intolerance Cardiovascular: denies: chest pain, palpitation, edema, paroxysmal nocturnal dyspnea, orthopnea Gastrointestinal: denies: nausea, vomiting, diarrhea, constipation, abd pain, GI bleeding Musculoskeletal: denies: pain, tenderness, stiffness, swelling, arthritis/ arthralgias Neurological: denies: numbness, syncope, seizure, weakness - Objective Allergies/Adverse Reactions: Allergies Allergy/AdvReac Type Severity Reaction Status Date / Time clopidogrel Allergy Verified 10/23/19 19:22 lisinopril Allergy Verified 10/23/19 19:22 Visit Medications: Current Medications Acetaminophen (Tylenol) 650 mg PO Q4H PRN PRN Reason: Headache/Fever/Mild Pain (1-3) Last Admin: 11/14/19 07:20 Dose: 650 mg Acetaminophen (Tylenol) 650 mg [place] Q4H PRN PRN Reason: Headache/Fever/Mild Pain (1-3) Last Admin: 11/10/19 18:42 Dose: 650 mg Acetaminophen/Codeine Phosphate (Tylenol #3) 1 tab PO Q4H PRN PRN Reason: Mild Pain (1-3) Albuterol/Ipratropium (Duoneb) 3 ml EZPAP Q6H PRN PRN Reason: SOB &/or Wheezing Last Admin: 11/05/19 09:58 Dose: 3 ml Aspirin (Ecotrin) 81 mg PO DAILY [facility] Last Admin: 11/13/19 10:57 Dose: 81 mg Atorvastatin Calcium (Lipitor) 40 mg PO HS [facility] Last Admin: 11/13/19 20:30 Dose: Not Given Atropine Sulfate (Atropine) 0.5 mg IVP PRN PRN PRN Reason: SYMPTOMATIC BRADYCARDIA<40 BPM Carvedilol (Coreg) 3.125 mg PO BID-[facility] Last Admin: 11/13/19 17:54 Dose: 3.125 mg Cholecalciferol (Vitamin D3) 1,250 units PO DAILY [facility] Last Admin: 11/13/19 10:57 Dose: 1,250 units Coenzyme Q10 (Coenzyme Q10) 100 mg PO BID [facility] Last Admin: 11/13/19 20:29 Dose: 100 mg Epoetin Andrew-epbx (Retacrit) 7,500 unit SC Q7D [facility] Last Admin: 11/09/19 18:40 Dose: 7,500 unit Fluconazole (Diflucan) 100 mg PO 1500 [facility] Last Admin: 11/13/19 15:53 Dose: 100 mg Folic Acid (Folvite) 1 mg PO DAILY [facility] Last Admin: 11/13/19 10:57 Dose: 1 mg Heparin Sodium (Porcine) (Heparin) 5,000 units SC TID [facility] Last Admin: 11/13/19 20:29 Dose: 5,000 units Hydralazine HCl (Apresoline) 5 mg SLOW IVP Q15MIN PRN PRN Reason: SBP Greater Than 180 Last Admin: 10/27/19 21:15 Dose: 5 mg Nitroglycerin (Nitrostat) 0.4 mg SL Q5MIN PRN PRN Reason: Chest Pain Ondansetron HCl (Zofran Odt) 4 mg PO Q6H PRN PRN Reason: Nausea/Vomiting Ondansetron HCl (Zofran) 4 mg IVP Q6H PRN PRN Reason: Nausea/Vomiting Senna (Senokot) 2 tab PO BID [facility] Last Admin: 11/13/19 20:31 Dose: Not Given Sodium Chloride (Flush - Normal Saline) 10 ml IVF Q12HR [facility] Last Admin: 11/13/19 20:30 Dose: 10 ml Sodium Chloride (Flush - Normal Saline) 10 ml IVF PRN PRN PRN Reason: Saline Flush Vital Signs & Weight: Vital Signs Temp Pulse Ox 11/14/19 15:34 98.0 F 11/14/19 11:16 98.2 F 11/14/19 08:00 97 11/14/19 04:37 97.4 F L Admit Weight 127 lb 6.835 oz Weight 122 lb 6 oz - Quality Measures Condition: Atrial Fibrillation/Flutter (hx or current), Coronary Artery Disease , Heart Failure CV meds: Beta Jose: Yes, VANITA/ARB: No, Statin: Yes, ASA: Yes, Plavix/Effient/ Brilinta: No, Anticoagulant: Yes - Medication Contraindications No VANITA/ARB reason: Medical contraindication (CKD) - Physical Exam General: alert & oriented x3 HEENT: mucus membranes moist Neck: supple neck Cardiac: regular rate and rhythm Lungs: clear to auscultation Neuro: grossly intact Abdomen: active bowel sounds Extremities: 1+ LE edema Skin: clear Musculoskeletal: no pain - Labs Result Diagrams: 11/14/19 03:30 11/14/19 03:30 Troponin/CKMB CK-MB (CK-2) 1.1 ng/mL (0-6.6) 11/08/19 03:25 Troponin I 0.623 ng/mL (< 0.028) H* 11/08/19 03:25 - Telemetry Sinus rhythms and dysrhythmias: sinus rhythm - Assessment/Plan Assessment/Plan: 1. Acute on chronic systolic heart failure. 2. CAD s/p CABG 3. 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 Paroxysmal afib 5. Hypokalemia, resolved. 6. Symptomatic bradycardia. 7. 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 PLAN: - Continue BB alone. - No amiodarone unless afib recurs.
--- NOTE | 2019-11-14 16:30 | CCL ---
DATE OF PROCEDURE: 11/13/19 This is a 79-year-old female with tachy/[place] syndrome. Was advised to undergo a dual chamber pacemak er insertion. She was taken to the cardiac label printing machinist today where she was prepped and draped and underwent the proced ure without difficulties or complications. She was implanted with a dual chamber pacemaker from [employer]. Two screw-in leads were placed. On in the atrium and one in the ventricle. We did require a mercedes ogram for the puncture to the left subclavian vein. Also, the pacemaker was placed inside an antibiot ic pocket or a bag for the pacemaker itself. This was coated with antibiotics to decrease the risk of infection in this patient who is undergoing dialysis and also due to increased age. Otherwise, the p rocedure went well without any complications or difficulties. The pacemaker was set with the upper ra te of 130 and the lower rate was set at 60. This is a dual chamber pacemaker, an Macy from [employer] with atrial therapies.
[2019-11-14] MEDS: Aspirin 81 mg Enteric Coated Tablet PO SCH (16:31)
[2019-11-14] MEDS: Heparin 5,000 UNITS/ML VIAL SC SCH ×3 (16:31→20:37)
[2019-11-14] MEDS: Folic Acid 1 MG TAB PO SCH (16:31)
[2019-11-14] MEDS: Carvedilol 3.125 MG TAB PO SCH ×2 (16:31→16:36)
[2019-11-14] MEDS: Ubidecarenone 50 MG CAP PO SCH ×2 (16:32→20:37)
[2019-11-14] MEDS: Senokot 8.6 MG TAB PO SCH ×2 (16:32→20:37)
[2019-11-14] MEDS: Fluconazole 100 MG TAB PO SCH (16:35)
[2019-11-14] MEDS: Atorvastatin Calcium 40 MG TAB PO SCH (20:37)
[2019-11-15] MEDS: Acetaminophen/Codeine 30-300mg Tablet PO PRN ×2 (05:15→11:17)
--- NOTE | 2019-11-15 05:25 | PDOC.FM ---
- Subjective Subjective: Mrs. Tate is feeling much better today. Reports walking to the commode and back, and sat in chair most of yesterday w/ her feet up. Did HD yesterday. HR has remained paced in the 60s. She feels her attitude is better and she does not feel as exhausted. - Objective MAR Reviewed: Yes Vital Signs & Weight: Vital Signs (12 hours) Pulse Pulse Resp BP BP Pulse Ox Pulse Ox 11/15/19 03:01 19 97 11/14/19 20:00 98 11/14/19 16:57 68 69 150/69 H 150/91 H 94 L Pulse Ox 11/15/19 03:01 11/14/19 20:00 11/14/19 16:57 100 Weight Admit Weight 57.8 kg Weight 55.508 kg Most Recent Monitor Data Heart Rate from ECG 64 NIBP 145/64 NIBP BP-Mean 91 Respiration from ECG 17 SpO2 98 I&O: 11/13/19 11/14/19 11/15/19 06:59 06:59 07:59 Intake Total 1370 930 Output Total 1600 300 100 Balance -230 630 -100 Result Diagrams: 11/14/19 03:30 11/14/19 03:30 Phys Exam - Physical Examination Constitutional: NAD (reading her book this AM.) Respiratory: no wheezing (on BIPAP nasal) Cardiovascular: RRR Gastrointestinal: soft, no distention Musculoskeletal: edema present (1+ on R leg just above ankle, no edema on L) Psychiatric: normal affect, A&O x 3 Dx/Plan (1) Acute respiratory failure with hypoxia Code(s): J96.01 - ACUTE RESPIRATORY FAILURE WITH HYPOXIA Status: Acute (2) Atrial fibrillation Code(s): I48.91 - UNSPECIFIED ATRIAL FIBRILLATION Status: Acute (3) HLD (hyperlipidemia) Code(s): E78.5 - HYPERLIPIDEMIA, UNSPECIFIED Status: Acute (4) Hypertensive emergency Code(s): I16.1 - HYPERTENSIVE EMERGENCY Status: Acute (5) CAD (coronary artery disease) Code(s): I25.10 - ATHSCL HEART DISEASE OF [place] CORONARY ARTERY W/O ANG PCTRS Status: Chronic Qualifiers: Coronary Disease-Associated Artery/Lesion type: bypass graft [place] vs. transplanted heart: [place] heart (6) HTN (hypertension) Code(s): I10 - ESSENTIAL (PRIMARY) HYPERTENSION Status: Chronic Qualifiers: Hypertension type: essential hypertension Qualified Code(s): I10 - Essential (primary) hypertension (7) CHF (congestive heart failure) Code(s): I50.9 - HEART FAILURE, UNSPECIFIED Status: Suspected - Plan Plan: This is a 79 yo female with a pmh of CAD with CABG, MV regurg, HLD, HTN, now in ESRD on HD: Code: Full DVT Prophylaxis: heparin GI Prophylaxis: none Plan: continue inpatient care. Likely rehab s/p discharge. Will dictate transition of care note for primary team members coming on to service tomorrow given this patient's extended length of stay and multiple problems. 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 Artis 11/12 - continue beta-christen, no amiodarone ESRD on HD - Plan for access Wednesday 11/15 per Moe. Appreciate recs. - Nephro, Dr. Hoff consulted. HD 3x week, //Sat. Normocytic anemia, stable - likely secondary to ESRD - on epogen. Transfuse prn. Acute hypoxic respiratory failure 2/2 flash pulmonary edema, recurrent pulm edema - pulm consulted, rec keeping O2 sats at 90% - wean O2 as tolerated. - continue walking as tolerated HTN emergency, resolved - monitor. Continue current meds. HFrEF - Dr. Artis consulted. appreciate recs. Leukocytosis - stable Atrial fibrillation, now in sinus rhythm w/ bradycardia - Cardiology consulted. Appreciate recs. CAD s/p CABG -Continue asa, work up as above COPD -Long standing smoking history Addendum - Attending - Attending Attestation Date/Time: 11/15/19 2393 I personally evaluated the patient and discussed the management with Dr. Mathis. I agree with the History, Examination, Assessment and Plan documented above with any addition or exceptions noted below.
--- NOTE | 2019-11-15 08:45 | RAD ---
PORTABLE CHEST ONE VIEW: 11/15/2019 4:01 a.m. HISTORY: Pneumonia. Followup. COMPARISON: Exam from the previous day. FINDINGS: Bilateral infiltrates are again seen without significant interval change. Changes of median sternotom y and a left sided pacing device are again noted. No pneumothoraces or large pleural effusions are id entified. Small pleural effusions are again seen. IMPRESSION: Stable examination. POS: SIA
[2019-11-15] MEDS: Senokot 8.6 MG TAB PO SCH ×2 (10:14→20:19)
[2019-11-15] MEDS: Carvedilol 3.125 MG TAB PO SCH ×2 (10:14→15:53)
[2019-11-15] MEDS: Ubidecarenone 50 MG CAP PO SCH ×2 (10:15→20:19)
[2019-11-15] MEDS: Aspirin 81 mg Enteric Coated Tablet PO SCH (10:15)
[2019-11-15] MEDS: Folic Acid 1 MG TAB PO SCH (10:15)
[2019-11-15] MEDS: Heparin 5,000 UNITS/ML VIAL SC SCH ×3 (10:16→20:19)
[2019-11-15 10:33] LABS: Anion Gap 12 mmol/L (10-20); BUN (Urea Nitrogen) 27 mg/dL (9.8-20.1); Calc. Creatinine Clearance 13 mL/min (70-130); Carbon Dioxide 30 mmol/L (23-31); Chloride 100 mmol/L (98-107); Estimated GFR-MDRD 14; Glucose 114 mg/dL (83-110); Potassium 3.4 mmol/L (3.5-5.1); Sodium 139 mmol/L (136-145)
--- NOTE | 2019-11-15 11:38 | PRG ---
DATE OF SERVICE: 11/15/2019 SUBJECTIVE: Darlin Tate is a 79-year-old female, who is awake, alert, responsive, on high flow. X-ray unfortunately still shows bilateral upper lung infiltrates, but she says she is less short of breath. OBJECTIVE: VITAL SIGNS: Her maximum temperature is 98, blood pressure is 153/73, respiratory rate is 18, saturations are 93%, pulse 80. CHEST: No wheezing or crackles. CARDIAC: Normal S1, S2. No gallops. ABDOMEN: No masses. LABORATORY DATA: Creatinine 3.15. IMPRESSION: 1. Respiratory failure. 2. Bilateral upper lung infiltrates. 3. Hypertension. 4. Coronary artery disease. 5. Renal failure. PLAN: Continue present treatment, supportive care. We will follow. Job ID: [id number]
[2019-11-15] MEDS: Fluconazole 100 MG TAB PO SCH (15:53)
--- NOTE | 2019-11-15 16:11 | PDOC.CPN ---
- Subjective Date: 11/15/19 Time: 16:09 Interval history: She is doing well. Her breathing is getting better now only on 4L NC. - Review of Systems General: denies: fever/chills, weight/appetite/sleep changes, night sweats, fatigue Respiratory: denies: cough, congestion, shortness of breath, exercise intolerance Cardiovascular: denies: chest pain, palpitation, edema, paroxysmal nocturnal dyspnea, orthopnea Gastrointestinal: denies: nausea, vomiting, diarrhea, constipation, abd pain, GI bleeding Musculoskeletal: denies: pain, tenderness, stiffness, swelling, arthritis/ arthralgias Neurological: denies: numbness, syncope, seizure, weakness - Objective Allergies/Adverse Reactions: Allergies Allergy/AdvReac Type Severity Reaction Status Date / Time clopidogrel Allergy Verified 10/23/19 19:22 lisinopril Allergy Verified 10/23/19 19:22 Visit Medications: Current Medications Acetaminophen (Tylenol) 650 mg PO Q4H PRN PRN Reason: Headache/Fever/Mild Pain (1-3) Last Admin: 11/14/19 18:19 Dose: 650 mg Acetaminophen (Tylenol) 650 mg [place] Q4H PRN PRN Reason: Headache/Fever/Mild Pain (1-3) Last Admin: 11/10/19 18:42 Dose: 650 mg Acetaminophen/Codeine Phosphate (Tylenol #3) 1 tab PO Q4H PRN PRN Reason: Mild Pain (1-3) Last Admin: 11/15/19 11:17 Dose: 1 tab Albuterol/Ipratropium (Duoneb) 3 ml EZPAP Q6H PRN PRN Reason: SOB &/or Wheezing Last Admin: 11/05/19 09:58 Dose: 3 ml Aspirin (Ecotrin) 81 mg PO DAILY [facility] Last Admin: 11/15/19 10:15 Dose: 81 mg Atorvastatin Calcium (Lipitor) 40 mg PO HS [facility] Last Admin: 11/14/19 20:37 Dose: Not Given Atropine Sulfate (Atropine) 0.5 mg IVP PRN PRN PRN Reason: SYMPTOMATIC BRADYCARDIA<40 BPM Carvedilol (Coreg) 3.125 mg PO BID-[facility] Last Admin: 11/15/19 15:53 Dose: 3.125 mg Cholecalciferol (Vitamin D3) 1,250 units PO DAILY [facility] Last Admin: 11/15/19 10:15 Dose: 1,250 units Coenzyme Q10 (Coenzyme Q10) 100 mg PO BID [facility] Last Admin: 11/15/19 10:15 Dose: 100 mg Epoetin Andrew-epbx (Retacrit) 7,500 unit SC Q7D [facility] Last Admin: 11/09/19 18:40 Dose: 7,500 unit Fluconazole (Diflucan) 100 mg PO 1500 [facility] Last Admin: 11/15/19 15:53 Dose: 100 mg Folic Acid (Folvite) 1 mg PO DAILY [facility] Last Admin: 11/15/19 10:15 Dose: 1 mg Heparin Sodium (Porcine) (Heparin) 5,000 units SC TID [facility] Last Admin: 11/15/19 15:53 Dose: 5,000 units Hydralazine HCl (Apresoline) 5 mg SLOW IVP Q15MIN PRN PRN Reason: SBP Greater Than 180 Last Admin: 10/27/19 21:15 Dose: 5 mg Nitroglycerin (Nitrostat) 0.4 mg SL Q5MIN PRN PRN Reason: Chest Pain Ondansetron HCl (Zofran Odt) 4 mg PO Q6H PRN PRN Reason: Nausea/Vomiting Ondansetron HCl (Zofran) 4 mg IVP Q6H PRN PRN Reason: Nausea/Vomiting Senna (Senokot) 2 tab PO BID [facility] Last Admin: 11/15/19 10:14 Dose: 2 tab Sodium Chloride (Flush - Normal Saline) 10 ml IVF Q12HR [facility] Last Admin: 11/15/19 10:16 Dose: 10 ml Sodium Chloride (Flush - Normal Saline) 10 ml IVF PRN PRN PRN Reason: Saline Flush Vital Signs & Weight: Vital Signs Temp Pulse Pulse BP BP Pulse Ox 11/15/19 15:30 96.8 F L 11/15/19 11:14 97.9 F 11/15/19 09:29 72 67 180/90 H 154/68 H 11/15/19 08:00 97 11/15/19 07:19 98.0 F Admit Weight 127 lb 6.835 oz Weight 122 lb 8 oz - Quality Measures Condition: Atrial Fibrillation/Flutter (hx or current), Coronary Artery Disease , Heart Failure CV meds: Beta Jose: Yes, VANITA/ARB: No, Statin: Yes, ASA: Yes, Plavix/Effient/ Brilinta: No, Anticoagulant: Yes - Medication Contraindications No VANITA/ARB reason: Medical contraindication (CKD) - Physical Exam General: alert & oriented x3 HEENT: mucus membranes moist Neck: supple neck Cardiac: regular rate and rhythm Lungs: clear to auscultation Neuro: grossly intact Abdomen: active bowel sounds Extremities: no edema Skin: clear Musculoskeletal: no pain - Labs Result Diagrams: 11/14/19 03:30 11/15/19 10:04 Troponin/CKMB CK-MB (CK-2) 1.1 ng/mL (0-6.6) 11/08/19 03:25 Troponin I 0.623 ng/mL (< 0.028) H* 11/08/19 03:25 - Telemetry Sinus rhythms and dysrhythmias: sinus rhythm - Assessment/Plan Assessment/Plan: 1. Acute on chronic systolic heart failure. 2. CAD s/p CABG 3. 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 Paroxysmal afib 5. Hypokalemia, resolved. 6. Symptomatic bradycardia. 7. 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 PLAN: - Continue BB alone. - No amiodarone unless afib recurs. - HD for fluid removal. - Will need placement for rehab.
[2019-11-15] MEDS: Atorvastatin Calcium 40 MG TAB PO SCH (20:19)
[2019-11-16 03:40] LABS: #Eosinphils 0.4 thou/uL (0.0-0.7); #Lymphocytes 1.5 thou/uL (1.20-3.40); #Neutrophils 12.2 thou/uL (1.40-6.50); %Basophils 0.3 % (0.0-1.0); %Eosinophils 2.6 % (0.0-10.0); %Lymphocytes 10.1 % (21.0-51.0); %Monocytes 6.5 % (0.0-10.0); %Neutrophils 80.6 % (42.0-75.0); Hemoglobin 9.3 g/dL (12.0-16.0); Mean Corpuscular HGB CONC 32.4 g/dL (32.0-36.0); Mean Corpuscular Hemoglobin 31.3 pg (27.0-31.0); Mean Corpuscular Volume 96.6 fL (78.0-98.0); Mean Platelet Volume 9.4 fL (7.4-10.4); Platelet Count 220 thou/uL (130-400); RBC Distribution Width 16.8 % (11.5-14.5); Red Blood Cell (RBC) Count 2.98 mill/uL (4.20-5.40); White Blood Cell (WBC) Count 15.2 thou/uL (4.8-10.8)
--- NOTE | 2019-11-16 05:18 | PDOC.FM ---
- Subjective Subjective: Pt states she feels weak, but is starting to be able to work harder with PT. Pt anxious about procedure today. Denies N/V. c/o slight lightheadedness. - Objective MAR Reviewed: Yes Vital Signs & Weight: Vital Signs (12 hours) Temp Resp Pulse Ox 11/16/19 03:31 98.0 F 11/15/19 23:24 97.8 F 11/15/19 21:00 18 97 11/15/19 19:44 98.1 F Weight Admit Weight 57.8 kg Weight 55.565 kg Most Recent Monitor Data Heart Rate from ECG 64 NIBP 168/73 NIBP BP-Mean 104 Respiration from ECG 19 SpO2 95 I&O: 11/14/19 11/15/19 11/16/19 05:59 06:59 06:59 Intake Total 800 Output Total 250 Balance 550 Result Diagrams: 11/16/19 03:09 11/16/19 09:10 Phys Exam - Physical Examination Constitutional: NAD HEENT: moist MMs, sclera anicteric Neck: no nodes, no JVD Respiratory: no wheezing, clear to auscultation bilateral Cardiovascular: RRR, no rub Gastrointestinal: soft, non-tender, positive bowel sounds Musculoskeletal: no edema, pulses present Neurological: non-focal, moves all 4 limbs Psychiatric: normal affect, A&O x 3 Skin: no rash, normal turgor Dx/Plan (1) Acute respiratory failure with hypoxia Code(s): J96.01 - ACUTE RESPIRATORY FAILURE WITH HYPOXIA Status: Acute (2) Atrial fibrillation Code(s): I48.91 - UNSPECIFIED ATRIAL FIBRILLATION Status: Acute (3) HLD (hyperlipidemia) Code(s): E78.5 - HYPERLIPIDEMIA, UNSPECIFIED Status: Acute (4) CAD (coronary artery disease) Code(s): I25.10 - ATHSCL HEART DISEASE OF [place] CORONARY ARTERY W/O ANG PCTRS Status: Chronic Qualifiers: Coronary Disease-Associated Artery/Lesion type: bypass graft [place] vs. 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 Artis 11/12 - continue beta-christen, no amiodarone unless a fib recurs - will need rehab upon d/c ESRD on HD - Plan for access Wednesday 11/15 per Moe. Appreciate recs. - Nephro, Dr. Hoff consulted. HD 3x week, //Sat. Normocytic anemia, stable - likely secondary to ESRD - on epogen. Transfuse prn. Acute hypoxic respiratory failure 2/2 flash pulmonary edema, recurrent pulm edema - pulm consulted, rec keeping O2 sats at 90% - wean O2 as tolerated. - continue walking as tolerated HTN emergency, resolved - monitor. Continue current meds. HFrEF - Dr. Artis consulted. appreciate recs. - HD Leukocytosis - stable Atrial fibrillation, now in sinus rhythm w/ bradycardia - Cardiology consulted. Appreciate recs. - BB CAD s/p CABG -Continue asa, work up as above COPD -Long standing smoking history Code: Full DVT Prophylaxis: heparin GI Prophylaxis: none Plan: continue inpatient care. rehab s/p discharge. Pt to move to floor after recovered from HD cath placement procedure. Addendum - Attending - Attending Attestation Date/Time: 11/16/192047 I personally evaluated the patient this evening. I agree with the History, Examination, Assessment and Plan documented above with any addition or exceptions noted below.
[2019-11-16] MEDS: Carvedilol 3.125 MG TAB PO SCH ×2 (05:32→18:03)
[2019-11-16 09:44] LABS: Anion Gap 14 mmol/L (10-20); BUN (Urea Nitrogen) 37 mg/dL (9.8-20.1); Calc. Creatinine Clearance 11 mL/min (70-130); Calcium 8.9 mg/dL (7.8-10.44); Carbon Dioxide 28 mmol/L (23-31); Chloride 100 mmol/L (98-107); Estimated GFR-MDRD 12; Glucose 97 mg/dL (83-110); Potassium 3.8 mmol/L (3.5-5.1); Sodium 138 mmol/L (136-145)
[2019-11-16] MEDS: Aspirin 81 mg Enteric Coated Tablet PO SCH (10:45)
[2019-11-16] MEDS: Senokot 8.6 MG TAB PO SCH ×2 (10:46→20:40)
[2019-11-16] MEDS: Ubidecarenone 50 MG CAP PO SCH ×2 (10:46→20:35)
[2019-11-16] MEDS: Folic Acid 1 MG TAB PO SCH (10:46)
[2019-11-16] MEDS: Heparin 5,000 UNITS/ML VIAL SC SCH ×3 (10:46→20:35)
[2019-11-16] MEDS ORDERED: Ondansetron PF 4 MG/2 ML Vial ONE (11:19)
[2019-11-16] MEDS ORDERED: PROPOFOL 200 MG/20 ML VIAL ONE (11:19)
[2019-11-16] MEDS ORDERED: Dexamethasone 20 MG/5 ML VIAL ONE (11:19)
[2019-11-16] MEDS ORDERED: Lidocaine 1% PF 5 ML VIAL ONE (11:19)
[2019-11-16] MEDS ORDERED: Sodium Chloride 0.9% 10 ML ONE (13:55)
[2019-11-16] MEDS ORDERED: Protamine Sulfate 50 MG/5 ML VIAL ONE (13:55)
[2019-11-16] MEDS ORDERED: Heparin 5,000 UNITS/ML VIAL ONE (13:55)
[2019-11-16] MEDS ORDERED: Heparin 10,000 UNITS/1 ML VIAL ONE ×2 (13:55→15:16)
[2019-11-16] MEDS ORDERED: Lidocaine 1% w/Epinephrine 1:100K 20 ML VIAL ONE (13:55)
[2019-11-16] MEDS ORDERED: Bupivacaine PF 0.5% 30 ML VIAL ONE (13:55)
[2019-11-16] MEDS ORDERED: Fentanyl 100 MCG/2 ML VIAL ONE ×2 (13:56→16:59)
[2019-11-16] MEDS ORDERED: traMADol HCl 50 MG TAB PO PRN (14:32)
--- NOTE | 2019-11-16 14:46 | PRG ---
DATE OF SERVICE: 11/16/2019 SERVICE: Renal Medicine. SUBJECTIVE: Ms. Tate is a 79-year-old white female, followed by the Renal Service for her acute kidney injury/chronic renal failure. She was initiated on hemodialysis due to volume overload as well as progressive azotemia. Her breathing has slowly improve overtime. She is currently off her nasal BiPAP and on 4 L of nasal cannula. No other complaints today. No worsening shortness of breath. No chest pain. OBJECTIVE: VITAL SIGNS: Blood pressure is noted at 135/60, heart rate 60, respiratory rate 20, and O2 saturation 95%. GENERAL: Noted to be awake, alert, supine, comfortable, not in distress. SKIN: Adequate turgor. HEENT: Slightly pale conjunctivae. Anicteric sclerae. NECK: No neck mass. No carotid bruits. No JVD. CHEST: No deformities. LUNGS: Decreased breath sounds. HEART: Normal sinus rhythm. No murmur. No gallops. No rubs. ABDOMEN: Globular, soft, and nontender. No masses. EXTREMITIES: No edema. No deformities. MEDICATIONS: Medications of November 16, 2019, reviewed. LABORATORY DATA: Laboratories of November 16, 2019, hemoglobin 15.2, Ca 9.3. On November 15, 2019; sodium 139, potassium 3.4, chloride 100, carbon dioxide 30, BUN 27, creatinine 3.15, and glucose 114. On November 16, 2019; basic metabolic panel pending. ASSESSMENT AND PLAN: 1. Chronic renal failure/end-stage renal disease - continue supportive care. Continue 3 times a week hemodialysis regimen. Awaiting repeat basic metabolic panel. Clinically, there is no indication for any emergent dialysis with this patient. 2. Anemia, continuing weekly Epogen. Tolerating said treatment. 3. Shortness of breath, multifactorial etiology - chronic obstructive pulmonary disease, congestive heart failure. Clinically improving with fluid removal with dialysis. Continue supportive care. Recheck basic metabolic panel and CBC in a.m. Job ID: [id number] [facility]
[2019-11-16] MEDS ORDERED: Sodium Chloride 0.9% 30 ML ONE (14:47)
[2019-11-16] MEDS ORDERED: Promethazine HCl 25 MG/ML VIAL IM PRN (15:55)
[2019-11-16] MEDS ORDERED: Ondansetron HCl/PF 4 MG/2 ML Vial IVP PRN (15:55)
[2019-11-16] MEDS ORDERED: Promethazine HCl 25 MG/ML VIAL SLOW IVP PRN (15:55)
--- NOTE | 2019-11-16 16:21 | RAD ---
XR Chest 1 View Portable HISTORY: Dialysis catheter placement COMPARISON: 11/27/2019 FINDINGS: There is interval placement of a right internal jugular double lumen dialysis catheter with tips in the projection of the SVC and cavoatrial junction. No pneumothoraces are seen. Bilateral infiltrates are again seen. There is pulmonary vascular congestion. Small effusions again seen.
--- NOTE | 2019-11-16 16:28 | OP ---
DATE OF PROCEDURE: 11/16/2019 PREOPERATIVE DIAGNOSES: End-stage renal disease, required left subclavian vein pacemaker in this hospitalization, poor intravenous access. POSTOPERATIVE DIAGNOSES: End-stage renal disease, required left subclavian vein pacemaker in this hospitalization, poor intravenous access. PROCEDURES PERFORMED: 1. Right internal jugular cuffed tunneled hemodialysis catheter, AngioDynamics pre-curved. 2. Failed attempted left internal jugular central line placement. 3. Left femoral vein triple-lumen catheter placement. 4. Left arm primary fistula, perforating branch of the antecubital vein to the proximal radial artery, outflow was cephalic vein only, retrograde antecubital vein preserved. No communication in the basilic vein noted. ANESTHESIA: General LMA, local of 0.5% Marcaine 30 mL mixed with 1% Xylocaine with epinephrine 20 mL. DESCRIPTION OF PROCEDURE: The patient was taken to the operating room, where under general LMA anesthesia, neck, chest, and left upper extremity were prepared with ChloraPrep and draped in routine fashion. Local anesthetic was infiltrated in the skin and subcutaneous tissue about the operative site. Using ultrasound guidance, the right internal jugular vein was cannulated with a trocar catheter. J-wire was threaded. Trocar catheter was removed. Stab incision was made over the right chest at the planned exit site of the hemodialysis catheter and at the J-wire entrance site in the neck, and using a tunneling device, pre-curved AngioDynamics cuffed tunneled hemodialysis catheter was tunneled between the 2 incisions, placed the fabric cuff beneath the skin exit site, and catheter was secured with 2 interrupted sutures of 3-0 nylon. Smaller and medium-sized dilators were placed over the J-wire into the internal jugular vein, and dilators were removed. Dilator and Peel-Away sheath were placed over the J-wire in superior vena cava, and dilator and J-wire were removed. Catheter was placed over the Peel-Away sheath. Peel-Away sheath was removed. Platysma was approximated with 4-0 Monocryl, skin with subdermal 4-0 Monocryl, and [place] glue was applied. Each port aspirated blood, flushed with saline solution and heparinized saline solution, 1000 units of heparin per mL, indicating the volume of the port. Fluoroscopy revealed good line placement. I attempted to place a left IJ central line, but it would not thread properly. Thus, this was abandoned. Incision was made in the proximal volar forearm below the antecubital fossa of left arm, carried down through skin and subcutaneous tissue. The antecubital vein was dissected free. No communication in the basilic vein noted. Perforating branch of the antecubital vein was dissected free. Branches were divided between clips and 4-0 silk ties and spatulated over branch point and interrogated with coronary dilators from 2 mm to 3.5 mm coronary dilator throughout the cephalic vein outflow without obstruction. The patient was given 6000 units of heparin intravenously by Anesthesia, and vein flushed with heparinized saline solution. An atraumatic bulldog clamp was applied. Proximal radial artery was dissected free, and the brachial ulnar and proximal radial artery were controlled with vascular clamps. A longitudinal arteriotomy made sharply for a 2.5 cm anastomosis, and accordingly, the perforating branch of the antecubital vein was spatulated, and end vein to side proximal radial artery anastomosis was created with continuous suture of 6-0 Prolene. Completing the anastomosis and releasing the arterial inflow noting excellent flow in the cephalic vein outflow interrogated by Doppler, good hemostasis was noted. The patient was given 25 mg of protamine by Anesthesia. Subcutaneous tissue was approximated with 3-0 Monocryl, skin with subdermal 4-0 Monocryl, and [place] glue was applied. Left groin was prepared with ChloraPrep and draped in routine fashion. Using Seldinger technique, placed a triple-lumen catheter, removed the J-wire, and secured the catheter with 3-0 nylon sutures. Sterile dressings were applied. The patient tolerated the procedure well. Job ID: [id number]
[2019-11-16] MEDS: Fluconazole 100 MG TAB PO SCH (17:26)
[2019-11-16] MEDS: EPOETIN ALFA-EPBX (ESRD) 4,000 UNIT/ML VIAL SC SCH (17:28)
[2019-11-16] MEDS: Atorvastatin Calcium 40 MG TAB PO SCH (20:40)
[2019-11-17] MEDS: Acetaminophen 500 MG TAB PO PRN ×2 (03:56→13:34)
[2019-11-17 04:19] LABS: Anion Gap 16 mmol/L (10-20); BUN (Urea Nitrogen) 45 mg/dL (9.8-20.1); Calc. Creatinine Clearance 9 mL/min (70-130); Calcium 8.7 mg/dL (7.8-10.44); Carbon Dioxide 25 mmol/L (23-31); Chloride 99 mmol/L (98-107); Estimated GFR-MDRD 10; Glucose 132 mg/dL (83-110); Potassium 4.1 mmol/L (3.5-5.1); Sodium 136 mmol/L (136-145)
--- NOTE | 2019-11-17 06:36 | PDOC.FM ---
- Subjective Subjective: Pt examined in dialysis this morning. She c/o slow ooze bleed from L groin form procedure yesterday. pt in good spirits this morning. Denies CP, SOB, NORTH. c/o few aches diffusely. - Objective MAR Reviewed: Yes Vital Signs & Weight: Vital Signs (12 hours) Temp Pulse Ox 11/17/19 03:34 97.8 F 11/16/19 23:37 98.1 F 11/16/19 20:00 94 L 11/16/19 19:47 98.3 F Weight Admit Weight 57.8 kg Weight 58.6 kg Most Recent Monitor Data Heart Rate from ECG 64 NIBP 123/53 NIBP BP-Mean 76 Respiration from ECG 16 SpO2 96 I&O: 11/15/19 11/16/19 11/17/19 06:59 06:59 06:59 Intake Total 1110 360 Output Total 650 Balance 460 360 Result Diagrams: 11/16/19 03:09 11/17/19 03:51 Phys Exam - Physical Examination Constitutional: NAD HEENT: moist MMs, sclera anicteric Neck: no nodes, no JVD, full ROM ecchymosis present over B neck. cath in place, clean and dry. Respiratory: no wheezing, no rales, no rhonchi, clear to auscultation bilateral Cardiovascular: RRR soft sys murmur Gastrointestinal: soft, non-tender Musculoskeletal: no edema, pulses present L groin slowly oozing blood form surgical procedure site pressure dressing Neurological: non-focal, moves all 4 limbs Psychiatric: normal affect, A&O x 3 Skin: no rash, normal turgor, cap refill <2 seconds Deviation from normal: ecchymosis over L antecubital fossa Dx/Plan (1) Acute respiratory failure with hypoxia Code(s): J96.01 - ACUTE RESPIRATORY FAILURE WITH HYPOXIA Status: Acute (2) Atrial fibrillation Code(s): I48.91 - UNSPECIFIED ATRIAL FIBRILLATION Status: Acute (3) HLD (hyperlipidemia) Code(s): E78.5 - HYPERLIPIDEMIA, UNSPECIFIED Status: Acute (4) CAD (coronary artery disease) Code(s): I25.10 - ATHSCL HEART DISEASE OF [place] CORONARY ARTERY W/O ANG PCTRS Status: Chronic Qualifiers: Coronary Disease-Associated Artery/Lesion type: bypass graft [place] vs. transplanted heart: [place] heart (5) HTN (hypertension) Code(s): I10 - ESSENTIAL (PRIMARY) HYPERTENSION Status: Chronic Qualifiers: Hypertension type: essential hypertension Qualified Code(s): I10 - Essential (primary) hypertension (6) CHF (congestive heart failure) Code(s): I50.9 - HEART FAILURE, UNSPECIFIED Status: Suspected - Plan Plan: This is a 79 yo female with a pmh of CAD with CABG, MV regurg, HLD, HTN, now in ESRD on HD: Tachy-[place] syndrome - pacemaker per Dr. Artis 11/12 - continue beta-christen, no amiodarone unless a fib recurs - will need rehab upon d/c ESRD on HD - Procedure for HD access Wednesday 11/15 per Moe. Appreciate recs. Pt tolerated procedure well. - See op note for details on procedures - Nephro, Dr. Hoff consulted. HD 3x week, //Sat. Normocytic anemia, stable - likely secondary to ESRD - on epogen. Transfuse prn. Acute hypoxic respiratory failure 2/2 flash pulmonary edema, recurrent pulm edema - pulm consulted, rec keeping O2 sats at 90% - wean O2 as tolerated. - continue walking as tolerated HTN emergency, resolved - monitor. Continue current meds. HFrEF - Dr. Artis consulted. appreciate recs. - HD Leukocytosis - stable Atrial fibrillation, now in sinus rhythm w/ bradycardia - Cardiology consulted. Appreciate recs. - BB CAD s/p CABG -Continue asa, work up as above COPD -Long standing smoking history Code: Full DVT Prophylaxis: heparin GI Prophylaxis: none Plan: continue inpatient care. rehab s/p discharge. Pt to move to floor after recovered from HD cath placement procedure. Addendum - Attending - Attending Attestation Date/Time: 11/17/19 3017 I personally evaluated the patient and discussed the management with Dr. Gonzalez. I agree with the History, Examination, Assessment and Plan documented above with any addition or exceptions noted below. Patient continues to improve from respiratory standpoint. She is receiving HD currently and feeling improved. Sore from all her procedures over the last few days. Continue HD, await further pulm recs but likely stable for transfer to telemetry. She has been accepted to inpatient rehab and hopefully will be stable for that in the next 1-2 days.
[2019-11-17] MEDS: Senokot 8.6 MG TAB PO SCH ×2 (07:25→20:40)
[2019-11-17] MEDS: Carvedilol 3.125 MG TAB PO SCH ×2 (07:25→16:40)
--- NOTE | 2019-11-17 09:32 | PRG ---
DATE OF SERVICE: 11/17/2019 SERVICE: Renal Medicine. SUBJECTIVE: Ms. Tate is a 79-year-old white female, followed up by the Renal Service for her chronic renal failure. She has been initiated on dialysis due to volume overload and progressive azotemia. She is currently undergoing dialysis. She is tolerating said treatment. She voices no new complaints. No worsening shortness of breath. In the interim, she had a right IJ cuffed tunneled dialysis catheter placed and the left arm primary fistula has been placed in the antecubital vein. The patient has no new complaints. Breathing is better. OBJECTIVE: VITAL SIGNS: Blood pressure 137/67 with heart rate of 70. GENERAL: The patient is awake, alert, comfortable, not in distress. SKIN: Adequate turgor. HEENT: Slightly pale conjunctivae. Anicteric sclerae. NECK: No neck mass. No carotid bruits. No JVD. CHEST: No deformities. LUNGS: Clear breath sounds. HEART: Normal sinus rhythm. No murmurs. No gallops. No rubs. ABDOMEN: Globular, soft, and nontender. No masses. EXTREMITIES: No edema. No deformities. Positive for left upper extremity AV fistula. MEDICATIONS: Medications of November 17, 2019, reviewed. LABORATORY DATA: Laboratories of November 16, 2019; white count 15.2, hemoglobin 9.3. On November 17, 2019; sodium 136, potassium 4.1, chloride 99, carbon dioxide 25, BUN 45, creatinine 4.3, GFR 10 mL/minute, glucose 132, and calcium 8.7. ASSESSMENT AND PLAN: 1. End-stage renal disease/chronic renal failure - stable hemodynamically. Tolerating current hemodialysis regimen. Further workup for vasculitis and glomerulonephritis have been negative with this patient. ERIKA, ANCA, anti-GBM antibody have all been negative. 2. Shortness of breath, multifactorial etiology - chronic obstructive pulmonary disease/congestive heart failure, clinically much improved with fluid removal and supportive management. 3. Anemia, continuing weekly Epogen. Awaiting rehab placement. Job ID: [id number]
[2019-11-17] MEDS: Heparin 5,000 UNITS/ML VIAL SC SCH ×3 (10:06→20:40)
--- NOTE | 2019-11-17 11:57 | PRG ---
DATE OF SERVICE: 11/15/2019 TRANSITION OF CARE SUMMARY: DIAGNOSES: 1. Acute hypoxic respiratory failure, improved. 2. Hypertensive emergency. 3. Flash pulmonary edema. 4. Recurrent pulmonary edema. 5. Newly diagnosed congestive heart failure, in acute exacerbation. 6. Acute kidney injury on chronic kidney disease, which progressed to end-stage renal disease, now on indefinite dialysis 3 times a week, Saturday, , Saturday. 7. Coronary artery disease, status post coronary artery bypass grafting. 8. Chronic obstructive pulmonary disease, newly diagnosed. 9. Tobacco abuse, previous smoker for 50+ pack years. 10. Normocytic anemia of chronic disease secondary to renal failure. 11. Tachy-[place] syndrome. 12. Atrial fibrillation, resolved. 13. Placement of pacemaker. 14. Urinary tract infection present on admission, treated, with negative urine culture. 15. Persistent leukocytosis without source. HOSPITAL COURSE: Summary of hospital course thus far: Darlin Tate is a pleasant 79-year-old female with a history of coronary artery disease, status post CABG in 2010, and hypertension, who presented for worsening dyspnea. She was found to have hypertensive urgency, which improved with Nitropaste in the emergency room. She initially required no oxygen, but was saturating 85% on room air, which improved to 90% on 10 L of nasal cannula. She was transitioned to BiPAP. She was found to have a markedly decreased GFR from normal, which was 17. She was treated for suspected sepsis and continued to desaturate on BiPAP. The patient was intubated in the emergency room and she was transported to the ICU. The patient was intubated and found to have flash pulmonary edema. She was diuresed with intravenous Lasix and Pulmonology was consulted. She was on a propofol drip for sedation and on a Cardene drip for her hypertensive emergency. The patient had initial chest x-ray followed by multiple chest x-rays while in the ICU. She had a venogram, showing no evidence for DVT of lower extremities. She had an echocardiogram on 10/24/2019, which showed an ejection fraction of 40% to 45% and grade 1/3 diastolic dysfunction. She has aortic valve sclerosis, but which opened well, along with [id number] mitral regurg. Cardiology was consulted for her newly diagnosed heart failure. They continued to help diurese the patient. They also began her on some heart failure medications. The patient then developed atrial fibrillation and was started on rate and rhythm controlling medications such as amiodarone. After stabilization of her heart failure and extubation, she was extubated on October 26, 2019, she was then moved out of the intensive care unit onto the regular cardiac telemetry floor, where she was weaned down to 3 L of nasal cannula. She remained in sinus rhythm with right bundle branch block, on heart medications. However, due to her worsening renal function and declining hemoglobin, Nephrology was consulted. Renal ultrasound showed a left renal cyst without evidence of hydronephrosis. Dr. Hoff of Nephrology originally felt she had superimposed prerenal azotemia because of her heart failure exacerbation. Prior to Nephrology consult, we did hold all kidney offending medications such as losartan and other medications. She was noted to have proteinuria and her blood pressure was well controlled. Due to her anemia, she was started on Epogen weekly. Unfortunately, the patient's renal function did not get better and her hemoglobin declined such that she required transfusion with 2 units of blood up to this point during her hospital stay. Acute tubular necrosis was considered and repeat urinalyses were ordered, which did not show casts. The patient continued to urinate, which we thought was the polyuric phase of her acute tubular necrosis and expected her to get better. She had also received albumin infusions. However, her kidneys never recovered and she began to receive hemodialysis through a Trialysis catheter. General Surgery was consulted for placement of the catheter. On November 09, however, when the patient began to have dialysis, she became bradycardic. She was noted to have atrial bigeminy and was diagnosed with a tachy-j[place] syndrome and symptomatic bradycardia. It was determined that in order for hemodialysis to be an effective modality for the patient, she would need a pacemaker since her heart was so unstable. Amiodarone and all AV clotilde blocking agents were discontinued. The patient received blood transfusion before getting a pacemaker on 11/13/2019. The patient was able to undergo dialysis much better after placement of pacemaker and the plan was for placement of permanent hemodialysis access on November 16, 2019. The patient was on high-flow nasal cannula when her pulmonary edema recurred and BiPAP at night, high-flow nasal cannula during the day, but then was weaned down to 4 L of nasal cannula on the day of her hemodialysis access. DISPOSITION: It is felt at this time that the patient should go to inpatient rehab for some amount of time prior to returning home. Job ID: [id number]
[2019-11-17] MEDS ORDERED: EPOETIN ALFA-EPBX (ESRD) 4,000 UNIT/ML VIAL SC SCH (12:00)
[2019-11-17] MEDS: Ubidecarenone 50 MG CAP PO SCH ×2 (12:42→20:41)
[2019-11-17] MEDS: Aspirin 81 mg Enteric Coated Tablet PO SCH (12:43)
[2019-11-17] MEDS: Folic Acid 1 MG TAB PO SCH (12:43)
[2019-11-17] MEDS ORDERED: Heparin 10,000 UNITS/ 10 ML VIAL ONE (14:21)
[2019-11-17 14:26] LABS: Hemoglobin 8.5 g/dL (12.0-16.0); Mean Corpuscular HGB CONC 30.7 g/dL (32.0-36.0); Mean Corpuscular Hemoglobin 29.7 pg (27.0-31.0); Mean Corpuscular Volume 96.9 fL (78.0-98.0); Mean Platelet Volume 9.2 fL (7.4-10.4); Platelet Count 220 thou/uL (130-400); RBC Distribution Width 16.3 % (11.5-14.5); Red Blood Cell (RBC) Count 2.85 mill/uL (4.20-5.40); White Blood Cell (WBC) Count 22.2 thou/uL (4.8-10.8)
--- NOTE | 2019-11-17 17:11 | PRG ---
DATE OF SERVICE: 11/17/2019 Ms. Tate is doing well today. Her left arm fistula has good thrill and bruit. She has good hand function. At this point, I would recommend, she can be discharged anytime from a surgical standpoint. I will see her in the office in 3 to 4 weeks. She should use her left arm unrestricted and exercise it to promote fistula maturation. Follow up in my office in 3 to 4 weeks. Job ID: [id number]
--- NOTE | 2019-11-17 17:34 | PDOC.CPN ---
- Subjective Date: 11/17/19 Time: 17:31 Interval history: She is doing well. She had her fistula placed yesterday without issues. - Review of Systems General: denies: fever/chills, weight/appetite/sleep changes, night sweats, fatigue Respiratory: denies: cough, congestion, shortness of breath, exercise intolerance Cardiovascular: denies: chest pain, palpitation, edema, paroxysmal nocturnal dyspnea, orthopnea Gastrointestinal: denies: nausea, vomiting, diarrhea, constipation, abd pain, GI bleeding Musculoskeletal: denies: pain, tenderness, stiffness, swelling, arthritis/ arthralgias Neurological: denies: numbness, syncope, seizure, weakness - Objective Allergies/Adverse Reactions: Allergies Allergy/AdvReac Type Severity Reaction Status Date / Time clopidogrel Allergy Verified 10/23/19 19:22 lisinopril Allergy Verified 10/23/19 19:22 Visit Medications: Current Medications Acetaminophen (Tylenol) 1,000 mg PO Q6H PRN PRN Reason: Moderate to Severe Pain (6-10) Last Admin: 11/17/19 13:34 Dose: 1,000 mg Albuterol/Ipratropium (Duoneb) 3 ml EZPAP Q6H PRN PRN Reason: SOB &/or Wheezing Last Admin: 11/05/19 09:58 Dose: 3 ml Aspirin (Ecotrin) 81 mg PO DAILY [facility] Last Admin: 11/17/19 12:43 Dose: 81 mg Atorvastatin Calcium (Lipitor) 40 mg PO HS [facility] Last Admin: 11/16/19 20:40 Dose: Not Given Atropine Sulfate (Atropine) 0.5 mg IVP PRN PRN PRN Reason: SYMPTOMATIC BRADYCARDIA<40 BPM Carvedilol (Coreg) 3.125 mg PO BID-[facility] Last Admin: 11/17/19 16:40 Dose: 3.125 mg Cholecalciferol (Vitamin D3) 1,250 units PO DAILY [facility] Last Admin: 11/17/19 12:43 Dose: 1,250 units Coenzyme Q10 (Coenzyme Q10) 100 mg PO BID [facility] Last Admin: 11/17/19 12:42 Dose: 100 mg Epoetin Andrew-epbx (Retacrit) 7,500 unit SC Q7D [facility] Last Admin: 11/17/19 12:43 Dose: 7,500 unit Folic Acid (Folvite) 1 mg PO DAILY [facility] Last Admin: 03/10/20 12:43 Dose: 1 mg Heparin Sodium (Porcine) (Heparin) 5,000 units SC TID [facility] Last Admin: 11/17/19 16:40 Dose: 5,000 units Hydralazine HCl (Apresoline) 5 mg SLOW IVP Q15MIN PRN PRN Reason: SBP Greater Than 180 Last Admin: 10/27/19 21:15 Dose: 5 mg Nitroglycerin (Nitrostat) 0.4 mg SL Q5MIN PRN PRN Reason: Chest Pain Ondansetron HCl (Zofran Odt) 4 mg PO Q6H PRN PRN Reason: Nausea/Vomiting Ondansetron HCl (Zofran) 4 mg IVP Q6H PRN PRN Reason: Nausea/Vomiting Senna (Senokot) 2 tab PO BID [facility] Last Admin: 11/17/19 07:25 Dose: Not Given Sodium Chloride (Flush - Normal Saline) 10 ml IVF Q12HR [facility] Last Admin: 11/17/19 07:25 Dose: Not Given Sodium Chloride (Flush - Normal Saline) 10 ml IVF PRN PRN PRN Reason: Saline Flush Tramadol HCl (Ultram) 50 mg PO Q4H PRN PRN Reason: Pain 1-5 Vital Signs & Weight: Vital Signs Temp Pulse Ox 11/17/19 16:00 99.2 F 11/17/19 12:00 98.0 F 11/17/19 07:27 94 L Admit Weight 127 lb 6.835 oz Weight 129 lb 3.054 oz - Quality Measures Condition: Atrial Fibrillation/Flutter (hx or current), Coronary Artery Disease , Heart Failure CV meds: Beta Jose: Yes, VANITA/ARB: No, Statin: Yes, ASA: Yes, Plavix/Effient/ Brilinta: No, Anticoagulant: Yes - Medication Contraindications No VANITA/ARB reason: Medical contraindication (CKD) - Physical Exam General: alert & oriented x3 HEENT: mucus membranes moist Neck: supple neck Cardiac: regular rate and rhythm Lungs: normal breath sounds Neuro: grossly intact Abdomen: active bowel sounds Extremities: no edema Skin: clear Musculoskeletal: no pain - Labs Result Diagrams: 11/17/19 14:18 11/17/19 03:51 Troponin/CKMB CK-MB (CK-2) 1.1 ng/mL (0-6.6) 11/08/19 03:25 Troponin I 0.623 ng/mL (< 0.028) H* 11/08/19 03:25 - Telemetry Sinus rhythms and dysrhythmias: sinus rhythm - Assessment/Plan Assessment/Plan: 1. Acute on chronic systolic heart failure. 2. CAD s/p CABG 3. 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 Paroxysmal afib 5. Hypokalemia, resolved. 6. Symptomatic bradycardia. 7. 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 PLAN: - Continue BB alone. - No amiodarone for now. - HD for fluid removal. - CV stable. May discharge at any point from cardiac point of view. - Follow up in our device clinic and with myself in 1 month. . - Will sign off. Please call with any questions.
[2019-11-17] MEDS: Atorvastatin Calcium 40 MG TAB PO SCH (20:40)
[2019-11-18] MEDS: Acetaminophen 500 MG TAB PO PRN (01:49)
[2019-11-18 05:11] VITALS: BMI 22.4
[2019-11-18 05:31] LABS: Anion Gap 13 mmol/L (10-20); BUN (Urea Nitrogen) 29 mg/dL (9.8-20.1); Calc. Creatinine Clearance 17 mL/min (70-130); Calcium 8.6 mg/dL (7.8-10.44); Carbon Dioxide 28 mmol/L (23-31); Chloride 101 mmol/L (98-107); Estimated GFR-MDRD 17; Glucose 103 mg/dL (83-110); Potassium 4.1 mmol/L (3.5-5.1); Sodium 138 mmol/L (136-145)
--- NOTE | 2019-11-18 06:27 | PDOC.FM ---
- Subjective Subjective: Pt states she is feeling stronger. Denies any CP, SOB. Pt accepted to inpt rehab. Pt eager to be d/c'd to rehab. - Objective MAR Reviewed: Yes Vital Signs & Weight: Vital Signs (12 hours) Temp Pulse Resp BP BP Pulse Ox 11/18/19 04:00 97.6 F 66 18 112/55 L 92 L 11/18/19 03:16 95 11/18/19 01:30 97.7 F 67 18 121/58 L 96 11/17/19 23:42 97.5 F L 11/17/19 19:44 97.6 F Weight Admit Weight 57.8 kg Weight 63.095 kg Most Recent Monitor Data Heart Rate from ECG 67 NIBP 135/51 NIBP BP-Mean 79 Respiration from ECG 19 SpO2 100 I&O: 11/16/19 11/17/19 11/18/19 06:59 06:59 06:59 Intake Total 7075 073 9807 Output Total 650 2150 Balance 460 360 -1000 Result Diagrams: 11/17/19 14:18 11/18/19 04:55 Phys Exam - Physical Examination Constitutional: NAD HEENT: moist MMs, sclera anicteric Neck: supple, full ROM Respiratory: no wheezing, no rales, no rhonchi, clear to auscultation bilateral Cardiovascular: RRR, no rub Gastrointestinal: soft, non-tender, no distention, positive bowel sounds Musculoskeletal: no edema, pulses present Neurological: non-focal, moves all 4 limbs Psychiatric: normal affect, A&O x 3 Skin: normal turgor, cap refill <2 seconds Dx/Plan (1) Acute respiratory failure with hypoxia Code(s): J96.01 - ACUTE RESPIRATORY FAILURE WITH HYPOXIA Status: Acute (2) Atrial fibrillation Code(s): I48.91 - UNSPECIFIED ATRIAL FIBRILLATION Status: Acute (3) HLD (hyperlipidemia) Code(s): E78.5 - HYPERLIPIDEMIA, UNSPECIFIED Status: Acute (4) CAD (coronary artery disease) Code(s): I25.10 - ATHSCL HEART DISEASE OF [place] CORONARY ARTERY W/O ANG PCTRS Status: Chronic Qualifiers: Coronary Disease-Associated Artery/Lesion type: bypass graft [place] vs. transplanted heart: [place] heart (5) HTN (hypertension) Code(s): I10 - ESSENTIAL (PRIMARY) HYPERTENSION Status: Chronic Qualifiers: Hypertension type: essential hypertension Qualified Code(s): I10 - Essential (primary) hypertension (6) CHF (congestive heart failure) Code(s): I50.9 - HEART FAILURE, UNSPECIFIED Status: Suspected - Plan Plan: This is a 79 yo female with a pmh of CAD with CABG, MV regurg, HLD, HTN, now in ESRD on HD: Tachy-j[place] syndrome - pacemaker per Dr. Artis 11/12 - continue beta-christen, no amiodarone unless a fib recurs - will need rehab upon d/c ESRD on HD - Procedure for HD access Wednesday 11/15 per Moe. Appreciate recs. Pt tolerated procedure well. - See op note for details on procedures - Nephro, Dr. Hoff consulted. HD 3x week, //Sat. Normocytic anemia, stable - likely secondary to ESRD - on epogen. Transfuse prn. Acute hypoxic respiratory failure 2/2 flash pulmonary edema, recurrent pulm edema - pulm consulted, rec keeping O2 sats at 90% - wean O2 as tolerated. - continue walking as tolerated HTN emergency, resolved - monitor. Continue current meds. HFrEF - Dr. Artis consulted. appreciate recs. - HD Leukocytosis - stable Atrial fibrillation, now in sinus rhythm w/ bradycardia - Cardiology consulted. Appreciate recs. - BB CAD s/p CABG -Continue asa, work up as above COPD -Long standing smoking history Code: Full DVT Prophylaxis: heparin GI Prophylaxis: none Plan: continue inpatient care. rehab s/p discharge. Anticipate D/C to inpatient rehab today. Addendum - Attending - Attending Attestation Date/Time: 11/18/19 5784 I personally evaluated the patient and discussed the management with Dr. Gonzalez. I agree with the History, Examination, Assessment and Plan documented above with any addition or exceptions noted below. Patient feels well. Oxygenating well on O2 by [place]. She has been accepted for rehab and should be stable for transfer there today.
[2019-11-18] MEDS: Aspirin 81 mg Enteric Coated Tablet PO SCH (09:34)
[2019-11-18] MEDS: Carvedilol 3.125 MG TAB PO SCH ×2 (09:34→17:02)
[2019-11-18] MEDS: Heparin 5,000 UNITS/ML VIAL SC SCH ×2 (09:36→14:54)
[2019-11-18] MEDS: Folic Acid 1 MG TAB PO SCH (09:36)
[2019-11-18] MEDS: Ubidecarenone 50 MG CAP PO SCH (09:37)
[2019-11-18] MEDS: Senokot 8.6 MG TAB PO SCH (09:38)
[2019-11-18 15:44] VITALS: BP 129/60; TEMP 98.8
--- NOTE | 2019-11-19 14:01 | DIS ---
DATE OF ADMISSION: 10/23/2019 DATE OF DISCHARGE: 11/18/2019 DISCHARGE ATTENDING: Cr Stanton MD. CONSULTS: Case Management; Gastroenterology, Dr. Horne; General Surgery, Dr. Rosa; Nephrology, Dr. Hoff; Pulmonology, Dr. Costa; Cardiac Rehab; CV Team; PT/OT eval/treat; and Palliative Care. PROCEDURES: King placement on 10/24, intubation on 10/23, extubation unsure, OG placement on 10/26, one unit of packed red blood cells on 11/06, Trialysis catheter placement for hemodialysis placed on 11/08, 1 unit of packed red blood cells on 11/11, pacemaker placement on 11/12, IJ right hemodialysis catheter and triple-lumen catheter in the left femoral and left fistula of the right upper extremity on 11/[address] Rosa. DIAGNOSES: 1. Acute respiratory failure with hypoxia. 2. Tachy-[place] syndrome. 3. End-stage renal disease, on hemodialysis. 4. Normocytic anemia. 5. Acute flash pulmonary edema and recurrent pulmonary edema. 6. Hypertensive emergency, resolved. 7. Heart failure, reduced ejection fraction. 8. Leukocytosis. 9. Atrial fibrillation. Now in sinus rhythm with bradycardia. 10. Coronary artery disease, status post CABG. 11. Chronic obstructive pulmonary disease. DISCONTINUED MEDICATIONS: 1. Amiodarone. 2. Losartan. 3. Lasix. 4. Lisinopril. 5. Zosyn. 6. Albumin. HISTORY OF PRESENT ILLNESS/HOSPITAL COURSE: MS. Tate is a 79-year-old female, who came to the emergency department due to shortness of breath and bilateral lower extremity edema. She was found to have bilateral pulmonary effusions and developed flash pulmonary edema. She was intubated and admitted to the ICU. The patient also has a history of paroxysmal AFib. While in her hospital course, she developed tachy-j[place] syndrome. There was evidence that the patient was going to require a pacemaker, but the patient has to get stronger before this placement could take place. The patient also has new onset heart failure with reduced ejection fraction. For this, Cardiology was consulted with Dr. Artis. The patient developed ESRD and Dr. Hoff was consulted and the patient eventually received hemodialysis and will require it 3 times a week. The patient required high-flow nasal cannula for many days and was eventually weaned off as a high-flow O2 regular nasal cannula oxygen, averaging between 2 and 3 L of oxygen with an oxygen saturation between 90% to 96%. She did well with PT and OT and was starting to regain some of her strength. Due to her extended hospital stay and weakness and inability to return home at her baseline, the patient is a perfect candidate for inpatient rehab. Dr. Artis recommends that the patient remain on Eliquis and would like to follow up with her in the [facility] in 1 month. DISPOSITION: Stable upon discharge. DISCHARGE INSTRUCTIONS: 1. Location: To inpatient rehab. 2. Diet: Renal high-protein. 3. Activity: As tolerated and her PT, OT treatment and follow up with Cardiac Rehab, Dr. Rosa in 3-4 weeks, Dr. [facility] in 4 weeks, primary care physician 1 week from discharge from inpatient rehab and Dr. Hoff in 14 days. Job ID: [id number]
== END 2019-11-18 19:07 | DRG 242 ==
LOC: ERS 16:47 → CCU 19:04 → 2NO 10-27 16:21 → IMCU/EMU 11-07 10:20 → 2SE 11-18 01:31
PROVIDERS: ADMIT Family Medicine; ATTEND Family Medicine
PROC: 5A1945Z Respiratory Ventilation, 24-96 Consecutive Hours (ICD-10-PCS; 2019-10-23)
PROC: 0BH17EZ Insertion of Endotracheal Airway into Trachea, Via Natural or Artificial Opening (ICD-10-PCS; 2019-10-23)
PROC: 30233N1 Transfusion of Nonautologous Red Blood Cells into Peripheral Vein, Percutaneous Approach (ICD-10-PCS; 2019-11-04)
PROC: 5A1D70Z Performance of Urinary Filtration, Intermittent, Less than 6 Hours Per Day (ICD-10-PCS; 2019-11-09)
PROC: 02HV33Z Insertion of Infusion Device into Superior Vena Cava, Percutaneous Approach (ICD-10-PCS; 2019-11-09)
PROC: 5A09357 Assistance with Respiratory Ventilation, Less than 24 Consecutive Hours, Continuous Positive Airway Pressure (ICD-10-PCS; 2019-11-10)
PROC: 0JH606Z Insertion of Pacemaker, Dual Chamber into Chest Subcutaneous Tissue and Fascia, Open Approach (ICD-10-PCS; principal; 2019-11-13)
PROC: 02H63JZ Insertion of Pacemaker Lead into Right Atrium, Percutaneous Approach (ICD-10-PCS; 2019-11-13)
PROC: 02HK3JZ Insertion of Pacemaker Lead into Right Ventricle, Percutaneous Approach (ICD-10-PCS; 2019-11-13)
PROC: 031C0ZF Bypass Left Radial Artery to Lower Arm Vein, Open Approach (ICD-10-PCS; 2019-11-16)
PROC: 06HY33Z Insertion of Infusion Device into Lower Vein, Percutaneous Approach (ICD-10-PCS; 2019-11-16)
PROC: 0JH63XZ Insertion of Tunneled Vascular Access Device into Chest Subcutaneous Tissue and Fascia, Percutaneous Approach (ICD-10-PCS; 2019-11-16)
PROC: B518ZZA Fluoroscopy of Superior Vena Cava, Guidance (ICD-10-PCS; 2019-11-16)
PROC: 06HY33Z Insertion of Infusion Device into Lower Vein, Percutaneous Approach (ICD-10-PCS; 2019-11-16)
DX: I13.2 Hypertensive heart and chronic kidney disease with heart failure and with stage 5 chronic kidney disease, or end stage renal disease (principal); I50.43 Acute on chronic combined systolic (congestive) and diastolic (congestive) heart failure; N18.6 End stage renal disease; J96.21 Acute and chronic respiratory failure with hypoxia; N17.0 Acute kidney failure with tubular necrosis; I16.1 Hypertensive emergency; E87.2 Acidosis; I25.10 Atherosclerotic heart disease of native coronary artery without angina pectoris; E78.5 Hyperlipidemia, unspecified; I48.0 Paroxysmal atrial fibrillation; E87.6 Hypokalemia; D72.829 Elevated white blood cell count, unspecified; D63.1 Anemia in chronic kidney disease; R79.89 Other specified abnormal findings of blood chemistry; I34.0 Nonrheumatic mitral (valve) insufficiency; J44.9 Chronic obstructive pulmonary disease, unspecified; R00.1 Bradycardia, unspecified; R31.9 Hematuria, unspecified; I49.5 Sick sinus syndrome; I45.10 Unspecified right bundle-branch block; Z95.1 Presence of aortocoronary bypass graft; Z90.49 Acquired absence of other specified parts of digestive tract; Z98.1 Arthrodesis status; Z90.710 Acquired absence of both cervix and uterus; Z79.899 Other long term (current) drug therapy; Z79.82 Long term (current) use of aspirin; Z88.8 Allergy status to other drugs, medicaments and biological substances; Z87.891 Personal history of nicotine dependence
CPT/HCPCS: 31500; 33213; 36415; 36416; 36430; 51702; 71045; 75820; 76770; 80048; 80053; 80061; 81001; 81003; 81015; 82274; 82550; 82553; 82565; 82607; 82728; 82805; 83036; 83516; 83520; 83540; 83550; 83605; 83690; 83735; 83880; 84100; 84145; 84443; 84484; 85007; 85014; 85018; 85025; 85027; 85049; 85060; 85379; 86038; 86225; 86256; 86706; 86850; 86900; 86901; 87040; 87086; 87340; 87804; 90935; 93005; 93010; 93306; 93798; 93970; 94002; 94003; 94640; 94644; 94660; 94760; 96361; 96365; 96367; 96372; 96375; 96376; C1752; C1769; C1785; C1898; G0257; G0365; J0282; J0360; J0456; J0690; J0696; J1100; J1580; J1642; J1644; J1650; J1940; J2001; J2250; J2405; J2543; J2704; J2720; J3010; J3475; J3480; J3490; J7050; J7070; J7611; J7620; P9016; P9047; Q0163; Q5105; Q9967; S0020; S0028

== ENCOUNTER 2019-11-23 07:37 | Inpatient (IN) | payer MEDICARE ==
--- NOTE | 2019-11-23 09:44 | RAD ---
PORTABLE CHEST: HISTORY: Shortness of breath, dizziness. COMPARISON: A 11/20/2015 study. FINDINGS: Heart size appears slightly enlarged. There is postop sternotomy change and a pacemaker. The parenc hymal lung changes are similar to that prior examination. The changes in the left mid lung field zeinab ear slightly more consolidated and slight increased markings within the right lung base. Some of the se changes can be explained by slight differences in technique. IMPRESSION: Parenchymal lung changes which are not improved. Slightly more consolidated appearance in the left m id lung field and slightly increased markings in the right lower lobe, although overall changes are f airly minimal and could be largely technique-related due to slight differences in positioning. POS: C
[2019-11-23] MEDS ORDERED: Heparin 10,000 UNITS/ 10 ML VIAL ONE (10:32)
[2019-11-23] MEDS ORDERED: Vancomycin 1 GM/200 ML BAG ONE (11:12)
[2019-11-23] MEDS ORDERED: Cefepime 2 GM VIAL ONE (11:12)
--- NOTE | 2019-11-23 11:22 | PDOC.FPRHP ---
- History of Present Illness Chief Complaint: "my o2 sats are low" History of Present Illness: 79 y/o F with pmhx of ESRD on HD, CAD s/p CABG, and tachy-dayday syndrom s/p pacemaker placement. Pt was sent over from inpt rehab due to SOB and increased work of breathing that started at 2 AM overnight. She then worsened at 4 AM. Pt was hypoxic. Pt c/ o increased swelling in LE's, palpitations, plueritic CP, and cough with clear sputum production. Pt states her CP does not radiate, described as a pressure substernal, and is worsened with deep breathing. Nothing makes it better. C/o N , denies v/d. She has "a little cough", "a little clear production." She denies fevers, chills , sweats. Dialysis TThS. States the swelling in her leg has been worse. She states nausea comes and goes. ED course: CXR: no worsening form previous studies, L mid lung consolidation, R lung base increased markings, and parenchymal changes not improved. Given: cefepime and vanc. - Allergies/Adverse Reactions Allergies Allergy/AdvReac Type Severity Reaction Status Date / Time clopidogrel Allergy Verified 10/23/19 19:22 lisinopril Allergy Verified 10/23/19 19:22 - Home Medications Medication Instructions Recorded Confirmed Type Aspirin [Ecotrin Low Strength] 81 mg PO DAILY 10/23/19 10/23/19 History Cholecalciferol (Vitamin D3) 1,250 mcg PO DAILY 10/23/19 10/23/19 History [Vitamin D3] Folic Acid 1.2 mg PO DAILY 10/23/19 10/23/19 History Ubidecarenone [Co Q-10] 100 mg PO BID 10/23/19 10/23/19 History Amlodipine [Norvasc] 10 mg PO DAILY tab 11/01/19 Rx Atorvastatin Calcium [Lipitor] 40 mg PO HS tab 11/01/19 Rx Ipratropium/Albuterol Sulfate 3 ml EZPAP Q6H PRN neb 11/01/19 Rx [DuoNeb] [place]-3S/DHA/EPA/Fish Oil [[place]-3 1 each PO BID 11/05/19 11/05/19 History Fish Oil 1,200 mg Sfgl] Acetaminophen [Tylenol Extra 1,000 mg PO Q6H PRN tab 11/18/19 Rx Strength] Epoetin Andrew-Epbx [Retacrit] 7,500 unit SC Q7D vial 11/18/19 Rx Heparin 5,000 units SC TID vial 11/18/19 Rx Nitroglycerin [Nitrostat] 0.4 mg SL Q5MIN PRN tab 11/18/19 Rx Ondansetron [Zofran ODT] 4 mg PO Q6H PRN tab 11/18/19 Rx traMADol HCl [Ultram] 50 mg PO Q4H PRN tab 11/18/19 Rx - History PMHx: HLD, Tachy-dayday syndrome, ESRD on HD t/r/sat, HTN, CAD s/p CABG in 2010 PSHx: CABG, L4/L5 fusion, Hyst, Appy, pacemaker, HD cath R IJ, L femoral placement and fistula LUE FHx: Dad prostate cancer, brothers of lung cancer. Social: Previous 50+py smoking history, quit in 2010. No illicits or EtOH. Single. 1 child. - Review of Systems General: denies: fever/chills, weight/appetite/sleep changes, night sweats ENT: denies: nasal congestion Respiratory: reports: cough, congestion, shortness of breath, exercise intolerance Cardiovascular: reports: chest pain, palpitation, edema, paroxysmal nocturnal dyspnea, orthopnea Gastrointestinal: reports: nausea. denies: vomiting, diarrhea, abdominal pain Skin: denies: rashes, lesions Musculoskeletal: reports: swelling. denies: pain Neurological: reports: weakness, other (dizziness). denies: syncope, seizure - Vital signs BP: 137/90 HR: 71 RR: 16 Tmax: 98.4 Pox: 90% on 5L Wt: 54kg - Physical Exam Constitutional: NAD, awake, alert and oriented HEENT: normocephalic and atraumatic, PERRLA, EOMI, conjunctiva clear, no scleral icterus, grossly normal vision, grossly normal hearing, MMM, oropharynx clear Neck: supple, FROM, no LAD, no JVD Chest: no-tender to palpation, no lesions Heart: RRR, pulses present, no edema, other (2/6 systolic murmur) Lungs: other (bibasilar crackles Mild respiraotry distress speaks in full sentences. fair air movement. Lip pursing and prolonged expiratory phase.) Abdomen: non-tender, bowel sounds present, other (slightly distended abd) Musculoskeletal: normal structure, ROM grossly normal Neurological: no focal deficit, CN II-XII intact Skin: no rash/lesions, good turgor, capillary refill <2 seconds, no jaundice Heme/Lymphatic: no purpura, no petechia Psychiatric: normal mood and affect, good judgment and insight, intact recent and remote memory FMR H&P: Results - Radiology Interpretation Chest x-ray Status: report reviewed by me (no worsening form previous studies, L mid lung consolidation, R lung base increased markings, and parenchymal changes not improved) FMR H&P: A/P - Problem List (1) ESRD (end stage renal disease) on dialysis Current Visit: Yes Status: Acute Code(s): N18.6 - END STAGE RENAL DISEASE; Z99.2 - DEPENDENCE ON RENAL DIALYSIS (2) Acute respiratory failure with hypoxia Current Visit: No Status: Acute Code(s): J96.01 - ACUTE RESPIRATORY FAILURE WITH HYPOXIA (3) HLD (hyperlipidemia) Current Visit: No Status: Acute Code(s): E78.5 - HYPERLIPIDEMIA, UNSPECIFIED (4) CAD (coronary artery disease) Current Visit: No Status: Chronic Code(s): I25.10 - ATHSCL HEART DISEASE OF [place] CORONARY ARTERY W/O ANG PCTRS Qualifiers: Coronary Disease-Associated Artery/Lesion type: bypass graft [place] vs. transplanted heart: [place] heart (5) HTN (hypertension) Current Visit: No Status: Chronic Code(s): I10 - ESSENTIAL (PRIMARY) HYPERTENSION Qualifiers: Hypertension type: essential hypertension Qualified Code(s): I10 - Essential (primary) hypertension (6) CHF (congestive heart failure) Current Visit: No Status: Suspected Code(s): I50.9 - HEART FAILURE, UNSPECIFIED (7) Pneumonia Current Visit: Yes Status: Acute Code(s): J18.9 - PNEUMONIA, UNSPECIFIED ORGANISM Qualifiers: Pneumonia type: due to unspecified organism - Plan 79 y/o F with ESRD on HD admitted for acute hypoxic respiratory failure, most likely 2/2 pulmonary edema from volume overloadvs pneumonia. 1. Acute Hypoxic Respiratory Failure 2/2 pulmonary edema from ESRD vs pneumonia - consulted Dr. Hoff, who will perform HD today. - Procal 0.37, will start levaquin for CAP coverage and risk factors for pseudomonas: recent intubation, prolonged course of IV antibiotics. Blood ccx's drawn, will adjust antibiotics pending ccx results - Levaquin to be dosed for HD - Pt given vanc and cefepime in ER. - WBC 19.5, hx of leukocytosis - CXR: no worsening form previous studies, L mid lung consolidation, R lung base increased markings, and parenchymal changes not improved 2. Plueritic CP - ordered Trop and EKG to evaluate for ACS - Most likely 2/2 pleural effusion. 3. Leukocytosis - hx of elevated WBC in previous admission - procal pending - antibiotics pending procal and improvement from HD. 4. Hx of HFrEF - recent echo: - continue home medications 5. a fib - continue home meds and eliquis 2.[address] Artis. -EKG pending, rate controlled at time of exam. 6. Hx of CAD, s/p CABG - EKG and trops pending. - has been stable in previous admission. 7. Hx of COPD - This could be a contributor to the acute hypoxia. ABG pending. Pt pursing lips for breathing. - Bipap is CO2 retaining. 8. Hx of Tachy-dayday syndrome - S/P pacemaker placement 9. ESRD on HD - Nephrology Dr Hoff consulted, appreciate recommendations - dialysis today. Code status: full code diet: renal high protein dvt ppx: blair food concession manager: Chandra vulcanizing press operator: Luis Eduardo Drywall Taper Helper: Igor Dispo: stable, admit to IMCU for HD, and IV levaquin for acute hypoxic respiratory failure. FMR H&P: Upper Level - Plan Date/Time: 11/23/19 1122 PCP: Armando- PCP HPI: This is a 79 yo F who recently discharged after long admission for pulmonary edema which ultimately resulted in her starting dialysis and getting a pacemaker placed. PMH includes ESRD, Tachy-dayday syndrome, anemia, HTN, HFrEF, pAfib, Cad s/p CABG, COPD. Patient comes in for shortness of breath which started this morning around 2-4 am. She states she just feels like she cant take a full deep breath. She states she maybe has some chest pressure but it comes and goes. Nothing exacerbates or alleviates it. She is on dialysis T-. She denies fevers, chills, sweats, N/ V/D. PHYSICAL EXAMINATION: General: NAD, alert and oriented x3 HEENT: PERRLA, EOMI, normal sclera, oropharynx without erythema or exudate Neck: Supple. Full ROM. Heart/Cardiovascular System: RRR, Cap refill < 3 seconds, no rub, no murmur Lungs/Respiratory System: rales at bases bilaterally, no resp distress Abdomen/Gastro-Intestinal System: normal bowel sounds, nontender Extremities: Warm extremities. No cyanosis or edema Neuro: No gross deficits appreciated. CN 2-12 grossly intact Psychiatry: Awake, Alert and cooperative with exam Skin: no rashes, ulcers Musculoskeletal: Full ROM A/P: # Acute Hypoxic Resp Failure 2/2 Fluid overload vs COPD Exacerbation vs Risk factors for VAP - Procal 0.37, WBC 19.5 (similar to last week), lactic 0.9, no fevers/chils - Will start levoquin - Had a long course of steroids and abx during recent hospitalization, will hold off on steroids for now - CXR similar to last week, increased consolidation R base - Dialysis this PM - EKG, BNP, troponin ordered - Suspect this is 2/2 volume overload # Tachy-Dayday Syndrome - s/p pacemaker # ESRD - as above # HTN, HFrEF, Afib - home meds
[2019-11-23] MEDS ORDERED: Nitroglycerin 0.4 MG TAB (25 Tab Bottle) SL PRN (12:03)
[2019-11-23] MEDS ORDERED: traMADol HCl 50 MG TAB PO PRN (12:03)
[2019-11-23 12:28] LABS: Actual Bicarbonate (HCO3v) 25 mEq/L (22-28); Analyzer IN Cardio ER; Base Excess 1.3 mEq/L (-2.0 to +3.0); Calcium, Ionized 1.12 mmol/L (1.16-1.32); Chloride (ABG LAB) 100 mmol/L (98-106); Hemoglobin (Hb) 8.7 g/dL (11.7-16.1); Sodium 133.1 mmol/L (133-146); pH (venous) 7.45 (7.32-7.43)
[2019-11-23 14:34] LABS: CKMB 0.7 ng/mL (0-6.6)
[2019-11-23 17:49] VITALS: BMI 19.8
[2019-11-23] MEDS: Atorvastatin Calcium 40 MG TAB PO SCH (19:54)
[2019-11-23] MEDS: Apixaban 2.5 MG TAB PO SCH (20:02)
[2019-11-23] MEDS: Fish Oil 1,000 MG CAP PO SCH (20:02)
[2019-11-23] MEDS ORDERED: Apixaban 2.5 MG TAB PO SCH (21:00)
[2019-11-24 04:17] LABS: #Eosinphils 0.1 thou/uL (0.0-0.7); #Lymphocytes 0.8 thou/uL (1.20-3.40); #Monocytes 1.4 thou/uL (0.11-0.59); #Neutrophils 13.1 thou/uL (1.40-6.50); %Basophils 0.1 % (0.0-1.0); %Eosinophils 0.8 % (0.0-10.0); %Lymphocytes 5.3 % (21.0-51.0); %Monocytes 9.2 % (0.0-10.0); %Neutrophils 84.7 % (42.0-75.0); Hemoglobin 7.2 g/dL (12.0-16.0); Mean Corpuscular Hemoglobin 31.5 pg (27.0-31.0); Mean Corpuscular Volume 98.5 fL (78.0-98.0); Mean Platelet Volume 9.5 fL (7.4-10.4); Platelet Count 279 thou/uL (130-400); RBC Distribution Width 16.6 % (11.5-14.5); Red Blood Cell (RBC) Count 2.29 mill/uL (4.20-5.40); White Blood Cell (WBC) Count 15.5 thou/uL (4.8-10.8)
[2019-11-24 04:29] LABS: Anion Gap 15 mmol/L (10-20); BUN (Urea Nitrogen) 27 mg/dL (9.8-20.1); Calc. Creatinine Clearance 19 mL/min (70-130); Calcium 8.7 mg/dL (7.8-10.44); Carbon Dioxide 28 mmol/L (23-31); Chloride 99 mmol/L (98-107); Estimated GFR-MDRD 22; Glucose 109 mg/dL (83-110); Potassium 3.7 mmol/L (3.5-5.1); Sodium 138 mmol/L (136-145)
[2019-11-24] MEDS ORDERED: diphenhydrAMINE 25 MG CAP PO PRN (06:23)
[2019-11-24] MEDS ORDERED: Loperamide HCl 2 MG CAP PO PRN (06:23)
[2019-11-24] MEDS ORDERED: Diabetic Tussin 200 MG/10 ML UDCUP PO PRN (06:23)
[2019-11-24] MEDS ORDERED: Calcium Carbonate 500 MG ChewTAB PO PRN (06:23)
[2019-11-24] MEDS ORDERED: cloNIDine 0.1 MG TAB PO PRN (06:23)
[2019-11-24] MEDS ORDERED: Simethicone Chewable 80 MG TAB PO PRN (06:23)
[2019-11-24] MEDS ORDERED: Cepastat Lozenges 1 LOZ PO PRN (06:23)
--- NOTE | 2019-11-24 06:26 | PDOC.FM ---
- Subjective Subjective: Pt resting well this morning. On high flow nasal canula, @ 10 L O2, O2 sat 92%. Had 1.5 L taken off in dialysis yesterday. No complaints of CP, states SOB is better, but still present. LE edema not present today. - Objective MAR Reviewed: Yes Vital Signs & Weight: Vital Signs (12 hours) Temp 11/24/19 04:00 98.3 F 11/24/19 00:00 98.4 F 11/23/19 20:00 99.0 F Weight Weight 55.792 kg Most Recent Monitor Data Heart Rate from ECG 72 NIBP 111/58 NIBP BP-Mean 75 Respiration from ECG 20 SpO2 93 I&O: 11/22/19 11/23/19 11/24/19 06:59 06:59 06:59 Intake Total 630 Output Total 100 Balance 530 Result Diagrams: 11/24/19 03:32 11/24/19 03:32 EKG Reviewed by me: Yes Phys Exam - Physical Examination Constitutional: NAD HEENT: moist MMs, sclera anicteric Neck: no JVD, supple crackles R lower lobe, deminished breath sounds on L base. Cardiovascular: RRR 2/6 sys murmur Gastrointestinal: soft, non-tender, no distention Musculoskeletal: no edema, pulses present Neurological: non-focal, normal sensation, moves all 4 limbs Psychiatric: normal affect, A&O x 3 Skin: no rash, normal turgor, cap refill <2 seconds Dx/Plan (1) ESRD (end stage renal disease) on dialysis Code(s): N18.6 - END STAGE RENAL DISEASE; Z99.2 - DEPENDENCE ON RENAL DIALYSIS Status: Acute (2) Acute respiratory failure with hypoxia Code(s): J96.01 - ACUTE RESPIRATORY FAILURE WITH HYPOXIA Status: Acute (3) HLD (hyperlipidemia) Code(s): E78.5 - HYPERLIPIDEMIA, UNSPECIFIED Status: Acute (4) CAD (coronary artery disease) Code(s): I25.10 - ATHSCL HEART DISEASE OF [place] CORONARY ARTERY W/O ANG PCTRS Status: Chronic Qualifiers: Coronary Disease-Associated Artery/Lesion type: bypass graft [place] vs. transplanted heart: [place] heart (5) HTN (hypertension) Code(s): I10 - ESSENTIAL (PRIMARY) HYPERTENSION Status: Chronic Qualifiers: Hypertension type: essential hypertension Qualified Code(s): I10 - Essential (primary) hypertension (6) CHF (congestive heart failure) Code(s): I50.9 - HEART FAILURE, UNSPECIFIED Status: Suspected (7) Pneumonia Code(s): J18.9 - PNEUMONIA, UNSPECIFIED ORGANISM Status: Acute Qualifiers: Pneumonia type: due to unspecified organism - Plan Plan: 79 y/o F with ESRD on HD admitted for acute hypoxic respiratory failure, most likely 2/2 pulmonary edema from volume overloadvs pneumonia. 1. Acute Hypoxic Respiratory Failure 2/2 pulmonary edema from ESRD vs pneumonia - consulted Dr. Hoff, who will perform HD 11/22. 1.5 L removed in HD - Procal 0.37, will start levaquin for CAP coverage and risk factors for pseudomonas: recent intubation, prolonged course of IV antibiotics. Blood ccx's drawn, will adjust antibiotics pending ccx results - Levaquin to be dosed for HD - Pt given vanc and cefepime in ER. - WBC 19.5-> 15.5, hx of leukocytosis - CXR: no worsening form previous studies, L mid lung consolidation, R lung base increased markings, and parenchymal changes not improved - Respiratory status improved, however still on high flow NC at 10 L, o2 sat 92% . - pulm consult, appreciate recs 2. Plueritic CP - Trop 0.035, likely elevated in setting on ESRD - Most likely 2/2 pleural effusion. 3. Leukocytosis - hx of elevated WBC in previous admission, trending down. - procal 0.035 - continue antibiotics until blood ccx's result 4. Hx of HFrEF - recent echo: EF 50% - continue home medications 5. a fib - continue home meds and eliquis 2.[address] Artis. -EKG pending, rate controlled at time of exam. 6. Hx of CAD, s/p CABG - EKG and trops pending. - has been stable in previous admission. 7. Hx of COPD - This could be a contributor to the acute hypoxia. ABG pending. Pt pursing lips for breathing. - continue home meds 8. 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 ESRD on HD - Nephrology Dr Hoff consulted, appreciate recommendations - dialysis 11/22. Code status: full code diet: renal high protein dvt ppx: eliquis ship loader: Chandra white sugar boiler: Luis Eduardo Operations Tech: Igor Dispo: stable, admit to IMCU for HD, and IV levaquin for acute hypoxic respiratory failure. Addendum - Attending - Attending Attestation Date/Time: 11/24/19 8555 I personally evaluated the patient and discussed the management with Dr. Gonzalez. I agree with the History, Examination, Assessment and Plan documented above with any addition or exceptions noted below.
[2019-11-24] MEDS ORDERED: DARBEPOETIN ALFA IN POLYSORBAT 40 MCG SC SCH (07:00)
[2019-11-24 07:14] LABS: Troponin I 0.037 ng/mL (< 0.028)
--- NOTE | 2019-11-24 07:17 | CON ---
DATE OF CONSULTATION: HISTORY OF PRESENT ILLNESS: Ms. Tate is a 79-year-old white female, who was admitted for mild shortness of breath with hypoxemia. Chest x-ray was done, which showed a stable chest x-ray. The issues were that she may be having COPD exacerbation and possible volume overload. For this reason, we were consulted for a maintenance hemodialysis. I have decided to do a short 2-hour hemodialysis with fluid removal with her. REVIEW OF SYSTEMS: Positive for cough. No fever or chills or sweats. Mild shortness of breath. No syncopal episode. ?Fever. No urinary frequency. No dysuria. No hematochezia. No melena. No hematemesis. MEDICATIONS: Currently on; 1. Aspirin 81 mg daily. 2. Vitamin D3 1250 mcg p.o. daily. 3. Folic acid 1.2 mg p.o. daily. 4. Coenzyme Q 100 mg p.o. b.i.d. 5. Amlodipine 10 mg daily. 6. Atorvastatin 40 mg tablet at bedtime. 7. DuoNeb q.6. 8. [place]-3 one tablet b.i.d. 9. Epogen 7500 units subcu q.7 days. 10. Tramadol p.r.n. PAST MEDICAL HISTORY: 1. ESRD-on maintenance hemodialysis. 2. History of tachy-bradycardia syndrome. 3. Hypertension. 4. Coronary artery disease. PAST SURGICAL HISTORY: Status post cardiac cath, status post CABG, status post back surgery, status post hysterectomy, status post appendectomy, status post pacemaker placement, status post right IJ hemodialysis catheter placement, status post AV fistula of left upper extremity. SOCIAL HISTORY: The patient was a heavy smoker. Smoked for 50 years 1 pack a day. No IV drug abuse. Single. One child. Lives in [place]. The patient is a retired massage therapist. Please note, the patient previously lived in [place]. ALLERGIES: LISINOPRIL, CLOPIDOGREL. TRAUMA: None. IMMUNIZATION: Up to date. HOSPITALIZATIONS: Please see past medical history. FAMILY HISTORY: No family history of ESRD. PHYSICAL EXAMINATION: VITAL SIGNS: Blood pressure is noted at 122/60, heart rate 72. GENERAL: Awake, in mild respiratory distress. SKIN: Adequate turgor. HEENT: She has pale conjunctivae. Anicteric sclerae. NECK: No neck mass. No carotid bruits. No JVD. CHEST: No deformities. LUNGS: Decreased breath sounds. HEART: Normal sinus rhythm. No murmur. No gallops. No rubs. ABDOMEN: Globular. Soft, nontender. No masses. EXTREMITIES: No edema. No deformities. NEUROLOGIC: Awake, oriented to 3 spheres. Moving all extremities. LABORATORY DATA: Laboratories of November 23, 2019; white count 19.5, hemoglobin 7.9, sodium 139, potassium 3.5, chloride 97, carbon dioxide 28, BUN 48, creatinine 3.41, glucose 94, calcium 9.2. Troponin I 0.035. ASSESSMENT AND PLAN: 1. End-stage renal disease, stable. We will continue current hemodialysis regimen. Due to the shortness of breath and possible congestive heart failure, we will do a 2-hour hemodialysis with fluid removal only as tolerated by the patient. 2. Leukocytosis. The patient has been started on empiric antibiotics. Currently, the patient is on Levaquin at 500 mg IV q.48 hours. 3. Anemia-Continue Epogen 7500 units q.7 days. Overall, prognosis remain guarded. Agree with current management. ADDENDUM: Please note that the patient's shortness of breath may be from an underlying COPD exacerbation and this may also explain her hypoxemia. Thank you for the consult. We will continue to follow. Job ID: [id number]
--- NOTE | 2019-11-24 07:32 | RAD ---
Chest one view HISTORY: Dyspnea. Dialysis. Evaluate volume. COMPARISON: 11/23/2019. FINDINGS: Cardiac silhouette is magnified and enlarged. Pulmonary vasculature remains engorged. Media stinum is midline with aortic calcification, postoperative changes, right internal jugular dialysis catheter, and a dual lead left subclavian cardiac electronic device. Patchy areas of parenchymal infiltrate throughout each lung and blunting of each costophrenic angle a re unchanged in appearance. No evidence of pneumothorax. monitoring specialist leads overlie the chest. IMPRESSION: Pulmonary vascular congestion, bilateral infiltrates, and other findings are stable.
[2019-11-24 08:23] LABS: Actual Bicarbonate (HCO3a) 27.8 mEq/L (22-28); Base Excess (BEa) 4.7 mEq/L (-2.0 to +3.0); CO2 Tension 34.6 mmHg (35.0-45.0); Calcium, Ionized 1.12 mmol/L (1.12-1.30); Carboxyhemoglobin (COHb) 1.8 gm% (0.0-3.0); Hemoglobin (Hb) 7.8 g/dL (12.0-16.0); O2 Tension (PaO2) 64.3 mmHg (> 70.0); pH, Arterial 7.52 (7.35-7.45)
[2019-11-24 08:27] LABS: Puncture Site RRA
[2019-11-24] MEDS ORDERED: CHOLECALCIFEROL 1250 MCG PO SCH (09:00)
[2019-11-24] MEDS ORDERED: FLU VACC TS2019-20(65YR UP)/PF 180 MCG/0.5 ML SYRINGE IM ONE (09:00)
--- NOTE | 2019-11-24 09:32 | PRG ---
DATE OF SERVICE: 11/24/2019 SUBJECTIVE: Ms. Tate is a 79-year-old white female with chronic renal failure/ESRD and was admitted for shortness of breath. At that time, she underwent an emergent hemodialysis due to the possibility of CHF. Her breathing is much improved this morning. She is now undergoing her regular dialysis schedule of Saturday, , and Saturday. No other complaints. OBJECTIVE: VITAL SIGNS: Blood pressure is 111/58, heart rate 72, respiratory rate 30, O2 saturation is 91%, and temperature is 98.4. GENERAL: Awake, alert, comfortable, not in overt distress. SKIN: Adequate turgor. HEENT: Slightly pale conjunctivae. Anicteric sclerae. NECK: No neck mass. No carotid bruits. No JVD. CHEST: No deformities. LUNGS: Clear breath sounds. HEART: Normal sinus rhythm. No murmur. No gallops. No rubs. ABDOMEN: Globular, soft, and nontender. No masses. EXTREMITIES: No edema. No deformities. MEDICATIONS: Medications of November 24, 2019, reviewed. LABORATORY DATA: Laboratories of November 24, 2019; white count 15.5, hemoglobin 7.2. Sodium 138, potassium 3.7, chloride 99, carbon dioxide 28, BUN 27, creatinine 2.19, glucose 109, and calcium 8.7. Troponin I 0.037. BNP is 1870. ASSESSMENT AND PLAN: 1. Chronic renal failure/end-stage renal disease, stable. We will continue current Saturday, , and Saturday hemodialysis regimen. Again, fluid removal as tolerated. 2. Shortness of breath - secondary to a congestive heart failure. Maxing out fluid removal with dialysis today. Breathing is improved after one dialysis yesterday. 3. Anemia. Continuing weekly Epogen. P.r.n. blood transfusion for hemoglobin less than 7. We will recheck basic metabolic panel and CBC in a.m. Job ID: [id number]
[2019-11-24] MEDS: Aspirin 81 mg Enteric Coated Tablet PO SCH (14:18)
[2019-11-24] MEDS: Amlodipine 10 MG TAB PO SCH (14:18)
[2019-11-24] MEDS: Folic Acid 1 MG TAB PO SCH (14:19)
[2019-11-24] MEDS: Carvedilol 3.125 MG TAB PO SCH ×2 (14:19→21:56)
[2019-11-24] MEDS: Ubidecarenone 50 MG CAP PO SCH ×2 (14:19→21:56)
[2019-11-24] MEDS: Fish Oil 1,000 MG CAP PO SCH ×2 (14:19→21:57)
[2019-11-24] MEDS: Apixaban 2.5 MG TAB PO SCH ×2 (14:20→21:58)
[2019-11-24] MEDS: Polyethylene Glycol 3350 17 GM Packet PO SCH (14:22)
[2019-11-24] MEDS ORDERED: EPOETIN ALFA-EPBX (ESRD) 4,000 UNIT/ML VIAL SC SCH (15:00)
--- NOTE | 2019-11-24 15:59 | PDOC.PALFU ---
Palliative Care Follow-up Note Attempted x2 to visit with patient to discuss goal of care and resuscitation status. Will follow up 11/25/2019
[2019-11-24] MEDS: Atorvastatin Calcium 40 MG TAB PO SCH (21:56)
[2019-11-24] MEDS: traZODone HCl 50 MG TAB PO SCH (21:57)
--- NOTE | 2019-11-24 22:57 | EKG ---
Test Reason : Blood Pressure : / mmHG Vent. Rate : 072 BPM Atrial Rate : 072 BPM P-R Int : 152 ms QRS Dur : 134 ms QT Int : 486 ms P-R-T Axes : 052 093 -10 degrees QTc Int : 532 ms Normal sinus rhythm Possible Left atrial enlargement Right bundle branch block Abnormal ECG When compared with ECG of 23-NOV-2019 13:46, (Unconfirmed) No significant change was found Confirmed by ELLIOT CALDWELL, DR. S. (4) on 11/24/2019 10:57:11 PM Referred By: PA Confirmed By:DR. Humberto ZARATE MD
[2019-11-25 04:08] LABS: #Eosinphils 0.3 thou/uL (0.0-0.7); #Lymphocytes 1.6 thou/uL (1.20-3.40); #Monocytes 1.6 thou/uL (0.11-0.59); #Neutrophils 9.3 thou/uL (1.40-6.50); %Basophils 0.1 % (0.0-1.0); %Eosinophils 2.6 % (0.0-10.0); %Lymphocytes 12.3 % (21.0-51.0); %Monocytes 12.2 % (0.0-10.0); %Neutrophils 72.7 % (42.0-75.0); Hemoglobin 7.4 g/dL (12.0-16.0); Mean Corpuscular HGB CONC 31.5 g/dL (32.0-36.0); Mean Corpuscular Hemoglobin 32.4 pg (27.0-31.0); Mean Platelet Volume 9.2 fL (7.4-10.4); Platelet Count 260 thou/uL (130-400); RBC Distribution Width 16.6 % (11.5-14.5); Red Blood Cell (RBC) Count 2.29 mill/uL (4.20-5.40); White Blood Cell (WBC) Count 12.8 thou/uL (4.8-10.8)
[2019-11-25 04:19] LABS: Anion Gap 13 mmol/L (10-20); BUN (Urea Nitrogen) 25 mg/dL (9.8-20.1); Calc. Creatinine Clearance 17 mL/min (70-130); Calcium 8.9 mg/dL (7.8-10.44); Carbon Dioxide 28 mmol/L (23-31); Chloride 99 mmol/L (98-107); Estimated GFR-MDRD 21; Glucose 97 mg/dL (83-110); Sodium 136 mmol/L (136-145)
--- NOTE | 2019-11-25 06:28 | PDOC.FM ---
- Subjective Subjective: Pt states she gets SOB with conversation and eating. On high flow NC @ 10 L and 95% O2 sat and resting comfortably this AM. No acute overnight events. Pt had 2 L taken off in HD yesterday. - Objective MAR Reviewed: Yes Vital Signs & Weight: Vital Signs (12 hours) Temp Pulse Ox 11/25/19 03:35 98.7 F 11/24/19 23:28 98.5 F 11/24/19 20:00 98.6 F 95 11/24/19 18:32 96 Weight Weight 54.6 kg Most Recent Monitor Data Heart Rate from ECG 67 NIBP 114/60 NIBP BP-Mean 78 Respiration from ECG 22 SpO2 97 I&O: 11/23/19 11/24/19 11/25/19 06:59 06:59 06:59 Intake Total 630 960 Output Total 100 50 Balance 530 910 Result Diagrams: 11/25/19 03:21 11/25/19 03:21 Phys Exam - Physical Examination Constitutional: NAD HEENT: moist MMs, sclera anicteric Neck: no JVD, supple, full ROM slight bibasilar crackles that clear with deep breaths. Cardiovascular: RRR sys murmur 2/6 Gastrointestinal: soft, non-tender, no distention, positive bowel sounds Musculoskeletal: no edema, pulses present Neurological: non-focal, moves all 4 limbs Psychiatric: normal affect, A&O x 3 Skin: no rash, normal turgor, cap refill <2 seconds Deviation from normal: eccymosis from IV RUE Dx/Plan (1) ESRD (end stage renal disease) on dialysis Code(s): N18.6 - END STAGE RENAL DISEASE; Z99.2 - DEPENDENCE ON RENAL DIALYSIS Status: Acute (2) Acute respiratory failure with hypoxia Code(s): J96.01 - ACUTE RESPIRATORY FAILURE WITH HYPOXIA Status: Acute (3) HLD (hyperlipidemia) Code(s): E78.5 - HYPERLIPIDEMIA, UNSPECIFIED Status: Acute (4) CAD (coronary artery disease) Code(s): I25.10 - ATHSCL HEART DISEASE OF [place] CORONARY ARTERY W/O ANG PCTRS Status: Chronic Qualifiers: Coronary Disease-Associated Artery/Lesion type: bypass graft [place] vs. transplanted heart: [place] heart (5) HTN (hypertension) Code(s): I10 - ESSENTIAL (PRIMARY) HYPERTENSION Status: Chronic Qualifiers: Hypertension type: essential hypertension Qualified Code(s): I10 - Essential (primary) hypertension (6) CHF (congestive heart failure) Code(s): I50.9 - HEART FAILURE, UNSPECIFIED Status: Suspected (7) Pneumonia Code(s): J18.9 - PNEUMONIA, UNSPECIFIED ORGANISM Status: Acute Qualifiers: Pneumonia type: due to unspecified organism - Plan Plan: 79 y/o F with ESRD on HD admitted for acute hypoxic respiratory failure, most likely 2/2 pulmonary edema from volume overloadvs pneumonia. 1. Acute Hypoxic Respiratory Failure 2/2 pulmonary edema from ESRD vs pneumonia - consulted Dr. Hoff, who will perform HD 11/22. 1.5 L removed in HD 11/22, and 2 L on 11/22 - Procal 0.37-> 0.59, will start levaquin for CAP coverage and risk factors for pseudomonas: recent intubation, prolonged course of IV antibiotics. Blood ccx's drawn, will adjust antibiotics pending ccx results - Levaquin to be dosed for HD, transitioned to PO - Pt given vanc and cefepime in ER. - WBC 19.5-> 15.5-> 12.8, hx of leukocytosis - CXR: no worsening form previous studies, L mid lung consolidation, R lung base increased markings, and parenchymal changes not improved - Respiratory status improved, however still on high flow NC at 10 L, o2 sat 95% . - pulm consult, Dr. Costa, appreciate recs. ordered RVP, HSV, CMV 2. Plueritic CP - Trop 0.035, likely elevated in setting on ESRD - Most likely 2/2 pleural effusion. 3. Leukocytosis - hx of elevated WBC in previous admission, trending down. - procal 0.035-> 0.59 - continue antibiotics until blood ccx's result - Transitioned to Po levaquin as pt does not want an IV. 4. Hx of HFrEF - recent echo: EF 50% - continue home medications 5. a fib - continue home meds and eliquis 2.[address] Artis. -EKG pending, rate controlled at time of exam. 6. Hx of CAD, s/p CABG - EKG and trops pending. - has been stable in previous admission. 7. Hx of COPD - This could be a contributor to the acute hypoxia. ABG pending. Pt pursing lips for breathing. - continue home meds 8. 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 ESRD on HD - Nephrology Dr Hoff consulted, appreciate recommendations - dialysis 11/22. Code status: full code diet: renal high protein dvt ppx: blair raisin washer: Chandra case finisher: Luis Eduardo Skidder: Igor Dispo: stable, admit to IMCU for HD, and levaquin for acute hypoxic respiratory failure, respiratory status improving. Addendum - Attending - Attending Attestation Date/Time: 11/25/19 3005 I personally evaluated the patient and discussed the management with Dr. Gonzalez. I agree with the History, Examination, Assessment and Plan documented above with any addition or exceptions noted below.
--- NOTE | 2019-11-25 07:51 | CON ---
DATE OF CONSULTATION: 11/24/2019 SERVICE: Pulmonary Medicine. REASON FOR CONSULTATION: Respiratory failure. HISTORY OF PRESENT ILLNESS: The patient is a very pleasant 79-year-old white female with past medical history significant for diastolic heart failure and mitral regurgitation. She was recently in the hospital for a protracted period of time. She had advanced respiratory failure that required high-flow nasal cannula for a long period of time. This was slowly weaned down to nasal cannula. Ultimately , she was discharged to rehabilitation facility about 4 days ago. She never felt that she was doing much better. Ultimately, she developed increasing difficulty breathing in the rehab center and was brought back to the emergency department. She did not have any recurrence in fevers, chills, nausea, vomiting, or diarrhea. Otherwise, there is no interval change to her condition. She is coughing. On occasion, she will bring up a little bit of white phlegm, but mostly, it is nonproductive. PAST MEDICAL HISTORY: 1. End-stage renal disease, requiring hemodialysis. 2. Hypertension. 3. Dyslipidemia. 4. Coronary artery disease, status post coronary artery bypass graft in 2010. 5. Tachy-jamaica syndrome. 6. Mitral regurgitation. PAST SURGICAL HISTORY: 1. Recent pacemaker placement. 2. Coronary artery bypass graft. 3. L4-L5 fusion. 4. Hysterectomy. 5. Appendectomy. 6. Right IJ tunneled hemodialysis catheter placement. 7. Left upper extremity fistula creation. SOCIAL HISTORY: She has a greater than [id number] history of smoking, but quit in 2010. Denies any alcohol or illicit drugs. She has no exposure to chemicals, dust, asbestos, or tuberculosis. FAMILY HISTORY: Noncontributory. ALLERGIES: 1. PLAVIX. 2. LISINOPRIL. 3. STATINS. MEDICATIONS: List of her inpatient medications was reviewed. No specific updates were made at this time. REVIEW OF SYSTEMS: General, head, ears, eyes, nose, throat, cardiovascular, respiratory, GI, , musculoskeletal, neurologic, and skin are negative except as mentioned in the HPI. PHYSICAL EXAMINATION: VITAL SIGNS: Afebrile, pulse 83, blood pressure 106/66, respirations 20, saturation 94%, currently on 50% FiO2 delivered via high-flow nasal cannula with 30 L flow. HEENT: Normocephalic and atraumatic. Sclerae are white. Conjunctivae are pink. Oral mucosa is moist without lesions. LUNGS: Decent air entry. No prolonged expiratory phase or wheezing is appreciated. HEART: Normal rate. Regular. ABDOMEN: Soft, nontender, and nondistended. Bowel sounds are positive. MUSCULOSKELETAL: No cyanosis or clubbing. There is no pitting in the bilateral lower extremities. NEUROLOGIC: Grossly nonfocal. LABORATORY DATA: WBC 15.5, hemoglobin 7.2, platelets are 279,000 and roughly stable. Monocyte count is normal. Lymphocyte count is slightly low. Absolute neutrophil count is elevated. A pH 7.52, pCO2 of 35, pO2 of 64 corresponding to saturation of 94% while on her high-flow nasal cannula. Creatinine 2.19. Basic metabolic profile is otherwise unremarkable. BNP 1800. Procalcitonin 0.37. Ionized calcium 1.1. Urinalysis was recently essentially unremarkable except for hematuria. Prior ANCAs and glomerular basement membrane antibodies were negative. ERIKA screen was negative. All culture results remain negative to date. IMAGING STUDIES: 1. Chest x-ray demonstrates bilateral interstitial infiltrates. They are in the left mid lung zone and in the most of the right lower lobe. I do not see any significant effusions or other consolidating infiltrates present. There is a suggestion of pulmonary vascular congestion as well. Compared to November 19, the left-sided lesions seemed to be a little improved. The right upper lobe lesions have improved, but there are new onset right lower lobe interstitial changes, which predominate. 2. Echocardiogram shows a normal ejection fraction. At that time, she had atrial bigeminy. Moderately elevated pulmonary artery pressures were identified. ASSESSMENT: 1. [id number] hypoxic respiratory failure. 2. Ubvyq-ci-keswojj diastolic heart failure. 3. Mitral regurgitation, moderate. 4. Tachy-jamaica syndrome, status post pacemaker placement. 5. Acute kidney injury on chronic kidney disease, stage 4, currently on dialysis for volume-related issues. Currently, she has appearance of being euvolemic. DISCUSSION AND PLAN: The patient has had a recurrence in her hypoxic respiratory failure. I will move forward with a CT scan of the chest to look for evidence of active inflammatory lung disease. If present, additional procedures may be indicated. I will do a respiratory virus panel looking for atypical forms of inflammation as well as a CMV and HSV PCR on the serum. Pulmonary/Critical Care will continue to follow, but Dr. Costa has an established relationship with Lea, and will resume coverage starting tomorrow. 70 minutes have been devoted to this patient in various activities. I personally reviewed all imaging studies and laboratory data noted within this document. For fifty percent of this time, I was interacting with the patient at the bedside or coordinating care with the care team. For the remainder of the time I was immediately available to the patient in the hospital unit. Job ID: [id number] MTDD
[2019-11-25] MEDS: Aspirin 81 mg Enteric Coated Tablet PO SCH (08:34)
[2019-11-25] MEDS: Polyethylene Glycol 3350 17 GM Packet PO SCH (08:35)
[2019-11-25] MEDS: Amlodipine 10 MG TAB PO SCH (08:35)
[2019-11-25] MEDS: Fish Oil 1,000 MG CAP PO SCH ×2 (08:35→21:14)
[2019-11-25] MEDS: Carvedilol 3.125 MG TAB PO SCH ×2 (08:36→21:14)
[2019-11-25] MEDS: Folic Acid 1 MG TAB PO SCH (08:36)
[2019-11-25] MEDS: Ubidecarenone 50 MG CAP PO SCH ×2 (08:36→21:14)
[2019-11-25] MEDS: Apixaban 2.5 MG TAB PO SCH ×2 (08:39→21:14)
--- NOTE | 2019-11-25 08:57 | RAD ---
XR Chest 1 View HISTORY: Pneumonia. COMPARISON: Prior day study. FINDINGS: Heart size is borderline with postop sternotomy change and pacemaker in place. Right-sided HemoSplit catheter is noted. Bilateral infiltrative lung changes are present. There is slight improvement to some of the changes within the right lung and left midlung field some of this differen ce is probably just technique related. IMPRESSION: Minimally improved infiltrative lung changes.
--- NOTE | 2019-11-25 09:25 | PRG ---
DATE OF SERVICE: 11/25/2019 SUBJECTIVE: Ms. Tate is a 79-year-old white female with chronic renal failure/ESRD, was admitted for shortness of breath. She was found to be in CHF. She underwent emergent hemodialysis with improvement with shortness of breath. This morning, she voices no new complaints. She denies any chest pain or any worsening shortness of breath. OBJECTIVE: VITAL SIGNS: Blood pressure 170/58, heart rate 67, O2 saturation 96%. GENERAL: Noted to be awake, alert, supine, comfortable, not in overt distress. SKIN: Adequate turgor. HEENT: She has pale conjunctivae. Anicteric sclerae. NECK: No neck mass. No carotid bruits. No JVD. CHEST: No deformities. LUNGS: Decreased breath sounds. HEART: Normal sinus rhythm. No murmur. No gallops. No rubs. ABDOMEN: Globular, soft, nontender, no masses. EXTREMITIES: No edema, no deformities. MEDICATIONS: Medications of November 25, 2019, reviewed. LABORATORY DATA: Laboratories of November 25, 2019, white count 12.8, hemoglobin 7.4. Sodium 136, potassium 4, chloride 99, carbon dioxide 28, BUN 25, creatinine 2.29. Calcium is 8.9. Procalcitonin is 0.59. ASSESSMENT AND PLAN: 1. Shortness of breath-secondary to congestive heart failure. Fluid removal with hemodialysis. 2. Chronic renal failure/endstage renal disease-continuing 3 times a week hemodialysis with fluid removal only as tolerated by the patient. 3. Anemia. Continue weekly Epogen with this patient, currently on 7500 units subcu q. week. P.r.n. blood transfusion for hemoglobin less than 7. Overall, I agree with current management. Job ID: [id number]
--- NOTE | 2019-11-25 12:43 | PRG ---
DATE OF SERVICE: 11/25/2019 SUBJECTIVE: Darlin Tate's events have been reviewed. She says she is feeling a little bit better. She is still on high-flow. OBJECTIVE: VITAL SIGNS: Heart rate is in the 60s, blood pressure 100/41, respiratory rate is in the 20s. LUNGS: She has crackles over lung bases. HEART: Regular rhythm. ABDOMEN: Soft. LABORATORY DATA: White count 12.8, hemoglobin 7.4, platelets 260,000. Electrolytes are normal. Creatinine 2.29. Chest radiograph reviewed shows mild improvement. IMPRESSION: 1. Volume overload. 2. Status post coronary artery bypass grafting. 3. Status post vascular access procedures. 4. Hypertension. 5. Renal failure. 6. Recent intubation for congestive heart failure. She had rapid clearing of her radiograph diuresis. Overall, she appears to be stable at this time. Job ID: [id number]
--- NOTE | 2019-11-25 13:17 | PDOC.PALCO ---
Palliative Care Consult - Consult Details Requesting Physician: Dr Gonzalez Reason for Consult: goals of care, advance directives assistance Family Members Present: None - Pertinent HPI 79 year old female with multiple morbidities who was recently discharged from the hospital to rehab to gain strength. She was at the rehab less than 48 and experienced an onset of shortness of breath. Onset at 2am and progressed such that at 4 am required transport to emergency room for further evaluation. Ms Brooks was admitted for hypoxic respiratory failure. Lives independently, recent rapid decline as per patient history. - Pertinent PMH HDL, Tachy-jamaica sydrome, ESRD on dialysis, HTN, - Social History Smoking Status: Former smoker Smoking: quit greater than 1 year Alcohol Use: none Drug Use History: none Living Situation: other (, one living child) - Medications MAR Reviewed: Yes - Allergies Allergies/Adverse Reactions: Allergies Allergy/AdvReac Type Severity Reaction Status Date / Time clopidogrel Allergy Rash Verified 11/29/19 15:39 lisinopril Allergy Verified 11/29/19 15:39 Obsbubj-Bkx-Rqk Reductase Allergy Stomach Verified 11/29/19 15:39 Inhibitor Ache - Subjective Respiratory distress, weakness, depressed. - ROS Constitutional: loss appetite, weakness Eyes: other (negative for visual changes) ENT: other (negative for throat irritation, congestion) Respiratory: shortness of breath, shortness of breath with extertion Cardiology: palpitations Gastrointestinal: other (negative for diarrhea, nausea) Genitourinary: other (negative for dysuria, hematuria) Musculoskeletal: arthritis/arthralgias Neurological: weakness Skin: bruising - Objective Vital Signs: Vital Signs - Most Recent Temp Pulse Resp BP Pulse Ox 98.7 F 67 117/58 L 96 11/25/19 03:35 11/25/19 08:35 11/25/19 08:35 11/25/19 07:37 Palliative Performance Scale: 40 - Advance Directives Medical Power of Landscape Manager: personal friend - Physical Exam Constitutional: cachectic, ill appearing, mild distress HEENT: EOMI, moist MMs, sclera anicteric Respiratory: accessory muscle use, diminished lung sound, labored respirations Cardiovascular: RRR Gastrointestinal: non-tender, positive bowel sounds Musculoskeletal: pulses present, diffuse muscle atrophy Neurology: moves all 4 limbs, no focal deficits Skin: cap refill <2 seconds, bruising, fragile Psychiatric: A&O x 3, depressed - Problem List (1) Palliative care encounter Code(s): Z51.5 - ENCOUNTER FOR PALLIATIVE CARE Status: Acute (2) Physical debility Code(s): R53.81 - OTHER [place] Status: Acute (3) Acute respiratory failure with hypoxia Code(s): J96.01 - ACUTE RESPIRATORY FAILURE WITH HYPOXIA Status: Acute (4) ESRD (end stage renal disease) on dialysis Code(s): N18.6 - END STAGE RENAL DISEASE; Z99.2 - DEPENDENCE ON RENAL DIALYSIS Status: Acute (5) CAD (coronary artery disease) Code(s): I25.10 - ATHSCL HEART DISEASE OF [place] CORONARY ARTERY W/O ANG PCTRS Status: Chronic Qualifiers: Coronary Disease-Associated Artery/Lesion type: bypass graft [place] vs. transplanted heart: [place] heart (6) CHF (congestive heart failure) Code(s): I50.9 - HEART FAILURE, UNSPECIFIED Status: Suspected - Plan/Recommendations Plan:Met with Ms Tate. She is uncertain if she wants to proceed with access placement for dialysis. She states "she is tired". We discussed at length the implication of no access for dialysis, and the life limiting decision. She is unsure. We further discussed measures to conserve energy, promote appetite, and quality of life and life goal. General life review, she was a previous massage therapist. She has one son, and is a . Has a hoslistc belief on management of disease. Communicated with [facility] caring for Ms Tate. [60] minutes spent on this encounter with >50% of the time in counseling and coordination of care. Thank you for this very appropriate consult.
[2019-11-25] MEDS: Ondansetron ODT 4 MG TAB PO PRN (17:06)
[2019-11-25] MEDS: traZODone HCl 50 MG TAB PO SCH (21:14)
[2019-11-25] MEDS: Atorvastatin Calcium 40 MG TAB PO SCH (21:14)
[2019-11-26 05:12] LABS: #Basophils 0.1 thou/uL (0.0-0.2); #Eosinphils 0.2 thou/uL (0.0-0.7); #Lymphocytes 1.5 thou/uL (1.20-3.40); #Monocytes 1.2 thou/uL (0.11-0.59); #Neutrophils 10.4 thou/uL (1.40-6.50); %Basophils 0.6 % (0.0-1.0); %Eosinophils 1.7 % (0.0-10.0); %Lymphocytes 11.4 % (21.0-51.0); %Neutrophils 77.3 % (42.0-75.0); Hemoglobin 6.7 g/dL (12.0-16.0); Mean Corpuscular HGB CONC 32.1 g/dL (32.0-36.0); Mean Corpuscular Hemoglobin 31.8 pg (27.0-31.0); Mean Corpuscular Volume 98.8 fL (78.0-98.0); Mean Platelet Volume 9.1 fL (7.4-10.4); Platelet Count 296 thou/uL (130-400); RBC Distribution Width 16.3 % (11.5-14.5); White Blood Cell (WBC) Count 13.5 thou/uL (4.8-10.8)
[2019-11-26 05:40] LABS: Anion Gap 13 mmol/L (10-20); BUN (Urea Nitrogen) 50 mg/dL (9.8-20.1); Calc. Creatinine Clearance 11 mL/min (70-130); Calcium 9.2 mg/dL (7.8-10.44); Carbon Dioxide 31 mmol/L (23-31); Chloride 95 mmol/L (98-107); Estimated GFR-MDRD 12; Glucose 107 mg/dL (83-110); Potassium 4.3 mmol/L (3.5-5.1); Sodium 135 mmol/L (136-145)
--- NOTE | 2019-11-26 07:19 | PDOC.FM ---
- Subjective Subjective: Pt had an overnight event where she became nauseous and coughed, causing some hypoxia of 87-88%. O2 was increased to 40% on HFNC. O2 sat improved to 95%. Nausea has ceased. Pt very sleepy this morning. HD today, will transfuse 1 unit pRBC. Pt changed code status to DNR after conversation with palliative team. - Objective MAR Reviewed: Yes Vital Signs & Weight: Vital Signs (12 hours) Temp Pulse Ox 11/26/19 04:00 98.9 F 11/26/19 02:00 96 11/25/19 23:44 99.3 F 11/25/19 20:02 92 L Weight Weight 54.6 kg Most Recent Monitor Data Heart Rate from ECG 66 NIBP 121/51 NIBP BP-Mean 74 Respiration from ECG 19 SpO2 97 I&O: 11/25/19 11/26/19 11/27/19 06:59 06:59 06:59 Intake Total 960 960 Output Total 50 100 Balance 910 860 Result Diagrams: 11/26/19 04:50 11/26/19 04:50 Phys Exam - Physical Examination Constitutional: NAD HEENT: moist MMs, 2+ tonsils Neck: no nodes, supple, full ROM bibasilar crackles. Cardiovascular: RRR, no rub systolic murmur Gastrointestinal: soft, no distention, positive bowel sounds Musculoskeletal: no edema, pulses present Neurological: non-focal, moves all 4 limbs Psychiatric: normal affect, A&O x 3 Skin: no rash, normal turgor, cap refill <2 seconds Dx/Plan (1) ESRD (end stage renal disease) on dialysis Code(s): N18.6 - END STAGE RENAL DISEASE; Z99.2 - DEPENDENCE ON RENAL DIALYSIS Status: Acute (2) Acute respiratory failure with hypoxia Code(s): J96.01 - ACUTE RESPIRATORY FAILURE WITH HYPOXIA Status: Acute (3) HLD (hyperlipidemia) Code(s): E78.5 - HYPERLIPIDEMIA, UNSPECIFIED Status: Acute (4) CAD (coronary artery disease) Code(s): I25.10 - ATHSCL HEART DISEASE OF [place] CORONARY ARTERY W/O ANG PCTRS Status: Chronic Qualifiers: Coronary Disease-Associated Artery/Lesion type: bypass graft [place] vs. transplanted heart: [place] heart (5) HTN (hypertension) Code(s): I10 - ESSENTIAL (PRIMARY) HYPERTENSION Status: Chronic Qualifiers: Hypertension type: essential hypertension Qualified Code(s): I10 - Essential (primary) hypertension (6) CHF (congestive heart failure) Code(s): I50.9 - HEART FAILURE, UNSPECIFIED Status: Suspected (7) Pneumonia Code(s): J18.9 - PNEUMONIA, UNSPECIFIED ORGANISM Status: Acute Qualifiers: Pneumonia type: due to unspecified organism - Plan Plan: 79 y/o F with ESRD on HD admitted for acute hypoxic respiratory failure, most likely 2/2 pulmonary edema from volume overloadvs pneumonia. 1. Acute Hypoxic Respiratory Failure 2/2 pulmonary edema from ESRD vs pneumonia - consulted Dr. Hoff, who will perform HD 11/22. 1.5 L removed in HD 11/22, and 2 L on 11/22 - Procal 0.37-> 0.59-> 0.40, continue Po levaquin for CAP coverage and risk factors for pseudomonas: recent intubation, prolonged course of IV antibiotics. Blood ccx's drawn, will adjust antibiotics pending ccx results - Levaquin to be dosed for HD, transitioned to PO - Pt given vanc and cefepime in ER. - WBC 19.5-> 15.5-> 12.8-> 13.5, hx of leukocytosis - CXR: no worsening form previous studies, L mid lung consolidation, R lung base increased markings, and parenchymal changes not improved. repeat shows minimal improvement. - Respiratory status improved, however still on high flow NC at 10 L, o2 sat 95% . - pulm consult, Dr. Costa, appreciate recs. ordered RVP, HSV, CMV -RVP negative - Hg 6.7, to be transfused 1 u RBC today with HD. will trend H&H tomorrow. 2. Plueritic CP - Trop 0.035, likely elevated in setting on ESRD - Most likely 2/2 pleural effusion. 3. Leukocytosis - hx of elevated WBC in previous admission, trending down. - procal 0.035-> 0.59-> 0.40 - continue antibiotics until blood ccx's result - Transitioned to Po levaquin as pt does not want an IV. 4. Hx of HFrEF - recent echo: EF 50% - continue home medications 5. a fib - continue home meds and eliquis 2.[address] Artis. -EKG pending, rate controlled at time of exam. 6. Hx of CAD, s/p CABG - EKG and trops pending. - has been stable in previous admission. 7. Hx of COPD - This could be a contributor to the acute hypoxia. - continue home meds 8. 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 ESRD on HD - Nephrology Dr Hoff consulted, appreciate recommendations - dialysis 11/22. - palliative care consult: transition code status to DNR. appreciate your time spent with pt. 10. anemia of chronic disease - hg 6.7 - transfuse 1 unit pRBC Code status: DNR diet: renal high protein dvt ppx: blair tobacco grower: Chandra steam pan sponger: Luis Eduardo Trade Specialist: Igor Dispo: stable, admit to IMCU for HD, and levaquin for acute hypoxic respiratory failure, respiratory status improving. Addendum - Attending - Attending Attestation Date/Time: 11/26/19 7268 I personally evaluated the patient and discussed the management with Dr. Gonzalez. I agree with the History, Examination, Assessment and Plan documented above with any addition or exceptions noted below.
[2019-11-26] MEDS: Acetaminophen 500 MG TAB PO PRN ×2 (09:17→22:29)
[2019-11-26] MEDS ORDERED: Heparin 10,000 UNITS/ 10 ML VIAL ONE (09:24)
--- NOTE | 2019-11-26 10:18 | PRG ---
DATE OF SERVICE: 11/26/2019 SERVICE: Renal Medicine. SUBJECTIVE: Ms. Tate is a 79-year-old white female, followed up for chronic renal failure and currently she is on maintenance hemodialysis. She is undergoing dialysis right now. She voices no new complaints. She was also noted to be symptomatically anemic and currently is receiving 2 units of packed RBC with dialysis. OBJECTIVE: VITAL SIGNS: Blood pressure is 109/51, heart rate 61, respiratory rate 24, pulse ox 99%. GENERAL: The patient is awake, alert, comfortable, not in distress. SKIN: Adequate turgor. HEENT: Pale conjunctivae. Anicteric sclerae. NECK: No neck mass. No carotid bruits. No JVD. CHEST: No deformities. LUNGS: Clear breath sounds. HEART: Normal sinus rhythm. No murmurs, no gallops, no rubs. ABDOMEN: Globular, soft, nontender. No masses. EXTREMITIES: No edema. MEDICATIONS: Medications of November 26, 2019, was reviewed. LABORATORY DATA: Laboratories of November 26, 2019; white count 13.4, hemoglobin 6.7. Sodium 135, potassium 4.3, chloride 95, carbon dioxide 31, BUN 50, creatinine 3.67, GFR 12 mL/minute, glucose 107, calcium 9.2. ASSESSMENT AND PLAN: 1. Chronic renal failure/end-stage renal disease, continuing hemodialysis 3 times a week, maxing out fluid removal - attempting 3 L fluid removal. 2. Symptomatic anemia. 2 units of packed RBC with dialysis. Continue weekly Epogen. 3. Congestive heart failure, clinically improving. We are maxing out fluid removal with dialysis. Overall, agree with current management. Job ID: [id number]
--- NOTE | 2019-11-26 14:08 | PRG ---
DATE OF SERVICE: 11/26/2019 SUBJECTIVE: Lea is in no distress. She is sleeping while getting dialyzed this morning. OBJECTIVE: VITAL SIGNS: Blood pressure 107/50, heart rate 62, respiratory rate 16, and oximetry is 99%. LUNGS: Unchanged. HEART: Unchanged. ABDOMEN: Unchanged. IMPRESSION: 1. Volume overload. Continue with dialysis for end-stage renal disease. 2. Congestive heart failure, improved. Overall she appears to be stable. Job ID: [id number]
[2019-11-26] MEDS: Aspirin 81 mg Enteric Coated Tablet PO SCH (16:07)
[2019-11-26] MEDS: Fish Oil 1,000 MG CAP PO SCH ×2 (16:07→20:22)
[2019-11-26] MEDS: Carvedilol 3.125 MG TAB PO SCH ×2 (16:07→20:22)
[2019-11-26] MEDS: Amlodipine 10 MG TAB PO SCH (16:07)
[2019-11-26] MEDS: Apixaban 2.5 MG TAB PO SCH ×2 (16:07→20:22)
[2019-11-26] MEDS: Ubidecarenone 50 MG CAP PO SCH ×2 (16:08→20:22)
[2019-11-26] MEDS: Polyethylene Glycol 3350 17 GM Packet PO SCH (16:08)
[2019-11-26] MEDS: Folic Acid 1 MG TAB PO SCH (16:08)
[2019-11-26] MEDS: Atorvastatin Calcium 40 MG TAB PO SCH (20:22)
[2019-11-26] MEDS: traZODone HCl 50 MG TAB PO SCH (20:22)
--- NOTE | 2019-11-27 06:55 | PDOC.FM ---
- Subjective Subjective: Pt rested well overnight. Does not want to have blood draws and will have h&h checked at dialysis tomorrow. No acute overnight events. Pt 97% on HFNC. no complaints of sob this AM. - Objective MAR Reviewed: Yes Vital Signs & Weight: Vital Signs (12 hours) Temp Pulse Ox 11/27/19 04:00 97.7 F 11/27/19 02:09 95 11/27/19 00:00 98.6 F 11/26/19 20:00 98.2 F 98 Weight Weight 54.6 kg Most Recent Monitor Data Heart Rate from ECG 61 NIBP 124/50 NIBP BP-Mean 74 Respiration from ECG 12 SpO2 97 I&O: 11/25/19 11/26/19 11/27/19 06:59 06:59 06:59 Intake Total 872 068 0732 Output Total 50 100 50 Balance 173 072 5340 Result Diagrams: 11/26/19 04:50 11/26/19 04:50 Phys Exam - Physical Examination Constitutional: NAD HEENT: moist MMs, sclera anicteric Neck: no nodes, supple, full ROM Respiratory: no wheezing, clear to auscultation bilateral (coarse breath sounds) Cardiovascular: RRR, no rub sys murmur Gastrointestinal: soft, non-tender, no distention, positive bowel sounds Musculoskeletal: no edema, pulses present Neurological: non-focal, moves all 4 limbs Psychiatric: normal affect, A&O x 3 Skin: no rash, normal turgor, cap refill <2 seconds Dx/Plan (1) ESRD (end stage renal disease) on dialysis Code(s): N18.6 - END STAGE RENAL DISEASE; Z99.2 - DEPENDENCE ON RENAL DIALYSIS Status: Acute (2) Acute respiratory failure with hypoxia Code(s): J96.01 - ACUTE RESPIRATORY FAILURE WITH HYPOXIA Status: Acute (3) HLD (hyperlipidemia) Code(s): E78.5 - HYPERLIPIDEMIA, UNSPECIFIED Status: Acute (4) CAD (coronary artery disease) Code(s): I25.10 - ATHSCL HEART DISEASE OF [place] CORONARY ARTERY W/O ANG PCTRS Status: Chronic Qualifiers: Coronary Disease-Associated Artery/Lesion type: bypass graft [place] vs. transplanted heart: [place] heart (5) HTN (hypertension) Code(s): I10 - ESSENTIAL (PRIMARY) HYPERTENSION Status: Chronic Qualifiers: Hypertension type: essential hypertension Qualified Code(s): I10 - Essential (primary) hypertension (6) CHF (congestive heart failure) Code(s): I50.9 - HEART FAILURE, UNSPECIFIED Status: Suspected (7) Pneumonia Code(s): J18.9 - PNEUMONIA, UNSPECIFIED ORGANISM Status: Acute Qualifiers: Pneumonia type: due to unspecified organism - Plan Plan: 79 y/o F with ESRD on HD admitted for acute hypoxic respiratory failure, most likely 2/2 pulmonary edema from volume overloadvs pneumonia. 1. Acute Hypoxic Respiratory Failure 2/2 pulmonary edema from ESRD vs pneumonia - consulted Dr. Hoff, who will perform HD 11/22. 1.5 L removed in HD 11/22, and 2 L on 11/23. 3L attempted removal 11/25. - Procal 0.37-> 0.59-> 0.40, continue Po levaquin for CAP coverage and risk factors for pseudomonas: recent intubation, prolonged course of IV antibiotics. Levaquin last does on Sat after dialysis 11/18. - Levaquin to be dosed for HD, transitioned to PO - Pt given vanc and cefepime in ER. - WBC 19.5-> 15.5-> 12.8-> 13.5, hx of leukocytosis - CXR: no worsening form previous studies, L mid lung consolidation, R lung base increased markings, and parenchymal changes not improved. repeat shows minimal improvement. - Respiratory status improved, however still on high flow NC at 10 L, o2 sat 95% . - pulm consult, Dr. Costa, appreciate recs. ordered RVP, HSV, CMV -RVP negative - Hg 6.7, to be transfused 2 u RBC 11/25 with HD. will trend H&H tomorrow. 2. Plueritic CP - Trop 0.035, likely elevated in setting on ESRD - Most likely 2/2 pleural effusion. 3. Leukocytosis - hx of elevated WBC in previous admission, trending down. - procal 0.035-> 0.59-> 0.40 - Transitioned to Po levaquin 4. Hx of HFrEF - recent echo: EF 50% - continue home medications 5. a fib - continue home meds and eliquis 2.[address] Artis. -EKG pending, rate controlled at time of exam. 6. Hx of CAD, s/p CABG - EKG and trops pending. - has been stable in previous admission. 7. Hx of COPD - This could be a contributor to the acute hypoxia. - continue home meds 8. 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 ESRD on HD - Nephrology Dr Hoff consulted, appreciate recommendations - dialysis 11/22. - palliative care consult: transition code status to DNR. appreciate your time spent with pt. 10. anemia of chronic disease - hg 6.7 - transfuse 1 unit pRBC Code status: DNR diet: renal high protein dvt ppx: blair membership advisor: Chandra mercury cell cleaner: Luis Eduardo Applications Coordinator: Igor Dispo: stable, admit to IMCU for HD, and levaquin for acute hypoxic respiratory failure, respiratory status improving. Addendum - Attending - Attending Attestation Date/Time: 11/27/19 9221 I personally evaluated the patient and discussed the management with Dr. Gonzalez. I agree with the History, Examination, Assessment and Plan documented above with any addition or exceptions noted below.
--- NOTE | 2019-11-27 08:18 | RAD ---
CHEST 1 VIEW: Date: 11/27/2019 INDICATION: ICU examination with follow-up. COMPARISON: Prior exam dated 11/25/2019. FINDINGS: The bilateral air space disease is not appreciably changed. Mild cardiomegaly is stable appearing. Sm all bilateral pleural effusions persist. Dialysis catheter and pacemaker are unchanged. Midline berkowitz otomy wires are stable appearing. Osseous structures are similar appearing. IMPRESSION: Stable exam. POS: BH
[2019-11-27] MEDS: Fish Oil 1,000 MG CAP PO SCH ×2 (09:29→20:31)
[2019-11-27] MEDS: Ubidecarenone 50 MG CAP PO SCH ×2 (09:29→20:31)
[2019-11-27] MEDS: Aspirin 81 mg Enteric Coated Tablet PO SCH (09:30)
[2019-11-27] MEDS: Folic Acid 1 MG TAB PO SCH (09:30)
[2019-11-27] MEDS: Carvedilol 3.125 MG TAB PO SCH ×2 (09:30→20:32)
[2019-11-27] MEDS: Amlodipine 10 MG TAB PO SCH (09:30)
[2019-11-27] MEDS: Apixaban 2.5 MG TAB PO SCH ×2 (09:30→20:32)
[2019-11-27] MEDS: Polyethylene Glycol 3350 17 GM Packet PO SCH (09:31)
[2019-11-27] MEDS: traZODone HCl 50 MG TAB PO SCH (20:32)
[2019-11-27] MEDS: Atorvastatin Calcium 40 MG TAB PO SCH (20:32)
[2019-11-27] MEDS: Famotidine 20 MG TAB PO SCH (20:34)
[2019-11-28] MEDS: Acetaminophen 500 MG TAB PO PRN ×3 (04:17→21:44)
--- NOTE | 2019-11-28 06:28 | PDOC.FM ---
- Subjective Subjective: no acute overnight events pt on NC O2 @ 3.5 L O2 sat 99% no complaints of SOB this AM. states she is very sleepy and would like for me to look at her medication and discontinue sedating drugs. c/o "stuffy nose." - Objective MAR Reviewed: Yes Vital Signs & Weight: Vital Signs (12 hours) Temp Pulse Ox 11/28/19 04:00 98.3 F 11/28/19 03:00 98.3 F 11/28/19 02:00 91 L 11/28/19 00:00 97.9 F 11/27/19 20:00 100 11/27/19 19:50 98.4 F Weight Weight 54.6 kg Most Recent Monitor Data Heart Rate from ECG 66 NIBP 157/63 NIBP BP-Mean 94 Respiration from ECG 19 SpO2 95 I&O: 11/26/19 11/27/19 11/28/19 06:59 06:59 06:59 Intake Total 960 1870 360 Output Total 100 50 400 Balance 860 1820 -40 Result Diagrams: 11/28/19 09:15 11/28/19 09:17 Phys Exam - Physical Examination Constitutional: NAD HEENT: moist MMs, sclera anicteric Neck: no nodes, no JVD, supple, full ROM Respiratory: no wheezing slight bibasilar crackels Cardiovascular: RRR, no rub sys murmur Gastrointestinal: soft, non-tender, no distention, positive bowel sounds Musculoskeletal: no edema, pulses present Neurological: non-focal, moves all 4 limbs Psychiatric: normal affect, A&O x 3 Skin: no rash, normal turgor, cap refill <2 seconds Dx/Plan (1) ESRD (end stage renal disease) on dialysis Code(s): N18.6 - END STAGE RENAL DISEASE; Z99.2 - DEPENDENCE ON RENAL DIALYSIS Status: Acute (2) Acute respiratory failure with hypoxia Code(s): J96.01 - ACUTE RESPIRATORY FAILURE WITH HYPOXIA Status: Acute (3) HLD (hyperlipidemia) Code(s): E78.5 - HYPERLIPIDEMIA, UNSPECIFIED Status: Acute (4) CAD (coronary artery disease) Code(s): I25.10 - ATHSCL HEART DISEASE OF [place] CORONARY ARTERY W/O ANG PCTRS Status: Chronic Qualifiers: Coronary Disease-Associated Artery/Lesion type: bypass graft [place] vs. transplanted heart: [place] heart (5) HTN (hypertension) Code(s): I10 - ESSENTIAL (PRIMARY) HYPERTENSION Status: Chronic Qualifiers: Hypertension type: essential hypertension Qualified Code(s): I10 - Essential (primary) hypertension (6) CHF (congestive heart failure) Code(s): I50.9 - HEART FAILURE, UNSPECIFIED Status: Suspected (7) Pneumonia Code(s): J18.9 - PNEUMONIA, UNSPECIFIED ORGANISM Status: Acute Qualifiers: Pneumonia type: due to unspecified organism - Plan Plan: 79 y/o F with ESRD on HD admitted for acute hypoxic respiratory failure, most likely 2/2 pulmonary edema from volume overloadvs pneumonia. 1. Acute Hypoxic Respiratory Failure 2/2 pulmonary edema from ESRD vs pneumonia - consulted Dr. Hoff, who will perform HD 11/22. 1.5 L removed in HD 11/22, and 2 L on 11/23. 3L attempted removal 11/25. - Procal 0.37-> 0.59-> 0.40, continue Po levaquin for CAP coverage and risk factors for pseudomonas: recent intubation, prolonged course of IV antibiotics. Levaquin last does on Sat after dialysis 11/18. - Levaquin to be dosed for HD, transitioned to PO - Pt given vanc and cefepime in ER. - WBC 19.5-> 15.5-> 12.8-> 13.5-> 16.5, hx of leukocytosis - CXR: no worsening form previous studies, L mid lung consolidation, R lung base increased markings, and parenchymal changes not improved. repeat shows minimal improvement. - Respiratory status improved, however still on high flow NC at 10 L, o2 sat 95% . - pulm consult, Dr. Costa, appreciate recs. ordered RVP, HSV, CMV -RVP negative - Hg 6.7, to be transfused 2 u RBC 11/25 with HD. Hg improved to 10.5 on 11/27. - Rehab screen placed 11/27. 2. Plueritic CP, resolved. - Trop 0.035, likely elevated in setting on ESRD - Most likely 2/2 pleural effusion. 3. Leukocytosis - hx of elevated WBC in previous admission, trending down. - procal 0.035-> 0.59-> 0.40 - Transitioned to Po levaquin 4. Hx of HFrEF - recent echo: EF 50% - continue home medications 5. a fib - continue home meds and eliquis 2.[address] Artis. -EKG no changes, rate controlled at time of exam. 6. Hx of CAD, s/p CABG - EKG and trops pending. - has been stable in previous admission. 7. Hx of COPD - This could be a contributor to the acute hypoxia. - continue home meds 8. 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 ESRD on HD - Nephrology Dr Hoff consulted, appreciate recommendations - dialysis 11/22, 11/23, 11/25, 11/27. - palliative care consult: transition code status to DNR. appreciate your time spent with pt. 10. anemia of chronic disease - hg 6.7-> 10.5 s/p X2 units pRBC's Code status: DNR diet: renal high protein dvt ppx: eliquis periodontist: Chandra watch inspector final movement: Luis Eduardo Broadcast Technician: Igor Dispo: stable, admit to IMCU for HD, and [facility] for acute hypoxic respiratory failure, respiratory status improving. Transition to floor and then inpt rehab after Saturday dialysis Addendum - Attending - Attending Attestation Date/Time: 11/28/19 8176 I personally evaluated the patient and discussed the management with [Carlos] I agree with the History, Examination, Assessment and Plan documented above with any addition or exceptions noted below. DC based around dialysis
[2019-11-28] MEDS: Amlodipine 10 MG TAB PO SCH (09:27)
[2019-11-28] MEDS: Ubidecarenone 50 MG CAP PO SCH ×2 (09:27→21:49)
[2019-11-28] MEDS: Apixaban 2.5 MG TAB PO SCH ×2 (09:27→21:49)
[2019-11-28] MEDS: Carvedilol 3.125 MG TAB PO SCH ×2 (09:28→21:49)
[2019-11-28] MEDS: Fish Oil 1,000 MG CAP PO SCH ×2 (09:28→21:49)
[2019-11-28] MEDS: Aspirin 81 mg Enteric Coated Tablet PO SCH (09:28)
[2019-11-28] MEDS: Folic Acid 1 MG TAB PO SCH (09:28)
[2019-11-28] MEDS: Polyethylene Glycol 3350 17 GM Packet PO SCH (09:29)
[2019-11-28] MEDS ORDERED: Heparin 10,000 UNITS/ 10 ML VIAL ONE (09:30)
[2019-11-28 09:36] LABS: #Basophils 0.1 thou/uL (0.0-0.2); #Eosinphils 0.2 thou/uL (0.0-0.7); #Lymphocytes 1.1 thou/uL (1.20-3.40); #Monocytes 0.9 thou/uL (0.11-0.59); #Neutrophils 14.2 thou/uL (1.40-6.50); %Basophils 0.5 % (0.0-1.0); %Eosinophils 1.3 % (0.0-10.0); %Lymphocytes 6.5 % (21.0-51.0); %Monocytes 5.6 % (0.0-10.0); %Neutrophils 86.1 % (42.0-75.0); Hemoglobin 10.5 g/dL (12.0-16.0); Mean Corpuscular HGB CONC 30.9 g/dL (32.0-36.0); Mean Corpuscular Hemoglobin 29.6 pg (27.0-31.0); Mean Corpuscular Volume 95.6 fL (78.0-98.0); Mean Platelet Volume 9.2 fL (7.4-10.4); Platelet Count 343 thou/uL (130-400); RBC Distribution Width 16.9 % (11.5-14.5); Red Blood Cell (RBC) Count 3.54 mill/uL (4.20-5.40); White Blood Cell (WBC) Count 16.5 thou/uL (4.8-10.8)
--- NOTE | 2019-11-28 09:50 | EKG ---
Test Reason : Blood Pressure : / mmHG Vent. Rate : 072 BPM Atrial Rate : 072 BPM P-R Int : 148 ms QRS Dur : 140 ms QT Int : 474 ms P-R-T Axes : 030 091 -26 degrees QTc Int : 519 ms Normal sinus rhythm Possible Left atrial enlargement Right bundle branch block Cannot rule out Inferior infarct , age undetermined Abnormal ECG Confirmed by WAYNE RICE ([id number]), acquisitions editor CASE GILLETTE ([id number]) on 11/28/2019 9:50:02 AM Referred By: Confirmed By:WAYNE RICE
[2019-11-28 10:13] LABS: ALT (SGPT) 21 U/L (8-55); AST (SGOT) 18 U/L (5-34); Albumin 3.2 g/dL (3.4-4.8); Alkaline Phosphatase 115 U/L (40-110); Anion Gap 15 mmol/L (10-20); BUN (Urea Nitrogen) 52 mg/dL (9.8-20.1); Bilirubin, Total 0.4 mg/dL (0.2-1.2); Calc. Creatinine Clearance 11 mL/min (70-130); Calcium 9.5 mg/dL (7.8-10.44); Carbon Dioxide 27 mmol/L (23-31); Chloride 100 mmol/L (98-107); Estimated GFR-MDRD 12; Globulin 2.6 g/dL (2.4-3.5); Glucose 137 mg/dL (83-110); Potassium 3.5 mmol/L (3.5-5.1); Protein, Total 5.8 g/dL (6.0-8.3); Sodium 138 mmol/L (136-145)
--- NOTE | 2019-11-28 10:47 | PRG ---
DATE OF SERVICE: 11/28/2019 SUBJECTIVE: Ms. Tate is a 79-year-old white female with a history of chronic renal failure/ESRD, was admitted for shortness of breath secondary to a pulmonary edema. She has been doing well with dialysis. We have removed fluid with dialysis. She is undergoing hemodialysis today with fluid removal about 2.5 L. She denies any chest pain or shortness of breath. OBJECTIVE: VITAL SIGNS: Blood pressure is 157/63, heart rate 98, respiratory rate is 12, temperature 97.6, and pulse ox is 98%. GENERAL: The patient is awake, alert, and comfortable, not in distress. SKIN: Adequate turgor. HEENT: Pinkish conjunctivae. Anicteric sclerae. NECK: No neck mass. No carotid bruits. No JVD. CHEST: No deformities. LUNGS: Decreased breath sounds. HEART: Normal sinus rhythm. No murmur. No gallops. No rubs. ABDOMEN: Globular, soft, and nontender. No masses. EXTREMITIES: No edema. No deformities. MEDICATIONS: Medications of November 28, 2019, reviewed. LABORATORY DATA: Laboratories of November 28, 2019; white count 16.5, hemoglobin 10.5. On November 26, 2019; sodium 135, potassium 4.3, chloride 95, carbon dioxide 31, BUN 50, and creatinine 3.67. Procalcitonin 0.4. ASSESSMENT AND PLAN: 1. Chronic renal failure/end-stage renal disease, stable. Continuing hemodialysis regimen. My bias is to challenge fluid removal. We will attempt between 2.5 and 3 L if she will tolerate this. 2. Anemia. P.r.n. blood transfusion, much improved with blood transfusion. Continue weekly Epogen. 3. Shortness of breath - multifactorial etiology. Congestive heart failure/chronic obstructive pulmonary disease. Continue supportive care. 4. Overall agree with current management. Job ID: [id number]
[2019-11-28] MEDS: Atorvastatin Calcium 40 MG TAB PO SCH (21:46)
[2019-11-28] MEDS: Famotidine 20 MG TAB PO SCH (21:49)
--- NOTE | 2019-11-29 06:47 | PDOC.FM ---
- Subjective Subjective: Pt in great spirits this morning, slept well overnight. no sob or CP complaints no overnight events - Objective MAR Reviewed: Yes Vital Signs & Weight: Vital Signs (12 hours) Temp Pulse Resp BP Pulse Ox 11/29/19 04:34 97.8 F 67 18 128/63 95 11/29/19 00:55 97.8 F 65 18 135/75 97 11/28/19 20:08 97.7 F 60 18 117/64 92 L 11/28/19 20:00 92 L Weight Weight 54.6 kg Most Recent Monitor Data Heart Rate from ECG 71 NIBP 136/64 NIBP BP-Mean 88 Respiration from ECG 33 SpO2 95 I&O: 11/27/19 11/28/19 11/29/19 06:59 06:59 06:59 Intake Total 1870 360 Output Total 50 400 Balance 1820 -40 Result Diagrams: 11/28/19 09:15 11/28/19 09:17 Phys Exam - Physical Examination Constitutional: NAD HEENT: moist MMs, sclera anicteric Neck: no JVD, supple Respiratory: no wheezing slight bibasilar crackles Cardiovascular: RRR, no rub sys murmur Gastrointestinal: soft, non-tender, no distention, positive bowel sounds Musculoskeletal: no edema, pulses present Neurological: non-focal, moves all 4 limbs Psychiatric: normal affect Skin: no rash, normal turgor, cap refill <2 seconds Dx/Plan (1) ESRD (end stage renal disease) on dialysis Code(s): N18.6 - END STAGE RENAL DISEASE; Z99.2 - DEPENDENCE ON RENAL DIALYSIS Status: Acute (2) Acute respiratory failure with hypoxia Code(s): J96.01 - ACUTE RESPIRATORY FAILURE WITH HYPOXIA Status: Acute (3) HLD (hyperlipidemia) Code(s): E78.5 - HYPERLIPIDEMIA, UNSPECIFIED Status: Acute (4) CAD (coronary artery disease) Code(s): I25.10 - ATHSCL HEART DISEASE OF [place] CORONARY ARTERY W/O ANG PCTRS Status: Chronic Qualifiers: Coronary Disease-Associated Artery/Lesion type: bypass graft [place] vs. transplanted heart: [place] heart (5) HTN (hypertension) Code(s): I10 - ESSENTIAL (PRIMARY) HYPERTENSION Status: Chronic Qualifiers: Hypertension type: essential hypertension Qualified Code(s): I10 - Essential (primary) hypertension (6) CHF (congestive heart failure) Code(s): I50.9 - HEART FAILURE, UNSPECIFIED Status: Suspected (7) Pneumonia Code(s): J18.9 - PNEUMONIA, UNSPECIFIED ORGANISM Status: Acute Qualifiers: Pneumonia type: due to unspecified organism - Plan Plan: 79 y/o F with ESRD on HD admitted for acute hypoxic respiratory failure, most likely 2/2 pulmonary edema from volume overloadvs pneumonia. 1. Acute Hypoxic Respiratory Failure 2/2 pulmonary edema from ESRD vs pneumonia , improving. - consulted Dr. Hoff, who will performed emergent HD 11/22. 1.5 L removed in HD , and 2 L on 11/23. 3L attempted removal 11/25. HD on 11/27. - Procal 0.37-> 0.59-> 0.40-> 0.17, course of Po levaquin for CAP coverage completed. - WBC 19.5-> 15.5-> 12.8-> 13.5-> 16.5, hx of leukocytosis - CXR: no worsening form previous studies, L mid lung consolidation, R lung base increased markings, and parenchymal changes not improved. repeat shows minimal improvement. - Respiratory status improved, and on NC O2. - pulm consult, Dr. Costa, appreciate recs. ordered RVP, HSV, CMV -RVP negative -HSV negative - Hg 6.7, to be transfused 2 u RBC 11/25 with HD. Hg improved to 10.5 on 11/27. Lab draws during dialysis - Rehab screen placed 11/27. 2. Plueritic CP, resolved. - Trop 0.035, likely elevated in setting on ESRD - Most likely 2/2 pleural effusion. 3. Leukocytosis - hx of elevated WBC in previous admission - procal 0.035-> 0.59-> 0.40 -> 0.17 - Levaquin course completed. 4. Hx of HFrEF - recent echo: EF 50% - continue home medications 5. a fib - continue home meds and eliquis 2.[address] Artis. -EKG no changes, rate controlled at time of exam. 6. Hx of CAD, s/p CABG - EKG and trops pending. - has been stable in previous admission. 7. Hx of COPD - This could be a contributor to the acute hypoxia. - continue home meds 8. 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 ESRD on HD - Nephrology Dr Hoff consulted, appreciate recommendations - dialysis 11/22, 11/23, 11/25, 11/27. - palliative care consult: transition code status to DNR. appreciate your time spent with pt. 10. anemia of chronic disease - hg 6.7-> 10.5 s/p X2 units pRBC's Code status: DNR diet: renal high protein dvt ppx: blair wind instrument repairer: Chandra operator/assistant foreman: Luis Eduardo Harness Placer: Igor Dispo: stable, admit to IMCU for HD, and levaquin for acute hypoxic respiratory failure, respiratory status improving. Transition to floor and then inpt rehab after Saturday dialysis Addendum - Attending - Attending Attestation Date/Time: 11/29/19 0219 I personally evaluated the patient and discussed the management with [Carlos] I agree with the History, Examination, Assessment and Plan documented above with any addition or exceptions noted below. stable post dialysis yesterday and plan for t/f to rehab after dialysis saturday
[2019-11-29] MEDS: Ubidecarenone 50 MG CAP PO SCH ×2 (08:49→21:56)
[2019-11-29] MEDS: Apixaban 2.5 MG TAB PO SCH ×2 (08:50→21:55)
[2019-11-29] MEDS: Aspirin 81 mg Enteric Coated Tablet PO SCH (08:52)
[2019-11-29] MEDS: Carvedilol 3.125 MG TAB PO SCH ×2 (08:52→21:54)
[2019-11-29] MEDS: Amlodipine 10 MG TAB PO SCH (08:52)
[2019-11-29] MEDS: Folic Acid 1 MG TAB PO SCH (08:53)
[2019-11-29] MEDS: Fish Oil 1,000 MG CAP PO SCH ×2 (08:53→21:54)
[2019-11-29] MEDS: Polyethylene Glycol 3350 17 GM Packet PO SCH (08:54)
[2019-11-29] MEDS: Acetaminophen 500 MG TAB PO PRN ×2 (08:56→22:01)
[2019-11-29] MEDS: Fluticasone Propionate Nasal Spray 16 gm Bottle NASAL SCH (10:59)
[2019-11-29] MEDS: Cipro 250 MG TAB PO SCH (21:54)
[2019-11-29] MEDS: Atorvastatin Calcium 40 MG TAB PO SCH (21:57)
[2019-11-29] MEDS: Famotidine 20 MG TAB PO SCH (22:01)
[2019-11-30] MEDS: Cipro 250 MG TAB PO SCH ×2 (05:41→21:31)
--- NOTE | 2019-11-30 05:51 | PDOC.FM ---
- Subjective Subjective: Overnight pt complained of graft site on L forearm and left wrist pain. Dr. Hoff started cipro x7 days. Dr. Rosa deemed site to have hematoma. Otherwise, pt is concerned about BMs. Having 3 BMs daily, they appear dark like "cow pies." No roshan blood. Concerned she is losing blood through stools. Reports strength is good; can get up to commode by herself. Has strong appetite and feels very hungry. - Objective MAR Reviewed: Yes Vital Signs & Weight: Vital Signs (12 hours) Temp Pulse Resp BP Pulse Ox 11/30/19 04:00 97.6 F 65 20 155/69 H 92 L 11/30/19 00:00 97.5 F L 69 18 135/68 95 11/29/19 20:00 97.7 F 65 16 128/67 97 Weight Weight 54.6 kg Most Recent Monitor Data Heart Rate from ECG 71 NIBP 136/64 NIBP BP-Mean 88 Respiration from ECG 33 SpO2 95 I&O: 11/28/19 11/29/19 11/30/19 06:59 06:59 06:59 Intake Total 360 1200 Output Total 400 Balance -40 1200 Result Diagrams: 11/28/19 09:15 11/28/19 09:17 Phys Exam - Physical Examination Constitutional: NAD Respiratory: no wheezing bibasilar crackles Cardiovascular: RRR Gastrointestinal: soft, non-tender, no distention Musculoskeletal: no edema, pulses present Psychiatric: normal affect, A&O x 3 Dx/Plan (1) ESRD (end stage renal disease) on dialysis Code(s): N18.6 - END STAGE RENAL DISEASE; Z99.2 - DEPENDENCE ON RENAL DIALYSIS Status: Acute (2) Acute respiratory failure with hypoxia Code(s): J96.01 - ACUTE RESPIRATORY FAILURE WITH HYPOXIA Status: Acute (3) Atrial fibrillation Code(s): I48.91 - UNSPECIFIED ATRIAL FIBRILLATION Status: Acute (4) HLD (hyperlipidemia) Code(s): E78.5 - HYPERLIPIDEMIA, UNSPECIFIED Status: Acute (5) CAD (coronary artery disease) Code(s): I25.10 - ATHSCL HEART DISEASE OF [place] CORONARY ARTERY W/O ANG PCTRS Status: Chronic Qualifiers: Coronary Disease-Associated Artery/Lesion type: bypass graft [place] vs. transplanted heart: [place] heart (6) HTN (hypertension) Code(s): I10 - ESSENTIAL (PRIMARY) HYPERTENSION Status: Chronic Qualifiers: Hypertension type: essential hypertension Qualified Code(s): I10 - Essential (primary) hypertension - Plan Plan: 79 y/o F with ESRD on HD admitted for acute hypoxic respiratory failure, most likely 2/2 pulmonary edema from volume overloadvs pneumonia. # Acute Hypoxic Respiratory Failure 2/2 pulmonary edema from ESRD vs pneumonia, improving. - consulted Dr. Hoff, who performed emergent HD 11/22. - Respiratory status improved, and on NC O2. - pulm consult, Dr. Costa, appreciate recs. CMV pending. -RVP negative -HSV negative # Generalized weakness - discussed w/ pt possibility of SNF versus inpt rehab this AM. She will consider if rehab therapy schedule might be too intense or if SNF therapy is more appropriate. Will f/u w/ case mgmt. - will await PT/OT recs. # Leukocytosis - hx of elevated WBC in previous admission - Levaquin course completed. # Hx of HFrEF - continue home medications # A-fib # Hx of Tachy-j[place]ica syndrome - continue home meds and eliquis 2.[address] Artis. - pacemaker in place # Hx of CAD, s/p CABG # Hx of COPD - continue home meds # ESRD on HD - Pain at graft site, prophylactic cipro started by Nephrology. - Nephrology Dr Hoff consulted, appreciate recommendations - dialysis T/R/Sat - palliative care consult: transition code status to DNR. appreciate your time spent with pt. # anemia of chronic disease 2/2 ESRD - hg 6.7-> 10.5 s/p X2 units pRBCs Code status: DNR diet: renal high protein dvt ppx: eliquis rescue instructor: Chandra bull gang worker: Luis Eduardo Dialer: Igor Dispo: stable, SNF vs inpt rehab after Saturday dialysis. Rehab screen placed . Addendum - Attending - Attending Attestation Date/Time: 11/30/19 9691 I personally evaluated the patient and discussed the management with Dr. Mathis. I agree with the History, Examination, Assessment and Plan documented above with any addition or exceptions noted below. Patient continues to improve. Improved breathing, continue therapy and wean O2 as tolerated. Continue HD with Nephro. Check cdiff due to loose stools in setting of recent FQ use.
[2019-11-30] MEDS: Ondansetron ODT 4 MG TAB PO PRN ×2 (06:18→23:16)
[2019-11-30] MEDS: Amlodipine 10 MG TAB PO SCH (09:21)
[2019-11-30] MEDS: Fish Oil 1,000 MG CAP PO SCH ×2 (09:21→21:30)
[2019-11-30] MEDS: Folic Acid 1 MG TAB PO SCH (09:23)
[2019-11-30] MEDS: Carvedilol 3.125 MG TAB PO SCH ×2 (09:23→21:29)
[2019-11-30] MEDS: Aspirin 81 mg Enteric Coated Tablet PO SCH (09:23)
[2019-11-30] MEDS: Apixaban 2.5 MG TAB PO SCH ×2 (09:24→21:31)
[2019-11-30] MEDS: Ubidecarenone 50 MG CAP PO SCH ×2 (09:24→21:29)
[2019-11-30] MEDS: Fluticasone Propionate Nasal Spray 16 gm Bottle NASAL SCH (09:25)
[2019-11-30] MEDS: Polyethylene Glycol 3350 17 GM Packet PO SCH (09:25)
--- NOTE | 2019-11-30 11:10 | PRG ---
DATE OF SERVICE: 11/30/2019 SUBJECTIVE: Ms. Tate is a 79-year-old white female, followed up for chronic renal failure/ESRD. Currently, on maintenance hemodialysis 3 times a week. The patient was complaining about pain around the AV fistula site. I did examine it. I think she only has a hematoma. She was concerned it is infected. For that, I decided to assuage the patient to treat her with Cipro 250 b.i.d. for the next few days. No other complaints. Her shortness of breath is not any worse. OBJECTIVE: VITAL SIGNS: Blood pressure 149/66, heart rate 66, respiratory rate 17, O2 saturations 99%, temperature 97.4. GENERAL: Awake, alert, comfortable, not in distress. SKIN: Adequate turgor. HEENT: Pinkish conjunctivae. Anicteric sclerae. NECK: No neck mass. No carotid bruits. No JVD. CHEST: No deformities. LUNGS: Decreased breath sounds. HEART: Normal sinus rhythm. No murmur. No gallops. No rubs. ABDOMEN: Globular, soft, nontender. No masses. EXTREMITIES: No edema. No deformities. MEDICATIONS: Medications of November 30, 2019, were reviewed. LABORATORY DATA: Laboratories of November 28, 2019; white count 16.5, hemoglobin 10.5. Sodium 138, potassium 3.5, chloride 100, carbon dioxide 27, BUN 52, creatinine 3.57, calcium 9.5, albumin 3.2. Procalcitonin 0.17. ASSESSMENT AND PLAN: 1. Mild erythema on left arteriovenous fistula. Empiric Cipro 250 b.i.d. for a few days. 2. End-stage renal disease/chronic renal failure, continuing 3 times a week hemodialysis. Again, fluid removal as tolerated. 3. Congestive heart failure - clinically much improved. Maxing out fluid removal with hemodialysis. 4. Anemia. We are continuing her weekly Epogen regimen of 7500 units subcu every week. 5. Agree with current management. Job ID: [id number]
--- NOTE | 2019-11-30 14:45 | PRG ---
DATE OF SERVICE: 11/29/2019 TRANSITION OF CARE SUMMARY: She was under my care until 11/28. The patient was admitted from inpatient rehab due to volume overload and needing to have urgent hemodialysis in between her Saturday to Saturday dialysis. She was very short of breath and was admitted to the [facility]. She had 1.5 L removed on 11/22. She was due for dialysis on 11/23, where they removed 2 L and attempted 3 L on 11/25. From here on out, Dr. Hoff said that they will try and remove 2.5 to 3 L per dialysis session. She received dialysis on 11/27. The patient's procalcitonin was initially indeterminate at 0.37, with a white blood cell count of 19.5, had this history of leukocytosis and there was not good reasoning for this. So, the patient was started on IV Levaquin. However, her IV infiltrated and we continued p.o. Levaquin for a total weekly course as to cover the patient for a possible infection, probably pulmonary in source. However, the chest x-ray did not show that. It did show some left mid lung consolidation, in the right lung base with increased markings and parenchymal changes, which had not been improved from previous study and each repeat study just showed minimal improvement of the volume overload status. Her respiratory status did improve. She was originally on high-flow nasal cannula and she was weaned off the high-flow and able to tolerate 3 to 3-1/2 L per nasal cannula without desatting. She was moved to the medical floor once off the high-flow nasal cannula. Her hemoglobin was 6.7 on 11/25. During dialysis, she was transfused 2 units of packed red blood cells, which improved her hemoglobin to 10.5 on 11/27. Please limit lab draws to only during dialysis times so that she does not have to undergo multiple needle sticks as this is very irritating to the patient and causing her significant discomfort. The patient spoke with Palliative Care during hospital stay and changed her code status to do not resuscitate. She was very confident about this decision and in the future, possible discussions to transition off dialysis onto hospice are in her thoughts. But at this moment, she would like to keep continuing hemodialysis. The goal for this patient is to continue to watch her through Saturday to make sure that the long gap between her Saturday and Saturday dialysis does not cause her to become fluid overloaded as that of last week and then transition her back over to inpatient rehab. The patient is very agreeable to this plan. Thank you, Dr. Hoff for your consultation and continuous recommendations. Dr. Mathis will be caring for this patient starting 11/29, our Supervisor [employer] [facility]. It was a pleasure to be involved in Ms. Tate's care. Job ID: [id number]
[2019-11-30] MEDS ORDERED: Atorvastatin Calcium 40 MG TAB PO SCH (21:00)
[2019-11-30] MEDS: Famotidine 20 MG TAB PO SCH (21:30)
[2019-12-01] MEDS: Cipro 250 MG TAB PO SCH (05:56)
[2019-12-01] MEDS: Ondansetron ODT 4 MG TAB PO PRN (05:58)
[2019-12-01 07:21] VITALS: BP 143/63; TEMP 98.1
--- NOTE | 2019-12-01 07:32 | PDOC.FM ---
- Subjective Subjective: She is doing well this morning. She says she is hungrier than normal and that the bread does not agree with her and she thinks that is why she is having the abnormal stools. She says she is still having wrist pain, but it is improved with the dressing off. - Objective MAR Reviewed: Yes Vital Signs & Weight: Vital Signs (12 hours) Temp Pulse Resp BP Pulse Ox 12/01/19 07:20 98.1 F 67 18 143/63 H 92 L 12/01/19 05:15 97.7 F 77 18 127/58 L 92 L 12/01/19 00:58 97.9 F 73 18 129/68 90 L 11/30/19 20:04 97.5 F L 68 18 134/56 L 95 11/30/19 20:00 95 Weight Weight 54.6 kg Most Recent Monitor Data Heart Rate from ECG 71 NIBP 136/64 NIBP BP-Mean 88 Respiration from ECG 33 SpO2 95 I&O: 11/30/19 12/01/19 12/02/19 06:59 06:59 06:59 Intake Total 1687 1100 Balance 1687 1100 Result Diagrams: 12/01/19 08:46 12/01/19 08:46 Phys Exam - Physical Examination Constitutional: NAD HEENT: PERRLA, moist MMs, sclera anicteric Neck: no nodes, supple Respiratory: no wheezing, no rales, no rhonchi, clear to auscultation bilateral Cardiovascular: RRR, no significant murmur, no rub Gastrointestinal: soft, non-tender, positive bowel sounds Musculoskeletal: no edema, pulses present Neurological: moves all 4 limbs Lymphatic: no nodes Psychiatric: normal affect Skin: no rash, normal turgor Dx/Plan (1) ESRD (end stage renal disease) on dialysis Code(s): N18.6 - END STAGE RENAL DISEASE; Z99.2 - DEPENDENCE ON RENAL DIALYSIS Status: Acute (2) Acute respiratory failure with hypoxia Code(s): J96.01 - ACUTE RESPIRATORY FAILURE WITH HYPOXIA Status: Acute (3) Atrial fibrillation Code(s): I48.91 - UNSPECIFIED ATRIAL FIBRILLATION Status: Acute (4) HLD (hyperlipidemia) Code(s): E78.5 - HYPERLIPIDEMIA, UNSPECIFIED Status: Acute (5) CAD (coronary artery disease) Code(s): I25.10 - ATHSCL HEART DISEASE OF [place] CORONARY ARTERY W/O ANG PCTRS Status: Chronic Qualifiers: Coronary Disease-Associated Artery/Lesion type: bypass graft [place] vs. transplanted heart: [place] heart (6) HTN (hypertension) Code(s): I10 - ESSENTIAL (PRIMARY) HYPERTENSION Status: Chronic Qualifiers: Hypertension type: essential hypertension Qualified Code(s): I10 - Essential (primary) hypertension (7) CHF (congestive heart failure) Code(s): I50.9 - HEART FAILURE, UNSPECIFIED Status: Suspected - Plan Plan: 79 y/o F with ESRD on HD admitted for acute hypoxic respiratory failure, most likely 2/2 pulmonary edema from volume overloadvs pneumonia. 1. Acute Hypoxic Respiratory Failure 2/2 pulmonary edema from ESRD vs pneumonia , improving. * Consulted Nephrology, Dr. Hoff, appreciate recs. * Performed emergent HD 11/22. * Respiratory status improved, and on NC O2. * Consulted Pulm, Dr. Costa, appreciate recs. * CMV pending. * RVP negative * HSV negative 2. Generalized weakness Discussed w/ pt possibility of SNF versus inpt rehab yesterday. She will consider if rehab therapy schedule might be too intense or if SNF therapy is more appropriate. Will f/u w/ case mgmt. * PT/OT recs- rehab 3. Leukocytosis WBC: 16.5 * Hx of elevated WBC in previous admission * Levaquin course completed * Currently Cipro 4. Hx of HFrEF Continue home medications 5. 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 Artis. * Pacemaker in place 6. Hx of CAD, s/p CABG 7. Hx of COPD Continue home meds 8. ESRD on HD Pain at graft site, prophylactic cipro started by Nephrology. * Nephrology Dr Hoff consulted, appreciate recommendations * Dialysis T/R/Sat * Palliative care consulted: Pt transitioned code status to DNR. appreciate your time spent with pt. 9. Anemia of chronic disease 2/2 ESRD Hgb: 6.7-> 10.5 s/p X2 units pRBCs Code Status: DNR Diet: Renal high protein Dvt Ppx: Eliquis PCP: Viridiana spray drier operator: Chandra certified drug counselor: Luis Eduardo Scientific Programmer Analyst: Igor Dispo: Med inpt, LOS > 48H. Dialysis today and Rehab placement, also look for causes of increase in WBC count. Rehab screen placed 11/27. Addendum - Attending - Attending Attestation Date/Time: 12/01/19 1240 I personally evaluated the patient and discussed the management with Dr. Aawn I agree with the History, Examination, Assessment and Plan documented above with any addition or exceptions noted below. D/C to rehab today.
[2019-12-01] MEDS: Apixaban 2.5 MG TAB PO SCH (08:17)
[2019-12-01] MEDS: Fish Oil 1,000 MG CAP PO SCH (08:17)
[2019-12-01] MEDS: Aspirin 81 mg Enteric Coated Tablet PO SCH (08:17)
[2019-12-01] MEDS: Ubidecarenone 50 MG CAP PO SCH (08:17)
[2019-12-01] MEDS: Carvedilol 3.125 MG TAB PO SCH (08:17)
[2019-12-01] MEDS: Folic Acid 1 MG TAB PO SCH (08:17)
[2019-12-01] MEDS: Amlodipine 10 MG TAB PO SCH (08:18)
[2019-12-01] MEDS: Fluticasone Propionate Nasal Spray 16 gm Bottle NASAL SCH (08:20)
--- NOTE | 2019-12-01 09:07 | PRG ---
DATE OF SERVICE: 12/01/2019 SERVICE: Renal Medicine. SUBJECTIVE: Ms. Tate is a 79-year-old white female, followed up by the Renal Service for chronic renal failure/ESRD. She is currently undergoing hemodialysis. She is tolerating said treatment. She was initially admitted for shortness of breath and was found to be in CHF. No other complaints today. OBJECTIVE: VITAL SIGNS: Blood pressure 143/63, heart rate 67, respiratory rate 18, temperature 98.1, and pulse ox 92%. GENERAL: Awake, alert, comfortable, not in distress. SKIN: Adequate turgor. HEENT: She has pinkish conjunctivae. Anicteric sclerae. No neck mass. No carotid bruits. No JVD. CHEST: No deformities. LUNGS: Clear breath sounds. HEART: Normal sinus rhythm. No murmurs. No gallops. No rubs. ABDOMEN: Globular, soft, and nontender. No masses. EXTREMITIES: No edema. No deformities. MEDICATIONS: Medications of December 01, 2019, were reviewed. LABORATORY DATA: Laboratories of November 28, 2019: Hemoglobin 10.5. Sodium 138, potassium 3.5, chloride 100, carbon dioxide 27, BUN 52, and creatinine 3.57. Basic metabolic panel and CBC of December 01, 2019, pending. ASSESSMENT AND PLAN: 1. Chronic renal failure/end-stage renal disease. Continuing 3 times a week hemodialysis. Maxing out fluid as tolerated by this patient. 2. Anemia. PRN blood transfusion. Continue weekly Epogen. 3. Shortness of breath secondary to congestive heart failure, much improved with fluid removal with dialysis. 4. Agree with current management. Awaiting rehab placement. Job ID: [id number]
[2019-12-01] MEDS ORDERED: Heparin 10,000 UNITS/ 10 ML VIAL ONE (09:09)
[2019-12-01 09:14] LABS: #Basophils 0.1 thou/uL (0.0-0.2); #Eosinphils 0.1 thou/uL (0.0-0.7); #Lymphocytes 1.2 thou/uL (1.20-3.40); #Monocytes 1.2 thou/uL (0.11-0.59); #Neutrophils 15.4 thou/uL (1.40-6.50); %Basophils 0.6 % (0.0-1.0); %Eosinophils 0.4 % (0.0-10.0); %Lymphocytes 6.8 % (21.0-51.0); %Monocytes 6.6 % (0.0-10.0); %Neutrophils 85.7 % (42.0-75.0); Band 1 % (5-11); Hemoglobin 10.3 g/dL (12.0-16.0); Lymphocytes 9 % (21-51); MDiff Complete? YES; Mean Corpuscular HGB CONC 32.8 g/dL (32.0-36.0); Mean Corpuscular Hemoglobin 31.7 pg (27.0-31.0); Mean Corpuscular Volume 96.4 fL (78.0-98.0); Mean Platelet Volume 7.8 fL (7.4-10.4); Metamyelocyte 1 % (0-0); Monocytes 4 % (0-10); Myelocyte 1 % (0-0); Neutrophil 84 % (42-75); Platelet Count 232 thou/uL (130-400); Platelet Morphology Comment Appears Adequate; Polychromasia SLIGHT = 2-3 cells (100X) (0-2/hpf); RBC Distribution Width 16.6 % (11.5-14.5); Red Blood Cell (RBC) Count 3.25 mill/uL (4.20-5.40); White Blood Cell (WBC) Count 17.9 thou/uL (4.8-10.8)
[2019-12-01 09:22] LABS: ALT (SGPT) 13 U/L (8-55); AST (SGOT) 17 U/L (5-34); Albumin 3.1 g/dL (3.4-4.8); Alkaline Phosphatase 97 U/L (40-110); Anion Gap 12 mmol/L (10-20); BUN (Urea Nitrogen) 55 mg/dL (9.8-20.1); Bilirubin, Total 0.4 mg/dL (0.2-1.2); Calc. Creatinine Clearance 13 mL/min (70-130); Calcium 9.3 mg/dL (7.8-10.44); Carbon Dioxide 29 mmol/L (23-31); Chloride 99 mmol/L (98-107); Estimated GFR-MDRD 15; Globulin 2.5 g/dL (2.4-3.5); Glucose 103 mg/dL (83-110); Potassium 4.4 mmol/L (3.5-5.1); Protein, Total 5.6 g/dL (6.0-8.3); Sodium 136 mmol/L (136-145)
--- NOTE | 2019-12-02 11:10 | DIS ---
DATE OF ADMISSION: 11/23/2019 DATE OF DISCHARGE: 12/01/2019 RESIDENT: Josias Awan MD ADMITTING ATTENDING: Adithya James MD DISCHARGE ATTENDING: Miguel Oden MD. CONSULTS: 1. Pulmonology on 11/23, volume overload, continue with dialysis for end-stage renal disease, congestive heart failure, improved. 2. Nephrology on 11/22, Dr. Hoff, chronic renal failure, end-stage renal disease. Continue hemodialysis 3 times per week maxing out fluid as tolerated by this patient. Anemia p.r.n. blood transfusion and continue weekly Epogen. Shortness of breath secondary to congestive heart failure, much improved with fluid removal with dialysis. Agree with current management. Okay to discharge to rehab. 3. Palliative Care on 11/23. PROCEDURES: 1. Chest x-ray on 11/22 showed parenchymal lung changes which are not improved, slightly more consolidative appearance in left midlung field, slightly increased markings in the right lower lobe, although overall changes are fairly minimal and could be largely technique related due to slight difference in positioning. 2. Chest x-ray on 11/23 shows pulmonary vascular congestion, bilateral infiltrates and other findings that are stable. 3. Chest x-ray on 11/24 shows minimally improved infiltrative lung changes. 4. Chest x-ray on 11/26 shows bilateral airspace disease, not appreciably changed. Mild cardiomegaly, stable appearing. Small bilateral pleural effusion persists. Dialysis catheter and pacemaker are unchanged. Midline sternotomy wires are stable appearing. Osseous structures are similar appearing. Stable exam. PRIMARY DIAGNOSES: 1. Acute hypoxic respiratory failure secondary to pulmonary edema from end-stage renal disease. 2. Generalized weakness. 3. Leukocytosis. 4. History of heart failure with reduced ejection fraction. SECONDARY DIAGNOSES: 1. Atrial fibrillation with history of tachycardia-bradycardia syndrome. 2. History of coronary artery disease, status post coronary artery bypass grafting. 3. History of chronic obstructive pulmonary disease. 4. End-stage renal disease, on hemodialysis. 5. Anemia of chronic disease secondary to end-stage renal disease. DISCHARGE MEDICATIONS: 1. Tylenol Extra Strength 1000 mg p.o. q.6 hours p.r.n. 2. Amlodipine 10 mg daily. 3. Eliquis 2.5 mg p.o. b.i.d. 4. Aspirin 81 daily. 5. Atorvastatin 40 mg at bedtime. 6. Cepacol lozenges one b.i.d. p.r.n. for sore throat. 7. Tums two tabs p.o. q.6 hours. 8. Carvedilol one tab p.o. b.i.d., 3.125 mg. 9. Cholecalciferol 1250 mcg p.o. daily. 10. Benadryl 25 mg p.o. q.6 hours p.r.n. for itching. 11. Epoetin 7500 units subcu q.7 days. 12. Folic acid 1.2 mg p.o. daily. 13. Guaifenesin 200 mg p.o. q.4 hours p.r.n. for cough. 14. Albuterol 3 mL inhaled q.4 hours p.r.n. for shortness of breath and wheezing. 15. Nitroglycerin 0.4 mg sublingual q.5 minutes p.r.n. for chest pain. 16. Street-3 fish oil 1200 mg p.o. b.i.d. 17. Simethicone 180 mg p.o. t.i.d. p.r.n. for gas. 18. Tramadol 50 mg p.o. q.4 hours p.r.n. for pain. 19. CoQ10 of 100 mg p.o. b.i.d. 20. Bisacodyl 10 mcg p.r.n. for constipation. 21. Clonidine 0.1 mg p.o. q.6 hours p.r.n. for hypertension. 22. Aranesp 40 mcg subcu q.14 days. 23. Loperamide 2 mg p.o. p.r.n. for loose stools. 24. MiraLAX 17 g p.o. daily. 25. Trazodone 50 mg at bedtime. DISCONTINUED MEDICATIONS: 1. Heparin. 2. Cipro. 3. Flonase. 4. Pepcid. HISTORY OF PRESENT ILLNESS/HOSPITAL COURSE: The patient is a 79-year-old female with past medical history of end-stage renal disease, on hemodialysis, coronary artery disease, status post CABG, and tachycardia-bradycardia syndrome, status post pacemaker placement. The patient was sent over from inpatient rehab due to shortness of breath and increased work of breathing that started 2:00 a.m. overnight. She then worsened at 4:00 a.m., the patient was hypoxic. The patient complained of increased swelling in lower extremities, palpitations, pleuritic chest pain, and cough with clear sputum production. The patient states her chest pain does not radiate, described as a pressure, substernal, was worsened with deep breathing, nothing makes it better. Complains of nausea. Denies vomiting or diarrhea. Has had little cough, little clear production. She denies fevers, chills, or sweats. Dialysis on Tuesdays, , and Saturdays. She states the swelling in her legs has been worse. She states nausea comes and goes. In the ED, chest x-ray showed no worsening from previous studies with left midlung consolidation, right lung base increased markings and parenchymal changes not improved, given cefepime and vancomycin. 1. Acute hypoxic respiratory failure secondary to pulmonary edema from end-stage renal disease versus pneumonia. * Consulted Dr. Hoff, who gave the patient dialysis. * Procalcitonin is 0.37. * Started Levaquin for community-acquired pneumonia coverage and risk factors for Pseudomonas, recent intubation, prolonged course of IV antibiotics. * Levaquin dosed for hemodialysis. * The patient given vancomycin and cefepime in the ER. * White blood count initially was 19.5 on discharge 17.5. * History of leukocytosis, near baseline. * Pleuritic chest pain, troponin and EKG to evaluate for ACS most likely secondary to pleural effusion. * Blood cultures no growth at 5 days. * Urine culture, no growth at 36 hours. * Catheter culture showed no growth. * RVP negative * Stool Cx was negative 2. Leukocytosis. White blood cell count of 17.5 before discharge. * Procalcitonin was negative during stay. 3. History of heart failure, reduced ejection fraction. She recently had an echo. * Continue home medications. 4. Atrial fibrillation. Continue home medications of Eliquis 2.5 mg b.i.d. * EKG: no changes 5. History of coronary artery disease, status post CABG. * EKG as noted above * No changes in trops 6. History of COPD, contributes to acute hypoxia. * ABG was performed. T * The patient was initially on BiPAP during hospital stay, but was weened done to 3L NC, which she was on at rehab 7. History of tachycardia-bradycardia syndrome, status post pacemaker placement. 8. End-stage renal disease, on hemodialysis. Nephrology, Dr. Hoff, consulted. On discharge, the patient was requiring 3 L, which she was requiring on admission. HSV was negative. Leukocytosis was 17.9 before discharge, currently at her baseline. Discontinued Cipro. No signs of infection. No fever , tachycardia, or tachypnea present. PT recommended rehab. Anemia was resolved after 2 units transfusion. DISPOSITION: Stable. DISCHARGE INSTRUCTIONS: 1. Location: [facility]. 2. Activity: As tolerated with PT and OT evaluation and treatment. 3. Diet: Renal. 4. Followup: Follow up with Dr. Roberts within 7 days of discharge, Dr. Rosa , Dr. Artis, Dr. Hoff, and Dr. Costa. Job ID: [id number] MTDD
--- NOTE | 2019-12-02 14:03 | PQF ---
LOPEZ CROCKETT MARK *r [id number] ADE TELLO [id number] CLINICAL DOCUMENTATION CLARIFICATION FORM: POST DISCHARGE Addendum to original discharge summary date: ____ Late entry note date: __ DATE:12/02/2019 ATTN: TONYA BUENO Please exercise your independent, professional judgment in responding to the clarification form. Clinical indicators are provided on the bottom of this form for your review Please check appropriate box(s): kindly clarify the congestive heart failure [ x ] Acute on chronic diastolic congestive heart failure [ ] Chronic diastolic congestive heart failure [ ] Other diagnosis [ ] Unable to determine In addition, please specify: Present on Admission (POA): [x ] Yes [ ] No [ ] Unable to determine For continuity of documentation, please document condition throughout progress notes and discharge summary. Thank You. CLINICAL INDICATORS - SIGNS / SYMPTOMS / LABS Acute on chronic diastolic congestive heart failure-Consultation report on by Magdiel Cota MD Volume overload-Documented in Discharge summary on 11/30 by Josias Awan MD SOB secondary to congestive heart failure -Documented in Discharge summary on by Josias Awan MD Mild bilateral pleural effusion-Documented in Discharge summary on 11/30 by Josias Awan MD Acute hypoxic respiratory failure secondary to pulmonary edema from end stage renal disease-Documented in Discharge summary on 11/30 by Josias Awan MD RISKS: Atrial fibrillation-Documented in Discharge summary on 11/30 by Josias Awan MD ESRD-Documented in Discharge summary on 11/30 by Josias Awan MD CAD-Documented in Discharge summary on 11/30 by Josias Awan MD TREATMENTS: Much improved with fluid removal with dialysis -Documented in Discharge summary on 11/30 by Josias Awan MD Nitroglycerin-Documented in Medication snapshot SAP Spinal Simplicity Crystal Reports Winform Viewer (This form is maintained as a part of the permanent medical record) 2014 [employer] All Rights Reserved [email or web address]
--- NOTE | 2019-12-05 00:31 | PQF ---
LOPEZ CROCKETT MARK *r [id number] ADE TELLO [id number] CLINICAL DOCUMENTATION CLARIFICATION FORM: POST DISCHARGE Addendum to original discharge summary date: ____ Late entry note date: __ DATE:12/05/2019 ATTN:TONYA BUENO Please exercise your independent, professional judgment in responding to the clarification form. Clinical indicators are provided on the bottom of this form for your review Please check appropriate box(s): AMI TYPE: [ ] Acute Coronary Syndrome (ACS) without Acute RI meaning Unstable Angina [ ] NSTEMI (RI type I) [ ] NSTEMI due to Demand Ischemia (AMI Type II) [ ] Demand Ischemia without RI [ ] STEMI (please also specify site and arterysee below) If STEMI, SITE: [ ] Anterior [ ] Apical [ ] Lateral [ ] Inferior [ ] Posterior [ ] Q Wave [ ] Septal [ ] Unable to Determine SPECIFIC ARTERY (Based on site) [ ] Left Main Coronary[ ] Diagonal [ ] Left Anterior Descending[ ] Oblique Marginal [ ] Right Coronary Artery[ ] Unable to Determine [ ] Left Circumflex [ X ] Other diagnosis Nonischemic troponin elevation w/o MI [ ] Unable to determine In addition, please specify: Present on Admission (POA): [ x ] Yes [ ] No [ ] Unable to determine CLINICAL INDICATORS - SIGNS / SYMPTOMS / LABS Pleuritic chest pain , troponin and EKG to evaluate for ACS most likely secondary to pleural effusion -Documented in discharge summary on 11/30 by Tonya Bueno MD Acute on chronic diastolic congestive heart failure -Documented in query response Ordered trop and EKG to evaluate for ACS, Most likely 2/2 pleural effusion - Documented in H&P on 11/22 by Roya Gonzalez Troponin-0.035-Documented in Consultation report on 11/22 by Fany Ackerman MD Trop-0.035 likely elevated in setting on ESRD, Most likely 2/2 pleural effusion -Documented in family medicine progress note on 11/25 by roya Gonzalez MD RISKS: Atrial fibrillation-Documented in discharge summary on 11/30 by Tonya Bueno MD CAD-Documented in discharge summary on 11/30 by Tonya Bueno MD ESRD-Documented in discharge summary on 11/30 by Tonya Bueno MD TREATMENTS: Aspirin 81 mg Daily -Documented in discharge summary on 11/30 by Tonya Bueno MD Heparin 5000 units-Documented in Medication snapshot SAP Editing Intern Crystal Reports Winform Viewer (This form is maintained as a part of the permanent medical record) 2014 [employer]. All Rights Reserved [email or web address] [phone] BRITT
--- NOTE | 2019-12-09 08:48 | PQF ---
LOPEZ CROCKETT MARK Nathangama [id number] ADE TELLO [id number] CLINICAL DOCUMENTATION CLARIFICATION FORM: POST DISCHARGE Addendum to original discharge summary date: ____ Late entry note date: __ DATE:12/09/2019 ATTN: TONYA BUENO Please exercise your independent, professional judgment in responding to the clarification form. Clinical indicators are provided on the bottom of this form for your review Please check appropriate box(s): Conflicting documentation was noted in the Medical Record, please clarify if patient is being treated/monitored for: [ s ] End stage renal disease [ ] Chronic kidney disease stage 4 [ ] Other diagnosis [ ] Unable to determine For continuity of documentation, please document condition throughout progress notes and discharge summary. Thank You. CLINICAL INDICATORS - SIGNS / SYMPTOMS/ LABS Acute kidney injury on chronic kidney disease stage 4, currently on dialysis - Documented in consultation on 11/23 by Magdiel Cota MD [facility]-End stage renal disease reuiring hemodialysis -Documented in consultation on 11/23 by Magdiel Cota MD Acute hypoxic respiratory failure secondary to pulmonary edema from End stage renal disease -Documented in Discharge summary on 12/01/2019 by Josias Awan MD BUN-50, Creatinine-3.57, GFR12, 15-Documented in Laboratory RISK FACTORS CAD-Documented in Discharge summary on 12/01/2019 by Josias Awan MD CHF-Documented in Discharge summary on 12/01/2019 by Josias Awan MD TREATMENT Hemodialysis on 11/22 SAP Building Serviceman Crystal Reports Winform Viewer (This form is maintained as a part of the permanent medical record) 2014 [employer]. All Rights Reserved [email or web address]
[2019-12-10 18:13] LABS: CMV DNA-PCR Test Negative (Negative)
== END 2019-12-01 14:41 | DRG 291 ==
LOC: ERS 07:37 → ERHOLD 12:18 → IMCU/EMU 17:15 → T4-B 11-28 15:25
PROVIDERS: ADMIT Internal Medicine; ATTEND Student in an Organized Health Care Education/Training Program
PROC: 5A1D70Z Performance of Urinary Filtration, Intermittent, Less than 6 Hours Per Day (ICD-10-PCS; principal; 2019-11-23)
PROC: 30233N1 Transfusion of Nonautologous Red Blood Cells into Peripheral Vein, Percutaneous Approach (ICD-10-PCS; 2019-11-26)
DX: I13.2 Hypertensive heart and chronic kidney disease with heart failure and with stage 5 chronic kidney disease, or end stage renal disease (principal); N18.6 End stage renal disease; J18.9 Pneumonia, unspecified organism; I50.33 Acute on chronic diastolic (congestive) heart failure; J96.21 Acute and chronic respiratory failure with hypoxia; J44.0 Chronic obstructive pulmonary disease with (acute) lower respiratory infection; N17.9 Acute kidney failure, unspecified; Z66 Do not resuscitate; Z51.5 Encounter for palliative care; E11.22 Type 2 diabetes mellitus with diabetic chronic kidney disease; Z99.2 Dependence on renal dialysis; I25.10 Atherosclerotic heart disease of native coronary artery without angina pectoris; Z95.1 Presence of aortocoronary bypass graft; E78.5 Hyperlipidemia, unspecified; I48.91 Unspecified atrial fibrillation; Z95.0 Presence of cardiac pacemaker; I34.0 Nonrheumatic mitral (valve) insufficiency; D63.1 Anemia in chronic kidney disease; I49.5 Sick sinus syndrome; R79.9 Abnormal finding of blood chemistry, unspecified
CPT/HCPCS: 36415; 36430; 71045; 80048; 80053; 82553; 82805; 83880; 84145; 84484; 85025; 86850; 86900; 86901; 87324; 87449; 87497; 87529; 87633; 90935; 93005; 93010; 96365; 96366; 96367; G0257; J0692; J1642; J1644; J1956; J3370; P9016; Q0162; Q5105

== ENCOUNTER 2020-01-04 07:48 | Day surgery (SDC) | payer MEDICARE ==
[2020-01-04 08:08] VITALS: BMI 19.7
[2020-01-04] MEDS ORDERED: Prevnar 13-Val Conj/PF 0.5 ML SYRINGE IM ONE (08:15)
[2020-01-04] MEDS ORDERED: Heparin 1,000 UNITS/ML VIAL ONE (09:18)
--- NOTE | 2020-01-04 09:48 | SPC ---
Left upper extremity dialysis fistulogram Sonographic guided vascular access HISTORY: Renal failure. Poor maturation of left upper extremity dialysis fistula. FINDINGS: After explaining the procedure and answering all questions, sonographic evaluation showed w gerald patency of the arterial anastomosis. Duplication of the cephalic vein was seen with sonography. Basilic vein not well visualized. Sterile technique, buffered local anesthesia, sonographic guidance, and a 22-gauge needle were used t o carefully access the cephalic fistula at the level of the antecubital fossa. The wire and 4 [place] micropuncture sheath preferentially traveled into the lateral branch of the duplicated cephali c vein. The 4 [place] micropuncture sheath was used for serial imaging, showing the cephalic outflow and super ior vena cava to be patent. Flow appeared to be codominant. A small collateral arises medially from the cephalic vein at the level of the distal humeral metaphysis and becomes what is suspected to be a small basilic vein. Arterial anastomosis was unable to be refluxed due to the vigorous inflow and duplicated cephalic mercedes ous outflow. Sheath was removed and hemostasis obtained using direct pressure. Patient tolerated the procedure wel l and was transferred to the holding area in good condition. Fluoroscopy time 1.1 minutes. Findings were called to Dr. Rosa at 0921 hours. IMPRESSION : Good fistula flow throughout a duplicated left cephalic vein, with codominant flow. Single small sandor ateral branch peripherally. Code CR.
[2020-01-04 10:00] VITALS: BP 184/94; TEMP 97
--- NOTE | 2020-01-04 15:28 | PRG ---
DATE OF SERVICE: 01/04/2020 Darlin Tate today is having a fistulogram in her left upper arm. She had a fistula established in her left arm on November 15. She had inflow of the proximal radial artery. She had outflow through primarily the cephalic vein. Retrograde antecubital vein preserved. No communication of the basilic vein noted. The patient dialyzes Saturday, , and Saturday. The patient's fistula seemed to be slow to mature. She underwent a fistulogram today. Dr. Fitz Solis evaluated this. He used ultrasound and contrast fluoroscopy. This study revealed a communicating branch to the basilic vein. This was located just above the antecubital fossa. In addition, using the ultrasound and contrast injection, she was noted to have a dual outflow from her cephalic vein fistula. She had a duplicated cephalic vein. When compressing the medial cephalic vein, the lateral cephalic vein, which appeared to be the primary fistula, filled well and subclavian vein. The patient has a pacemaker defibrillator, but her central circulation is patent. At this point, I have talked to the patient regarding ligation of one of the duplicated cephalic vein conduits, notably the medial one and also with communication of the basilic vein to facilitate maturation of fistula and so that she can use her fistula sooner and get rid of her dialysis catheter and avoid complications with dialysis catheter. She is agreeable and will plan this as an outpatient. She has been evaluated and recommended anticoagulation, has been on Coumadin in the past, but does not like the side effects. She has been recommended Eliquis, but it is too expensive. Dr. Artis has recommended anticoagulation, but she is yet to have a followup appointment with him. If she does start on anticoagulation, she should hold it for 2 to 3 days preoperatively. We will plan this under regional anesthesia and TIVA. Job ID: [id number]
== END 2020-01-04 11:20 | disposition home or self-care (01) ==
LOC: SPEC 07:48
PROVIDERS: ATTEND Specialist
PROC: B51W1ZZ Fluoroscopy of Dialysis Shunt/Fistula using Low Osmolar Contrast (ICD-10-PCS; principal; 2020-01-04)
DX: I13.2 Hypertensive heart and chronic kidney disease with heart failure and with stage 5 chronic kidney disease, or end stage renal disease (principal); N18.6 End stage renal disease; I50.9 Heart failure, unspecified; Q27.9 Congenital malformation of peripheral vascular system, unspecified; I25.10 Atherosclerotic heart disease of native coronary artery without angina pectoris; F32.9 Major depressive disorder, single episode, unspecified; G47.33 Obstructive sleep apnea (adult) (pediatric); J44.9 Chronic obstructive pulmonary disease, unspecified; Z87.891 Personal history of nicotine dependence; Z79.82 Long term (current) use of aspirin; Z79.899 Other long term (current) drug therapy; Z88.8 Allergy status to other drugs, medicaments and biological substances; Z99.2 Dependence on renal dialysis; Z95.810 Presence of automatic (implantable) cardiac defibrillator
CPT/HCPCS: 36901

== ENCOUNTER 2020-01-25 06:43 | Outpatient (CLI) | payer MEDICARE, OTHER ==
[2020-01-25 10:53] VITALS: BMI 17.4
[2020-01-25 12:37] LABS: #Lymphocytes 1.5 thou/uL (1.20-3.40); #Monocytes 0.8 thou/uL (0.11-0.59); #Neutrophils 7.2 thou/uL (1.40-6.50); %Basophils 0.4 % (0.0-1.0); %Eosinophils 0.5 % (0.0-10.0); %Monocytes 8.3 % (0.0-10.0); %Neutrophils 74.8 % (42.0-75.0); Hemoglobin 12.4 g/dL (12.0-16.0); Mean Corpuscular HGB CONC 31.9 g/dL (32.0-36.0); Mean Corpuscular Hemoglobin 31.5 pg (27.0-31.0); Mean Corpuscular Volume 98.8 fL (78.0-98.0); Mean Platelet Volume 9.4 fL (7.4-10.4); Platelet Count 277 thou/uL (130-400); RBC Distribution Width 17.3 % (11.5-14.5); Red Blood Cell (RBC) Count 3.92 mill/uL (4.20-5.40); White Blood Cell (WBC) Count 9.6 thou/uL (4.8-10.8)
[2020-01-25 12:54] LABS: Anion Gap 17 mmol/L (10-20); BUN (Urea Nitrogen) 39 mg/dL (9.8-20.1); Calc. Creatinine Clearance 21 mL/min (70-130); Calcium 9.9 mg/dL (7.8-10.44); Carbon Dioxide 22 mmol/L (23-31); Chloride 101 mmol/L (98-107); Estimated GFR-MDRD 29; Glucose 84 mg/dL (83-110); Potassium 4.2 mmol/L (3.5-5.1); Sodium 136 mmol/L (136-145)
[2020-01-27 18:49] LABS: SARS-CoV-2 MS2 Positive; SARS-CoV-2 N Gene Negative; SARS-CoV-2 S Gene Negative; SARS-CoV-2 orf1ab Negative
== END 2020-01-25 06:44 | disposition home or self-care (01) ==
LOC: LABBT 06:43
PROVIDERS: ATTEND Specialist
DX: Z01.812 Encounter for preprocedural laboratory examination (principal); Z11.59 Encounter for screening for other viral diseases; N18.6 End stage renal disease
CPT/HCPCS: 80048; 85025; U0003; 87635

== ENCOUNTER 2020-01-29 07:03 | Day surgery (SDC) | payer MEDICARE ==
[2020-01-29] MEDS ORDERED: Midazolam HCl 2 mg/2 ml Vial ONE (08:26)
[2020-01-29] MEDS ORDERED: Fentanyl 100 MCG/2 ML VIAL ONE ×2 (08:26→09:47)
[2020-01-29] MEDS ORDERED: Protamine Sulfate 50 MG/5 ML VIAL ONE (08:42)
[2020-01-29] MEDS ORDERED: Lidocaine 1% w/Epinephrine 1:100K 20 ML VIAL ONE ×2 (08:42→09:46)
[2020-01-29] MEDS ORDERED: Heparin 5,000 UNITS/ML VIAL ONE ×2 (08:42→09:46)
[2020-01-29] MEDS ORDERED: Bupivacaine 0.25% HCL 30 ML VIAL ONE (08:42)
[2020-01-29] MEDS ORDERED: Bupivacaine PF 0.5% 30 ML VIAL ONE (09:46)
[2020-01-29] MEDS ORDERED: HYDROcodone/Acetaminophen 5/325 mg Tablet ONE (11:31)
[2020-01-29] MEDS ORDERED: Heparin 10,000 UNITS/ 10 ML VIAL ONE (13:15)
[2020-01-29] MEDS ORDERED: PROPOFOL 200 MG/20 ML VIAL ONE (14:16)
[2020-01-29] MEDS ORDERED: Ondansetron PF 4 MG/2 ML Vial ONE (14:16)
--- NOTE | 2020-01-29 14:45 | OP ---
DATE OF PROCEDURE: 01/29/2020 PREOPERATIVE DIAGNOSES: 1. End-stage renal disease. 2. Left upper arm dialysis fistula malfunction without thrombosis. 3. Duplicated cephalic vein. 4. Large communicators to the basilic vein. POSTOPERATIVE DIAGNOSES: 1. End-stage renal disease. 2. Left upper arm dialysis fistula malfunction without thrombosis. 3. Duplicated cephalic vein. 4. Large communicators to the basilic vein. PROCEDURE PERFORMED: Revision of left upper arm arteriovenous fistula with ligation of collaterals and duplication cephalic vein. ANESTHESIA: Regional and TIVA. DESCRIPTION OF PROCEDURE: The patient was taken to the operating room, where under regional anesthesia and intravenous sedation, left upper extremity was prepared with Chloraprep and draped in fashion. Incision was made over the distal cephalic vein above the antecubital fossa longitudinally, carried down to skin and subcutaneous tissue. Several large collateral branches identified, dissected free, and ligated with 2-0 silk and 3-0 silk ties. There was a good Doppler signal in the cephalic vein at the end of the case. The patient tolerated the procedure well. Subcutaneous tissue was approximated with 3-0 Monocryl, skin with subdermal 4-0 Monocryl, and [place] glue applied. Job ID: [id number]
[2020-01-29] MEDS ORDERED: Bupivacaine HCl 0.5%/Epinephrine 1:200,000/PF 30 ml Vial ONE (15:45)
== END 2020-01-29 13:50 | disposition home or self-care (01) ==
LOC: SDC 07:03
PROVIDERS: ATTEND Specialist
PROC: 05WY07Z Revision of Autologous Tissue Substitute in Upper Vein, Open Approach (ICD-10-PCS; principal; 2020-01-29)
DX: T82.510A Breakdown (mechanical) of surgically created arteriovenous fistula, initial encounter (principal); N18.6 End stage renal disease; Z88.8 Allergy status to other drugs, medicaments and biological substances; Z99.2 Dependence on renal dialysis
CPT/HCPCS: J0670; J0690; J1644; J2250; J2405; J2704; J2720; J3010; S0020

== ENCOUNTER 2020-06-12 20:05 | Inpatient (IN) | payer MEDICARE, OTHER ==
[~2020-06-12 20:05] MED LIST: Iopamidol 370 76% 100 ML VIAL ONE
[2020-06-12 20:59] LABS: #Basophils 0.1 thou/uL (0.0-0.2); #Eosinphils 0.1 thou/uL (0.0-0.7); #Lymphocytes 1.6 thou/uL (1.20-3.40); #Monocytes 0.7 thou/uL (0.11-0.59); #Neutrophils 12.7 thou/uL (1.40-6.50); %Basophils 0.4 % (0.0-1.0); %Eosinophils 0.7 % (0.0-10.0); %Lymphocytes 10.7 % (21.0-51.0); %Monocytes 4.7 % (0.0-10.0); %Neutrophils 83.5 % (42.0-75.0); Mean Corpuscular HGB CONC 32.6 g/dL (32.0-36.0); Mean Corpuscular Hemoglobin 32.2 pg (27.0-31.0); Mean Corpuscular Volume 98.9 fL (78.0-98.0); Mean Platelet Volume 9.5 fL (7.4-10.4); Platelet Count 269 thou/uL (130-400); RBC Distribution Width 14.1 % (11.5-14.5); Red Blood Cell (RBC) Count 4.04 mill/uL (4.20-5.40); White Blood Cell (WBC) Count 15.2 thou/uL (4.8-10.8)
[2020-06-12] MEDS ORDERED: Nitroglycerin 0.4 MG TAB 1 EACH ONE (21:03)
--- NOTE | 2020-06-12 21:03 | RAD ---
PORTABLE CHEST: History: Shortness of breath, dialysis patient. FINDINGS: Heart size is within normal limits. There are post op sternotomy change with a pacemaker. Right sided hemosplit catheter is present. There is extensive interstitial alveolar lung changes, somewhat more in the perihilar distribution, but also fairly prominent in the lower lobes. There are also chronic l vida changes. IMPRESSION: Findings are most compatible with pulmonary edema. A multifocal pneumonic process is not excluded as a co-existent process. POS: TANO
[2020-06-12] MEDS ORDERED: Nitroglycerin 2% Ointment 1 INCH/1 GM Packet ONE (21:06)
[2020-06-12 21:20] LABS: ALT (SGPT) 17 U/L (8-55); AST (SGOT) 25 U/L (5-34); Albumin 3.7 g/dL (3.4-4.8); Alkaline Phosphatase 109 U/L (40-110); Anion Gap 17 mmol/L (10-20); BUN (Urea Nitrogen) 23 mg/dL (9.8-20.1); Bilirubin, Total 0.3 mg/dL (0.2-1.2); Calc. Creatinine Clearance 0 mL/min (70-130); Calcium 9.1 mg/dL (7.8-10.44); Carbon Dioxide 24 mmol/L (23-31); Chloride 100 mmol/L (98-107); Estimated GFR-MDRD 33; Globulin 3.4 g/dL (2.4-3.5); Glucose 148 mg/dL (83-110); Magnesium 2.2 mg/dL (1.6-2.6); Potassium 3.5 mmol/L (3.5-5.1); Protein, Total 7.1 g/dL (6.0-8.3); Sodium 137 mmol/L (136-145)
[2020-06-12 21:40] LABS: CKMB 0.9 ng/mL (0-6.6)
[2020-06-12] MEDS ORDERED: Lorazepam 2 MG/ML VIAL ONE (22:09)
[2020-06-12] MEDS ORDERED: Nitroglycerin 50 MG/250 ML BOT 250 ML ONE (22:21)
[2020-06-12] MEDS ORDERED: Nitroglycerin 50 MG/250 ML BOT 250 ML IVPB SCH (22:30)
[2020-06-12 22:32] LABS: Bacteria/HPF None Seen HPF (None Seen); Bilirubin Negative (Negative); Blood, Urine 3+ (Negative); Clarity Clear (Clear); Glucose, Urine (Dipstick) Normal (Negative); Ketone, Urine Negative (Negative); Leukocyte Negative Leu/uL (Negative); Nitrite Negative (Negative); Protein, Urine (Dipstick) 300 mg/dL (Neg-Trace); RBC/HPF Greater than 50 HPF (0-3); Specific Gravity, Urine 1.033 (1.002-1.036); Squamous Epithelial None Seen HPF (0-3); Urobilinogen Normal mg/dL (Less than 2); pH, Urine 6.5 (5.0-9.0)
[2020-06-12 22:37] LABS: SARS-CoV-2 NAA Rapid Test Not Detected (NotDetected)
[2020-06-12 22:38] LABS: Actual Bicarbonate (HCO3a) 23.8 mEq/L (22-28); Analyzer IN Cardio ER; Base Excess (BEa) -1.7 mEq/L (-2.0 to +3.0); CO2 Tension 43.1 mmHg (35.0-45.0); Calcium, Ionized (arterial) 1.16 mmol/L (1.12-1.30); Carboxyhemoglobin (COHb) 0.4 gm% (0.0-3.0); Hemoglobin (Hb) 13.4 g/dL (12.0-16.0); Potassium - ABG Lab 3.24 mmol/L (3.70-5.30); pH, Arterial 7.36 (7.35-7.45)
[2020-06-12 22:39] LABS: ALV-art Gradient 457.025 mmHg (0-20); O2 Tension (PaO2), arterial 59.5 mmHg (> 70.0); Puncture Site R RADIAL
--- NOTE | 2020-06-12 23:33 | PDOC.HHP ---
Hospitalist HPI - History of Present Illness Shortness of breath History of Present Illness: 79-year-old woman with a history of hypertension, end-stage renal disease on hemodialysis presented to the emergency department with a complaint of acute worsening shortness of breath cough onset this afternoon this afternoon. Patient had hemodialysis yesterday. Patient denied any sick contacts with any patient with a fever. Her chest x-ray in the ED demonstrated pulmonary edema, pneumonia not ruled out. Her rapid COVID-19 test came back negative. Patient symptoms likely related to pulmonary edema and vascular congestion. She was on BiPAP therapy when I saw her in the ED. Patient states that she was already feeling better. Her diabetes manager Dr. Hoff has been contacted who plans to do emergent hemodialysis. She does have some leukocytosis and troponin also mildly elevated. Patient is admitted for further management. Hospitalist ROS - Review of Systems Other: Except as documented, all other systems reviewed and negative. - Medication Medications: Medication Instructions Recorded Confirmed Type Aspirin [Ecotrin Low Strength] 81 mg PO DAILY 10/23/19 04/14/20 History Cholecalciferol (Vitamin D3) 1,250 mcg PO DAILY 10/23/19 04/14/20 History [Vitamin D3] Folic Acid 1.2 mg PO DAILY 10/23/19 04/14/20 History Ubidecarenone [Co Q-10] 100 mg PO BID 10/23/19 04/14/20 History [place]-3S/DHA/EPA/Fish Oil [[place]-3 1 each PO BID 11/05/19 04/14/20 History Fish Oil 1,200 mg Sfgl] Acetaminophen [Acetaminophen Extra 500 mg PO Q4HR PRN 11/23/19 04/14/20 History Strength] Ascorbic Acid [Vitamin C] 1,000 mg PO DAILY 01/25/20 04/14/20 History Psyllium Husk [Metamucil] 2 cap PO DAILY 01/25/20 04/14/20 History Hospitalist History - Past Medical History Other Medical History: Hyperlipidemia, tachybradycardia syndrome, end-stage renal disease on hemodialysis, hypertension, coronary disease status post CABG - Past Surgical History Other Surgical History: CABG, L4-L5 fusion, hysterectomy, appendectomy, pacemaker placement, HD catheter right IJ, left UE fistula. - Family History Other Family History: Dad had prostate cancer, brothers from lung cancer. - Social History Smoking Status: Former smoker Alcohol: reports: None Drugs: reports: none - Exam General Appearance: awake alert, ill appearing General - other findings: In moderate respiratory distress Eye: PERRL, anicteric sclera ENT: no oropharyngeal lesions, moist mucosa ENT - other findings: BiPAP in place Neck: supple, symmetric, no JVD Heart: no murmur Heart - other findings: Tachycardic. Respiratory - other findings: Bilateral rales Gastrointestinal: soft, non-tender, non-distended, normal bowel sounds Extremities: no cyanosis, no edema Skin: normal turgor, no rashes Neurological: cranial nerve grossly intact, no weakness, no focal deficits Musculoskeletal: normal tone, normal strength Psychiatric: normal affect, A&O x 3 Hospitalist Results - Labs Result Diagrams: 06/13/20 03:25 06/13/20 03:25 Lab results: WBC 15.2 thou/uL (4.8-10.8) H 06/12/20 20:39 Hgb 13.0 g/dL (12.0-16.0) 06/12/20 20:39 Hct 40.0 % (36.0-47.0) 06/12/20 20:39 MCV 98.9 fL (78.0-98.0) H 06/12/20 20:39 Plt Count 269 thou/uL (130-400) 06/12/20 20:39 Neutrophils % 83.5 % (42.0-75.0) H 06/12/20 20:39 ABG pH 7.36 (7.35-7.45) 06/12/20 22:33 ABG pCO2 43.1 mmHg (35.0-45.0) 06/12/20 22:33 ABG pO2 59.5 mmHg (> 70.0) L* 06/12/20 22:33 Sodium 137 mmol/L (136-145) 06/12/20 20:39 Potassium 3.5 mmol/L (3.5-5.1) 06/12/20 20:39 Chloride 100 mmol/L (98-107) 06/12/20 20:39 Carbon Dioxide 24 mmol/L (23-31) 06/12/20 20:39 BUN 23 mg/dL (9.8-20.1) H 06/12/20 20:39 Creatinine 1.52 mg/dL (0.6-1.1) H 06/12/20 20:39 Glucose 148 mg/dL (83-110) H 06/12/20 20:39 Calcium 9.1 mg/dL (7.8-10.44) 06/12/20 20:39 Total Bilirubin 0.3 mg/dL (0.2-1.2) 06/12/20 20:39 AST 25 U/L (5-34) 06/12/20 20:39 ALT 17 U/L (8-55) 06/12/20 20:39 Alkaline Phosphatase 109 U/L (40-110) 06/12/20 20:39 CK-MB (CK-2) 0.9 ng/mL (0-6.6) 06/12/20 20:39 Troponin I 0.034 ng/mL (< 0.028) H 06/12/20 20:39 B-Natriuretic Peptide 1351.6 pg/mL (0-100) H 06/12/20 20:39 Serum Total Protein 7.1 g/dL (6.0-8.3) 06/12/20 20:39 Albumin 3.7 g/dL (3.4-4.8) 06/12/20 20:39 Urine Ketones Negative mg/dL (Negative) 06/12/20 22:15 Urine Blood 3+ (Negative) A 06/12/20 22:15 Urine Nitrite Negative (Negative) 06/12/20 22:15 Ur Leukocyte Esterase Negative Ashli/uL (Negative) 06/12/20 22:15 Urine RBC Greater than 50 HPF (0-3) A 06/12/20 22:15 Urine WBC 11-20 HPF (0-3) A 06/12/20 22:15 Ur Squamous Epith Cells None Seen HPF (0-3) 06/12/20 22:15 Urine Bacteria None Seen HPF (None Seen) 06/12/20 22:15 - Radiology Interpretation Chest x-ray Status: report reviewed by me (Pulmonary edema) Hospitalist H&P A/P - Problem (1) Pulmonary edema Code(s): J81.1 - CHRONIC PULMONARY EDEMA Status: Acute (2) Acute respiratory failure with hypoxia Code(s): J96.01 - ACUTE RESPIRATORY FAILURE WITH HYPOXIA Status: Acute (3) ESRD (end stage renal disease) on dialysis Code(s): N18.6 - END STAGE RENAL DISEASE; Z99.2 - DEPENDENCE ON RENAL DIALYSIS Status: Chronic (4) Atrial fibrillation Code(s): I48.91 - UNSPECIFIED ATRIAL FIBRILLATION Status: Chronic (5) CHF (congestive heart failure) Code(s): I50.9 - HEART FAILURE, UNSPECIFIED Status: Acute Qualifiers: Heart failure type: diastolic Heart failure chronicity: acute on chronic Qualified Code(s): I50.33 - Acute on chronic diastolic (congestive) heart failure - Plan Plan: Admit to IMCU Continue BiPAP therapy. Bronchodilators as needed Consult nephrology. Dr. Hoff planning emergency room with dialysis tonight. Titrate oxygen. Aggressive blood pressure control. Elevated troponin likely secondary to reduced clearance by the kidneys. Trend troponin.
--- NOTE | 2020-06-12 23:42 | PDOC.FMACP ---
Advance Care Planning - Problem (1) Pulmonary edema Status: Acute Code(s): J81.1 - CHRONIC PULMONARY EDEMA (2) Acute respiratory failure with hypoxia Status: Acute Code(s): J96.01 - ACUTE RESPIRATORY FAILURE WITH HYPOXIA (3) ESRD (end stage renal disease) on dialysis Status: Chronic Code(s): N18.6 - END STAGE RENAL DISEASE; Z99.2 - DEPENDENCE ON RENAL DIALYSIS (4) Atrial fibrillation Status: Chronic Code(s): I48.91 - UNSPECIFIED ATRIAL FIBRILLATION (5) CHF (congestive heart failure) Status: Acute Code(s): I50.9 - HEART FAILURE, UNSPECIFIED Qualifiers: Heart failure type: diastolic Heart failure chronicity: acute on chronic Qualified Code(s): I50.33 - Acute on chronic diastolic (congestive) heart failure - Note Summary: Advanced Care Planning was discussed. The diagnosis, prognosis and goals of care were discussed. Appropriate forms and documentation to accomplish the goals of care were discussed. All questions were answered. The Palliative Care Team will be engaged to assist with completion of any outstanding forms that are needed. Patient wishes to be DNR. Son is the surrogate decision-maker. Time Spent (mins): 17
[2020-06-13] MEDS ORDERED: Sterile Water 10 ML VIAL IVP SCH (01:45)
[2020-06-13] MEDS ORDERED: Activase 2 MG VIAL CATH SCH (01:45)
[2020-06-13 03:57] LABS: Band 6 % (5-11); Hemoglobin 13.3 g/dL (12.0-16.0); Lymphocytes 3 % (21-51); MDiff Complete? YES; Mean Corpuscular HGB CONC 32.7 g/dL (32.0-36.0); Mean Corpuscular Hemoglobin 32.5 pg (27.0-31.0); Mean Corpuscular Volume 99.6 fL (78.0-98.0); Mean Platelet Volume 9.5 fL (7.4-10.4); Monocytes 3 % (0-10); Neutrophil 88 % (42-75); Platelet Count 194 thou/uL (130-400); Platelet Morphology Comment Appears Adequate; Red Blood Cell (RBC) Count 4.09 mill/uL (4.20-5.40); White Blood Cell (WBC) Count 25.2 thou/uL (4.8-10.8)
[2020-06-13 04:04] LABS: Anion Gap 17 mmol/L (10-20); BUN (Urea Nitrogen) 14 mg/dL (9.8-20.1); Calc. Creatinine Clearance 38 mL/min (70-130); Calcium 8.7 mg/dL (7.8-10.44); Carbon Dioxide 23 mmol/L (23-31); Chloride 102 mmol/L (98-107); Estimated GFR-MDRD 61; Glucose 121 mg/dL (83-110); Potassium 3.8 mmol/L (3.5-5.1); Sodium 138 mmol/L (136-145)
--- NOTE | 2020-06-13 07:27 | CT ---
CTA CHEST WITH CONTRAST: Date: 06/12/2020 Axial tomograms obtained following angio protocol with multiplanar reconstruction and 3D postprocessi ng. INDICATION: Hypoxia. FINDINGS: Pulmonary arteries are well opacified. No evidence of pulmonary embolus. Review of lung sykes show chronic lung changes with emphysematous change and fibrotic stranding with interstitial thickening. Diffuse bilateral hazy ground-glass infiltrates are seen with mild vascular congestion. This could represent inflammatory infiltrate or edema. Small bilateral effusions. There is nonspecific mediastinal and hilar adenopathy. Osseous structures show mild wedging of several mid thoracic vertebra. No evidence of acute compressi on or fracture. IMPRESSION: 1. No evidence of pulmonary embolus. 2. Chronic lung parenchymal changes. Diffuse bilateral hazy ground-glass infiltrates involving both upper and lower lobes. 3. Small bilateral effusions. POS: AGW
[2020-06-13] MEDS ORDERED: FLU VACC QS2020-21(65YR UP)/PF 240 MCG/0.7 ML SYRINGE IM ONE (07:30)
--- NOTE | 2020-06-13 09:53 | CON ---
DATE OF CONSULTATION: 06/13/20 HISTORY OF PRESENT ILLNESS: Ms. Tate is a 79-year-old white female with ESRD - currently on maintenance hemodialysis, who was admitted for shortness of breath. Initial evaluation showed that she may have CHF and for that reason, she underwent emergent hemodialysis with fluid removal. Please note that the CAT scan suggested significant chronic lung disease with emphysema. There was some evidence of fluid in the lungs. Of interest, the patient's creatinine is noted to be normal after the emergent dialysis last night. It is possible she may be having a renal recovery, where I can get her off hemodialysis. Her breathing is much better this morning. REVIEW OF SYSTEMS: Positive for shortness of breath. No chest pain. No syncopal episode, status post confusion. No diarrhea. No constipation. No productive cough. No fever or chills. MEDICATIONS: Currently her medications includes the following, nitroglycerin as directed. PAST MEDICAL HISTORY: 1. ESRD - on maintenance hemodialysis. 2. Status post CHF. 3. History of tachybradycardia syndrome, hypertension, coronary artery disease, and recent diagnosis of COPD. PAST SURGICAL HISTORY: Status post AV fistula placement, status post cuffed hemodialysis catheter placement, status post appendectomy, status post pacemaker placement, status post back surgery, status post cardiac cath, and status post CABG. SOCIAL HISTORY: The patient lives in [place] [facility] living. One child. No IV drug abuse. Smoked heavily for 50 years one pack a day. Retired massage therapist. Previously lives in [place], [place]. ALLERGIES: LISINOPRIL AND CLOPIDOGREL. TRAUMA: None. IMMUNIZATION: Up-to-date. HOSPITALIZATIONS: Please see past medical history. FAMILY HISTORY: No family history of ESRD. PHYSICAL EXAMINATION: VITAL SIGNS: Blood pressure is 132/65, heart rate 79, respiratory rate 21, and O2 saturation 99%. GENERAL: Noted to be awake, alert, and comfortable, not in overt distress. SKIN: Adequate turgor. HEENT: Pinkish conjunctivae. Anicteric sclerae. NECK: No neck mass. No carotid bruits. No JVD. CHEST: No deformities. LUNGS: Clear. Decreased breath sounds. HEART: Normal sinus rhythm. No murmurs, gallops, or rubs. ABDOMEN: Globular, soft, and nontender. No masses. EXTREMITIES: No edema. No deformities. LABORATORY DATA: Laboratories of June 13, 2020, white count 25.2 and hemoglobin 13.3. Sodium 138, potassium was 3.8, chloride 102, carbon dioxide 23, BUN 14, creatinine 0.89, glucose 121, and calcium 8.7. Troponin I 0.034 and BNP is 1351. Chest x-ray of June 12, 2020, shows pulmonary edema and diffuse infiltrates. CT scan of the chest, June 12, 2020, shows no evidence of pulmonary embolism - chronic lung parenchymal changes with diffuse bilateral hazy ground-glass infiltrates involving both upper and lower lobes. There is also a small bilateral effusions. ASSESSMENT AND PLAN: 1. Shortness of breath, multifactorial etiology - could be a combination of CHF as well as chronic obstructive pulmonary disease exacerbation. Due to the much improved renal function, we will hold off dialysis temporarily. Start Lasix with this patient at 20 mg IV q.12. 2. End-stage renal disease - due to the much improved creatinine. We will hold off dialysis temporarily. 3. Continue supportive care. Recheck CBC and basic metabolic in a.m. Job ID: [id number] [facility]
[2020-06-13] MEDS: Cefepime 1 GM in Sodium Chloride 0.9% 100 ML IVPB SCH ×2 (11:15→20:23)
[2020-06-13] MEDS: methylPREDNISolone Sod Succ 40 MG VIAL IVP SCH ×2 (14:22→17:05)
[2020-06-13] MEDS: Furosemide 20 MG/2 ML VIAL SLOW IVP SCH (14:22)
--- NOTE | 2020-06-13 14:40 | PDOC.HOSPP ---
- Subjective Encounter Date: 06/13/20 Encounter Time: 12:10 Subjective: Patient is resting she has no complaints she came out of BiPAP. She had her dialysis last evening. She is satting 97% with 3 L oxygen. White count is elevated significantly. - Objective Vital Signs & Weight: Vital Signs (12 hours) Temp Pulse Pulse Pulse Resp BP BP 06/13/20 14:16 93 20 06/13/20 13:00 98.2 F 06/13/20 11:18 101 H 95 130/58 L 137/110 H 06/13/20 10:35 82 20 06/13/20 08:00 98.5 F 06/13/20 07:50 06/13/20 06:10 06/13/20 06:00 27 H 06/13/20 05:10 87 28 H 06/13/20 04:00 98.8 F 25 H Pulse Ox Pulse Ox Pulse Ox 06/13/20 14:16 97 06/13/20 13:00 06/13/20 11:18 93 L 94 L 06/13/20 10:35 95 06/13/20 08:00 06/13/20 07:50 100 06/13/20 06:10 100 06/13/20 06:00 06/13/20 05:10 100 06/13/20 04:00 Weight Admit Weight 102 lb Weight 102 lb 1.184 oz Most Recent Monitor Data Heart Rate from ECG 89 NIBP 144/74 NIBP BP-Mean 97 Respiration from ECG 31 SpO2 95 I&O: 06/12/20 06/13/20 06/14/20 06:59 06:59 06:59 Intake Total 580 Output Total 75 1 Balance -75 579 Result Diagrams: 06/13/20 03:25 06/13/20 03:25 Hospitalist ROS - Medication Medications: Active Medications Generic Name Dose Route Start Last Admin Trade Name Freq PRN Reason Stop Dose Admin Albuterol/Ipratropium 3 ml 06/13/20 11:00 06/13/20 14:16 Ipratropium/Albuterol Sulfate 3 Ml Neb NEB 3 ml [id number] FRANCOIS Administration Furosemide 20 mg 06/13/20 14:00 06/13/20 14:22 Furosemide 20 Mg/2 Ml Vial SLOW IVP 20 mg 0600,1400 FRANCOIS Administration Cefepime HCl 1 gm/ Sodium 100 mls @ 200 mls/hr 06/13/20 09:00 06/13/20 11:15 Chloride IVPB 100 mls Q12HR FRANCOIS Administration Methylprednisolone Sodium Succinate 40 mg 06/13/20 12:00 06/13/20 14:22 Methylprednisolone Sod Succ 40 Mg Vial IVP 40 mg Q6HR FRANCOIS Administration Sodium Chloride 10 ml 06/13/20 09:00 06/13/20 09:42 Flush - Normal Saline 10 Ml Syringe IVF 10 ml Q12HR FRANCOIS Administration - Exam General Appearance: NAD, awake alert Eye: PERRL ENT: normocephalic atraumatic Neck: supple Heart: RRR Respiratory: CTAB, normal chest expansion Gastrointestinal: soft, normal bowel sounds Neurological: no focal deficits Psychiatric: A&O x 3 Hosp A/P - Plan Shortness of breath (1) Pulmonary edema Emphysema with a chronic lung disease per CT scan Continue BiPAP therapy. Bronchodilators as needed -Improved after last evening dialysis. -Lites are better. (2) Acute respiratory failure with hypoxia Code(s): J96.01 - ACUTE RESPIRATORY FAILURE WITH HYPOXIA Status: Acute -As above (3) ESRD (end stage renal disease) on dialysis -She is a Saturday dialysis person and ? compliant -Dr. Hoff follows with us (4) Atrial fibrillation She is not on any rate control agent and her pulse in the 90s. She is also not on any anticoagulation. Only baby aspirin as home regimen. (5) CHF (congestive heart failure) -Acute on chronic systolic heart failure exacerbation On very low-dose Lasix 20 IV twice daily at this point Echo done in November 2019 shows EF of 50% and normal left ventricular size no mitral stenosis left atrial enlargement. Disposition inpatient rehab versus home has been discussed with the patient and she prefers to go home when medically stable.
[2020-06-13 15:15] LABS: #Basophils 0.1 thou/uL (0.0-0.2); #Eosinphils 0.1 thou/uL (0.0-0.7); #Lymphocytes 1.4 thou/uL (1.20-3.40); #Neutrophils 15.8 thou/uL (1.40-6.50); %Basophils 0.3 % (0.0-1.0); %Eosinophils 0.3 % (0.0-10.0); %Lymphocytes 7.8 % (21.0-51.0); %Monocytes 5.2 % (0.0-10.0); %Neutrophils 86.4 % (42.0-75.0); Hemoglobin 11.7 g/dL (12.0-16.0); Mean Corpuscular HGB CONC 32.1 g/dL (32.0-36.0); Mean Corpuscular Hemoglobin 31.8 pg (27.0-31.0); Mean Corpuscular Volume 98.9 fL (78.0-98.0); Mean Platelet Volume 9.5 fL (7.4-10.4); Platelet Count 212 thou/uL (130-400); RBC Distribution Width 13.9 % (11.5-14.5); Red Blood Cell (RBC) Count 3.68 mill/uL (4.20-5.40); White Blood Cell (WBC) Count 18.3 thou/uL (4.8-10.8)
--- NOTE | 2020-06-13 15:20 | CON ---
DATE OF CONSULTATION: HISTORY OF PRESENT ILLNESS: She sees Dr. Costa in the office, presented with shortness of breath. She has end-stage renal disease, being dialyzed 3 times a week, came in with worsening dyspnea. X-ray shows diffuse pulmonary infiltrates and small pleural effusion consistent with CHF. She was placed on BiPAP. Presently now on low-flow O2. She denies any pain or difficulty breathing. Former smoker. PAST MEDICAL HISTORY: COPD, end-stage renal disease, hypertension, coronary artery disease, and CHF. PAST SURGICAL HISTORY: Including bypass; back surgery, L4-L5; tonsillectomy; hysterectomy; appendectomy; and cataract surgery. SOCIAL HISTORY: Former smoker, quit smoking . No alcohol or drug abuse. ALLERGIES: PLAVIX, LISINOPRIL, AND STATINS. MEDICATIONS: Home medicine otherwise includes 1. CoQ10. 2. Aspirin. 3. Metamucil. REVIEW OF SYSTEMS: Negative. PHYSICAL EXAMINATION: VITAL SIGNS: On examination, saturations are 98% on 2 L, pulse 97, blood pressure 140/80, and respirations 18. CHEST: Decreased breath sounds. Bilateral crackles. No wheezing. CARDIAC: Normal S1 and S2. No gallops. ABDOMEN: No masses. LABORATORY DATA: White count 25,000, H and H are 13 and 40, and platelet count is normal. PO2 was 59, pCO2 of BiPAP. BUN and creatinine are normal. BNP is 1351. ASSESSMENT: 1. Congestive heart failure. 2. Renal failure. 3. Chronic obstructive pulmonary disease. PLAN: I have started steroids, empiric antibiotics because of her leukocytosis. She was started on diuretics by renal. Condition does not improve. She may be placed back on BiPAP. This is a consultation note, 70 minutes, 50% direct patient care. Job ID: [id number]
[2020-06-14] MEDS: methylPREDNISolone Sod Succ 40 MG VIAL IVP SCH ×2 (00:04→05:58)
[2020-06-14 04:48] LABS: #Lymphocytes 0.4 thou/uL (1.20-3.40); #Monocytes 0.2 thou/uL (0.11-0.59); #Neutrophils 11.3 thou/uL (1.40-6.50); %Basophils 0.1 % (0.0-1.0); %Lymphocytes 3.6 % (21.0-51.0); %Monocytes 1.7 % (0.0-10.0); %Neutrophils 94.7 % (42.0-75.0); Hemoglobin 11.5 g/dL (12.0-16.0); Mean Corpuscular HGB CONC 31.8 g/dL (32.0-36.0); Mean Corpuscular Hemoglobin 31.9 pg (27.0-31.0); Mean Platelet Volume 9.7 fL (7.4-10.4); Platelet Count 201 thou/uL (130-400); RBC Distribution Width 14.1 % (11.5-14.5); Red Blood Cell (RBC) Count 3.62 mill/uL (4.20-5.40); White Blood Cell (WBC) Count 11.9 thou/uL (4.8-10.8)
[2020-06-14 04:56] LABS: Band 4 % (5-11); Hemoglobin 11.5 g/dL (12.0-16.0); Hypochromia SLIGHT = 6-15 cells (100X) (0-5/hpf); Lymphocytes 3 % (21-51); MDiff Complete? YES; Mean Corpuscular Hemoglobin 31.8 pg (27.0-31.0); Mean Corpuscular Volume 99.6 fL (78.0-98.0); Mean Platelet Volume 10.1 fL (7.4-10.4); Monocytes 5 % (0-10); Neutrophil 88 % (42-75); Platelet Count 206 thou/uL (130-400); Platelet Morphology Comment Appears Adequate; RBC Distribution Width 13.9 % (11.5-14.5); Red Blood Cell (RBC) Count 3.62 mill/uL (4.20-5.40); White Blood Cell (WBC) Count 11.8 thou/uL (4.8-10.8)
[2020-06-14 05:04] LABS: Anion Gap 15 mmol/L (10-20); BUN (Urea Nitrogen) 33 mg/dL (9.8-20.1); Calc. Creatinine Clearance 27 mL/min (70-130); Calcium 8.9 mg/dL (7.8-10.44); Carbon Dioxide 24 mmol/L (23-31); Chloride 104 mmol/L (98-107); Estimated GFR-MDRD 42; Glucose 141 mg/dL (83-110); Potassium 4.1 mmol/L (3.5-5.1); Sodium 139 mmol/L (136-145)
[2020-06-14] MEDS: Furosemide 20 MG/2 ML VIAL SLOW IVP SCH ×2 (05:58→14:41)
--- NOTE | 2020-06-14 08:51 | RAD ---
PORTABLE CHEST: HISTORY: Pneumonia followup. Pulmonary edema. COMPARISON: 06/12/2020. FINDINGS: The bilateral diffuse hazy ground-glass infiltrates are again seen without significant change given t he differences in exposure. Pacemaker leads and central lines unchanged. IMPRESSION: Bilateral infiltrates probably not significantly changes. POS: AGW
[2020-06-14] MEDS: Cefepime 1 GM in Sodium Chloride 0.9% 100 ML IVPB SCH (08:57)
--- NOTE | 2020-06-14 09:05 | PRG ---
DATE OF SERVICE: 06/14/2020 SUBJECTIVE: Ms. Tate is a 79-year-old white female with ESRD-maintenance hemodialysis and admitted for CHF. She underwent emergent hemodialysis. She may also have simultaneous aggravation of her COPD. We noted that the creatinine has gone down to near normal levels. For this reason, we are going to place a hold on her dialysis. She may have had some renal recovery. In addition, she was started on Lasix for the CHF. This morning, she is feeling better. No complaints of chest pain or shortness of breath. OBJECTIVE: VITAL SIGNS: Blood pressure is 155/71, heart rate 87, respiratory rate 16, temperature 98, O2 saturation 94%. GENERAL: The patient is awake, sitting comfortable, not in distress. SKIN: Adequate turgor. HEENT: She has a pinkish conjunctivae. Anicteric sclerae. No neck mass. No carotid bruits. No JVD. CHEST: No deformities. LUNGS: Decreased breath sounds. HEART: Normal sinus rhythm. No murmurs, gallops, or rubs. ABDOMEN: Globular, soft, nontender. No masses. EXTREMITIES: No edema. No deformities. MEDICATIONS: Medications of June 14, 2020, were reviewed. LABORATORY DATA: Laboratories of June 14, 2020; white count 11.8, hemoglobin 11.5. Sodium 139, potassium 4.1, chloride 104, carbon dioxide 24, BUN 33, creatinine 1.24, glucose 42, calcium 8.9. Chest x-ray pending. ASSESSMENT AND PLAN: 1. Shortness of breath, multifactorial etiology - CHF with possible COPD exacerbation. Remains continuing current diuretic regimen. Holding off dialysis. 2. End-stage renal disease - creatinine yesterday was noted 0.89, currently 1.24. We will continue to hold off dialysis to see if she may have some partial renal recovery. No indication for any emergent hemodialysis today. Please note, hemoglobin is 11.5. No Epogen is needed. Agree with current management. Job ID: [id number]
--- NOTE | 2020-06-14 10:53 | PRG ---
DATE OF SERVICE: 06/14/2020 SUBJECTIVE: Darlin Tate says she is feeling better this morning, less short of breath, less coughing. OBJECTIVE: VITAL SIGNS: Temperature 98, pulse 87, saturations are 94% on 3 L, blood pressure 150/72. CHEST: Bilateral crackles. No wheezing. CARDIAC: Normal S1 and S2. No gallops. ABDOMEN: No masses. LABORATORY DATA: White count 11,000. Creatinine is 1.24 and BUN is 33, slightly increased. X-ray shows CHF. ASSESSMENT: Chronic obstructive pulmonary disease, azotemia, congestive heart failure. PLAN: Pulmonary jade, she is better. Continue present cardiac care. Started p.o. medicine. Disposition as per primary care physician. Job ID: [id number]
--- NOTE | 2020-06-14 11:43 | PDOC.HOSPP ---
- Subjective Encounter Date: 06/14/20 Encounter Time: 10:20 Subjective: Patient is sitting in the bed. She had a dialysis on Saturday. Dr. Hoff is following wondering whether it can be delayed as her kidney function seems to be improving. She usually does Saturday dialysis. She has no breathing trouble or shortness of breath at present. - Objective Vital Signs & Weight: Vital Signs (12 hours) Temp Pulse Pulse Pulse Resp BP BP 06/14/20 11:25 97.9 F 91 16 06/14/20 10:44 92 16 06/14/20 09:00 91 86 163/74 H 154/72 H 06/14/20 08:16 06/14/20 07:15 98.0 F 87 16 06/14/20 06:52 06/14/20 06:50 93 18 06/14/20 04:00 97.9 F 90 15 BP BP Pulse Ox Pulse Ox Pulse Ox 06/14/20 11:25 151/67 H 97 06/14/20 10:44 98 06/14/20 09:00 95 97 06/14/20 08:16 94 L 06/14/20 07:15 155/71 H 94 L 06/14/20 06:52 91 L 06/14/20 06:50 91 L 06/14/20 04:00 135/65 94 L Weight Admit Weight 102 lb Weight 115 lb 4.8 oz Most Recent Monitor Data Heart Rate from ECG 96 NIBP 144/74 NIBP BP-Mean 97 Respiration from ECG 29 SpO2 93 I&O: 06/13/20 06/14/20 06/15/20 06:59 06:59 06:59 Intake Total 1110 Output Total 75 2 Balance -75 1108 Result Diagrams: 06/14/20 03:52 06/14/20 03:52 Hospitalist ROS - Medication Medications: Active Medications Generic Name Dose Route Start Last Admin Trade Name Freq PRN Reason Stop Dose Admin Albuterol/Ipratropium 3 ml 06/13/20 11:00 06/14/20 10:44 Ipratropium/Albuterol Sulfate 3 Ml Neb NEB 3 ml [id number] FRANCOIS Administration Furosemide 20 mg 06/13/20 14:00 06/14/20 05:58 Furosemide 20 Mg/2 Ml Vial SLOW IVP 20 mg 0600,1400 FRANCOIS Administration Sodium Chloride 10 ml 06/13/20 09:00 06/14/20 08:56 Flush - Normal Saline 10 Ml Syringe IVF 10 ml Q12HR FRANCOIS Administration - Exam General Appearance: NAD, awake alert, ill appearing Eye: PERRL ENT: normocephalic atraumatic Neck: supple Heart: RRR Respiratory: CTAB Gastrointestinal: soft, normal bowel sounds Neurological: no focal deficits Psychiatric: A&O x 3 Hosp A/P - Plan Shortness of breath (1) Pulmonary edema Emphysema with a chronic lung disease per CT scan Continue BiPAP therapy. Bronchodilators as needed -Improved after last evening dialysis. -Lites are better. (2) Acute respiratory failure with hypoxia Code(s): J96.01 - ACUTE RESPIRATORY FAILURE WITH HYPOXIA Status: Acute -As above (3) ESRD (end stage renal disease) on dialysis -She is a Saturday dialysis person and ? compliant -Dr. Hoff follows with us (4) Atrial fibrillation She is not on any rate control agent and her pulse in the 90s. She is also not on any anticoagulation. Only baby aspirin as home regimen. (5) CHF (congestive heart failure) -Acute on chronic systolic heart failure exacerbation On very low-dose Lasix 20 IV twice daily at this point Echo done in November 2019 shows EF of 50% and normal left ventricular size no mitral stenosis left atrial enlargement. Disposition inpatient rehab versus home has been discussed with the patient and she prefers to go home when medically stable. Today's creatinine jumped to 1.24. Dr. Hoff is evaluating whether she needs ongoing dialysis. She is on Saturday dialysis Pending discharge to home after Dr. Goode's clearance
[2020-06-14] MEDS: Polyethylene Glycol 3350 17 GM Packet PO PRN (14:41)
[2020-06-14] MEDS: Acetaminophen 325 MG TAB PO PRN (18:35)
[2020-06-14] MEDS: Doxycycline 100 MG CAP PO SCH (21:09)
[2020-06-15 04:36] LABS: Band 4 % (5-11); Hemoglobin 10.3 g/dL (12.0-16.0); Lymphocytes 6 % (21-51); MDiff Complete? YES; Mean Corpuscular HGB CONC 31.9 g/dL (32.0-36.0); Mean Platelet Volume 9.9 fL (7.4-10.4); Monocytes 4 % (0-10); Neutrophil 86 % (42-75); Platelet Count 206 thou/uL (130-400); Platelet Morphology Comment Appears Adequate; Red Blood Cell (RBC) Count 3.22 mill/uL (4.20-5.40); White Blood Cell (WBC) Count 17.4 thou/uL (4.8-10.8)
[2020-06-15 04:41] LABS: Anion Gap 15 mmol/L (10-20); BUN (Urea Nitrogen) 61 mg/dL (9.8-20.1); Calc. Creatinine Clearance 28 mL/min (70-130); Calcium 9.2 mg/dL (7.8-10.44); Carbon Dioxide 23 mmol/L (23-31); Chloride 104 mmol/L (98-107); Estimated GFR-MDRD 38; Glucose 102 mg/dL (83-110); Potassium 3.2 mmol/L (3.5-5.1); Sodium 139 mmol/L (136-145)
[2020-06-15] MEDS: Furosemide 20 MG/2 ML VIAL SLOW IVP SCH ×2 (05:13→15:06)
[2020-06-15] MEDS: predniSONE 20 MG TAB PO SCH (08:06)
[2020-06-15] MEDS: Doxycycline 100 MG CAP PO SCH ×2 (08:06→21:05)
[2020-06-15] MEDS: Polyethylene Glycol 3350 17 GM Packet PO PRN (08:21)
[2020-06-15] MEDS ORDERED: Potassium Citrate 10 MEQ TAB PO SCH (08:45)
--- NOTE | 2020-06-15 08:57 | PRG ---
DATE OF SERVICE: 06/15/2020 SUBJECTIVE: Ms. Tate is a 79-year-old white female, who was admitted for shortness of breath. She was found to have some degree of CHF as well as COPD exacerbation. She underwent emergent hemodialysis. During the subsequent workup, I noted the renal function has much improved. We are holding her hemodialysis to see if she will have any renal recovery. We have also started on Lasix at 20 mg IV q.12h. Pulmonary is also following this patient. The patient complains of having some palpitation last night. She feels tired today. However, she denies any chest pain or shortness of breath. OBJECTIVE: VITAL SIGNS: Blood pressure 176/84, heart rate 89, respiratory rate 18, temperature 97.6, O2 saturation 97%. GENERAL: The patient is noted to be awake, alert, sitting comfortable, not in distress. SKIN: Adequate turgor. HEENT: Pinkish conjunctivae. Anicteric sclerae. No neck mass. No carotid bruits. No JVD. CHEST: No deformities. LUNGS: Clear breath sounds. HEART: Normal sinus rhythm. No murmurs, no gallops, no rubs. ABDOMEN: Globular, soft, nontender. No masses. EXTREMITIES: No edema. No deformities. MEDICATIONS: Medications of June 15, 2020, were reviewed. DIAGNOSTIC DATA: Chest x-ray of June 14, 2020, shows hazy ground-glass infiltrates - no changes compared with initial x-ray. LABORATORY DATA: Laboratories of June 15, 2020; white count 17.4, hemoglobin 10.3. Sodium 139, potassium 3.2, chloride 104, carbon dioxide 23, BUN 61, creatinine 1.36, GFR 38 mL/minute, glucose 102, calcium 9.2. ASSESSMENT AND PLAN: 1. Shortness of breath, multifactorial etiology - CHF with COPD exacerbation. Breathing is better. 2. Transient palpitation. Continue to observe. This patient has had a history of tachycardia in the past. She has a pacemaker noted. 3. End-stage renal disease - holding hemodialysis to check if she would have any evidence of renal recovery. No dialysis today. Recheck basic metabolic again in a.m. Please note, creatinine noted at 1.36. She is currently also on a Lasix regimen 20 mg IV q.12h. Job ID: [id number]
--- NOTE | 2020-06-15 11:56 | PDOC.HOSPP ---
- Subjective Encounter Date: 06/15/20 Encounter Time: 09:21 Subjective: Patient is doing well she had a dry cough. Feels quite tired. Her pacemaker does not seem to be interrogated lately. Remains current does not remember when it was interrogated. She has monitor at home that checks periodically. She is tachycardic her blood pressure is elevated. Her white count also jumped this morning. - Objective Vital Signs & Weight: Vital Signs (12 hours) Temp Pulse Pulse Pulse Resp BP BP 06/15/20 11:22 97.8 F 83 18 06/15/20 10:40 88 16 06/15/20 09:20 06/15/20 09:17 101 H 103 H 173/73 H 146/72 H 06/15/20 08:05 97.6 F 89 18 06/15/20 06:46 89 18 06/15/20 03:31 98.4 F 81 20 BP BP Pulse Ox Pulse Ox Pulse Ox 06/15/20 11:22 152/71 H 97 06/15/20 10:40 95 06/15/20 09:20 146/72 H 06/15/20 09:17 99 99 06/15/20 08:05 176/84 H 97 06/15/20 06:46 95 06/15/20 03:31 141/74 H 90 L Weight Admit Weight 102 lb Weight 114 lb 4.8 oz Most Recent Monitor Data Heart Rate from ECG 96 NIBP 144/74 NIBP BP-Mean 97 Respiration from ECG 29 SpO2 93 I&O: 06/14/20 06/15/20 06/16/20 06:59 06:59 06:59 Intake Total 1110 1410 Output Total 2 Balance 1108 1410 Result Diagrams: 06/15/20 03:38 06/15/20 03:38 Hospitalist ROS - Medication Medications: Active Medications Generic Name Dose Route Start Last Admin Trade Name Freq PRN Reason Stop Dose Admin Acetaminophen 650 mg 06/14/20 15:00 06/14/20 18:35 Acetaminophen 325 Mg Tab PO 650 mg Q6H PRN Administration Fever > 101 Albuterol/Ipratropium 3 ml 06/13/20 11:00 06/15/20 10:40 Ipratropium/Albuterol Sulfate 3 Ml Neb NEB 3 ml [id number] FRANCOIS Administration Doxycycline Hyclate 100 mg 06/14/20 21:00 06/15/20 08:06 Doxycycline 100 Mg Cap PO 06/21/20 21:01 100 mg BID FRANCOIS Administration Furosemide 20 mg 06/13/20 14:00 06/15/20 05:13 Furosemide 20 Mg/2 Ml Vial SLOW IVP 20 mg 0600,1400 FRANCOIS Administration Polyethylene Glycol 17 gm 06/14/20 09:56 06/15/20 08:21 Polyethylene Glycol 3350 17 Gm Packet PO 17 gm DAILY PRN Administration Constipation Prednisone 20 mg 06/15/20 08:00 06/15/20 08:06 Prednisone 20 Mg Tab PO 20 mg QAM-WM FRANCOIS Administration Sodium Chloride 10 ml 06/13/20 09:00 06/15/20 08:06 Flush - Normal Saline 10 Ml Syringe IVF 10 ml Q12HR FRANCOIS Administration - Exam General Appearance: NAD, awake alert Eye: PERRL ENT: normocephalic atraumatic Neck: supple Heart: RRR Respiratory: CTAB, normal chest expansion Gastrointestinal: soft, normal bowel sounds Psychiatric: A&O x 3 Hosp A/P - Plan Shortness of breath (1) Pulmonary edema Emphysema with a chronic lung disease per CT scan Continue BiPAP therapy. Bronchodilators as needed -Improved after last evening dialysis. -Lites are better. (2) Acute respiratory failure with hypoxia Code(s): J96.01 - ACUTE RESPIRATORY FAILURE WITH HYPOXIA Status: Acute -As above (3) ESRD (end stage renal disease) on dialysis -She is a Saturday dialysis person and ? compliant -Dr. Hoff follows with us (4) Atrial fibrillation She is not on any rate control agent and her pulse in the 90s. She is also not on any anticoagulation. Only baby aspirin as home regimen. (5) CHF (congestive heart failure) -Acute on chronic systolic heart failure exacerbation On very low-dose Lasix 20 IV twice daily at this point Echo done in November 2019 shows EF of 50% and normal left ventricular size no mi tral stenosis left atrial enlargement. Disposition inpatient rehab versus home has been discussed with the patient and she prefers to go home when medically stable. Today's creatinine jumped to 1.24. Dr. Hoff is evaluating whether she needs ongoing dialysis. She is on Saturday dialysis 7th Elevated white count -On doxycycline for COPD exacerbation. -She does have a chest x-ray showing bilateral infiltrate. -COVID negative -UA does bacteriuria. Leukocyte Estrace and nitrate negative. -Asymptomatic UTI -White count elevation due to COPD exacerbation plus being on prednisone currently. -Pacer has to be interrogated today. -She follows with Dr. Reed as outpatient We will monitor her CBC if it trended down probably then we can discharge her tomorrow Dr. Luis Eduardo potts with the discharge process
--- NOTE | 2020-06-15 12:04 | PRG ---
DATE OF SERVICE: 06/15/2020 SUBJECTIVE: A 79-year-old female. This morning, she is better, less cough, less shortness of breath. OBJECTIVE: VITAL SIGNS: Temperature 98, respirations 16, pulse 88, blood pressure 140/62, and sats 90% on 2 L. CHEST: No wheezing. No crackles. CARDIAC: Normal S1, S2. No gallops. ABDOMEN: Soft. LABORATORY DATA: BNP is elevated at 1372, creatinine 1.36, BUN 61. White count 17,000. Her last chest x-ray yesterday showed improvement in the ground-glass opacity. ASSESSMENT: Congestive heart failure, azotemia, cough. Not much for Pulmonary to offer at this stage. We will follow at a distance please call if needed. Job ID: [id number]
[2020-06-15 13:03] VITALS: BMI 19.0
[2020-06-16] MEDS: Furosemide 20 MG/2 ML VIAL SLOW IVP SCH (06:18)
[2020-06-16 06:42] LABS: Band 1 % (5-11); Eosinophils 1 % (0-10); Hemoglobin 11.2 g/dL (12.0-16.0); Hypochromia SLIGHT = 6-15 cells (100X) (0-5/hpf); Lymphocytes 10 % (21-51); MDiff Complete? YES; Mean Corpuscular HGB CONC 31.6 g/dL (32.0-36.0); Mean Corpuscular Hemoglobin 31.9 pg (27.0-31.0); Mean Platelet Volume 10.9 fL (7.4-10.4); Monocytes 1 % (0-10); Neutrophil 87 % (42-75); Platelet Count 221 thou/uL (130-400); Platelet Morphology Comment Appears Adequate; RBC Distribution Width 14.1 % (11.5-14.5); Red Blood Cell (RBC) Count 3.51 mill/uL (4.20-5.40); White Blood Cell (WBC) Count 12.9 thou/uL (4.8-10.8)
[2020-06-16] MEDS: predniSONE 20 MG TAB PO SCH (08:10)
[2020-06-16] MEDS: Doxycycline 100 MG CAP PO SCH ×2 (08:10→20:16)
[2020-06-16] MEDS ORDERED: Furosemide 20 MG TAB PO SCH (09:00)
--- NOTE | 2020-06-16 09:00 | PRG ---
DATE OF SERVICE: 06/16/20 SUBJECTIVE: Ms. Tate is a 79-year-old white female with ESRD, was admitted for shortness of breath. She was found to have COPD exacerbation/CHF. The patient underwent emergent hemodialysis. During this hospitalization, there was some significant improvement with the renal function. For that reason, I placed her dialysis on hold temporarily. It is possible she may be having some partial renal recovery. Her breathing is much improved. The patient denies any chest pain or shortness of breath. She is currently on a diuretic regimen. Pulmonary is evaluating this patient. No new complaints today. OBJECTIVE: VITAL SIGNS: Blood pressure 145/68, heart rate 75, respiratory rate 18, temperature 98.2, O2 saturation 93%. GENERAL: The patient is awake, alert, comfortable, not in overt distress. SKIN: Adequate turgor. HEENT: Pinkish conjunctivae. Anicteric sclerae. No neck mass. No carotid bruits. No JVD. CHEST: No deformities. LUNGS: Clear breath sounds. HEART: Normal sinus rhythm. No murmurs, gallops, or rubs. ABDOMEN: Globular, soft, nontender, no masses. EXTREMITIES: No edema, no deformities. MEDICATIONS: Medications of June 16, 2020, reviewed. LABORATORY DATA: Laboratories of June 16, 2020; white count 12.9, hemoglobin 11.2. June 15, 2020; BUN 61 and creatinine 1.36. June 16, 2020; awaiting basement. ASSESSMENT AND PLAN: 1. Shortness of breath, multifactorial etiology; chronic obstructive pulmonary disease exacerbation/congestive heart failure. We will change the Lasix from IV to p.o. Consider maintaining her on Lasix at 20 mg p.o. b.i.d. 2. End-stage renal disease. Holding off hemodialysis. Observe for possible partial renal recovery. Overall, agree with current management. Recheck basement CBC in a.m. Job ID: [id number] [facility]
[2020-06-16] MEDS: Furosemide 20 MG TAB PO SCH ×2 (09:14→13:55)
[2020-06-16 09:28] LABS: Anion Gap 16 mmol/L (10-20); BUN (Urea Nitrogen) 57 mg/dL (9.8-20.1); Calc. Creatinine Clearance 28 mL/min (70-130); Calcium 9.5 mg/dL (7.8-10.44); Carbon Dioxide 26 mmol/L (23-31); Chloride 105 mmol/L (98-107); Estimated GFR-MDRD 37; Glucose 90 mg/dL (83-110); Potassium 4.2 mmol/L (3.5-5.1); Sodium 143 mmol/L (136-145)
--- NOTE | 2020-06-16 13:23 | PDOC.HOSPP ---
- Subjective Encounter Date: 06/16/20 Encounter Time: 10:10 Subjective: He slept okay. Pacemaker has been interrogated. White count is trending down. Her potassium normalized. Participated with PT. able to walk around in the hallway without shortness of breath. she might not qualify for home oxygen - Objective Vital Signs & Weight: Vital Signs (12 hours) Temp Pulse Pulse Pulse Resp BP BP 06/16/20 10:32 90 14 06/16/20 08:38 83 84 180/85 H 184/89 H 06/16/20 08:00 98.2 F 75 18 06/16/20 07:20 80 16 BP Pulse Ox Pulse Ox Pulse Ox 06/16/20 10:32 06/16/20 08:38 98 92 L 06/16/20 08:00 145/68 H 93 L 06/16/20 07:20 Weight Admit Weight 102 lb 1.184 oz Weight 114 lb 4.8 oz Most Recent Monitor Data Heart Rate from ECG 96 NIBP 144/74 NIBP BP-Mean 97 Respiration from ECG 29 SpO2 93 I&O: 06/15/20 06/16/20 06/17/20 06:59 06:59 06:59 Intake Total 1410 2110 Balance 1410 2110 Result Diagrams: 06/16/20 03:30 06/16/20 04:40 Hospitalist ROS - Medication Medications: Active Medications Generic Name Dose Route Start Last Admin Trade Name Freq PRN Reason Stop Dose Admin Acetaminophen 650 mg 06/14/20 15:00 06/14/20 18:35 Acetaminophen 325 Mg Tab PO 650 mg Q6H PRN Administration Fever > 101 Albuterol/Ipratropium 3 ml 06/13/20 11:00 06/16/20 10:32 Ipratropium/Albuterol Sulfate 3 Ml Neb NEB 3 ml [id number] FRANCOIS Administration Doxycycline Hyclate 100 mg 06/14/20 21:00 06/16/20 08:10 Doxycycline 100 Mg Cap PO 06/21/20 21:01 100 mg BID FRANCOIS Administration Furosemide 20 mg 06/16/20 09:00 06/16/20 09:14 Furosemide 20 Mg Tab PO Not Given 0900,1400 FRANCOIS Polyethylene Glycol 17 gm 06/14/20 09:56 06/15/20 08:21 Polyethylene Glycol 3350 17 Gm Packet PO 17 gm DAILY PRN Administration Constipation Prednisone 20 mg 10/07/20 08:00 06/16/20 08:10 Prednisone 20 Mg Tab PO 20 mg QAM-WM FRANCOIS Administration Sodium Chloride 10 ml 06/13/20 09:00 06/16/20 08:11 Flush - Normal Saline 10 Ml Syringe IVF 10 ml Q12HR FRANCOIS Administration - Exam General Appearance: NAD, awake alert Eye: PERRL ENT: normocephalic atraumatic Neck: supple Heart: RRR Respiratory: CTAB, normal chest expansion Gastrointestinal: soft, normal bowel sounds Neurological: cranial nerve grossly intact, no focal deficits Psychiatric: A&O x 3 Hosp A/P - Plan Shortness of breath (1) Pulmonary edema Emphysema with a chronic lung disease per CT scan Continue BiPAP therapy. Bronchodilators as needed -Improved after last evening dialysis. -Lites are better. (2) Acute respiratory failure with hypoxia Code(s): J96.01 - ACUTE RESPIRATORY FAILURE WITH HYPOXIA Status: Acute -As above (3) ESRD (end stage renal disease) on dialysis -She is a Saturday dialysis person and ? compliant -Dr. Hoff follows with us (4) Atrial fibrillation She is not on any rate control agent and her pulse in the 90s. She is also not on any anticoagulation. Only baby aspirin as home regimen. (5) CHF (congestive heart failure) -Acute on chronic systolic heart failure exacerbation On very low-dose Lasix 20 IV twice daily at this point Echo done in November 2019 shows EF of 50% and normal left ventricular size no mitral stenosis left atrial enlargement. Disposition inpatient rehab versus home has been discussed with the patient and she prefers to go home when medically stable. Today's creatinine jumped to 1.24. Dr. Hoff is evaluating whether she needs ongoing dialysis. She is on Saturday dialysis 7th Elevated white count -On doxycycline for COPD exacerbation. -She does have a chest x-ray showing bilateral infiltrate. -COVID negative -UA does bacteriuria. Leukocyte Estrace and nitrate negative. -Asymptomatic UTI -White count elevation due to COPD exacerbation plus being on prednisone currently. -Pacer has to be interrogated today. -She follows with Dr. Reed as outpatient We will monitor her CBC if it trended down probably then we can discharge her tomorrow Dr. Hoff okay with the discharge process 8th Participated with PT. able to walk around in the hallway without shortness of breath. she might not qualify for home oxygen Pacemaker has been interrogated. She does not want to go to the rehab. Will plan for discharge tomorrow with p.o. doxycycline as well as prednisone.
[2020-06-17 04:36] LABS: Anion Gap 12 mmol/L (10-20); BUN (Urea Nitrogen) 52 mg/dL (9.8-20.1); Calc. Creatinine Clearance 30 mL/min (70-130); Calcium 9.6 mg/dL (7.8-10.44); Carbon Dioxide 30 mmol/L (23-31); Chloride 102 mmol/L (98-107); Estimated GFR-MDRD 43; Glucose 99 mg/dL (83-110); Potassium 3.7 mmol/L (3.5-5.1); Sodium 140 mmol/L (136-145)
[2020-06-17 07:25] VITALS: TEMP 98.5
[2020-06-17] MEDS: Furosemide 20 MG TAB PO SCH ×2 (08:32→14:21)
[2020-06-17] MEDS: Doxycycline 100 MG CAP PO SCH (08:32)
[2020-06-17] MEDS: predniSONE 20 MG TAB PO SCH (08:32)
--- NOTE | 2020-06-17 08:40 | PRG ---
DATE OF SERVICE: 06/17/2020 SUBJECTIVE: Ms. Tate is a 79-year-old white female who was initially admitted for shortness of breath. This was secondary to a COPD exacerbation/CHF. Clinically, much improved with her shortness of breath. In addition, during this hospitalization, we have placed on hold on her hemodialysis. Due to the fact that she may have recovered enough renal function where we can get her off dialysis. This morning, she voices no new complaints. No chest pain or shortness of breath. No acute events noted last night. OBJECTIVE: VITAL SIGNS: Blood pressure 141/67, heart rate 76, respiratory rate 18, O2 saturation 93%, and temperature 98.5. GENERAL: The patient is awake, alert, comfortable, not in distress. SKIN: Adequate turgor. HEENT: Pinkish conjunctivae. Anicteric sclerae. NECK: No neck mass. No carotid bruits. No JVD. CHEST: No deformities. LUNGS: Decreased breath sounds. HEART: Normal sinus rhythm. No murmurs, gallops, or rubs. ABDOMEN: Globular, soft, nontender. No masses. EXTREMITIES: No edema. No deformities. MEDICATIONS: Of June 17, 2020, reviewed. LABORATORY DATA: Of June 16, 2020; white count 12.9, hemoglobin 11.2. June 17, 2020; sodium 140, potassium 3.7, chloride 102, carbon dioxide 30, BUN 52, creatinine 1.2, glucose 99, and calcium 9.6. ASSESSMENT AND PLAN: 1. End-stage renal disease - I feel that the patient may have recovered enough kidney function where we can indefinitely hold off dialysis. Her dialysis was done several days ago. Creatinine is stable. She is not in overt volume overload. Potassium is acceptable. Continue to hold dialysis. If renal function remains stable, we will arrange for outpatient removal of her hemodialysis catheter. 2. Shortness of breath, clinically much improved, multifactorial etiology. Currently, on diuretics. Followed up by Pulmonary at the same time. Overall, agree with current management. Job ID: [id number]
[2020-06-17 11:15] VITALS: BP 144/72
[2020-06-17] MEDS: Acetaminophen 325 MG TAB PO PRN (11:28)
--- NOTE | 2020-06-17 13:08 | PDOC.EVN ---
Event Note - Event Note Event Note: COPD Exacerbation Acute hypoxic respiratory failure secondary to COPD exacerbation Hypoxia and shortness of breath with exertion Ambulatory hypoxia -Patient's desats with ambulation up to 85%. Even at rest she is dropping to 86%. With 2 L oxygen she is improving to 96%. She is eligible to get home oxygen. 2 L oxygen by nasal cannula. As well as portable O2 for ease.
--- NOTE | 2020-06-20 06:00 | PQF ---
Dear : Tia Guallpa Date 06/20/20 Please exercise your independent, professional judgment in responding to the clarification form. Clinical indicators are provided on the bottom of this form for your review Can you please further clarify ii NSTEMI is ruled in or ruled out? NSTEMI [ ] Ruled in diagnosis [ ] Continue to treat [ ] Resolved [ x ] Ruled out diagnosis [ ] Improving [ ] Cannot rule out diagnosis [ ] Other diagnosis please specify [ ] Unable to determine Physician Signature: Date/Time: For continuity of documentation, please document condition throughout progress notes and discharge summary. Thank You. To be completed by CDI/Coding staff for physician review: Present Clinical Indicators - Signs / Symptoms / Labs Results and Location in Medical Record [ x ] EKG:ST Segment Normal ED Provider pg.3 [ x ] Add Diagnosis NSTEMI ED Provider pg.3 [ x ] Shortness of Breath H and P pg.1 [ x ] Elevated Troponin likely secondary to reduced clearance by the kidney H and P pg.4 [ x ] Troponin 0.034H Laboratory Present Risk Factors Results and Location in Medical Record [ x ] HTN H and P pg.1 [ x ] ESRD H and P pg.1 [ x ] Former smoker H and P pg.2 [ x ] Acute respiratory failure H and P pg.4 [ x ] CHF H and P pg.4 [ x ] Afib H and P pg.4 [ x ] COPD Event Note Present Treatments Results and Location in Medical Record [ x ] Cardiology Consult Dr. Douglas 06/13 [ x ] Chest X ray 06/12 Chest X ray 06/12 [ x ] Chest/Thorax CTA 06/12 Chest/Thorax CTA 06/12 [ x ] IV Fluids MAR [ x ] Nitroglycerin 0.4mg IV MAR [ x ] EKG ED Provider pg.3 [ x ] Monitor Troponin H and P pg.5 CDS/Yard Driver Signature: Ananth Gamez Phone #: [phone] Date: 06/20/20 This is a permanent part of the Medical Record [facility]
--- NOTE | 2020-06-20 07:21 | DIS ---
DATE OF ADMISSION: 06/13/2020 DATE OF DISCHARGE: 06/17/2020 DISCHARGE DIAGNOSES: 1. Hypoxic respiratory failure secondary to chronic obstructive pulmonary disease exacerbation. 2. Emphysema with chronic lung disease. 3. End-stage renal disease, on dialysis, but recently came out of dialysis and does not require any further dialysis in the very near future. 4. Atrial fibrillation, not on any rate control or anticoagulant. 5. Acute on chronic systolic heart failure exacerbation. 6. Hypertensive urgency. DISCHARGE MEDICATIONS: 1. Lasix 20 mg twice a day. 2. Potassium chloride 10 mEq daily. 3. Doxycycline 100 mg twice a day for 5 days. 4. Prednisone 20 mg daily for 5 days. 5. Aspirin 81 mg daily. 6. Folic acid 1 mg daily. 7. Other vitamin supplements. CONSULTATIONS: 1. Pulmonary consult with Dr. Hand. 2. Dr. Hoff, franchise sales manager. PHYSICAL EXAMINATION ON THE DAY OF DISCHARGE: VITAL SIGNS: On the day of discharge, temperature is 98.5, pulse is 78, blood pressure 144/72, saturating 94% with 0.5 L oxygen by nasal cannula. GENERAL: The patient ambulated and she does require oxygen as listed below. LUNGS: Still have some crackles, otherwise unremarkable. HEART: Irregular rhythm, regular rate. EXTREMITIES: She does not have any appreciable pitting edema in the lower extremities. HOSPITAL COURSE: A 79-year-old female with a history of COPD and end-stage renal disease, on hemodialysis recently on Saturday, , and Saturday, presented with pulmonary congestion as well as shortness of breath. She was monitored closely with IV diuretics and she was weaned off from being on regular dialysis for the time being by Dr. Hoff. She had oxygen drops in the 80s with ambulation and that was addressed. With 2 L oxygen, her resting oxygen improved to 96%. A script given to get home oxygen. The patient is clinically stable to discharge home. DISCHARGE INSTRUCTIONS: 1. Activity as tolerated. 2. Regular diet. 3. Follow up with primary care in 1 week. Follow up with Dr. Hoff in 1 to 2 weeks. The clinic will call you for an appointment. Discharge time took over 35 minutes. Job ID: [id number] [facility]
[2020-06-22] MEDS ORDERED: cloNIDine 0.2mg/24 Hour PATCH TD SCH (09:00)
--- NOTE | 2020-06-25 11:40 | EKG ---
Test Reason : Blood Pressure : / mmHG Vent. Rate : 102 BPM Atrial Rate : 102 BPM P-R Int : 146 ms QRS Dur : 132 ms QT Int : 390 ms P-R-T Axes : 037 116 -21 degrees QTc Int : 508 ms Sinus tachycardia Left atrial enlargement Right bundle branch block Left posterior fascicular block Bifascicular block T wave abnormality, consider inferior ischemia Abnormal ECG Confirmed by KALIN DINH M.D. ([id number]), state editor CASE GILLETTE ([id number]) on 06/25/2020 11:40:29 AM Referred By: Confirmed By:KALIN DINH M.D.
== END 2020-06-17 15:20 | disposition home or self-care (01) | DRG 291 ==
LOC: ERS 20:05 → CCU 06-13 00:55 → 2NO 06-13 15:45
PROVIDERS: ADMIT Internal Medicine; ATTEND Internal Medicine
PROC: 5A09457 Assistance with Respiratory Ventilation, 24-96 Consecutive Hours, Continuous Positive Airway Pressure (ICD-10-PCS; 2020-06-13)
PROC: 5A1D70Z Performance of Urinary Filtration, Intermittent, Less than 6 Hours Per Day (ICD-10-PCS; principal; 2020-06-14)
PROC: 4B02XSZ Measurement of Cardiac Pacemaker, External Approach (ICD-10-PCS; 2020-06-16)
DX: I13.2 Hypertensive heart and chronic kidney disease with heart failure and with stage 5 chronic kidney disease, or end stage renal disease (principal); N18.6 End stage renal disease; J96.01 Acute respiratory failure with hypoxia; I50.23 Acute on chronic systolic (congestive) heart failure; N39.0 Urinary tract infection, site not specified; J43.9 Emphysema, unspecified; I48.0 Paroxysmal atrial fibrillation; Z99.2 Dependence on renal dialysis; I16.0 Hypertensive urgency; Z20.828 Contact with and (suspected) exposure to other viral communicable diseases; E78.5 Hyperlipidemia, unspecified; I49.5 Sick sinus syndrome; I25.10 Atherosclerotic heart disease of native coronary artery without angina pectoris; Z95.1 Presence of aortocoronary bypass graft; Z98.1 Arthrodesis status; Z87.891 Personal history of nicotine dependence; Z90.49 Acquired absence of other specified parts of digestive tract; Z90.710 Acquired absence of both cervix and uterus; Z88.8 Allergy status to other drugs, medicaments and biological substances
CPT/HCPCS: 36415; 71045; 71275; 80048; 80053; 81003; 81015; 82553; 82805; 83735; 83880; 84484; 85007; 85025; 85027; 85379; 86707; 87350; 90935; 93005; 93798; 94640; 94660; 96365; 96375; 99292; G0257; J0692; J1940; J2060; J2920; J3490; J7512; J7620; Q9967; U0002

== ENCOUNTER 2020-08-30 09:34 | Outpatient (CLI) | payer MEDICARE ==
--- NOTE | 2020-08-30 09:53 | RAD ---
2 view chest: [08/30/2020] Comparison:04/18/2020 HISTORY: Shortness of breath FINDINGS: There are increased linear interstitial densities noted with pulmonary hyperinflation, stab le when compared to the prior exam. The right-sided dialysis catheter has been removed since the prior exam. There is a stable dual lead transvenous pacing device present. Midline sternotomy wires n oted. No focal consolidation or alveolar edema. Multiple stable mid thoracic spine mild anterior wedge compression fractures are noted. IMPRESSION: Chronic findings as detailed above, not significantly changed when compared to the prior study.
== END 2020-08-30 09:35 | disposition home or self-care (01) ==
LOC: BICRAD 09:34
PROVIDERS: ATTEND Internal Medicine Critical Care Medicine
DX: R06.00 Dyspnea, unspecified (principal); J98.4 Other disorders of lung; R91.8 Other nonspecific abnormal finding of lung field; S22.000A Wedge compression fracture of unspecified thoracic vertebra, initial encounter for closed fracture
CPT/HCPCS: 71046

== ENCOUNTER 2021-02-21 09:43 | Inpatient (IN) | payer MEDICARE ==
[2021-02-21 10:31] LABS: #Eosinphils 0.1 thou/uL (0.0-0.7); #Lymphocytes 1.3 thou/uL (1.20-3.40); #Monocytes 0.7 thou/uL (0.11-0.59); #Neutrophils 17.2 thou/uL (1.40-6.50); %Eosinophils 0.3 % (0.0-10.0); %Lymphocytes 6.7 % (21.0-51.0); %Monocytes 3.8 % (0.0-10.0); %Neutrophils 89.2 % (42.0-75.0); Mean Corpuscular HGB CONC 32.4 g/dL (32.0-36.0); Mean Corpuscular Hemoglobin 31.9 pg (27.0-31.0); Mean Corpuscular Volume 98.3 fL (78.0-98.0); Platelet Count 267 thou/uL (130-400); RBC Distribution Width 13.9 % (11.5-14.5); Red Blood Cell (RBC) Count 3.77 mill/uL (4.20-5.40); White Blood Cell (WBC) Count 19.3 thou/uL (4.8-10.8)
[2021-02-21 10:50] LABS: ALT (SGPT) 8 U/L (8-55); AST (SGOT) 21 U/L (5-34); Albumin 4.1 g/dL (3.4-4.8); Alkaline Phosphatase 92 U/L (40-110); Anion Gap 22 mmol/L (10-20); BUN (Urea Nitrogen) 58 mg/dL (9.8-20.1); Bilirubin, Total 0.3 mg/dL (0.2-1.2); Calc. Creatinine Clearance 0 mL/min (70-130); Calcium 9.4 mg/dL (7.8-10.44); Carbon Dioxide 15 mmol/L (23-31); Chloride 106 mmol/L (98-107); Globulin 3.4 g/dL (2.4-3.5); Glucose 162 mg/dL (83-110); Magnesium 2.1 mg/dL (1.6-2.6); Potassium 4.8 mmol/L (3.5-5.1); Protein, Total 7.5 g/dL (5.8-8.1); Sodium 138 mmol/L (136-145)
[2021-02-21] MEDS ORDERED: levETIRAcetam 500 MG/100 ML PREMIX BAG ONE (11:38)
[2021-02-21] MEDS ORDERED: niCARdipine 20MG In NaCl 20 MG/200 ML BAG ONE (11:38)
[2021-02-21] MEDS ORDERED: Metoclopramide HCl 10 MG/2 ML VIAL ONE (11:38)
[2021-02-21] MEDS ORDERED: levETIRAcetam in NS 100 ML ONE (11:40)
[2021-02-21] MEDS ORDERED: Ondansetron PF 4 MG/2 ML Vial IVP PRN ×2 (12:16→14:06)
[2021-02-21] MEDS ORDERED: ADMIXTURE FEE IV SCH (13:30)
[2021-02-21] MEDS ORDERED: HUMAN PROTHROMBIN COMPLX IV SCH (13:30)
[2021-02-21] MEDS ORDERED: Furosemide 20 MG TAB PO SCH (14:00)
[2021-02-21] MEDS ORDERED: Morphine 4 MG/ML VIAL SLOW IVP PRN (14:06)
[2021-02-21] MEDS ORDERED: Morphine 2 MG/ML VIAL SLOW IVP PRN ×2 (14:06→19:45)
[2021-02-21 14:34] LABS: Actual Bicarbonate (HCO3v) 18 mEq/L (22-28); Analyzer IN Cardio ER; Base Excess -7.8 mEq/L (-2.0 to +3.0); Calcium, Ionized (venous) 1.13 mmol/L (1.16-1.32); Chloride (VBG) 105 mmol/L (98-106); Hemoglobin (Hb) 13.1 g/dL (11.7-16.1); Potassium (VBG) 4.68 mmol/L (3.70-5.30); Sodium 136.3 mmol/L (133-146)
[2021-02-21] MEDS: Sodium Chloride 0.9% 1,000 ML IV SCH (15:58)
[2021-02-21] MEDS ORDERED: Propofol 1,000 MG/100 ML VIAL IV ONE (18:50)
[2021-02-21] MEDS ORDERED: Midazolam HCl 2 mg/2 ml Vial ONE (18:50)
[2021-02-21] MEDS ORDERED: Ventilator Sedation Protocol 1 EACH FS SCH (19:22)
[2021-02-21 19:33] LABS: SARS-CoV-2 PCR by NAA Not Detected (NotDetected)
[2021-02-21] MEDS ORDERED: DISCONTINUE PREVIOUS NARCOTIC PAIN MEDICATIONS AND BENZODIAZEPINES FS SCH (19:45)
[2021-02-21] MEDS ORDERED: Fentanyl BOLUS 250 ML IVPB PRN (19:45)
[2021-02-21] MEDS ORDERED: Lorazepam 2 MG/ML VIAL SLOW IVP PRN (19:45)
[2021-02-21] MEDS ORDERED: Propofol 1,000 MG/100 ML VIAL IV PRN (19:45)
[2021-02-21] MEDS ORDERED: Fentanyl CADD 100 ML IV SCH (19:45)
[2021-02-21] MEDS ORDERED: Propofol BOLUS 1,000 MG/100 ML VIAL IV PRN (19:45)
[2021-02-21 19:46] LABS: Base Excess (BEa) -4.5 mEq/L (-2.0 to +3.0); CO2 Tension 35.3 mmHg (35.0-45.0); Calcium, Ionized (arterial) 1.18 mmol/L (1.12-1.30); Carboxyhemoglobin (COHb) 0.3 gm% (0.0-3.0); Hemoglobin (Hb) 12.3 g/dL (12.0-16.0); O2 Tension (PaO2), arterial 175.2 mmHg (> 70.0); Potassium - ABG Lab 4.89 mmol/L (3.70-5.30); pH, Arterial 7.37 (7.35-7.45)
[2021-02-21 19:47] LABS: ALV-art Gradient 65.875 mmHg (0-20); Puncture Site RRA
[2021-02-21] MEDS: niCARdipine 25 MG in Sodium Chloride 0.9% 250 ML 250 ML IVPB PRN (19:56)
[2021-02-21] MEDS: niMODipine 30 MG CAP PO SCH ×2 (20:29)
[2021-02-21] MEDS ORDERED: Famotidine/PF 20 mg/2ml Vial SLOW IVP SCH (21:00)
[2021-02-21] MEDS: levETIRAcetam in NS 500 MG in Premix Bag 1 BAG IVPB SCH (21:41)
[2021-02-22] MEDS: Pantoprazole 80 MG in Sodium Chloride 0.9% 100 ML IVPB SCH ×2 (00:24→13:34)
[2021-02-22] MEDS: niMODipine 30 MG CAP PO SCH ×6 (00:24→22:37)
[2021-02-22] MEDS: Sodium Chloride 0.9% 1,000 ML IV SCH ×3 (00:25→22:41)
[2021-02-22 03:16] LABS: Hemoglobin 11.3 g/dL (12.0-16.0); Mean Corpuscular HGB CONC 33.5 g/dL (32.0-36.0); Mean Corpuscular Hemoglobin 32.6 pg (27.0-31.0); Mean Corpuscular Volume 97.4 fL (78.0-98.0); Mean Platelet Volume 9.1 fL (7.4-10.4); Platelet Count 240 thou/uL (130-400); RBC Distribution Width 14.1 % (11.5-14.5); Red Blood Cell (RBC) Count 3.45 mill/uL (4.20-5.40); White Blood Cell (WBC) Count 17.9 thou/uL (4.8-10.8)
[2021-02-22 03:31] LABS: Lymphocytes 6 % (21-51); MDiff Complete? YES; Neutrophil 94 % (42-75); Platelet Morphology Comment Appears Adequate
[2021-02-22 03:37] LABS: Anion Gap 16 mmol/L (10-20); BUN (Urea Nitrogen) 48 mg/dL (9.8-20.1); Calc. Creatinine Clearance 23 mL/min (70-130); Calcium 9.2 mg/dL (7.8-10.44); Carbon Dioxide 15 mmol/L (23-31); Chloride 110 mmol/L (98-107); Glucose 134 mg/dL (83-110); Potassium 4.8 mmol/L (3.5-5.1); Sodium 136 mmol/L (136-145)
[2021-02-22] MEDS ORDERED: Lidocaine 0.5%/Epinephrine 1:200,000 50 ml Vial ONE (06:02)
[2021-02-22] MEDS ORDERED: Sodium Chloride 0.9% 20 ML ONE (06:03)
[2021-02-22] MEDS ORDERED: Bacitracin Zinc Ointment 30 gm TUBE ONE (06:03)
[2021-02-22] MEDS ORDERED: Thrombin 5000 UNITS/5 ML VIAL ONE (06:03)
[2021-02-22] MEDS ORDERED: Lidocaine 1% PF 5 ML VIAL ONE (06:39)
[2021-02-22] MEDS ORDERED: Rocuronium Bromide 10 MG/ML (10ML VIAL) ONE ×2 (06:39→14:15)
[2021-02-22] MEDS ORDERED: PHENYLEPHRINE-NS 100 MCG/ML 10 ML SYRINGE ONE ×2 (06:39→06:47)
[2021-02-22] MEDS ORDERED: PROPOFOL 200 MG/20 ML VIAL ONE (06:39)
[2021-02-22] MEDS ORDERED: Fentanyl 100 MCG/2 ML VIAL ONE ×2 (07:14→13:47)
[2021-02-22] MEDS ORDERED: Bacteriostatic Normal Saline 30 ML VIAL ONE ×3 (08:07→16:18)
[2021-02-22] MEDS: levETIRAcetam in NS 500 MG in Premix Bag 1 BAG IVPB SCH ×2 (09:39→22:35)
[2021-02-22] MEDS: Folic Acid 1 MG TAB PO SCH (09:39)
[2021-02-22] MEDS ORDERED: Heparin 10,000 UNITS/ 10 ML VIAL ONE (13:22)
[2021-02-22] MEDS ORDERED: Phenylephrine 10 MG/ML VIAL ONE (13:48)
[2021-02-22] MEDS: CEFAZOLIN 2 GM in Premix Bag 1 BAG IVPB SCH (18:14)
[2021-02-22] MEDS: niCARdipine 25 MG in Sodium Chloride 0.9% 250 ML 250 ML IVPB PRN (21:39)
[2021-02-23] MEDS: niMODipine 30 MG CAP PO SCH ×4 (01:22→13:04)
[2021-02-23] MEDS: CEFAZOLIN 2 GM in Premix Bag 1 BAG IVPB SCH ×2 (01:23→09:20)
[2021-02-23] MEDS: Pantoprazole 80 MG in Sodium Chloride 0.9% 100 ML IVPB SCH ×2 (02:02→13:04)
[2021-02-23 04:00] LABS: Hemoglobin 10.2 g/dL (12.0-16.0); Hypochromia SLIGHT = 6-15 cells (100X) (0-5/hpf); Lymphocytes 2 % (21-51); MDiff Complete? YES; Mean Corpuscular HGB CONC 33.2 g/dL (32.0-36.0); Mean Corpuscular Hemoglobin 32.5 pg (27.0-31.0); Mean Corpuscular Volume 97.8 fL (78.0-98.0); Mean Platelet Volume 9.9 fL (7.4-10.4); Monocytes 1 % (0-10); Neutrophil 97 % (42-75); Platelet Count 203 thou/uL (130-400); Platelet Morphology Comment Appears Adequate; RBC Distribution Width 14.1 % (11.5-14.5); Red Blood Cell (RBC) Count 3.15 mill/uL (4.20-5.40); White Blood Cell (WBC) Count 23.8 thou/uL (4.8-10.8)
[2021-02-23 05:38] VITALS: BMI 17.2
[2021-02-23 06:47] LABS: Actual Bicarbonate (HCO3a) 15.6 mEq/L (22-28); Base Excess (BEa) -8.4 mEq/L (-2.0 to +3.0); CO2 Tension 27.4 mmHg (35.0-45.0); Calcium, Ionized (arterial) 1.08 mmol/L (1.12-1.30); Hemoglobin (Hb) 9.9 g/dL (12.0-16.0); O2 Tension (PaO2), arterial 134.3 mmHg (> 70.0); Potassium - ABG Lab 3.41 mmol/L (3.70-5.30); pH, Arterial 7.37 (7.35-7.45)
[2021-02-23 06:49] LABS: Puncture Site RRA
[2021-02-23 07:32] VITALS: TEMP 98.6
[2021-02-23 08:27] LABS: Anion Gap 15 mmol/L (10-20); BUN (Urea Nitrogen) 33 mg/dL (9.8-20.1); Calc. Creatinine Clearance 24 mL/min (70-130); Calcium 8.5 mg/dL (7.8-10.44); Carbon Dioxide 13 mmol/L (23-31); Chloride 116 mmol/L (98-107); Glucose 108 mg/dL (83-110); Potassium 4.1 mmol/L (3.5-5.1); Sodium 140 mmol/L (136-145)
[2021-02-23] MEDS: levETIRAcetam in NS 500 MG in Premix Bag 1 BAG IVPB SCH (09:20)
[2021-02-23] MEDS: Folic Acid 1 MG TAB PO SCH (09:20)
[2021-02-23] MEDS: Sodium Chloride 0.9% 1,000 ML IV SCH (13:07)
[2021-02-23 15:19] VITALS: BP 127/61
== END 2021-02-23 17:00 | disposition short-term general hospital (02) | DRG 23 ==
LOC: ERS 09:43 → ERHOLD 11:48 → CCU 17:01 → ERHOLD 17:47 → CCU 19:32
PROVIDERS: ADMIT Internal Medicine; ATTEND Internal Medicine
PROC: 5A1945Z Respiratory Ventilation, 24-96 Consecutive Hours (ICD-10-PCS; 2021-02-21)
PROC: 0B918ZZ Drainage of Trachea, Via Natural or Artificial Opening Endoscopic (ICD-10-PCS; 2021-02-21)
PROC: 0BH18EZ Insertion of Endotracheal Airway into Trachea, Via Natural or Artificial Opening Endoscopic (ICD-10-PCS; 2021-02-21)
PROC: 009600Z Drainage of Cerebral Ventricle with Drainage Device, Open Approach (ICD-10-PCS; principal; 2021-02-22)
PROC: B3181ZZ Fluoroscopy of Bilateral Internal Carotid Arteries using Low Osmolar Contrast (ICD-10-PCS; 2021-02-22)
DX: I60.2 Nontraumatic subarachnoid hemorrhage from anterior communicating artery (principal); J96.01 Acute respiratory failure with hypoxia; I50.43 Acute on chronic combined systolic (congestive) and diastolic (congestive) heart failure; N17.9 Acute kidney failure, unspecified; G91.8 Other hydrocephalus; E87.2 Acidosis; I13.0 Hypertensive heart and chronic kidney disease with heart failure and stage 1 through stage 4 chronic kidney disease, or unspecified chronic kidney disease; Z20.822 Contact with and (suspected) exposure to COVID-19; N18.30 Chronic kidney disease, stage 3 unspecified; I65.22 Occlusion and stenosis of left carotid artery; I25.10 Atherosclerotic heart disease of native coronary artery without angina pectoris; J44.9 Chronic obstructive pulmonary disease, unspecified; I48.91 Unspecified atrial fibrillation; E78.2 Mixed hyperlipidemia; I25.5 Ischemic cardiomyopathy; E87.8 Other disorders of electrolyte and fluid balance, not elsewhere classified; I25.2 Old myocardial infarction; Z90.89 Acquired absence of other organs; Z90.49 Acquired absence of other specified parts of digestive tract; Z90.710 Acquired absence of both cervix and uterus; Z95.1 Presence of aortocoronary bypass graft; Z98.42 Cataract extraction status, left eye; Z98.41 Cataract extraction status, right eye; Z87.891 Personal history of nicotine dependence; Z88.8 Allergy status to other drugs, medicaments and biological substances; Z79.82 Long term (current) use of aspirin; Z79.899 Other long term (current) drug therapy; Z79.52 Long term (current) use of systemic steroids; Z95.0 Presence of cardiac pacemaker; Z82.3 Family history of stroke; Z82.49 Family history of ischemic heart disease and other diseases of the circulatory system; Z80.9 Family history of malignant neoplasm, unspecified; Z78.1 Physical restraint status; M81.0 Age-related osteoporosis without current pathological fracture
CPT/HCPCS: 36224; 36415; 36416; 36600; 70450; 70496; 70498; 71045; 80048; 80053; 82805; 83735; 83880; 84484; 85007; 85025; 85027; 93005; 94002; 94003; 96365; 96366; 96367; 96375; 99292; C1887; C9113; J0690; J1644; J1953; J2001; J2060; J2250; J2370; J2704; J2765; J3010; J3490; J7050; U0003; U0005